=== PATIENT | female | born 1930 | race Caucasian/White ===

== ENCOUNTER 2016-08-27 13:32 | Emergency (ER) ==
[2016-08-27 13:43] VITALS: BP 115/80; TEMP 97.5; BMI 34.4
[2016-08-27] MEDS ORDERED: CLARITIN PO STA (13:54)
--- NOTE | 2016-08-27 14:01 | ED.PDOC ---
General ED Provider: Dr. CARLI HIGGINS JR Chief Complaint: Cough Stated Complaint: "I cough and cough and cough." phlegm white, yellow. Nasal congestion nasal drainage. Thick yellow nasal discharge. MD reports 3 bottles Robitussin DM [ End ]over a week 97.5 93 20 92% 115/80 8/10 Time Seen by Physician: 14:03 Mode of Arrival: Wheelchair Information Source: Patient Exam Limitations: No limitations Primary Care Provider: JASMIN MALLOY Nursing and Triage Documentation Reviewed and Agree: No Review of Systems - Review Of Systems Constitutional: Reports: Malaise, Weakness Eyes: Reports: Vision change Ears, Nose, Mouth, Throat: Reports: No symptoms Respiratory: Reports: Cough Cardiac: Reports: Edema GI: Reports: No symptoms : Reports: No symptoms Musculoskeletal: Reports: Back pain Skin: Reports: No symptoms Neurological: Reports: Weakness Endocrine: Reports: No symptoms Hematologic/Lymphatic: Reports: No symptoms All Other Systems: Other Past Medical History - Past Medical History Endocrine: Reports: DM 2, Hypothyroid, Dyslipidemia Cardiovascular: Reports: Hypertension, CHF, A-Fib Respiratory: Reports: COPD Hematological: Reports: Anemia Gastrointestinal: Reports: Unknown Genitourinary: Reports: UTI (chronic), CKD Neuro/Psych: Reports: Depression Musculoskeletal: Reports: Arthritis, Back Pain Cancer: Reports: Unknown Last Menstrual Period: unknown Other Pertinent Past Medical History: HIATAL HERNIA - Surgical History General Surgical History: Reports: Other (CORNEAL TRANSPLANT(L), RIGHT NEPHRECTOMY) - Family History Family History: Reports: Unknown - Social History Smoking Status: Never smoker Hx Substance Use: No Alcohol Screening: None Physical Exam - Physical Exam Appearance: Ill-appearing Ill-appearing: Mild Pain Distress: Mild Eyes: Left pupil size (cloudy cornea) Respiratory: Airway patent, Crackles (bilateral coarse) Skin: Warm, Dry Neurological: Sensation intact, Alert, Oriented Psychiatric: Affect appropriate Interpretation - Radiology Interpretation Radiology Interpretation By: Radiologist Radiology Results: No acute changes Exam Interpreted: CXR - EKG Interpretation Time of EKG #1: 14:09 Rhythm: Other (? paced at 78) Interpretation: poor capture of baseline afib -per Dr Malloy needs pacemaker clinic Critical Care Note - Critical Care Note Total Time (mins): 0 Course - Course Hematology/Chemistry: 08/27/16 14:10 08/27/16 14:10 Orders, Labs, Meds: Lab Review 08/27/16 08/27/16 13:53 14:10 WBC 7.85 RBC 4.26 Hgb 13.7 Hct 40.3 MCV 94.6 MCH 32.2 H MCHC 34.0 RDW Coeff of Elier 13.1 Plt Count 302 Immature Gran % (Auto) 0.8 Neut % (Auto) 60.9 Lymph % (Auto) 25.2 [place] % (Auto) 7.9 Eos % (Auto) 3.7 Baso % (Auto) 1.5 Immature Gran # (Auto) 0.1 Neut # 4.8 Lymph # 2.0 [place] # 0.6 Eos # 0.3 Baso # 0.1 Puncture Site Lbrach O2 Saturation 94.0 L ABG pH 7.425 ABG pCO2 38.8 ABG pO2 70.0 L ABG HCO3 25.4 ABG Total CO2 27 ABG Base Excess 1 FiO2 % 21.0 Sodium 140 Potassium 4.1 Chloride 104 Carbon Dioxide 25 Anion Gap 15.1 BUN 17 Creatinine 1.02 Estimated GFR (MDRD) 51.00 BUN/Creatinine Ratio 16.66 Glucose 130 H Lactic Acid 20.9 H Calcium 9.6 Total Bilirubin 0.42 AST 16 ALT 13 Alkaline Phosphatase 94 Troponin I < 0.0100 B-Natriuretic Peptide 169 H Total Protein 7.9 Albumin 3.7 Globulin 4.2 Albumin/Globulin Ratio 0.88 Procalcitonin < 0.05 Orders Category Date Time Status ABG DRAW REQUEST Stat CARDIO 08/27/16 13:53 Completed EKG-(ED ONLY) Stat CARDIO 08/27/16 13:53 Completed ED IV/MEDIPORT/POWERPORT .ONCE EMERGENCY 08/27/16 13:53 Active ABG Stat LAB 08/27/16 13:53 Completed B-TYPE NATRIURETIC PEPTIDE Stat LAB 08/27/16 14:10 Completed BLOOD CULTURE Stat LAB 08/27/16 14:10 Received CBC W/ AUTO DIFF Stat LAB 08/27/16 14:10 Completed COMPREHENSIVE METABOLIC PANEL Stat LAB 08/27/16 14:10 Completed LACTIC ACID Stat LAB 08/27/16 14:10 Completed PROCALCITONIN Stat LAB 08/27/16 14:10 Completed TROPONIN I Stat LAB 08/27/16 14:10 Completed 0.9 % Sodium Chloride [Saline Flush] MEDS 08/27/16 13:53 Active 1 syr IVF PRN PRN Hydrocodone/Chlorphen Polis [Tussionex] MEDS 08/27/16 14:34 Discontinued 5 ml PO ONCE STA Loratadine [Claritin] MEDS 08/27/16 13:54 Discontinued 10 mg PO ONCE STA Oxycodone-Acetaminophe 7.5-325 [Percocet 7.5-325] MEDS 08/27/16 16:24 Discontinued 1 tab PO ONCE STA CHEST, 1V AP ONLY Stat RADS 08/27/16 13:53 Completed Medications Generic Name Dose Route Start Last Admin Trade Name Freq PRN Reason Stop Dose Admin Sodium Chloride 1 syr 08/27/16 13:53 Saline Flush IVF PRN PRN To flush IV Discontinued Medications Generic Name Dose Route Start Last Admin Trade Name Freq PRN Reason Stop Dose Admin Chlorphenir/Hydrocodone Polistirex 5 ml 08/27/16 14:34 08/27/16 14:54 Tussionex PO 08/27/16 14:35 5 ml ONCE STA Administration Loratadine 10 mg 08/27/16 13:54 08/27/16 14:31 Claritin PO 08/27/16 13:55 10 mg ONCE STA Administration Oxycodone/Acetaminophen 1 tab 08/27/16 16:24 Percocet 7.5-325 PO 08/27/16 16:25 ONCE STA Vital Signs: Temp Pulse Resp BP Pulse Ox 08/27/16 13:33 97.5 F L 93 H 20 115/80 92 L Departure - Departure Time of Disposition: 16:26 Disposition: HOME SELF-CARE Discharge Problem: Cough Pacemaker malfunction Qualifiers: Encounter type: initial encounter Qualifier Code: (T82.111A) Breakdown ( mechanical) of cardiac pulse generator (battery), initial encounter Edema leg Qualifiers: Laterality: bilateral Qualifier Code: (R60.0) Localized edema Instructions: Heart Block (ED), Edema (ED) Condition: Fair Pt referred to PMD for follow-up: Yes Additional Instructions: will leave cough medication prescription with registration for 'Candy Augstin(daughter)' IN ER ELEVATE LEGS 2 HOURS THREE TIMES A DAY TO REDUCE SWELLING SOLUCORTEF 100MG IM DAILY FOR CONGESTION ROBITUSSIN AC FOR COUGH MAY TAKE COUGH MEDICATION WITH PAIN MEDICATION -HOLD IF DROWSY RECHECK PMD THIS WEEK NEED TO CALL PACEMAKER CLINIC- HAVE TECH COME AND EVALUATE MALFUNCTION (KIM AT [facility]) ([facility] [place]) WILL NEED TO BE SEEN BY DEVICE [facility]INIC [facility] Prescriptions: Guaifenesin/Codeine Phosphate [Robitussin AC Syrup] 10 ml PO Q6H PRN #240 ml PRN Reason: Cough Allergies/Adverse Reactions: Allergies Penicillins Adverse Reaction (Verified 08/27/16 13:43) Home Medications: Ambulatory Orders Carvedilol [Coreg] 6.25 mg PO BID 06/15/13 Digoxin 125 mcg PO DAILY 06/15/13 Docusate Sodium [Colace] 100 mg PO BID 06/15/13 Furosemide [Lasix Tab] 40 mg PO DAILY 06/15/13 Gabapentin [Neurontin] 100 mg PO BID 06/15/13 Nifedipine [Procardia Xl] 60 mg PO DAILY 06/15/13 Aspirin [Aspirin Chewable] 81 mg PO DAILYWM 10/08/14 Potassium Chloride [Klor-Con 10] 10 meq PO DAILY 10/08/14 Acyclovir [Zovirax] 400 mg PO BID 01/28/16 Duloxetine HCl 30 mg PO DAILY 01/28/16 Ferrous Sulfate 325 mg PO BID 01/28/16 Guaifen/Dextromethorphan/PE [Robitussin M-S Cold Cf Max Liq] 10 ml PO Q6HR PRN 01/28/16 Hydrocodone Bit/Acetaminophen [[place] 7.5-325] 1 each PO 0600,1200,1800,1159 Nystatin [Nystop Powder] 1 applic TP Q4HR PRN 01/28/16 Oxycodone-Acetaminophe 7.5-325 [Percocet 7.5-325] 1 tab PO BID PRN 01/28/16 Pantoprazole Sodium [Protonix] 40 mg PO DAILY 01/28/16 Ropinirole HCl [Requip] 0.5 mg PO BID 01/28/16 Sennosides [Senokot] 8.6 mg PO BID PRN 01/28/16 Ipratropium/Albuterol Neb [Duoneb] 1 vial NEB RTQ8H #30 vial.neb 01/31/16 Alprazolam [Xanax] 0.25 mg PO BID 08/27/16 Guaifenesin/Codeine Phosphate [Robitussin AC Syrup] 10 ml PO Q6H PRN #240 ml Lisinopril [Zestril] 5 mg PO DAILY 08/27/16 Magnesium Citrate [Citrate of Magnesia] 10 oz PO DIRECTED PRN 08/27/16
--- NOTE | 2016-08-27 14:12 | DI ---
EXAM: Single frontal view of the chest HISTORY: Chest pain. COMPARISON: Chest x-ray 01/31/2060 FINDINGS: The cardiomediastinal silhouette is mildly enlarged. The left chest wall generator and le ad wires are unchanged. There is a moderate hiatal hernia. There is no pneumothorax or pleural eff usion. There is no consolidation, nodule or mass. The osseous structures are unremarkable. IMPRESSION: No acute cardiopulmonary process with a moderate hiatal hernia.
[2016-08-27 14:22] LABS: ABG BASE EXCESS 1 (-2.0-2.0); ABG HCO3 25.4 (22.0-26.0); ABG PCO2 38.8 mmHg (35-45); ABG PH 7.425 (7.35-7.45); ABG TCO2 27 (22.0-28.0)
[2016-08-27 14:22] LABS: BASOPHILS # (AUTO) 0.1 K/uL (0-0.2); BASOPHILS % (AUTO) 1.5 % (0.0-3.0); EOSINOPHILS # (AUTO) 0.3 K/ul (0.0-0.7); EOSINOPHILS % (AUTO) 3.7 % (0.0-7.0); HEMATOCRIT 40.3 % (37.0-47.0); HEMOGLOBIN 13.7 g/dl (12.0-16.0); IMMATURE GRANULOCYTE % (AUTO) 0.8 % (0.0-5.0); LYMPHOCYTES % (AUTO) 25.2 (10.0-50.0); MEAN CORPUSCULAR HEMOGLOBIN 32.2 pg (27.0-31.0); MEAN CORPUSCULAR VOLUME 94.6 fl (81.0-99.0); MONOCYTES # (AUTO) 0.6 K/uL (0.4-2.0); MONOCYTES % (AUTO) 7.9 (0-10); NEUTROPHILS # (AUTO) 4.8 K/ul (2.0-6.9); NEUTROPHILS % (AUTO) 60.9; PLATELET COUNT 302 10^3/uL (140-440); RED BLOOD COUNT 4.26 10^6/ul (4.20-5.40); WHITE BLOOD COUNT 7.85 K/ul (4.6-10.2)
[2016-08-27] MEDS ORDERED: TUSSIONEX PO STA (14:34)
[2016-08-27 14:46] LABS: ALANINE AMINOTRANSFERASE 13 U/L (12-78); ALBUMIN 3.7 g/dL (3.4-5.0); ALBUMIN/GLOBULIN RATIO 0.88; ALKALINE PHOSPHATASE 94 U/L (53-141); ANION GAP 15.1; ASPARTATE AMINO TRANSFERASE 16 U/L (15-37); BILIRUBIN,TOTAL 0.42 mg/dL (0.00-1.20); BLOOD UREA NITROGEN 17 mg/dL (7-18); BUN/CREATININE RATIO 16.66; CALCIUM 9.6 mg/dL (8.2-10.2); CARBON DIOXIDE 25 mmol/L (23-31); CHLORIDE 104 mmol/L (98-107); CREATININE 1.02 mg/dL (0.60-1.30); GLUCOSE 130 mg/dL (82-115); POTASSIUM 4.1 mmol/L (3.5-5.10); SODIUM 140 mmol/L (136-145); TOTAL PROTEIN 7.9 g/dL (5.8-8.1)
[2016-08-27] MEDS ORDERED: PERCOCET 7.5-325 PO STA (16:24)
[2016-08-27] MEDS ORDERED: SOLU-CORTEF 100 MG IM STA (16:55)
== END 2016-08-27 17:30 | disposition home or self-care (01) ==
LOC: ED 13:32
DX: R05 Cough (principal); R60.0 Localized edema; T82.111A Breakdown (mechanical) of cardiac pulse generator (battery), initial encounter; M54.9 Dorsalgia, unspecified; E11.9 Type 2 diabetes mellitus without complications; E03.9 Hypothyroidism, unspecified; E78.5 Hyperlipidemia, unspecified; I10 Essential (primary) hypertension; I50.9 Heart failure, unspecified; D64.9 Anemia, unspecified; H53.9 Unspecified visual disturbance; I48.91 Unspecified atrial fibrillation; N18.9 Chronic kidney disease, unspecified; J44.9 Chronic obstructive pulmonary disease, unspecified; M19.90 Unspecified osteoarthritis, unspecified site; Z95.0 Presence of cardiac pacemaker; Z79.899 Other long term (current) drug therapy
CPT/HCPCS: 36415; 80053; 82803; 83605; 83880; 84145; 84484; 85025; 87040; 93005; 93010; 96372; 99283

== ENCOUNTER 2016-09-25 10:38 | Outpatient (CLI) ==
--- NOTE | 2016-09-26 10:33 | ECHOCOLOR ---
Date of Exam: 09/25/16 Ordering Physician: [facility] Reason for Echo: 09/25/16 ELMER WEAVER MD M-Mode Normal Adult Results LV Dimensions Normal Adult Results AoV Opening excursions >1.6 >1.6 LVEDD-base- 3.5-5.8 4.3 Ao root dimensions 2.0-3.7 3.3 LVESD-base- 3.1-4.6 L. Atrium dimensions 1.9-3.8 3.8 Post. Wall thickness 0.8-1.1 1.1 IV septum (thickness) 0.7-1.2 1.1 Post. Wall excursion 0.72-1.3 NORMAL Septal motion NORMAL Systolic motion R. Ventricular cavity 1.5-2.0 NORMAL LVEF 60% 68% Paradoxical septal wall motion NORMAL 2-D: 2-D M Mode Echocardiogram was performed using apical four chamber and left parasternal long and short axis views. Mitral, tricuspid and aortic valves appear to be normal. Contractility of the left ventricle seems to be normal, so is the cavity size. Left atrial cavity size and aortic root appear to be normal. There is no pericardial effusion. There is no thrombus noted in the left ventricular or left aortic cavity. No mitral valve prolapse noted. DOPPLER WITH COLOR FLOW: IVC COLLAPSES WELL, VALVULAR FLOW INDICES--NORMAL, MILD TRICUSPID REGURGITATION, MILD MITRAL REGURGITATION, TRIVIAL PULMONARY REGURGITATION M-MODE: MV: NORMAL AV: NORMAL TV: NORMAL PV: CHAMBER SIZE: NORMAL WALL MOTION: NORMAL PERICARDIUM: NORMAL INTERPRETATION: 1. NORMAL 2 "D" "M" MODE ECHO 2. MILD TRICUSPID AND MITRAL REGURGITATION AND TRIVIAL PULMONARY REGURGITATION MTDD
== END 2016-09-25 10:39 | disposition home or self-care (01) ==
LOC: CAR 10:38
PROVIDERS: ATTEND Family Medicine
DX: R01.1 Cardiac murmur, unspecified (principal); I50.20 Unspecified systolic (congestive) heart failure

== ENCOUNTER 2016-12-17 13:27 | Outpatient (CLI) ==
[2016-11-22 14:56] VITALS: BMI 36.6
[2016-12-17 14:12] LABS: BILIRUBIN,URINE 1+ (NEGATIVE); KETONES,URINE Trace (NEGATIVE); LEUKOCYTE ESTERASE ,URINE 3+ (NEGATIVE); NITRITE,URINE Positive (NEGATIVE); PH,URINE 5.5 (5-9); PROTEIN,URINE 2+ (NEGATIVE); URINE, BLOOD 2+ (NEGATIVE)
[2016-12-17 14:14] LABS: ADD URINE MICROSCOPIC YES
== END 2016-12-17 13:28 | disposition home or self-care (01) ==
LOC: NONPT 13:27
PROVIDERS: ATTEND Internal Medicine
DX: R30.0 Dysuria (principal)
CPT/HCPCS: 81001; 87086

== ENCOUNTER 2017-01-16 12:32 | Inpatient (IN) ==
[2017-01-16 12:59] LABS: BASOPHILS # (AUTO) 0.1 K/uL (0-0.2); BASOPHILS % (AUTO) 0.7 % (0.0-3.0); EOSINOPHILS # (AUTO) 0.4 K/ul (0.0-0.7); EOSINOPHILS % (AUTO) 3.3 % (0.0-7.0); HEMATOCRIT 38.9 % (37.0-47.0); IMMATURE GRANULOCYTE % (AUTO) 0.4 % (0.0-5.0); LYMPHOCYTES # (AUTO) 1.6 K/uL (0.60-3.4); LYMPHOCYTES % (AUTO) 14.1 (10.0-50.0); MEAN CORPUSCULAR HEMOGLOBIN 30.8 pg (27.0-31.0); MEAN CORPUSCULAR HGB CONC 33.4 (31.8-35.4); MEAN CORPUSCULAR VOLUME 92.2 fl (81.0-99.0); MONOCYTES % (AUTO) 8.6 (0-10); NEUTROPHILS # (AUTO) 8.1 K/ul (2.0-6.9); NEUTROPHILS % (AUTO) 72.9; PLATELET COUNT 272 10^3/uL (140-440); RED BLOOD COUNT 4.22 10^6/ul (4.20-5.40); WHITE BLOOD COUNT 11.08 K/ul (4.6-10.2)
[2017-01-16 13:28] LABS: ALBUMIN/GLOBULIN RATIO 0.75; ANION GAP 12.1; BILIRUBIN,TOTAL 0.47 mg/dL (0.00-1.20); BUN/CREATININE RATIO 20.98; CALCIUM 8.9 mg/dL (8.2-10.2); CREATININE 0.81 mg/dL (0.60-1.30); POTASSIUM 4.1 mmol/L (3.5-5.10)
--- NOTE | 2017-01-16 13:36 | ED.PDOC ---
General ED Provider: Dr. GUANACO LEVI Chief Complaint: Abdominal Pain Stated Complaint: abdominal pain Time Seen by Physician: 12:33 Mode of Arrival: Walk-In Information Source: Patient, Half-Way, EMT Exam Limitations: No limitations Primary Care Provider: GARETH JOHNSON Nursing and Triage Documentation Reviewed and Agree: Yes GI Complaint Exam - Vomiting/Diarrhea Complaint/Exam Onset/Duration: today has had a few episodes of loose stools Symptoms Are: Resolved Episodes of Vomiting over last 24 Hours: 0 Episodes of Diarrhea Over Last 24 Hours: 4 Initial Severity: Mild Current Severity: Mild Character of Vomiting: Reports: Non-bilious Character of Diarrhea: Reports: Watery Aggravating: Reports: None Alleviating: Reports: None Associated Signs and Symptoms: Denies: Dizziness, Light-headedness, Melena, Hematemesis, Fever, Abdominal pain, Cramping Related History: Reports: Similar episode Non-GI Risk Factors: Reports: None Surgical Obstruction Risk Factors: Reports: None Related Surgical History: Reports: None Abdominal Findings: Present: None Review of Systems - Review Of Systems Constitutional: Reports: No symptoms Eyes: Reports: No symptoms Ears, Nose, Mouth, Throat: Reports: No symptoms Respiratory: Reports: No symptoms Cardiac: Reports: No symptoms GI: Reports: Abdominal pain, Diarrhea : Reports: No symptoms Musculoskeletal: Reports: No symptoms Skin: Reports: No symptoms Neurological: Reports: No symptoms Endocrine: Reports: No symptoms Hematologic/Lymphatic: Reports: No symptoms All Other Systems: Reviewed and Negative Past Medical History - Past Medical History Previously Healthy: Yes Endocrine: Reports: DM 2, Hypothyroid, Dyslipidemia Cardiovascular: Reports: Hypertension, CHF, A-Fib Respiratory: Reports: COPD Hematological: Reports: Anemia Gastrointestinal: Reports: Unknown Genitourinary: Reports: UTI (chronic), CKD Neuro/Psych: Reports: Depression Musculoskeletal: Reports: Arthritis, Back Pain Cancer: Reports: Unknown Last Menstrual Period: N/A Other Pertinent Past Medical History: HIATAL HERNIA - Surgical History General Surgical History: Reports: Other (CORNEAL TRANSPLANT(L), RIGHT NEPHRECTOMY) - Family History Family History: Reports: Unknown - Social History Smoking Status: Never smoker Hx Substance Use: No Alcohol Screening: None - Immunizations Tetanus Shot up to Date: No Physical Exam - Physical Exam Appearance: Well-appearing, No pain distress, Well-nourished Eyes: GAL, EOMI, Conjunctiva clear ENT: Ears normal, Nose normal, Oropharynx normal Respiratory: Airway patent, Breath sounds clear, Breath sounds equal, Respirations nonlabored Cardiovascular: RRR, Pulses normal, No rub, No murmur GI/: Soft, Nontender, No masses, Bowel sounds normal, No Organomegaly Musculoskeletal: Normal strength, ROM intact, No edema, No calf tenderness Skin: Warm, Dry, Normal color Neurological: Sensation intact, Motor intact, Reflexes intact, Cranial nerves intact, Alert, Oriented Psychiatric: Affect appropriate, Mood appropriate Interpretation - Radiology Interpretation Radiology Interpretation By: Radiologist Radiology Results: No acute changes Critical Care Note - Critical Care Note Total Time (mins): 0 Course - Course Hematology/Chemistry: 01/16/17 12:57 01/16/17 12:57 Orders, Labs, Meds: Lab Review 01/16/17 01/16/17 12:57 12:57 WBC 11.08 H RBC 4.22 Hgb 13.0 Hct 38.9 MCV 92.2 MCH 30.8 MCHC 33.4 RDW Coeff of [place] 13.5 Plt Count 272 Immature Gran % (Auto) 0.4 Neut % (Auto) 72.9 Lymph % (Auto) 14.1 [place] % (Auto) 8.6 Eos % (Auto) 3.3 Baso % (Auto) 0.7 Immature Gran # (Auto) 0.0 Neut # 8.1 H Lymph # 1.6 [place] # 1.0 Eos # 0.4 Baso # 0.1 Sodium 139 Potassium 4.1 Chloride 108 H Carbon Dioxide 23 Anion Gap 12.1 BUN 17 Creatinine 0.81 Estimated GFR (MDRD) 67.00 BUN/Creatinine Ratio 20.98 Glucose 124 H Calcium 8.9 Total Bilirubin 0.47 AST 11 L ALT 12 Alkaline Phosphatase 83 Total Protein 7.0 Albumin 3.0 L Globulin 4.0 Albumin/Globulin Ratio 0.75 Orders Category Date Time Status C-DIFF MONITORING (NURSING) BID CARE 01/16/17 12:52 Active CBC W/ AUTO DIFF Stat LAB 01/16/17 12:57 Completed COMPREHENSIVE METABOLIC PANEL Stat LAB 01/16/17 12:57 Completed c-diff [C. DIFFICILE] Routine LAB 01/16/17 12:[address] ABDOMEN/PELVIS WO CONTRAST Stat RADS 01/16/17 12:50 Ordered Vital Signs: Temp Pulse Resp BP Pulse Ox 01/16/17 12:33 100.8 F H 100 H 20 106/78 93 L Departure - Departure Time of Disposition: 13:37 Disposition: HOME SELF-CARE Discharge Problem: Abdominal pain Diarrhea Qualifiers: Diarrhea type: unspecified type Qualified Code(s): R19.7 - Diarrhea, unspecified Instructions: Acute Diarrhea (ED) Condition: Good Pt referred to PMD for follow-up: Yes Additional Instructions: Please call your Family Physician as soon as possible to schedule a follow-up appointment. Allergies/Adverse Reactions: Allergies Penicillins Adverse Reaction (Verified 11/22/16 10:34) Home Medications: Ambulatory Orders Carvedilol [Coreg] 6.25 mg PO BID 06/15/13 Digoxin 125 mcg PO DAILY 06/15/13 Docusate Sodium [Colace] 100 mg PO BID 06/15/13 Furosemide [Lasix Tab] 40 mg PO DAILY 06/15/13 Gabapentin [Neurontin] 100 mg PO BID 06/15/13 Nifedipine [Procardia Xl] 60 mg PO DAILY 06/15/13 Aspirin [Aspirin Chewable] 81 mg PO DAILYWM 10/08/14 Potassium Chloride [Klor-Con 10] 10 meq PO DAILY 10/08/14 Acyclovir [Zovirax] 400 mg PO BID 01/28/16 Duloxetine HCl 30 mg PO DAILY 01/28/16 Ferrous Sulfate 325 mg PO BID 01/28/16 Guaifen/Dextromethorphan/PE [Robitussin M-S Cold Cf Max Liq] 10 ml PO Q4HR PRN 01/28/16 Hydrocodone Bit/Acetaminophen [[place] 7.5-325] 1 each PO Q6H 01/28/16 Nystatin [Nystop Powder] 1 applic TP Q4HR PRN 01/28/16 Pantoprazole Sodium [Protonix] 40 mg PO DAILY 01/28/16 Ropinirole HCl [Requip] 0.5 mg PO BID 01/28/16 Sennosides [Senokot] 8.6 mg PO BID PRN 01/28/16 Alprazolam [Xanax] 0.25 mg PO BID 08/27/16 Magnesium Citrate [Citrate of Magnesia] 10 oz PO PRN PRN 08/27/16 Acetaminophen [Acetaminophen Extra Strength] 500 mg PO Q12H PRN 11/22/16 Ipratropium/Albuterol Neb [Duoneb] 1 vial NEB RTQ8H PRN 11/22/16 Losartan Potassium [Cozaar] 50 mg PO DAILY 11/22/16 Shahriar/Polymyx B Sulf/Dexameth [Maxitrol Opth Oint] 1 applic LEFTEYE BID 11/22/16 Sennosides [Senna] 8.6 mg PO DAILY 11/22/16 Disposition Discussed With: Patient
--- NOTE | 2017-01-16 14:31 | CT ---
EXAM: CT of the abdomen pelvis without contrast History: Abdominal pain. Comparison: CT abdomen pelvis 11/22/2016 Technique: Multiplanar CT images through the abdomen pelvis were obtained without the administration of IV contrast Findings: Right basilar lung consolidation. No acute osseous abnormalities. Degenerative changes of the lumbar spine. Hiatal hernia again identified. Cholecystectomy clips. No focal liver or splenic lesions. Absent r ight kidney. Left kidney is within normal limits. No peripancreatic inflammation. There is some at rophy of the pancreas. Adrenal glands are unremarkable. There are a few borderline dilated loops of small bowel. There is fluid seen throughout the colon. Colonic diverticulosis. No free air. Blad edna is not well distended but there is no focal bladder wall thickening. Uterus is not seen. No per irectal inflammation. Impression: 1. Gastroenteritis. 2. The mildly dilated loops of small bowel are probably related to the enteritis or ileus. Early de veloping partial small bowel obstruction is not excluded but considered less likely. 3. Right lower lobe pneumonia. 4. Hiatal hernia. 5. Diverticulosis.
[2017-01-16] MEDS ORDERED: ROCEPHIN 1 GM in SODIUM CHLORIDE 50 ML IV STA (14:53)
[2017-01-16] MEDS ORDERED: DUONEB NEB PRN (14:54)
[2017-01-16] MEDS: SODIUM CHLORIDE 1,000 ML IV SCH (15:12)
[2017-01-16 15:49] LABS: CREATINE KINASE 26 U/L
[2017-01-16] MEDS: NORCO 7.5-325 PO SCH ×2 (15:50→20:43)
[2017-01-16] MEDS ORDERED: VANCOMYCIN 1 GM in SODIUM CHLORIDE 250 ML IV SCH ×2 (16:00→17:00)
[2017-01-16 16:10] VITALS: BMI 36.8
[2017-01-16] MEDS ORDERED: ROCEPHIN ONE (16:32)
[2017-01-16] MEDS: XANAX PO SCH (20:43)
[2017-01-16] MEDS: COREG PO SCH (20:43)
[2017-01-16] MEDS: NEURONTIN PO SCH (20:43)
[2017-01-16] MEDS: DUONEB NEB SCH (21:19)
[2017-01-17] MEDS: VANCOMYCIN 750 MG in SODIUM CHLORIDE 250 ML IV SCH ×3 (00:30→22:06)
[2017-01-17] MEDS: NORCO 7.5-325 PO SCH ×4 (02:12→22:20)
[2017-01-17] MEDS: DUONEB NEB SCH ×4 (05:16→19:24)
[2017-01-17 05:51] LABS: BASOPHILS # (AUTO) 0.1 K/uL (0-0.2); BASOPHILS % (AUTO) 0.8 % (0.0-3.0); EOSINOPHILS # (AUTO) 0.3 K/ul (0.0-0.7); EOSINOPHILS % (AUTO) 3.4 % (0.0-7.0); HEMATOCRIT 36.9 % (37.0-47.0); HEMOGLOBIN 12.3 g/dl (12.0-16.0); IMMATURE GRANULOCYTE % (AUTO) 0.2 % (0.0-5.0); LYMPHOCYTES % (AUTO) 23.9 (10.0-50.0); MEAN CORPUSCULAR HEMOGLOBIN 30.9 pg (27.0-31.0); MEAN CORPUSCULAR HGB CONC 33.3 (31.8-35.4); MEAN CORPUSCULAR VOLUME 92.7 fl (81.0-99.0); MONOCYTES # (AUTO) 0.7 K/uL (0.4-2.0); MONOCYTES % (AUTO) 7.8 (0-10); NEUTROPHILS # (AUTO) 5.4 K/ul (2.0-6.9); NEUTROPHILS % (AUTO) 63.9; PLATELET COUNT 288 10^3/uL (140-440); RED BLOOD COUNT 3.98 10^6/ul (4.20-5.40)
[2017-01-17] MEDS: PHENERGAN WITH CODEINE 6.25/10 MG/5 ML PO PRN ×2 (06:01→18:20)
[2017-01-17] MEDS: LASIX TAB PO SCH (06:01)
[2017-01-17 06:12] LABS: ALBUMIN 2.9 g/dL (3.4-5.0); ALBUMIN/GLOBULIN RATIO 0.78; ANION GAP 11.6; BILIRUBIN,TOTAL 0.39 mg/dL (0.00-1.20); BUN/CREATININE RATIO 19.17; CALCIUM 8.6 mg/dL (8.2-10.2); CREATININE 0.73 mg/dL (0.60-1.30); POTASSIUM 3.6 mmol/L (3.5-5.10); TOTAL PROTEIN 6.6 g/dL (5.8-8.1)
[2017-01-17 06:32] LABS: TROPONIN I 0.032 ng/ml (0.0000-0.4000)
[2017-01-17] MEDS ORDERED: NON-FORMULARY MEDICATION (Potassium Chloride [Klor-Con 10] 10 MEQ) PO SCH ×22 (09:00)
[2017-01-17] MEDS ORDERED: NON-FORMULARY MEDICATION (Losartan Potassium 50 MG) PO SCH (09:00)
[2017-01-17] MEDS ORDERED: NIFEDIPINE 60 MG PO SCH (09:00)
[2017-01-17] MEDS: ROCEPHIN 1 GM in SODIUM CHLORIDE 50 ML IV SCH (09:39)
[2017-01-17] MEDS: TESSALON PERLES PO SCH ×3 (09:39→22:05)
[2017-01-17] MEDS: XANAX PO SCH ×2 (09:39→22:20)
[2017-01-17] MEDS: LANOXIN PO SCH (09:40)
[2017-01-17] MEDS: ASPIRIN CHEWABLE PO SCH (09:40)
[2017-01-17] MEDS: PROCARDIA XL PO SCH (09:40)
[2017-01-17] MEDS: COZAAR PO SCH (09:40)
[2017-01-17] MEDS: NEURONTIN PO SCH ×2 (09:40→22:05)
[2017-01-17] MEDS: COREG PO SCH ×3 (09:40→16:38)
[2017-01-17] MEDS: MICRO-K CAP PO SCH (09:40)
[2017-01-17] MEDS: SODIUM CHLORIDE 1,000 ML IV SCH ×3 (09:41→18:20)
--- NOTE | 2017-01-17 11:28 | PCM.PROG ---
Attending Provider: ATTENDING PROVIDER: Dr. GARETH [facility]NS[facility] DATE OF SERVICE: 01/17/17 SUBJECTIVE: This 86 year old WHITE/ F was hospitalized 01/16/17. She is admitted with right lower lobe pneumonia, health care facility acquired. She hasn't had any more diarrhea. She is feeling much better, cough medications are helping. No fever, no chills. REVIEW OF SYSTEMS: CONSTITUTIONAL: No fever, no chills. ENDOCRINE: No weight loss or weight gain. HEENT: No sinus drainage, no sore throat. CVS: No angina symptoms. No CHF symptoms. No palpitations. No atypical chest pain for CAD. No shortness of breath. RESPIRATORY: No cough, no hemoptysis. GI: No melena. No abdominal pain. No nausea, no vomiting. : No hematuria. No polyuria. SKIN: No rash. No wounds. MUSCULOSKELETAL: No pain. MEDICAL ASSEMBLY: No blackout, no dizziness. No headache. No double vision. PSYCHIATRIC: Not anxious; no depression. No suicidal thoughts. No homicidal thoughts. PHYSICAL EXAMINATION: GENERAL: Sitting in bed in no distress. VITAL SIGNS: Temperature 98 F, Pulse 89, Respiratory Rate 14, BP 122/82, Pulse Ox 97% HEENT: Normocephalic, atraumatic. Mucosa is dry, pallor positive. NECK: No JVP, no carotid bruit. No lymphadenopathy. CARDIAC: S1, S2, no S3. No murmur, gallop or regurgitation. LUNGS: Decreased entry with basilar crackles right more than left. ABDOMEN: Soft, non-tender. Bowel sounds active. No rigidity, guarding or CVA tenderness. EXTREMITIES: 1+ edema. No clubbing or cyanosis. NEUROLOGIC: Awake, alert and oriented x3. LYMPHATIC: No palpable lymph nodes SKIN: Not dry. Intact. MUSCULOSKELETAL: No joint swelling. LAB REVIEW: 01/17/17 05:30 01/17/17 05:30 01/17/17 05:30: Sodium 141, Potassium 3.6, Chloride 109 H, Carbon Dioxide 24, Anion Gap 11.6, BUN 14, Creatinine 0.73, Estimated GFR (MDRD) 76.00, BUN/ Creatinine Ratio 19.17, Glucose 114, Calcium 8.6, Total Bilirubin 0.39, AST 12 L , ALT 10 L, Alkaline Phosphatase 77, Total Protein 6.6, Albumin 2.9 L, Globulin 3.7, Albumin/Globulin Ratio 0.78 01/17/17 05:30: WBC 8.50, RBC 3.98 L, Hgb 12.3, Hct 36.9 L, MCV 92.7, MCH 30.9, MCHC 33.3, RDW Coeff of [place] 13.4, Plt Count 288, Immature Gran % (Auto) 0.2, Neut % (Auto) 63.9, Lymph % (Auto) 23.9, [place] % (Auto) 7.8, Eos % (Auto) 3.4, Baso % (Auto) 0.8, Immature Gran # (Auto) 0.0, Neut # 5.4, Lymph # 2.0, [place] # 0.7, Eos # 0.3, Baso # 0.1 01/17/17 05:30: Total Creatine Kinase 29, Troponin I 0.0320 01/16/17 15:17: Procalcitonin 0.10 01/16/17 15:17: Lactic Acid 13.0 01/16/17 15:17: Total Creatine Kinase 26, Troponin I < 0.0100 ASSESSMENT: 1. Left eye blindness 2. Health care facility pneumonia [facility] care facility pneumonia right lower lobe 3. C. diff 4. Diabetes mellitus 5. Dyslipidemia 6. Depression 7. DJD spine 8. Chronic pain syndrome PLAN: 1. Continue Vancomycin and Rocephin 2. Duonebs 3. Continue IV fluids, decrease to 40 mL/hr 4. C. diff pending Plan and coordination of the patient's care discussed in the presence of Ornamental Bronze Worker and nurse. CONDITION: SCRIBED BY: LISS ROMO, [employer] Sales Representative scribed while in presence of service performed by Dr. GARETH JOHNSON-[facility] on 01/17/17 ([id number])
[2017-01-18] MEDS: NORCO 7.5-325 PO SCH ×5 (00:50→21:01)
[2017-01-18] MEDS: DUONEB NEB SCH ×4 (05:13→19:55)
[2017-01-18 05:36] LABS: BASOPHILS # (AUTO) 0.1 K/uL (0-0.2); BASOPHILS % (AUTO) 1.1 % (0.0-3.0); EOSINOPHILS # (AUTO) 0.3 K/ul (0.0-0.7); EOSINOPHILS % (AUTO) 4.1 % (0.0-7.0); HEMATOCRIT 39.2 % (37.0-47.0); HEMOGLOBIN 12.8 g/dl (12.0-16.0); LYMPHOCYTES # (AUTO) 2.3 K/uL (0.60-3.4); LYMPHOCYTES % (AUTO) 27.8 (10.0-50.0); MEAN CORPUSCULAR HEMOGLOBIN 30.1 pg (27.0-31.0); MEAN CORPUSCULAR HGB CONC 32.7 (31.8-35.4); MEAN CORPUSCULAR VOLUME 92.2 fl (81.0-99.0); MONOCYTES # (AUTO) 0.6 K/uL (0.4-2.0); MONOCYTES % (AUTO) 7.3 (0-10); NEUTROPHILS # (AUTO) 4.8 K/ul (2.0-6.9); NEUTROPHILS % (AUTO) 58.7; PLATELET COUNT 291 10^3/uL (140-440); RED BLOOD COUNT 4.25 10^6/ul (4.20-5.40); WHITE BLOOD COUNT 8.09 K/ul (4.6-10.2)
[2017-01-18 05:50] LABS: ALBUMIN/GLOBULIN RATIO 0.86; ANION GAP 12.9; BILIRUBIN,TOTAL 0.33 mg/dL (0.00-1.20); BUN/CREATININE RATIO 15.38; CALCIUM 9.2 mg/dL (8.2-10.2); CREATININE 0.78 mg/dL (0.60-1.30); POTASSIUM 3.9 mmol/L (3.5-5.10); TOTAL PROTEIN 6.5 g/dL (5.8-8.1)
[2017-01-18] MEDS: LASIX TAB PO SCH (05:53)
[2017-01-18] MEDS: XANAX PO SCH ×2 (08:46→21:01)
[2017-01-18] MEDS: TESSALON PERLES PO SCH ×3 (08:46→21:01)
[2017-01-18] MEDS: PROCARDIA XL PO SCH (08:46)
[2017-01-18] MEDS: ROCEPHIN 1 GM in SODIUM CHLORIDE 50 ML IV SCH (08:46)
[2017-01-18] MEDS: COREG PO SCH ×2 (08:46→16:34)
[2017-01-18] MEDS: ASPIRIN CHEWABLE PO SCH (08:46)
[2017-01-18] MEDS: NEURONTIN PO SCH ×2 (08:46→21:01)
[2017-01-18] MEDS: COZAAR PO SCH (08:47)
[2017-01-18] MEDS: LANOXIN PO SCH (08:47)
[2017-01-18] MEDS: MICRO-K CAP PO SCH (08:48)
[2017-01-18] MEDS: VANCOMYCIN 750 MG in SODIUM CHLORIDE 250 ML IV SCH (09:58)
[2017-01-18] MEDS: VANCOMYCIN 500 MG in SODIUM CHLORIDE 100 ML IV SCH (21:01)
[2017-01-19] MEDS: NORCO 7.5-325 PO SCH ×4 (02:15→20:03)
[2017-01-19] MEDS: PHENERGAN WITH CODEINE 6.25/10 MG/5 ML PO PRN ×2 (02:15→20:07)
[2017-01-19] MEDS: SODIUM CHLORIDE 1,000 ML IV SCH (02:47)
[2017-01-19] MEDS: DUONEB NEB SCH ×4 (05:12→19:01)
[2017-01-19 05:23] LABS: BASOPHILS # (AUTO) 0.1 K/uL (0-0.2); BASOPHILS % (AUTO) 1.5 % (0.0-3.0); EOSINOPHILS # (AUTO) 0.3 K/ul (0.0-0.7); EOSINOPHILS % (AUTO) 3.6 % (0.0-7.0); HEMATOCRIT 43.1 % (37.0-47.0); HEMOGLOBIN 13.9 g/dl (12.0-16.0); IMMATURE GRANULOCYTE % (AUTO) 1.7 % (0.0-5.0); LYMPHOCYTES # (AUTO) 2.3 K/uL (0.60-3.4); LYMPHOCYTES % (AUTO) 25.7 (10.0-50.0); MEAN CORPUSCULAR HEMOGLOBIN 30.3 pg (27.0-31.0); MEAN CORPUSCULAR HGB CONC 32.3 (31.8-35.4); MEAN CORPUSCULAR VOLUME 94.1 fl (81.0-99.0); MONOCYTES # (AUTO) 0.6 K/uL (0.4-2.0); MONOCYTES % (AUTO) 7.1 (0-10); NEUTROPHILS # (AUTO) 5.4 K/ul (2.0-6.9); NEUTROPHILS % (AUTO) 60.4; PLATELET COUNT 179 10^3/uL (140-440); RED BLOOD COUNT 4.58 10^6/ul (4.20-5.40); WHITE BLOOD COUNT 8.87 K/ul (4.6-10.2)
[2017-01-19 05:36] LABS: ALBUMIN 3.1 g/dL (3.4-5.0); ALBUMIN/GLOBULIN RATIO 0.78; ANION GAP 10.8; BILIRUBIN,TOTAL 0.27 mg/dL (0.00-1.20); BUN/CREATININE RATIO 18.18; CALCIUM 9.9 mg/dL (8.2-10.2); CREATININE 0.77 mg/dL (0.60-1.30); POTASSIUM 3.8 mmol/L (3.5-5.10); TOTAL PROTEIN 7.1 g/dL (5.8-8.1)
[2017-01-19] MEDS: LASIX TAB PO SCH (06:22)
[2017-01-19] MEDS: TESSALON PERLES PO SCH ×3 (08:25→20:03)
[2017-01-19] MEDS: PROCARDIA XL PO SCH (08:25)
[2017-01-19] MEDS: LANOXIN PO SCH (08:25)
[2017-01-19] MEDS: MICRO-K CAP PO SCH (08:25)
[2017-01-19] MEDS: COZAAR PO SCH (08:25)
[2017-01-19] MEDS: NEURONTIN PO SCH ×2 (08:25→20:03)
[2017-01-19] MEDS: COREG PO SCH ×2 (08:25→16:34)
[2017-01-19] MEDS: XANAX PO SCH ×2 (08:26→20:03)
[2017-01-19] MEDS: ASPIRIN CHEWABLE PO SCH (08:26)
[2017-01-19] MEDS: VANCOMYCIN 500 MG in SODIUM CHLORIDE 100 ML IV SCH ×2 (08:43→20:04)
[2017-01-19] MEDS: ROCEPHIN 1 GM in SODIUM CHLORIDE 50 ML IV SCH (09:51)
[2017-01-19] MEDS ORDERED: MORPHINE 2 MG/ML SYRINGE IVP PRN (18:52)
[2017-01-20] MEDS: NORCO 7.5-325 PO SCH ×4 (02:43→22:07)
[2017-01-20 04:40] LABS: BASOPHILS # (AUTO) 0.1 K/uL (0-0.2); BASOPHILS % (AUTO) 1.5 % (0.0-3.0); EOSINOPHILS # (AUTO) 0.3 K/ul (0.0-0.7); EOSINOPHILS % (AUTO) 3.6 % (0.0-7.0); HEMATOCRIT 40.9 % (37.0-47.0); HEMOGLOBIN 13.4 g/dl (12.0-16.0); LYMPHOCYTES # (AUTO) 2.4 K/uL (0.60-3.4); LYMPHOCYTES % (AUTO) 27.1 (10.0-50.0); MEAN CORPUSCULAR HEMOGLOBIN 30.2 pg (27.0-31.0); MEAN CORPUSCULAR HGB CONC 32.8 (31.8-35.4); MEAN CORPUSCULAR VOLUME 92.1 fl (81.0-99.0); MONOCYTES # (AUTO) 0.6 K/uL (0.4-2.0); MONOCYTES % (AUTO) 6.7 (0-10); NEUTROPHILS # (AUTO) 5.2 K/ul (2.0-6.9); NEUTROPHILS % (AUTO) 59.1; PLATELET COUNT 297 10^3/uL (140-440); RED BLOOD COUNT 4.44 10^6/ul (4.20-5.40); WHITE BLOOD COUNT 8.79 K/ul (4.6-10.2)
[2017-01-20 05:02] LABS: ALBUMIN 3.2 g/dL (3.4-5.0); ALBUMIN/GLOBULIN RATIO 0.82; BILIRUBIN,TOTAL 0.24 mg/dL (0.00-1.20); BUN/CREATININE RATIO 19.23; CALCIUM 9.9 mg/dL (8.2-10.2); CREATININE 0.78 mg/dL (0.60-1.30); TOTAL PROTEIN 7.1 g/dL (5.8-8.1)
[2017-01-20] MEDS: DUONEB NEB SCH ×4 (05:23→20:12)
[2017-01-20] MEDS: LASIX TAB PO SCH (06:16)
[2017-01-20] MEDS: SODIUM CHLORIDE 1,000 ML IV SCH (06:18)
[2017-01-20] MEDS: ROCEPHIN 1 GM in SODIUM CHLORIDE 50 ML IV SCH (08:06)
[2017-01-20] MEDS: ASPIRIN CHEWABLE PO SCH (08:06)
[2017-01-20] MEDS: PROCARDIA XL PO SCH (08:06)
[2017-01-20] MEDS: LANOXIN PO SCH (08:07)
[2017-01-20] MEDS: COREG PO SCH ×2 (08:07→17:18)
[2017-01-20] MEDS: MICRO-K CAP PO SCH (08:08)
[2017-01-20] MEDS: COZAAR PO SCH (08:08)
[2017-01-20] MEDS: TESSALON PERLES PO SCH ×3 (08:08→22:07)
[2017-01-20] MEDS: NEURONTIN PO SCH ×2 (08:08→22:07)
[2017-01-20] MEDS: XANAX PO SCH ×2 (08:09→22:07)
[2017-01-20] MEDS ORDERED: LASIX IVP STA (08:15)
[2017-01-20] MEDS: VANCOMYCIN 500 MG in SODIUM CHLORIDE 100 ML IV SCH ×2 (09:44→22:07)
[2017-01-20] MEDS: MUCINEX PO SCH ×2 (09:44→22:08)
--- NOTE | 2017-01-20 11:35 | DI ---
EXAM: Single view of the chest. History: Chest congestion. Comparison: Chest radiograph 11/26/2016 Findings: Heart is mildly enlarged. Pacer device again seen in place. Hiatal hernia again noted. N o definite acute infiltrates. No appreciable pleural fluid and no pneumothorax. No acute osseous ab normalities. Impression: 1. No definite acute infiltrates. 2. Hiatal hernia.
--- NOTE | 2017-01-20 14:29 | HP ---
DATE OF SERVICE: 01/16/17 CHIEF COMPLAINT: Fever, cough and congestion. HISTORY OF PRESENT ILLNESS: This is an 86 year old female who has been treated for the upper respiratory infection for one week. The patient is still not better; coughing and congested getting yellow/green phlegm. The patient lives at the Shelter partially dependant upon the ADL'S. At that time the patient was sent to the hospital for the evaluation. The patient was seen by Dr. Lopez in the Emergency Room. WBC was slightly elevated at 11,000, Digoxin level was negative. CT of abdomen and pelvis showed the right sided pneumonia and the patient also has some diarrhea, water. The CT showed the enteritis. At that time the patient is admitted to the hospital for the IV antibiotics, breathing treatments and IV hydration. REVIEW OF SYSTEMS: CONSTITUTIONAL: Fever, no chills. Weakness and tiredness. HEENT: Normal. ENDOCRINE: No weight gain; no weight loss. CVS: No chest pain. No PND, no orthopnea. Shortness of breath. No PND, no orthopnea. RESPIRATORY: Cough and congestion. No hemoptysis. GI: No nausea, no vomiting. Abdominal pain. No melena. Diarrhea. : No hematuria. No polyuria. MUSCULOSKELETAL: No joint swelling. PSYCHIATRIC: Not anxious. No depression. No suicidal thoughts. No homicidal thoughts. SKIN: Intact, no open lesions. 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 Partially dependant upon the ADL's. Family history is significant for the stomach cancer and heart problems MEDICATIONS: Colace Neurontin Coreg Digoxin Procardia Lasix Potassium Aspirin Norvasc [place] Duloxetine Protonix Senokot Requip Robitussin Nystop Zovirax Xanax Magnesium Citrate Senna DUO NEBS ALLERGIES: Penicillin PHYSICAL EXAMINATION: GENERAL:Sick looking lady lying in the bed. V/S: Temperature 100.8, blood pressure 106/78, respiratory rate 20, heart rate 100 and saturation is 93% on room air. HEENT: Atraumatic, normocephalic. No scleral icterus. Pallor positive. Mucosa dry. NECK: Supple. No JVD, no bruit. No lymphadenopathy. No thyromegaly. HEART: S1, S2 normal. No murmur. No cyanosis or clubbing. No ascites. LUNGS: Decreased and basilar crackles right more than the left. No rales or rhonchi. ABDOMEN: Soft, discomfort all over. Bowel sounds are hyperactive. No CVA tenderness. No rigidity or guarding. EXTREMITIES: No cyanosis, clubbing. 1+ pedal edema. MUSCULOSKELETAL: Normal joints, no swelling. NEUROLOGIC: The patient is awake and alert and oriented times 3. SKIN: Intact; no open lesions. Dry. LYMPHATIC: No lymph nodes palpable. LABS: WBC 11.08, hgb 13.0, hct 38.9, plt count 272, sodium 139, potassium 4.1, chloride 108, bicarb 23, BUN 17, creatinine 0.81 and glucose 124. ASSESSMENT: 1. Healthcare facility acquired pneumonia, right lower lobe 2. Gastroenteritis 3. Diabetes 4. Hypertension 5. Dyslipidemia 6. Coronary artery disease 7. Atrial fibrillation 8. Chronic pain syndrome 9. Depression 10.Anxiety PLAN: 1. Admit patient to the regular floor 2. CBC and CMP today and daily 3. Cardiac enzymes and Troponin 4. Rocephin 1 gram daily 5. Vancomycin 1 gram daily 6. DUO NEBS 7. Daily I&O 8. IV fluids 9. Fall precautions Will follow the patient in daily rounds. TIME SPENT: MORE THAN 65 minutes MTDD
[2017-01-21] MEDS: NORCO 7.5-325 PO SCH ×2 (03:03→10:16)
[2017-01-21 05:02] LABS: BASOPHILS # (AUTO) 0.1 K/uL (0-0.2); BASOPHILS % (AUTO) 1.5 % (0.0-3.0); EOSINOPHILS # (AUTO) 0.3 K/ul (0.0-0.7); HEMATOCRIT 39.6 % (37.0-47.0); LYMPHOCYTES # (AUTO) 2.8 K/uL (0.60-3.4); MEAN CORPUSCULAR HEMOGLOBIN 30.2 pg (27.0-31.0); MEAN CORPUSCULAR HGB CONC 32.8 (31.8-35.4); MEAN CORPUSCULAR VOLUME 91.9 fl (81.0-99.0); MONOCYTES # (AUTO) 0.6 K/uL (0.4-2.0); NEUTROPHILS # (AUTO) 5.6 K/ul (2.0-6.9); NEUTROPHILS % (AUTO) 58.5; PLATELET COUNT 293 10^3/uL (140-440); RED BLOOD COUNT 4.31 10^6/ul (4.20-5.40); WHITE BLOOD COUNT 9.57 K/ul (4.6-10.2)
[2017-01-21] MEDS: DUONEB NEB SCH ×2 (05:04→10:13)
[2017-01-21 05:22] VITALS: BP 118/79; TEMP 97
[2017-01-21 05:31] LABS: ALBUMIN 3.1 g/dL (3.4-5.0); ALBUMIN/GLOBULIN RATIO 0.82; ANION GAP 13.8; BILIRUBIN,TOTAL 0.29 mg/dL (0.00-1.20); BUN/CREATININE RATIO 25.97; CALCIUM 10.3 mg/dL (8.2-10.2); CREATININE 0.77 mg/dL (0.60-1.30); POTASSIUM 3.8 mmol/L (3.5-5.10); TOTAL PROTEIN 6.9 g/dL (5.8-8.1)
[2017-01-21] MEDS: LASIX TAB PO SCH (05:53)
[2017-01-21] MEDS: ASPIRIN CHEWABLE PO SCH (10:12)
[2017-01-21] MEDS: COZAAR PO SCH (10:13)
[2017-01-21] MEDS: LANOXIN PO SCH (10:13)
[2017-01-21] MEDS: COREG PO SCH (10:13)
[2017-01-21] MEDS: MICRO-K CAP PO SCH (10:15)
[2017-01-21] MEDS: MUCINEX PO SCH (10:16)
[2017-01-21] MEDS: NEURONTIN PO SCH (10:16)
[2017-01-21] MEDS: PROCARDIA XL PO SCH (10:17)
[2017-01-21] MEDS: TESSALON PERLES PO SCH (10:18)
[2017-01-21] MEDS: ROCEPHIN 1 GM in SODIUM CHLORIDE 50 ML IV SCH (10:18)
[2017-01-21] MEDS: XANAX PO SCH (10:19)
--- NOTE | 2017-01-24 14:08 | PN ---
DATE OF SERVICE: 01/18/17 SUBJECTIVE: The patient was admitted with Healthcare facility acquired pneumonia. She has been getting antibiotics. She is still coughing with congestion. No fever or chills. She is hurting all over. REVIEW OF SYSTEMS: CONSTITUTIONAL: No fever, no chills. HEENT: Normal. ENDOCRINE: No weight gain, no weight loss. CVS: No angina symptoms. No CHF symptoms. No palpitations. No atypical chest pain for CAD. No shortness of breath. No PND, no orthopnea. RESPIRATORY: Cough and congestion, no hemoptysis. GI: No nausea, no vomiting. No abdominal pain. : No hematuria. No polyuria. MUSCULOSKELETAL:. No joint swelling. PSYCHIATRIC: Not anxious. No depression. No suicidal thoughts. No homicidal thoughts. SKIN: Intact. No rash. PHYSICAL EXAMINATION: V/S: Blood pressure 108/64, respiratory rate 20, heart rate 61, temperature 98.4 , saturation 90 on 2 liters. HEENT: Normocephalic, atraumatic. Mucosa dry. NECK: Supple. No JVD, no carotid bruit. No lymphadenopathy. LUNGS: Decreased and basilar crackles. No rales or rhonchi. HEART: S1, S2 normal. No S3. No murmur, gallop or regurgitation. ABDOMEN: Soft, nontender. Bowel sounds active. No rigidity. No rebound or guarding. No CVA tenderness. EXTREMITIES: No clubbing, cyanosis or pedal edema. MUSCULOSKELETAL: No joint swelling. NEUROLOGIC: Awake, alert, oriented times three. No focal deficit. LYMPHATIC: No lymph nodes palpable. SKIN: Intact. LABS: White count 8.09, hemoglobin 12.8, hematocrit 39.2, platelet count 291, sodium 142, potassium 3.9, chloride 109, bicarb 24, BUN 12, creatinine 0.78. ASSESSMENT: 1. HEALTHCARE FACILITY ACQUIRED PNEUMONIA 2. DIARRHEA, RULE OUT C-DIFF 3. DIABETES MELLITUS 4. DEPRESSION 5. DJD OF THE SPINE 6. CHRONIC PAIN SYNDROME 7. HISTORY OF LEFT EYE BLINDNESS PLAN: 1. Continue Vancomycin, Rocephin and DuoNebs. 2. IV fluids. 3. Test for C-diff. 4. The patient is on contact precaution as C-Diff results are still pending. TIME SPENT: More than 35 minutes today. [facility]
--- NOTE | 2017-01-24 14:17 | PN ---
DATE OF SERVICE: 01/19/17 SUBJECTIVE: The patient was admitted with pneumonia. Coughing was interfering with her sleep. Codeine is helping some. Otherwise, no fever or chills. Complaining of hurting all over the body. REVIEW OF SYSTEMS: CONSTITUTIONAL: No fever, no chills. HEENT: Normal. ENDOCRINE: No weight gain, no weight loss. CVS: No angina symptoms. No CHF symptoms. No palpitations. No atypical chest pain for CAD. No shortness of breath. No PND, no orthopnea. RESPIRATORY: Cough, no hemoptysis. GI: No nausea, no vomiting. No abdominal pain. : No hematuria. No polyuria. MUSCULOSKELETAL:. No joint swelling. PSYCHIATRIC: Not anxious. No depression. No suicidal thoughts. No homicidal thoughts. SKIN: Intact. No rash. PHYSICAL EXAMINATION: V/S: Blood pressure 128/76, respiratory rate 20, heart rate 76, temperature 97.3. HEENT: Normocephalic, atraumatic. Mucosa dry. NECK: Supple. No JVD, no carotid bruit. No lymphadenopathy. LUNGS: Decreased and basilar crackles. No rales or rhonchi. HEART: S1, S2 normal. No S3. No murmur, gallop or regurgitation. ABDOMEN: Soft, nontender. Bowel sounds active. No rigidity. No rebound or guarding. No CVA tenderness. EXTREMITIES: No clubbing, cyanosis or pedal edema. MUSCULOSKELETAL: No joint swelling. NEUROLOGIC: Awake, alert, oriented times three. No focal deficit. LYMPHATIC: No lymph nodes palpable. SKIN: Intact. LABS: Sodium 142, potassium 3.8, chloride 107, bicarb 28, BUN 14, creatinine 0.77. White count is 8.87, hemoglobin 13.9, hematocrit 43.0, platelet count 179. ASSESSMENT: 1. HEALTHCARE FACILITY ACQUIRED PNEUMONIA 2. OSTEOARTHRITIS 3. DJD OF THE SPINE 4. DIABETES MELLITUS 5. DYSLIPIDEMIA 6. CORONARY ARTERY DISEASE 7. HISTORY OF CORNEA TRANSPLANT 8. ATRIAL FIBRILLATION 9. PERMANENT PACEMAKER 10. HYSTERECTOMY PLAN: 1. Morphine 2 mg every 6 hours prn. 2. Continue the Vancomycin and Rocephin and DuoNebs. 3. IV fluids at 40 ml per hour. TIME SPENT: More than 35 minutes today. MTDD
--- NOTE | 2017-01-24 14:30 | PN ---
DATE OF SERVICE: 01/20/17 SUBJECTIVE: The patient was able to rest good, as the patient was getting the Morphine. Coughing is improved. REVIEW OF SYSTEMS: CONSTITUTIONAL: No fever, no chills. HEENT: Normal. ENDOCRINE: No weight gain, no weight loss. CVS: No angina symptoms. No CHF symptoms. No palpitations. No atypical chest pain for CAD. No shortness of breath. No PND, no orthopnea. RESPIRATORY: Cough, no hemoptysis. GI: No nausea, no vomiting. No abdominal pain. : No hematuria. No polyuria. MUSCULOSKELETAL:. No joint swelling. PSYCHIATRIC: Not anxious. No depression. No suicidal thoughts. No homicidal thoughts. SKIN: Intact. No rash. PHYSICAL EXAMINATION: V/S: Blood pressure 130/82, respiratory rate 14, heart rate is 90, temperature 97.0, saturation is 99. HEENT: Normocephalic, atraumatic. Mucosa Dry. NECK: Supple. No JVD, no carotid bruit. No lymphadenopathy. LUNGS: Decreased and basilar crackles. No rales or rhonchi. HEART: S1, S2 normal. No S3. No murmur, gallop or regurgitation. ABDOMEN: Soft, nontender. Bowel sounds active. No rigidity. No rebound or guarding. No CVA tenderness. EXTREMITIES: No clubbing, cyanosis or pedal edema. MUSCULOSKELETAL: No joint swelling. NEUROLOGIC: Awake, alert, oriented times three. No focal deficit. LYMPHATIC: No lymph nodes palpable. SKIN: Intact. LABS: White count 8.79, hemoglobin 13.4, hematocrit 40.9, platelet count 292, sodium 144, potassium 4.0, chloride 107, bicarb 27, BUN 15, creatinine 0.78, glucose 117. ASSESSMENT: 1. BILATERAL HEALTHCARE FACILITY ACQUIRED PNEUMONIA 2. DIABETES MELLITUS 3. HYPERTENSION 4. DYSLIPIDEMIA 5. HISTORY OF CORNEAL TRANSPLANT 6. OSTEOARTHRITIS 7. DJD OF THE SPINE 8. CHRONIC PAIN SYNDROME PLAN: 1. Continue the Vancomycin, Rocephin. 2. We will get a chest x-ray. 3. DuoNebs. 4. Daily I & O's. 5. Will follow up with the patient on daily rounds. TIME SPENT: More than 30 minutes MTDD
--- NOTE | 2017-01-24 15:11 | DS ---
DATE OF SERVICE: 01/21/17 FINAL DIAGNOSIS: 1. THE PATIENT IS A HEALTHCARE FACILITY ACQUIRED PNEUMONIA 2. HYPERTENSION 3. DYSLIPIDEMIA 4. DIABETES MELLITUS 5. OSTEOARTHRITIS 6. DJD OF THE SPINE 7. DEPRESSION 8. ANXIETY 9. CORNEAL TRANSPLANT LEFT EYE BLINDNESS 10. HYSTERECTOMY PLAN: 1. Discharge the patient back to the [facility]. 2. CBC, CMP within one week. 3. Vitals daily. 4. Continue the rest of the medications as per the medication reconciliation. MEDICATIONS AT DISCHARGE: Colace 100 mg twice daily Neurontin 100 mg twice daily Coreg 6.25 mg twice daily Digoxin 125 mcg daily Procardia XL 60 mg daily Lasix 40 mg daily Klor-Con 10 mEq daily Aspirin 81 mg daily [place] 7.5/325 mg every 6 hours Duloxetine 30 mg daily Protonix 40 mg daily Senokot 8.6 mg twice daily prn Requip 0.5 mg twice daily Robitussin 10 ml every 4 hours prn Nystatin powder one application every 4 hours prn Ferrous sulfate 325 mg twice daily Zovirax 400 mg twice daily Xanax 0.25 mg twice daily Citrate of Magnesia 10 oz prn Acetaminophen Extra Strength 500 mg every 12 hours prn Maxitrol Opth ointment one application to left eye twice daily Cozaar 50 mg daily Senna 8.6 mg daily DuoNeb one vial nebulization every 8 hours prn Keflex 500 mg every 12 hours NEW MEDICATIONS: Keflex 500 mg twice a day for seven days. DuoNeb three times daily DIET INSTRUCTIONS: Regular. Supervisor [employer] please consult to provide optimal nutrition. ACTIVITY: PT/OT and speech evaluate and treat inside the senior care. May participate in the senior care activities. HOSPITAL COURSE: Fany Hoang who is an 86 year old female who was sent from the senior care for the cough and congestion. Shortness of breath was being treated with antibiotics with no improvement. The patient was seen and evaluated by the ER physician, Dr. Lopez. CT scan of the abdomen and pelvis showed gastroenteritis, mild dilated loops of the small bowels. Partial bowel obstruction. Right lower lobe pneumonia. At that time, the patient was admitted to the hospital and treated for the healthcare facility acquired pneumonia with Vancomycin and Rocephin. In view of the gastroenteritis and recent antibiotic use, the patient was ruling out for the C-diff infection. The patient's CT did show the hiatal hernia also. Meanwhile, the patient with breating treatment and the cough and congestion was getting worse. The patient was started on the Tessalon Pearls and Phenergan with Codeine which did help her. Meanwhile, the patient was hurting all over, so Morphine IV wa started every 6 hours prn. The patient is completely bed ridden and partially dependent upon the ADL's. Repeat chest x-ray was showing the improvement in the pneumonia. Hospital course was uneventful. As the patient was doing good and did not have any complications, the patient was discharged back to [facility]. TIME SPENT: MORE THAN 55 MINUTES TODAY RITIKA
== END 2017-01-21 12:20 | disposition home or self-care (01) | DRG 195 ==
LOC: ED 12:32 → MEDSURG B 15:04
PROVIDERS: ADMIT Emergency Medicine; ATTEND Emergency Medicine
DX: J18.9 Pneumonia, unspecified organism (principal); K52.9 Noninfective gastroenteritis and colitis, unspecified; G89.4 Chronic pain syndrome; I48.91 Unspecified atrial fibrillation; Y95 Nosocomial condition; I10 Essential (primary) hypertension; E11.9 Type 2 diabetes mellitus without complications; I25.10 Atherosclerotic heart disease of native coronary artery without angina pectoris; E78.5 Hyperlipidemia, unspecified; M19.90 Unspecified osteoarthritis, unspecified site; M47.9 Spondylosis, unspecified; F41.9 Anxiety disorder, unspecified; H54.42 Blindness, left eye, normal vision right eye; K44.9 Diaphragmatic hernia without obstruction or gangrene; R10.9 Unspecified abdominal pain; Z96.1 Presence of intraocular lens; Z79.899 Other long term (current) drug therapy
CPT/HCPCS: 36415; 80053; 80162; 80202; 82550; 83605; 84145; 84484; 85025; 87040; 87081; 93005; 93010; 94640; 96365; 99285

== ENCOUNTER 2017-02-13 12:13 | Inpatient (IN) ==
--- NOTE | 2017-02-13 12:31 | ED.PDOC ---
General ED Provider: Dr. ROBB MARTINEZ Chief Complaint: Altered Mental Status Stated Complaint: Per half-way, ran fever last night, this AM didn't check vitals, sent to ED at family's insistence. Pt responds only to pain, withdrawing. Time Seen by Physician: 12:29 Mode of Arrival: Ambulance Information Source: [facility] Exam Limitations: Altered mental status [facility] and Triage Documentation Reviewed and Agree: Yes Miscellaneous Complaint Exam - Complex/Multi-System Complaint/Exam Onset/Duration: 1 day Symptoms Are: Still present Initial Severity: Moderate Current Severity: Severe Location of Pain: unknown but winces when abdomen palpated Associated Signs and Symptoms: Reports: Decreased responsiveness, Fever Recent Echo/LV Function: No Respiratory Distress: None JVD Present: No Tachypnea Present: No Stridor Present: No Abdominal Findings: Present: Normal findings (twinces when abdomen is palpated) Meningeal Signs Positive: No Focal Weakness: Present: None Gag Reflex Present: Yes Babinski Sign: Negative Right, Negative Left Skin Findings: Present: Normal findings Joint Swelling Present: No In-Dwelling Device Present: No Differential Diagnosis: Aspiration, CVA, Metabolic Abnormality, Sepsis, UTI Quality Indicators For Pneumonia/CAP: SpO2 assessed, Vital signs, Mental status assessed Review of Systems - Review Of Systems Constitutional: Reports: Other (No ROS possible because pt is unresponsive) : Reports: No symptoms (EMS told by NH staff that patient was reported to have bacteria in her urine. Not Rx'd. No other information.) All Other Systems: Other (No ROS possible because pt is unresponsive) Past Medical History - Past Medical History Previously Healthy: Yes Endocrine: Reports: DM 2, Hypothyroid, Dyslipidemia Cardiovascular: Reports: Hypertension, CHF, A-Fib Respiratory: Reports: COPD Hematological: Reports: Anemia Gastrointestinal: Reports: Unknown Genitourinary: Reports: UTI (chronic), CKD Neuro/Psych: Reports: Depression Musculoskeletal: Reports: Arthritis, Back Pain Cancer: Reports: Unknown Other Pertinent Past Medical History: HIATAL HERNIA - Surgical History General Surgical History: Reports: Other (CORNEAL TRANSPLANT(L), RIGHT NEPHRECTOMY) - Family History Family History: Reports: Unknown - Social History Smoking Status: Never smoker Hx Substance Use: No Alcohol Screening: None Lives: In [facility] - Immunizations Tetanus Shot up to Date: No (unknown) Influenza Vaccine within 12 Months: No (unknown) Pneumococcal Vaccine up to Date: No (unknown) Physical Exam - Physical Exam Appearance: No pain distress, Well-nourished, Obese Ill-appearing: Moderate Pain Distress: None Eyes: GAL, Conjunctiva clear ENT: Ears normal, Nose normal, Oropharynx normal Neck: Supple Respiratory: Airway patent, Breath sounds clear, Breath sounds equal, Respirations nonlabored Cardiovascular: RRR, Pulses normal, No rub, No murmur GI/: Soft, No masses, Bowel sounds normal, Tender (genralized, winces more when lower abdomen palpated) Skin: Warm, Dry, Normal color Neurological: Reflexes intact, Unresponsive (responds to pain by withdrawing and /or wincing) Interpretation - Radiology Interpretation Radiology Interpretation By: Radiologist Exam Interpreted: CT Scan Xray Comments: abdomen: suggestive of UTI/pyelonephritis Radiology Results: No acute changes Exam Interpreted: Portable CXR, CT Scan Xray Comments: Brain:nothing acute;CXR: mild pulm congest or mild interstital pneumonitis - EKG Interpretation Time of EKG #1: 12:22 Rate: Normal Rhythm: Other (Atrial pacemaker) Ectopy: None ST Segment: Normal Interpretation: RBBB, T wave abnormality, consider lateral ischemia or dig effect Re-Evaluation - Re-Evaluation Time of Re-Evaluation: 15:24 Status: Worse Vital Signs Stable: No (BP 78/39) Pain Level: obtunded Lungs: Clear Skin: Warm and Dry Neuro: Other (obtunded) CV: RRR Additional Comments: BP remains quite low despite IV fluids Physician Notification - Case Discussed Physician Notified: Dr. Chamberlain Time of Notification: 13:30 (CT abd/pelvis and IV Zosyn (PCN allergy, so I ordered Levaquin)) Physician Notified: Dr. Chamberlain Time of Notification: 15:36 (admit, IV Azactam & vancomycin) Admit/Transition Orders Entered by ED Provider: Yes Critical Care Note - Critical Care Note Total Time (mins): 0 Course - Course Hematology/Chemistry: 02/13/17 12:39 02/13/17 12:39 Orders, Labs, Meds: Lab Review 02/13/17 02/13/17 02/13/17 12:35 12:35 12:38 WBC RBC Hgb Hct MCV MCH MCHC RDW Coeff of [place]lier Plt Count Immature Gran % (Auto) Neut % (Auto) Lymph % (Auto) [place] % (Auto) Eos % (Auto) Baso % (Auto) Immature Gran # (Auto) Neut # Lymph # [place] # Eos # Baso # Puncture Site R brach O2 Saturation 78.0 L ABG pH 7.39 ABG pCO2 42.7 ABG pO2 43.0 L* ABG HCO3 26.1 H ABG Total CO2 27 ABG Base Excess 1 Nimesh Test + FiO2 % 21.0 Sodium Potassium Chloride Carbon Dioxide Anion Gap BUN Creatinine Estimated GFR (MDRD) BUN/Creatinine Ratio Glucose Calcium Total Bilirubin AST ALT Alkaline Phosphatase Total Creatine Kinase CK-MB (CK-2) CK-MB (CK-2) % Troponin I B-Natriuretic Peptide Total Protein Albumin Globulin Albumin/Globulin Ratio Amylase Lipase Urine Color Yellow Urine Clarity Cloudy Urine pH 5.5 Ur Specific [place] 1.015 Urine Protein 1+ Urine Glucose (UA) Negative Urine Ketones Negative Urine Blood 1+ Urine Nitrite Negative Urine Bilirubin Negative Urine Urobilinogen 0.2 Ur Leukocyte Esterase Trace Urine Microscopic WBC 2-5 Ur Squamous Epith Cells Not present Urine Bacteria Trace Urine Opiates Screen Positive Ur Oxycodone Screen Negative Urine Methadone Screen Negative Ur Propoxyphene Screen Negative Ur Barbiturates Screen Negative U Tricyclic Antidepress Negative Ur Phencyclidine Scrn Negative Ur Amphetamine Screen Negative U Methamphetamines Scrn Negative U Benzodiazepines Scrn Positive Urine Cocaine Screen Negative U Cannabinoids Screen Negative 02/13/17 02/13/17 02/13/17 12:39 12:39 12:39 WBC 18.45 H RBC 3.72 L Hgb 11.6 L Hct 34.6 L MCV 93.0 MCH 31.2 H MCHC 33.5 RDW Coeff of [place] 14.6 Plt Count 145 Immature Gran % (Auto) 2.7 Neut % (Auto) 85.9 Lymph % (Auto) 3.8 L [place] % (Auto) 7.4 Eos % (Auto) 0.0 Baso % (Auto) 0.2 Immature Gran # (Auto) 0.5 Neut # 15.9 H Lymph # 0.7 [place] # 1.4 Eos # 0.0 Baso # 0.0 Puncture Site O2 Saturation ABG pH ABG pCO2 ABG pO2 ABG HCO3 ABG Total CO2 ABG Base Excess Nimesh Test FiO2 % Sodium 138 Potassium 3.2 L Chloride 100 Carbon Dioxide 26 Anion Gap 15.2 BUN 41 H Creatinine 1.95 H Estimated GFR (MDRD) 24.00 BUN/Creatinine Ratio 21.02 Glucose 168 H Calcium 8.2 Total Bilirubin 1.18 AST 34 ALT 14 Alkaline Phosphatase 67 Total Creatine Kinase 621 CK-MB (CK-2) 4.7 H CK-MB (CK-2) % 0.42396 Troponin I 0.1080 B-Natriuretic Peptide 569 H Total Protein 6.4 Albumin 2.7 L Globulin 3.7 Albumin/Globulin Ratio 0.73 Amylase 22 L Lipase 11 Urine Color Urine Clarity Urine pH Ur Specific [place] Urine Protein Urine Glucose (UA) Urine Ketones Urine Blood Urine Nitrite Urine Bilirubin Urine Urobilinogen Ur Leukocyte Esterase Urine Microscopic WBC Ur Squamous Epith Cells Urine Bacteria Urine Opiates Screen Ur Oxycodone Screen Urine Methadone Screen Ur Propoxyphene Screen Ur Barbiturates Screen U Tricyclic Antidepress Ur Phencyclidine Scrn Ur Amphetamine Screen U Methamphetamines Scrn U Benzodiazepines Scrn Urine Cocaine Screen U Cannabinoids Screen Orders Category Date Time Status ABG DRAW REQUEST Stat CARDIO 02/13/17 12:38 Completed EKG-(ED ONLY) Stat CARDIO 02/13/17 12:26 Completed ABG Stat LAB 02/13/17 12:38 Completed AMYLASE Stat LAB 02/13/17 12:39 Completed BNP [B-TYPE NATRIURETIC PEPTIDE] Stat LAB 02/13/17 12:39 Completed CBC W/ AUTO DIFF Stat LAB 02/13/17 12:39 Completed CK [CREATINE KINASE] Stat LAB 02/13/17 12:39 Completed COMPREHENSIVE METABOLIC PANEL Stat LAB 02/13/17 12:39 Completed LIPASE Stat LAB 02/13/17 12:39 Completed RAPID DRUG SCREEN-INPATIENT [DRUG SCREEN, URINE, RAPID] LAB 02/13/17 12:35 Completed Stat TROPONIN I Stat LAB 02/13/17 12:39 Completed URINALYSIS C & S IF INDICATED Stat LAB 02/13/17 12:35 Completed URINE CULTURE Stat LAB 02/13/17 13:47 Ordered Levofloxacin/D5w [Levaquin] 100 ml MEDS 02/13/17 13:50 Discontinued IV .STK-MED Levofloxacin/D5w [Levaquin] 500 mg MEDS 02/13/17 13:34 Discontinued Premix 100 ml D5w 1 bag IV ONCE Sodium Chloride 0.9% [Sodium Chloride] 1,000 ml MEDS 02/13/17 12:44 Discontinued IV BOLUS Sodium Chloride 0.9% [Sodium Chloride] 1,000 ml MEDS 02/13/17 13:48 Discontinued IV BOLUS CHEST, 1V AP ONLY Stat RADS 02/13/17 13:[address] ABDOMEN/PELVIS WO CONTRAST Stat RADS 02/13/17 14:[address] HEAD W/O CONTRAST Stat RADS 02/13/17 12:27 Completed Medications Discontinued Medications Generic Name Dose Route Start Last Admin Trade Name Nicko PRN Reason Stop Dose Admin Sodium Chloride 1,000 mls @ 1,000 mls/hr 02/13/17 12:44 02/13/17 12:45 Sodium Chloride IV 02/13/17 13:43 1,000 mls/hr BOLUS STA Administration Levofloxacin/Dextrose 500 mg/ 100 mls @ 100 mls/hr 02/13/17 13:34 02/13/17 13 :56 Dextrose IV 02/13/17 14:33 100 mls/hr ONCE STA Administration Sodium Chloride 1,000 mls @ 1,000 mls/hr 02/13/17 13:48 02/13/17 13:40 Sodium Chloride IV 02/13/17 14:47 1,000 mls/hr BOLUS STA Administration Vital Signs: Temp Pulse Resp BP Pulse Ox 02/13/17 12:14 100.6 F H 98 H 20 77/51 L 82 L Departure - Departure Time of Disposition: 16:00 Disposition: ADMITTED INPATIENT Discharge Problem: Sepsis secondary to UTI, UTI (urinary tract infection), Acute on chronic renal failure Condition: Poor Pt referred to PMD for follow-up: Yes Allergies/Adverse Reactions: Allergies Penicillins Adverse Reaction (Verified 11/22/16 10:34) Home Medications: Ambulatory Orders Carvedilol [Coreg] 6.25 mg PO BID 06/15/13 Digoxin 125 mcg PO DAILY 06/15/13 Docusate Sodium [Colace] 100 mg PO BID 06/15/13 Furosemide [Lasix Tab] 40 mg PO DAILY 06/15/13 Gabapentin [Neurontin] 100 mg PO BID 06/15/13 Nifedipine [Procardia Xl] 60 mg PO DAILY 06/15/13 Aspirin [Aspirin Chewable] 81 mg PO DAILYWM 10/08/14 Potassium Chloride [Klor-Con 10] 10 meq PO DAILY 10/08/14 Duloxetine HCl 30 mg PO DAILY 01/28/16 Ferrous Sulfate 325 mg PO BID 01/28/16 Guaifen/Dextromethorphan/PE [Robitussin M-S Cold Cf Max Liq] 10 ml PO Q4HR PRN 01/28/16 Hydrocodone Bit/Acetaminophen [[place] 7.5-325] 1 each PO Q6H 01/28/16 Nystatin [Nystop Powder] 1 applic TP Q8HR PRN 01/28/16 Pantoprazole Sodium [Protonix] 40 mg PO DAILY 01/28/16 Ropinirole HCl [Requip] 0.5 mg PO BID 01/28/16 Sennosides [Senokot] 8.6 mg PO BID PRN 01/28/16 Alprazolam [Xanax] 0.25 mg PO BID 08/27/16 Magnesium Citrate [Citrate of Magnesia] 10 oz PO PRN PRN 08/27/16 Acetaminophen [Acetaminophen Extra Strength] 500 mg PO Q12H PRN 11/22/16 Losartan Potassium [Cozaar] 50 mg PO DAILY 11/22/16 Shahriar/Polymyx B Sulf/Dexameth [Maxitrol Opth Oint] 1 applic LEFTEYE BID 11/22/16 Sennosides [Senna] 8.6 mg PO DAILY 11/22/16 Cephalexin [Keflex] 500 mg PO Q12HR #14 capsule 01/21/17 Acetaminophen 500 mg PO Q12H PRN 02/13/17 Ipratropium/Albuterol Neb [Duoneb] 1 vial NEB TID 02/13/17 Loperamide HCl [Anti-Diarrheal] 2 mg PO Q6H PRN 02/13/17 Ondansetron [Zofran Odt] 8 mg PO Q6H PRN 02/13/17 Prednisone 10 mg PO BID 02/13/17 Disposition Discussed With: Family
[2017-02-13 12:43] LABS: ABG PCO2 42.7 mmHg (35-45); ABG PH 7.39 (7.35-7.45)
[2017-02-13 12:44] LABS: ABG BASE EXCESS 1 (-2.0-2.0); ABG HCO3 26.1 (22.0-26.0); ABG TCO2 27 (22.0-28.0)
[2017-02-13] MEDS ORDERED: SODIUM CHLORIDE 1,000 ML IV STA ×2 (12:44→13:48)
[2017-02-13 12:55] LABS: BILIRUBIN,URINE Negative (NEGATIVE); KETONES,URINE Negative (NEGATIVE); LEUKOCYTE ESTERASE ,URINE Trace (NEGATIVE); NITRITE,URINE Negative (NEGATIVE); PH,URINE 5.5 (5-9); PROTEIN,URINE 1+ (NEGATIVE); URINE, BLOOD 1+ (NEGATIVE)
[2017-02-13 13:03] LABS: BASOPHILS % (AUTO) 0.2 % (0.0-3.0); HEMATOCRIT 34.6 % (37.0-47.0); HEMOGLOBIN 11.6 g/dl (12.0-16.0); IMMATURE GRANULOCYTE % (AUTO) 2.7 % (0.0-5.0); LYMPHOCYTES # (AUTO) 0.7 K/uL (0.60-3.4); LYMPHOCYTES % (AUTO) 3.8 (10.0-50.0); MEAN CORPUSCULAR HEMOGLOBIN 31.2 pg (27.0-31.0); MEAN CORPUSCULAR HGB CONC 33.5 (31.8-35.4); MONOCYTES # (AUTO) 1.4 K/uL (0.4-2.0); MONOCYTES % (AUTO) 7.4 (0-10); NEUTROPHILS # (AUTO) 15.9 K/ul (2.0-6.9); NEUTROPHILS % (AUTO) 85.9; PLATELET COUNT 145 10^3/uL (140-440); RED BLOOD COUNT 3.72 10^6/ul (4.20-5.40); WHITE BLOOD COUNT 18.45 K/ul (4.6-10.2)
[2017-02-13 13:04] LABS: ADD URINE MICROSCOPIC YES
[2017-02-13 13:05] LABS: BACTERIA,URINE TRACE (NOT PRESENT)
[2017-02-13 13:30] LABS: COCAIN SCREEN,URINE NEGATIVE (NEGATIVE)
[2017-02-13] MEDS ORDERED: LEVAQUIN 500 MG in PREMIX 100 ML D5W 1 BAG IV STA (13:34)
[2017-02-13 13:38] LABS: ALBUMIN 2.7 g/dL (3.4-5.0); ALBUMIN/GLOBULIN RATIO 0.73; ANION GAP 15.2; BILIRUBIN,TOTAL 1.18 mg/dL (0.00-1.20); BUN/CREATININE RATIO 21.02; CALCIUM 8.2 mg/dL (8.2-10.2); CREATININE 1.95 mg/dL (0.60-1.30); POTASSIUM 3.2 mmol/L (3.5-5.10); TOTAL PROTEIN 6.4 g/dL (5.8-8.1); TROPONIN I 0.108 ng/ml (0.0000-0.4000)
[2017-02-13] MEDS ORDERED: LEVAQUIN 100 ML IV ONE (13:50)
--- NOTE | 2017-02-13 14:04 | DI ---
EXAM: Chest, one-view HISTORY: Fever, altered level of consciousness COMPARISON: 01/20/2017 TECHNIQUE: Single view chest was performed FINDINGS: Left-sided cardiac pacer. Heart is enlarged, unchanged. Large hiatal hernia, poorly visua lized. No visible pneumothorax. No definite pleural effusion. Mild prominence of the bronchovascul ar markings. No visible pneumothorax. No definite consolidation. IMPRESSION: 1. Cardiomegaly. Mild prominence of the bronchovascular markings could represent mild pulmonary vas cular congestion or mild interstitial pneumonitis. 3. Large hiatal hernia, poorly visualized.
[2017-02-13 14:17] LABS: CREATINE KINASE MB 4.7 ng/ml (0.0-3.6)
--- NOTE | 2017-02-13 14:51 | CT ---
EXAM: CT BRAIN HISTORY: Altered level of consciousness, hypotension TECHNIQUE: CT brain without intravenous contrast. 5-mm axial sections with Reformations. COMPARISON: 06/21/2015 FINDINGS: There is generalized atrophy. There is moderate periventricular and deep white matter low attenuation which although nonspecific is suggestive of chronic microvascular ischemic change. Brain parenchyma is otherwise unremarkable without distinct evidence of hemorrhage or large vessel distribution recent ischemic infarction. There is no suggestion of acute hydrocephalus or subdural fluid collection. N o mass or mass effect. Cranium is intact. Visualized paranasal sinuses clear. There is a probable small right mastoid proc ess effusion. IMPRESSION: 1. No acute intracranial process identified. 2. Probable small right mastoid process effusion which is unchanged.
--- NOTE | 2017-02-13 14:56 | CT ---
EXAM: CT Abdomen without contrast. CT Pelvis without contrast. HISTORY: Fever. Abdominal tenderness. Altered level of consciousness. COMPARISON: 01/16/2017. TECHNIQUE: Multiple axial images of the abdomen and pelvis were obtained without intravenous contras t. Images were reformatted in the coronal plane. FINDINGS: Please note that evaluation of the abdominal and pelvic structures is limited due to lack of intravenous contrast. There is mild dependent consolidation in both lower lobes. Degenerative changes present in the spine . Old L2 compression fracture noted. Old left 11th rib fracture noted. Gallbladder is absent. The liver, pancreas, spleen, adrenal glands are without acute abnormality. T here is mild left perinephric stranding which is new from prior study. Left renal pelvis is mildly d ilated although no left ureteral dilatation identified. No left ureteral calculi are seen. Quintanilla ca theter collapses urinary bladder, although there is mild perivesical inflammation. Large hiatal hernia. Linear radiopaque object is seen within the herniated stomach on axial images 1 5 and 19 which was not present previously measuring nearly 5 cm in length. There may be additional o bjects more inferiorly positioned. There is no evidence for bowel obstruction. Colonic diverticulos is noted. Atherosclerotic calcifications are present. No free fluid or free air identified. Uterus is absent. IMPRESSION: 1. Mild left perinephric fat stranding and perivesical stranding suggest urinary tract infection/dhara lonephritis. 2. Large hiatal hernia. A nearly 5 cm radiopaque linear foreign object within the herniated stomach may represent ingested material.
[2017-02-13] MEDS ORDERED: VANCOMYCIN 1 GM in SODIUM CHLORIDE 250 ML IV ONE (16:00)
[2017-02-13] MEDS ORDERED: AZACTAM 0.5 GM in SODIUM CHLORIDE 50 ML IV SCH (16:00)
[2017-02-13] MEDS ORDERED: SOLU-MEDROL 125 MG IVP STA (16:39)
[2017-02-13 16:59] VITALS: BMI 34.8
[2017-02-13] MEDS: SODIUM CHLORIDE 1,000 ML IV SCH (17:00)
[2017-02-13] MEDS ORDERED: AZACTAM ONE (20:20)
[2017-02-13] MEDS: AZACTAM 1 GM in SODIUM CHLORIDE 50 ML IV SCH (20:25)
[2017-02-13] MEDS: ZOFRAN 4 MG/2 ML IVP PRN (22:13)
[2017-02-13] MEDS: MORPHINE 2 MG/ML SYRINGE IVP PRN (22:13)
[2017-02-13] MEDS: DUONEB NEB SCH (23:13)
[2017-02-14] MEDS: SODIUM CHLORIDE 1,000 ML IV SCH ×3 (04:03→20:30)
[2017-02-14] MEDS: DUONEB NEB SCH ×3 (04:50→21:09)
[2017-02-14] MEDS: ZOFRAN 4 MG/2 ML IVP PRN (05:08)
[2017-02-14] MEDS: MORPHINE 2 MG/ML SYRINGE IVP PRN ×2 (05:43→09:22)
[2017-02-14] MEDS ORDERED: DULCOLAX RC STA (08:21)
[2017-02-14] MEDS: PROTONIX PO SCH ×2 (10:16→17:12)
[2017-02-14] MEDS: CARAFATE PO SCH ×4 (10:16→20:29)
[2017-02-14] MEDS: AZACTAM 1 GM in SODIUM CHLORIDE 50 ML IV SCH ×2 (10:16→20:29)
[2017-02-14] MEDS: VANCOMYCIN 500 MG in SODIUM CHLORIDE 100 ML IV SCH (10:17)
[2017-02-14] MEDS ORDERED: SENNA PO PRN (11:09)
[2017-02-14] MEDS: LANOXIN PO SCH (11:43)
[2017-02-14] MEDS: ASPIRIN CHEWABLE PO SCH (11:43)
[2017-02-14] MEDS: CYMBALTA PO SCH (11:43)
[2017-02-14] MEDS: NEURONTIN PO SCH ×2 (11:43→20:29)
[2017-02-14] MEDS: NORCO 7.5-325 PO SCH ×2 (11:44→17:12)
--- NOTE | 2017-02-14 13:46 | DI ---
Exam: Two x-rays of the abdomen. Comparison: CT abdomen pelvis performed 02/13/2017. Reason for exam: Foreign object in abdomen. FINDINGS: The bowel gas pattern is nonspecific and nonobstructive. Image interpretation is somewhat limited by body habitus as the patient's soft tissues are incompletely evaluated on the exam. 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 Overlying cardiac leads obscure the left upper jenae drant and mediastinum. Operative changes are seen after implanted intracardiac device placement. Impression: 1. No discrete radiopaque retained foreign body is seen within the abdomen or pelvis. 2. Limited evaluation secondary to patient body habitus and overlying cardiac leads.
[2017-02-14] MEDS: REQUIP PO SCH (20:29)
[2017-02-14] MEDS: COLACE PO SCH (20:29)
[2017-02-14] MEDS: XANAX PO SCH (20:29)
[2017-02-14] MEDS ORDERED: NON-FORMULARY MEDICATION (Ropinirole Hcl [Requip] 0.5 MG) PO SCH (21:00)
[2017-02-15] MEDS: DUONEB NEB SCH ×3 (05:11→21:00)
[2017-02-15] MEDS: CARAFATE PO SCH ×4 (05:36→20:27)
[2017-02-15] MEDS: NORCO 7.5-325 PO SCH ×5 (05:36→23:50)
[2017-02-15] MEDS: PROTONIX PO SCH ×2 (05:36→16:52)
[2017-02-15 06:58] LABS: BASOPHILS % (AUTO) 0.1 % (0.0-3.0); EOSINOPHILS % (AUTO) 0.1 % (0.0-7.0); HEMATOCRIT 35.4 % (37.0-47.0); HEMOGLOBIN 11.5 g/dl (12.0-16.0); IMMATURE GRANULOCYTE % (AUTO) 0.8 % (0.0-5.0); LYMPHOCYTES # (AUTO) 0.7 K/uL (0.60-3.4); MEAN CORPUSCULAR HEMOGLOBIN 30.4 pg (27.0-31.0); MEAN CORPUSCULAR HGB CONC 32.5 (31.8-35.4); MEAN CORPUSCULAR VOLUME 93.7 fl (81.0-99.0); MONOCYTES # (AUTO) 1.1 K/uL (0.4-2.0); MONOCYTES % (AUTO) 8.3 (0-10); NEUTROPHILS # (AUTO) 11.8 K/ul (2.0-6.9); NEUTROPHILS % (AUTO) 85.7; PLATELET COUNT 153 10^3/uL (140-440); RED BLOOD COUNT 3.78 10^6/ul (4.20-5.40); WHITE BLOOD COUNT 13.79 K/ul (4.6-10.2)
[2017-02-15 07:20] LABS: ALBUMIN 2.4 g/dL (3.4-5.0); ALBUMIN/GLOBULIN RATIO 0.67; ANION GAP 10.3; BILIRUBIN,TOTAL 0.35 mg/dL (0.00-1.20); BUN/CREATININE RATIO 25.92; CALCIUM 7.4 mg/dL (8.2-10.2); CREATININE 1.08 mg/dL (0.60-1.30); POTASSIUM 3.3 mmol/L (3.5-5.10)
[2017-02-15] MEDS: COLACE PO SCH ×2 (08:12→20:26)
[2017-02-15] MEDS: ASPIRIN CHEWABLE PO SCH (08:12)
[2017-02-15] MEDS: REQUIP PO SCH ×2 (08:12→20:26)
[2017-02-15] MEDS: MICRO-K CAP PO SCH (08:12)
[2017-02-15] MEDS: VANCOMYCIN 500 MG in SODIUM CHLORIDE 100 ML IV SCH (08:12)
[2017-02-15] MEDS: XANAX PO SCH ×2 (08:13→20:26)
[2017-02-15] MEDS: SENNA PO SCH (08:13)
[2017-02-15] MEDS: CYMBALTA PO SCH (08:13)
[2017-02-15] MEDS: NEURONTIN PO SCH ×2 (08:13→20:27)
[2017-02-15] MEDS: LANOXIN PO SCH (08:14)
[2017-02-15] MEDS ORDERED: CITRATE OF MAGNESIA PO PRN (09:00)
[2017-02-15] MEDS ORDERED: NON-FORMULARY MEDICATION (Potassium Chloride [Klor-Con 10] 10 MEQ) PO SCH ×22 (09:00)
[2017-02-15] MEDS: AZACTAM 1 GM in SODIUM CHLORIDE 50 ML IV SCH ×2 (09:22→20:27)
[2017-02-15] MEDS: SODIUM CHLORIDE 1,000 ML IV SCH (09:22)
[2017-02-15] MEDS: ROBITUSSIN DM SYRUP PO PRN (16:54)
[2017-02-16] MEDS: SODIUM CHLORIDE 1,000 ML IV SCH ×2 (00:03→15:38)
[2017-02-16] MEDS: DUONEB NEB SCH ×3 (05:22→21:00)
[2017-02-16] MEDS: NORCO 7.5-325 PO SCH ×3 (05:41→17:43)
[2017-02-16] MEDS: CARAFATE PO SCH ×4 (05:41→20:26)
[2017-02-16] MEDS: PROTONIX PO SCH ×2 (05:41→17:43)
[2017-02-16] MEDS ORDERED: K-DUR PO STA (07:48)
[2017-02-16] MEDS: AZACTAM 1 GM in SODIUM CHLORIDE 50 ML IV SCH ×2 (08:12→20:26)
[2017-02-16] MEDS: REQUIP PO SCH ×2 (08:13→20:26)
[2017-02-16] MEDS: ASPIRIN CHEWABLE PO SCH (08:13)
[2017-02-16] MEDS: XANAX PO SCH ×2 (08:13→20:26)
[2017-02-16] MEDS: COLACE PO SCH ×2 (08:13→20:26)
[2017-02-16] MEDS: CYMBALTA PO SCH (08:13)
[2017-02-16] MEDS: NEURONTIN PO SCH ×2 (08:13→20:26)
[2017-02-16] MEDS: MICRO-K CAP PO SCH (08:13)
[2017-02-16] MEDS: SENNA PO SCH (08:13)
[2017-02-16] MEDS: LANOXIN PO SCH (08:14)
[2017-02-16] MEDS: VANCOMYCIN 500 MG in SODIUM CHLORIDE 100 ML IV SCH (10:06)
[2017-02-16] MEDS ORDERED: CALMOSEPTINE OINTMENT TP ONE (14:06)
[2017-02-16] MEDS ORDERED: CALMOSEPTINE OINTMENT TP SCH (14:30)
[2017-02-16] MEDS: CALMOSEPTINE OINTMENT TP SCH ×2 (15:38→20:27)
[2017-02-17] MEDS: NORCO 7.5-325 PO SCH ×5 (00:09→23:58)
[2017-02-17] MEDS: SODIUM CHLORIDE 1,000 ML IV SCH ×2 (05:04→20:13)
[2017-02-17] MEDS: DUONEB NEB SCH ×3 (05:21→21:00)
[2017-02-17] MEDS: CARAFATE PO SCH ×4 (05:34→20:13)
[2017-02-17] MEDS: PROTONIX PO SCH ×2 (05:34→18:15)
[2017-02-17] MEDS ORDERED: K-DUR PO STA (08:45)
[2017-02-17] MEDS ORDERED: K-DUR PO SCH (09:00)
[2017-02-17 09:12] LABS: BASOPHILS % (AUTO) 0.4 % (0.0-3.0); EOSINOPHILS # (AUTO) 0.2 K/ul (0.0-0.7); EOSINOPHILS % (AUTO) 1.8 % (0.0-7.0); HEMATOCRIT 35.3 % (37.0-47.0); HEMOGLOBIN 11.6 g/dl (12.0-16.0); LYMPHOCYTES # (AUTO) 1.5 K/uL (0.60-3.4); LYMPHOCYTES % (AUTO) 15.6 (10.0-50.0); MEAN CORPUSCULAR HEMOGLOBIN 30.7 pg (27.0-31.0); MEAN CORPUSCULAR HGB CONC 32.9 (31.8-35.4); MEAN CORPUSCULAR VOLUME 93.4 fl (81.0-99.0); MONOCYTES # (AUTO) 0.9 K/uL (0.4-2.0); MONOCYTES % (AUTO) 9.9 (0-10); NEUTROPHILS # (AUTO) 6.6 K/ul (2.0-6.9); NEUTROPHILS % (AUTO) 70.3; PLATELET COUNT 176 10^3/uL (140-440); RED BLOOD COUNT 3.78 10^6/ul (4.20-5.40); WHITE BLOOD COUNT 9.46 K/ul (4.6-10.2)
[2017-02-17] MEDS: CALMOSEPTINE OINTMENT TP SCH ×2 (09:15→20:15)
[2017-02-17] MEDS: ASPIRIN CHEWABLE PO SCH (09:15)
[2017-02-17] MEDS: COLACE PO SCH ×2 (09:16→20:14)
[2017-02-17] MEDS: CYMBALTA PO SCH (09:16)
[2017-02-17] MEDS: LANOXIN PO SCH (09:17)
[2017-02-17] MEDS: NEURONTIN PO SCH ×2 (09:17→20:14)
[2017-02-17] MEDS: SENNA PO SCH (09:18)
[2017-02-17] MEDS: REQUIP PO SCH ×2 (09:18→20:13)
[2017-02-17] MEDS: XANAX PO SCH ×2 (09:19→20:14)
[2017-02-17] MEDS: AZACTAM 1 GM in SODIUM CHLORIDE 50 ML IV SCH ×2 (09:21→20:13)
[2017-02-17 09:29] LABS: ALBUMIN 2.3 g/dL (3.4-5.0); ALBUMIN/GLOBULIN RATIO 0.66; BILIRUBIN,TOTAL 0.44 mg/dL (0.00-1.20); BUN/CREATININE RATIO 15.85; CALCIUM 8.4 mg/dL (8.2-10.2); CREATININE 0.82 mg/dL (0.60-1.30); TOTAL PROTEIN 5.8 g/dL (5.8-8.1)
[2017-02-17] MEDS: MICRO-K CAP PO SCH (09:37)
[2017-02-17] MEDS: VANCOMYCIN 500 MG in SODIUM CHLORIDE 100 ML IV SCH (10:27)
--- NOTE | 2017-02-17 15:00 | PN ---
DATE OF SERVICE: 02/14/17 SUBJECTIVE: The patient was admitted with septic shock and the pyelonephritis. The patient feeling better. Blood pressure is improved. She is more awake and alert and still having some abdominal pain. She is getting the Morphine every 8 hours and says that it is not helping her. The patient's daughter Ashley is in the room and wants to make sure she isn't hurting. REVIEW OF SYSTEMS: CONSTITUTIONAL: No fever, no chills. HEENT: Normal. ENDOCRINE: No weight gain, no weight loss. CVS: No angina symptoms. No CHF symptoms. No palpitations. No atypical chest pain for CAD. No shortness of breath. No PND, no orthopnea. RESPIRATORY: No cough, no hemoptysis. GI: No nausea, no vomiting. No abdominal pain. : No hematuria. No polyuria. MUSCULOSKELETAL:. No joint swelling. PSYCHIATRIC: Not anxious. No depression. No suicidal thoughts. No homicidal thoughts. SKIN: Intact. No rash. PHYSICAL EXAMINATION: V/S: Blood pressure 109/71, respiratory rate 18, heart rate 89, temperature 97.6 with saturation is 95% on 2 liters. HEENT: Normocephalic, atraumatic. Mucosa dry. Pallor positive. No icterus. NECK: Supple. No JVD, no carotid bruit. No lymphadenopathy. LUNGS: Decreased and basilar crackles. No rales or rhonchi. HEART: S1, S2 normal. No S3. No murmur, gallop or regurgitation. ABDOMEN: Soft, Epigastric tenderness is present. Bowel sounds active. No rigidity. No rebound or guarding. No CVA tenderness. EXTREMITIES: No clubbing, cyanosis. 1+ edema. MUSCULOSKELETAL: No joint swelling. NEUROLOGIC: Awake, alert. No focal deficit. LYMPHATIC: No lymph nodes palpable. SKIN: Intact. LABS: WBC 18.45, hgb 11.6, hct 34.6, plt count 145, sodium 138, potassium 3.2, chloride 100, bicarb 26, BUN 41, creatinine 1.95, glucose 128. ASSESSMENT: 1. Status post septic shock 2. Pyelonephritis per CAT scan 3. Bilateral pneumonia 4. History of diabetes 5. Atrial fibrillation 6. Hypertension 7. Chronic pain 8. Depression 9. Anxiety PLAN: 1. Increase the Morphine 2mg every 4 to 6 hours 2. Breathing treatment 3. Azactam 4. IV fluids 5. I&O's 6. Will follow the patient in daily rounds. TIME SPENT: More than 35 minutes MTDD
--- NOTE | 2017-02-17 15:19 | PN ---
DATE OF SERVICE: SUBJECTIVE: The patient was admitted with the septic shock, blood pressure is a lot improved. The patient more awake and alert but still complains about the epigastric pain. Urine preliminary report shows gram negative rods. REVIEW OF SYSTEMS: CONSTITUTIONAL: No fever, no chills. HEENT: Normal. ENDOCRINE: No weight gain, no weight loss. CVS: No angina symptoms. No CHF symptoms. No palpitations. No atypical chest pain for CAD. No shortness of breath. No PND, no orthopnea. RESPIRATORY: No cough, no hemoptysis. GI: No nausea, no vomiting. No abdominal pain. : No hematuria. No polyuria. MUSCULOSKELETAL:. No joint swelling. PSYCHIATRIC: Not anxious. No depression. No suicidal thoughts. No homicidal thoughts. SKIN: Intact. No rash. PHYSICAL EXAMINATION: V/S: Blood pressure 192/77, respiratory rate 20, heart rate 95, temperature 97.5 with saturation is 95 on 2 liters. HEENT: Normocephalic, atraumatic. Mucosa dry. Pallor positive. No icterus. NECK: Supple. No JVD, no carotid bruit. No lymphadenopathy. LUNGS: Decreased and basilar crackles. No rales or rhonchi. HEART: S1, S2 normal. No S3. No murmur, gallop or regurgitation. ABDOMEN: Soft, Epigastric tenderness is present. Bowel sounds active. No rigidity. No rebound or guarding. No CVA tenderness. EXTREMITIES: No clubbing, cyanosis. 1+ edema. MUSCULOSKELETAL: No joint swelling. NEUROLOGIC: Awake, alert. No focal deficit. LYMPHATIC: No lymph nodes palpable. SKIN: Intact. Dry. LABS: WBC 13.79, hgb 11.5, hct 35.4, plt count 152, sodium 138, potassium 3.2, chloride 100, bicarb 26, BUN 41, creatinine 1.95. ASSESSMENT: 1. Status post septic shock 2. Pyelonephritis 3. Epigastric tenderness, CAT scan showing some foreign body 4. Recently bilaterally pneumonia, got better 5. Atrial fibrillation, permanent pacemaker 6. Osteoarthritis 7. DJD spine 8. Hypothyroidism 9. COPD PLAN: 1. Continue the Azactam 2. Continue Morphine every 4-6 hours 3. DUO NEBS 4. IV fluids 5. Will order the Digoxin level TIME SPENT: More than 35 minutes MTDD
[2017-02-18 05:09] LABS: BASOPHILS # (AUTO) 0.1 K/uL (0-0.2); BASOPHILS % (AUTO) 0.9 % (0.0-3.0); EOSINOPHILS # (AUTO) 0.3 K/ul (0.0-0.7); EOSINOPHILS % (AUTO) 3.1 % (0.0-7.0); HEMATOCRIT 34.5 % (37.0-47.0); HEMOGLOBIN 11.2 g/dl (12.0-16.0); IMMATURE GRANULOCYTE % (AUTO) 3.5 % (0.0-5.0); LYMPHOCYTES # (AUTO) 1.7 K/uL (0.60-3.4); LYMPHOCYTES % (AUTO) 19.2 (10.0-50.0); MEAN CORPUSCULAR HEMOGLOBIN 30.4 pg (27.0-31.0); MEAN CORPUSCULAR HGB CONC 32.5 (31.8-35.4); MEAN CORPUSCULAR VOLUME 93.8 fl (81.0-99.0); MONOCYTES # (AUTO) 0.8 K/uL (0.4-2.0); NEUTROPHILS # (AUTO) 5.7 K/ul (2.0-6.9); NEUTROPHILS % (AUTO) 64.3; PLATELET COUNT 222 10^3/uL (140-440); RED BLOOD COUNT 3.68 10^6/ul (4.20-5.40); WHITE BLOOD COUNT 8.85 K/ul (4.6-10.2)
[2017-02-18] MEDS: DUONEB NEB SCH ×3 (05:14→22:10)
[2017-02-18 05:36] LABS: ALBUMIN 2.2 g/dL (3.4-5.0); ALBUMIN/GLOBULIN RATIO 0.67; BILIRUBIN,TOTAL 0.41 mg/dL (0.00-1.20); BUN/CREATININE RATIO 16.86; CALCIUM 8.6 mg/dL (8.2-10.2); CREATININE 0.83 mg/dL (0.60-1.30); TOTAL PROTEIN 5.5 g/dL (5.8-8.1)
[2017-02-18] MEDS: NORCO 7.5-325 PO SCH ×4 (05:51→23:46)
[2017-02-18] MEDS: CARAFATE PO SCH ×4 (05:51→20:20)
[2017-02-18] MEDS: PROTONIX PO SCH ×2 (05:51→16:49)
[2017-02-18] MEDS ORDERED: LASIX TAB PO STA (08:54)
[2017-02-18] MEDS: AZACTAM 1 GM in SODIUM CHLORIDE 50 ML IV SCH ×2 (09:23→20:19)
[2017-02-18] MEDS: LANOXIN PO SCH (09:25)
[2017-02-18] MEDS: SODIUM CHLORIDE 1,000 ML IV SCH (09:25)
[2017-02-18] MEDS: SENNA PO SCH (09:25)
[2017-02-18] MEDS: CALMOSEPTINE OINTMENT TP SCH ×2 (09:25→20:19)
[2017-02-18] MEDS: ASPIRIN CHEWABLE PO SCH (09:25)
[2017-02-18] MEDS: COLACE PO SCH ×2 (09:26→20:20)
[2017-02-18] MEDS: NEURONTIN PO SCH ×2 (09:26→20:20)
[2017-02-18] MEDS: XANAX PO SCH ×2 (09:26→20:30)
[2017-02-18] MEDS: REQUIP PO SCH ×2 (09:26→20:29)
[2017-02-18] MEDS: CYMBALTA PO SCH (09:29)
--- NOTE | 2017-02-18 10:06 | PN ---
DATE OF SERVICE: 02/16/17 SUBJECTIVE: The patient was admitted with the septic shock. Blood pressure been better. Home medications are resume. No fever. Complains that she did not have bowel movements ever since she was admitted. Did not have any rest at home. REVIEW OF SYSTEMS: CONSTITUTIONAL: No fever, no chills. HEENT: Normal. ENDOCRINE: No weight gain, no weight loss. CVS: No angina symptoms. No CHF symptoms. No palpitations. No atypical chest pain for CAD. No shortness of breath. No PND, no orthopnea. RESPIRATORY: No cough, no hemoptysis. GI: No nausea, no vomiting. No abdominal pain. : No hematuria. No polyuria. MUSCULOSKELETAL:. No joint swelling. PSYCHIATRIC: Not anxious. No depression. No suicidal thoughts. No homicidal thoughts. SKIN: Intact. No rash. PHYSICAL EXAMINATION: V/S: Blood pressure 111/65, respiratory rate 14, heart rate 99, temperature 98.8 with saturation 95 on 2 liters. HEENT: Normocephalic, atraumatic. Mucosa dry. Pallor positive. No icterus. NECK: Supple. No JVD, no carotid bruit. No lymphadenopathy. LUNGS: Decreased and basilar crackles. Clear to auscultation. No rales or rhonchi. HEART: S1, S2 normal. No S3. No murmur, gallop or regurgitation. ABDOMEN: Soft, nontender. Bowel sounds active. No rigidity. No rebound or guarding. No CVA tenderness. EXTREMITIES: No clubbing, cyanosis or pedal edema. MUSCULOSKELETAL: No joint swelling. NEUROLOGIC: Awake, alert. No focal deficit. LYMPHATIC: No lymph nodes palpable. SKIN: Intact. LABS: WBC 13.76, hgb 11.5, hct 35.4, plt count 153, sodium 137, potassium 3.3, chloride 106, bicarb 24, BUN 28, creatinine 1.08 ASSESSMENT: 1. Status post septic shock 2. Pyelonephritis 3. COPD 4. Acute on chronic heart failure 5. Coronary artery disease 6. Congestive heart failure 7. Atrial fibrillation 8. Osteoarthritis 9. DJD spine 10. Constipation PLAN: 1. Continue the Azactam 2. Continue IV fluids 3. Mag Citrate 4. Continue Vancomycin 5. Breathing treatments 6. Daily I&O's TIME SPENT: More than 305minutes MTDD
[2017-02-18] MEDS: VANCOMYCIN 750 MG in SODIUM CHLORIDE 250 ML IV SCH ×2 (10:19→21:49)
--- NOTE | 2017-02-18 12:11 | CT ---
EXAM: CT Abdomen without contrast. CT Pelvis without contrast. HISTORY: Foreign object. Follow-up. COMPARISON: 02/13/2017. TECHNIQUE: Multiple axial images of the abdomen and pelvis were obtained without intravenous contras t. Images were reformatted in the coronal plane. FINDINGS: Please note that evaluation of the abdominal and pelvic structures is limited due to lack of intravenous contrast. Small pleural effusions are present with dependent atelectasis in the lower lobes. Heart is enlarged . Pacemaker leads noted. Degenerative changes present in the spine. Mild L2 compression deformity noted. Gallbladder is absent but the liver, pancreas, spleen, adrenal glands, and left kidney demonstrate no rmal contour. Right kidney is absent. Large hiatal hernia again seen. Previously noted radiopaque foreign object is no longer identified. There is no evidence for bowel obstruction. Mild presacral edema is present. Colonic diverticulosi s noted. Quintanilla catheter present in the urinary bladder. Uterus is absent. No free air identified. Atheroscl erotic calcifications are present. IMPRESSION: 1. Previously noted radiopaque foreign object is no longer identified. 2. Small pleural effusions which are new.
--- NOTE | 2017-02-18 13:19 | PN ---
DATE OF SERVICE: 02/17/17 SUBJECTIVE: The patient was admitted with septic shock. Blood pressure is better now. She has some abdominal discomfort, urinating good. No fever, no chills. REVIEW OF SYSTEMS: CONSTITUTIONAL: No fever, no chills. HEENT: Normal. ENDOCRINE: No weight gain, no weight loss. CVS: No angina symptoms. No CHF symptoms. No palpitations. No atypical chest pain for CAD. No shortness of breath. No PND, no orthopnea. RESPIRATORY: No cough, no hemoptysis. GI: Abdominal discomfort. No nausea, no vomiting. : No hematuria. No polyuria. MUSCULOSKELETAL:. No joint swelling. PSYCHIATRIC: Not anxious. No depression. No suicidal thoughts. No homicidal thoughts. SKIN: Intact. No rash. PHYSICAL EXAMINATION: V/S: BP 128/84, respiratory rate 20, heart rate 84, saturation 97 on 2L, temperature 98.6. HEENT: Normocephalic, atraumatic. Mucosa dry, pallor positive, no icterus. NECK: Supple. No JVD, no carotid bruit. No lymphadenopathy. LUNGS: Decreased and basilar crackles. HEART: S1, S2 normal. No S3. No murmur, gallop or regurgitation. ABDOMEN: Soft. Mild epigastric discomfort. Bowel sounds active. No rigidity. No rebound or guarding. No CVA tenderness. EXTREMITIES: No clubbing, cyanosis or pedal edema. MUSCULOSKELETAL: No joint swelling. NEUROLOGIC: Awake, alert, oriented times three. No focal deficit. LYMPHATIC: No lymph nodes palpable. SKIN: Intact. LABS: White count 9.46, hemoglobin 11.6, hematocrit 35.3, platelet count 176. Sodium 142, potassium 4.0, chloride 106, bicarb 26, BUN 13, creatinine 0.82. ASSESSMENT: 1. STATUS POST SEPTIC SHOCK 2. LEFT-SIDED PYELONEPHRITIS PER CT SCAN 3. URINE ORGANISM DID NOT GROW ANY CULTURE, DID NOT GROW ANY ORGANISM 4. HYPOKALEMIA 5. FOREIGN BODY IN THE STOMACH PER CT SCAN 6. HISTORY OF ATRIAL FIBRILLATION 7. HYPERTENSION 8. CAD 9. CHF 10. CHRONIC PAIN SYNDROME PLAN: 1. Continue antibiotic Azactam 2. Breathing treatment 3. IV fluid at 75 mL/hr 4. Continue to hold the blood pressure medication 5. Vancomycin 6. Daily I & O's TIME SPENT: More than 35 minutes today MTDD
--- NOTE | 2017-02-18 13:35 | PN ---
DATE OF SERVICE: 02/18/17 SUBJECTIVE: Admitted with septic shock. Blood pressure has been better. We will resume all her oral blood pressure medications today. Still has some discomfort in the epigastric area. Urine output was 6,000 mL yesterday. No fever, no chills. No PND, no orthopnea. REVIEW OF SYSTEMS: CONSTITUTIONAL: No fever, no chills. HEENT: Normal. ENDOCRINE: No weight gain, no weight loss. CVS: No angina symptoms. No CHF symptoms. No palpitations. No atypical chest pain for CAD. No shortness of breath. No PND, no orthopnea. RESPIRATORY: No cough, no hemoptysis. No PND. GI: No nausea, no vomiting. No abdominal pain. : No hematuria. No polyuria. MUSCULOSKELETAL:. No joint swelling. PSYCHIATRIC: Not anxious. No depression. No suicidal thoughts. No homicidal thoughts. SKIN: Intact. No rash. PHYSICAL EXAMINATION: V/S: BP 158/81, respiratory rate 20, heart rate 88, temperature 98.3, saturation 98 on 2L. HEENT: Normocephalic, atraumatic. Mucosa dry. Pallor positive. No icterus. NECK: Supple. No JVD, no carotid bruit. No lymphadenopathy. LUNGS: Decreased basilar crackles. No rales or rhonchi. HEART: Irregular rate. S1, S2 normal. No S3. No murmur, gallop or regurgitation. ABDOMEN: Soft, nontender. Bowel sounds active. No rigidity. No rebound or guarding. No CVA tenderness. EXTREMITIES: No clubbing, cyanosis or pedal edema. MUSCULOSKELETAL: No joint swelling. NEUROLOGIC: Awake, alert, oriented times three. No focal deficit. LYMPHATIC: No lymph nodes palpable. SKIN: Intact. LABS: Sodium 139, potassium 4.0, chloride 104, bicarb 29, BUN 14, creatinine 0.83. White count 8.85, hemoglobin 11.2, hematocrit 34.5, platelet count 222. ASSESSMENT: 1. STATUS POST SEPTIC SHOCK 2. HYPOKALEMIA 3. CT SCAN SHOWING HIATAL HERNIA WITH FOREIGN BODY THERE, WILL REEVALUATE WITH CT SCAN TODAY. 4. HISTORY OF HYPERTENSION 5. CAD 6. CHF 7. ATRIAL FIBRILLATION 8. DEPRESSION 9. CHRONIC PAIN SYNDROME 10. DJD SPINE PLAN: 1. Resume oral antihypertensive medication. 2. CT scan of abdomen and pelvis. 3. Out of bed to chair with help. 4. Possible discharge plan. TIME SPENT: More than 35 minutes MTDD
[2017-02-18] MEDS ORDERED: REQUIP ONE (20:11)
[2017-02-18] MEDS: VANCOMYCIN 500 MG in SODIUM CHLORIDE 100 ML IV SCH (22:28)
[2017-02-19] MEDS: MORPHINE 2 MG/ML SYRINGE IVP PRN ×2 (01:06→06:41)
[2017-02-19] MEDS: ZOFRAN 4 MG/2 ML IVP PRN (01:07)
[2017-02-19 05:08] LABS: HEMATOCRIT 32.2 % (37.0-47.0); HEMOGLOBIN 10.4 g/dl (12.0-16.0); MEAN CORPUSCULAR HEMOGLOBIN 30.2 pg (27.0-31.0); MEAN CORPUSCULAR HGB CONC 32.3 (31.8-35.4); MEAN CORPUSCULAR VOLUME 93.6 fl (81.0-99.0); PLATELET COUNT 271 10^3/uL (140-440); RED BLOOD COUNT 3.44 10^6/ul (4.20-5.40); WHITE BLOOD COUNT 8.04 K/ul (4.6-10.2)
[2017-02-19] MEDS: DUONEB NEB SCH (05:09)
[2017-02-19 05:16] LABS: ANISOCYTOSIS NOT PRESENT (NOT PRESENT)
[2017-02-19 05:28] LABS: ALBUMIN 2.3 g/dL (3.4-5.0); ALBUMIN/GLOBULIN RATIO 0.62; ANION GAP 10.9; BILIRUBIN,TOTAL 0.27 mg/dL (0.00-1.20); BUN/CREATININE RATIO 18.51; CALCIUM 8.7 mg/dL (8.2-10.2); CREATININE 0.81 mg/dL (0.60-1.30); POTASSIUM 3.9 mmol/L (3.5-5.10)
[2017-02-19] MEDS: CARAFATE PO SCH (05:38)
[2017-02-19] MEDS: NORCO 7.5-325 PO SCH (05:39)
[2017-02-19] MEDS: PROTONIX PO SCH (05:40)
[2017-02-19 06:21] VITALS: BP 148/86; TEMP 98.4
[2017-02-19] MEDS: VANCOMYCIN 750 MG in SODIUM CHLORIDE 250 ML IV SCH (09:00)
[2017-02-19] MEDS: REQUIP PO SCH (09:12)
[2017-02-19] MEDS: LANOXIN PO SCH (09:13)
[2017-02-19] MEDS: CYMBALTA PO SCH (09:13)
[2017-02-19] MEDS: AZACTAM 1 GM in SODIUM CHLORIDE 50 ML IV SCH (09:13)
[2017-02-19] MEDS: ASPIRIN CHEWABLE PO SCH (09:13)
[2017-02-19] MEDS: COLACE PO SCH (09:13)
[2017-02-19] MEDS: SENNA PO SCH (09:13)
[2017-02-19] MEDS: NEURONTIN PO SCH (09:14)
[2017-02-19] MEDS: CALMOSEPTINE OINTMENT TP SCH (09:15)
[2017-02-19] MEDS: XANAX PO SCH (09:21)
[2017-02-19] MEDS: ROBITUSSIN DM SYRUP PO PRN (09:21)
--- NOTE | 2017-02-19 10:24 | CM.DICTOOL ---
ADMISSION: 02/13/17 15:40 DISCHARGE: 02/19/17 DATE OF SERVICE: 02/19/17 FINAL DIAGNOSIS SEPSIS -SEPTIC SHOCK PYELONEPHRITIS ACUTE ON CHRONIC RENAL FAILURE CAD DM, TYPE 2 HYPOTHYROIDISM DYSLIPIDEMIA HYPERTENSION CHF A-FIB COPD ANEMIA CHRONIC KIDNEY DISEASE DEPRESSION/ANXIETY OSTEOARTHRITIS DJD SPINE CHRONIC PAIN SYNDROME RESTLESS LEG SYNDROME LARGE HIATAL HERNIA LEFT CORNEAL TRANSPLANT BLINDNESS, LEFT EYE RIGHT NEPHRECTOMY PACEMAKER HYSTERECTOMY NEVER SMOKER LAST VITALS Temp Pulse Resp BP Pulse Ox 98.4 F 88 18 148/86 H 98 02/19/17 06:00 02/19/17 09:13 02/19/17 06:00 02/19/17 06:00 02/19/17 06:00 ACTIVE MEDICATIONS Acetaminophen/Hydrocodone Bitart (Alleghany 7.5-325) 1 tab PO Q6HR [facility] Last Admin: 02/19/17 05:39 Dose: 1 tab Albuterol/Ipratropium (Duoneb) 1 vial NEB RTQ8H [facility] Last Admin: 02/19/17 05:09 Dose: 1 vial Alprazolam (Xanax) 0.25 mg PO BID [facility] Last Admin: 02/19/17 09:21 Dose: 0.25 mg Aspirin (Aspirin Chewable) 81 mg PO DAILYWM [facility] Last Admin: 02/19/17 09:13 Dose: 81 mg Carvedilol (Coreg) 6.25 mg PO BID Digoxin (Lanoxin) 125 mcg PO DAILY [facility] Last Admin: 02/19/17 09:13 Dose: 125 mcg Docusate Sodium (Colace) 100 mg PO BID [facility] Last Admin: 02/19/17 09:13 Dose: 100 mg Duloxetine HCl (Cymbalta) 30 mg PO DAILY [facility] Last Admin: 02/19/17 09:13 Dose: 30 mg Furosemide (Lasix) 40 mg PO DAILY Gabapentin (Neurontin) 100 mg PO BID [facility] Last Admin: 02/19/17 09:14 Dose: 100 mg Losartan Potassium (Cozaar) 50 mg PO DAILY Magnesium Citrate (Citrate Of Magnesia) 10 oz PO Q72H PRN PRN Reason: Constipation Last Admin: 02/16/17 09:16 Dose: 10 oz Shahriar/Polymyx B Sulf/Dexameth (Maxitrol Opth Oint) 1 radha LEFT EYE BID Nystatin (Nystop Powder) 1 radha TP Q8HR PRN Ondansetron HCl (Zofran 4 Mg/2 Ml) 4 mg IVP Q6H PRN PRN Reason: Nausea / Vomiting Last Admin: 02/19/17 01:07 Dose: 4 mg Pantoprazole Sodium (Protonix) 40 mg PO DAILYAC [facility] Last Admin: 02/19/17 05:40 Dose: 40 mg Potassium Chloride (Klor-Con 10) 10 meq PO DAILY Ropinirole HCl (Requip) 0.5 mg PO BID [facility] Last Admin: 02/19/17 09:12 Dose: 0.5 mg Sennosides (Senna) 8.6 mg PO DAILY [facility] Last Admin: 02/19/17 09:13 Dose: 8.6 mg Sennosides (Senna) 8.6 mg PO BID PRN PRN Reason: Constipation ALLERGIES Penicillins Adverse Reaction (Verified 11/22/16 10:34) NEW PRESCRIPTIONS: RESUME YOUR [facility] MEDICATIONS PER LIST PROVIDED BY THE NURSING STAFF REDUCE THE ONDANSETRON (ZOFRAN) TO 4 MG PO Q6 HOURS PRN NAUSEA DISCONTINUE THE PREDNISONE DISCONTINUE THE FERROUS SULFATE DISCONTINUE THE PROCARDIA DISCONTINUE THE LOPERAMIDE DISCONTINUE THE ROBITUSSIN NOTE NEW KEFLEX ORDER BELOW NEW MEDICATIONS: KEFLEX 500 MG PO Q12 HOURS X 5 DAYS THEN STOP SMOKING: NONSMOKER LAB REVIEW: 02/19/17 05:04 02/19/17 05:04 02/19/17 05:04: Sodium 141, Potassium 3.9, Chloride 105, Carbon Dioxide 29, Anion Gap 10.9, BUN 15, Creatinine 0.81, Estimated GFR (MDRD) 67.00, BUN/ Creatinine Ratio 18.51, Glucose 108, Calcium 8.7, Total Bilirubin 0.27, AST 11 L , ALT 8 L, Alkaline Phosphatase 91, Total Protein 6.0, Albumin 2.3 L, Globulin 3.7, Albumin/Globulin Ratio 0.62 02/19/17 05:04: WBC 8.04, RBC 3.44 L, Hgb 10.4 L, Hct 32.2 L, MCV 93.6, MCH 30.2 , MCHC 32.3, RDW Coeff of Elier 13.9, Plt Count 271, Neutrophils % (Manual) 70.0, Lymphocytes % (Manual) 14.0, Monocytes % (Manual) 3.0, Eosinophils % (Manual) 3.0, Metamyelocytes % 7.0 H, Myelocytes % 2.0 H, Reactive Lymphocytes 1.0, Anisocytosis Not present 02/18/17 08:30: Vancomycin Trough 3.95 L PLAN: DISCHARGE BACK TO [facility] TODAY RESUME YOUR [facility] MEDICATIONS PER LIST PROVIDED BY THE NURSING STAFF REDUCE THE ONDANSETRON (ZOFRAN) TO 4 MG PO Q6 HOURS PRN NAUSEA DISCONTINUE THE PREDNISONE DISCONTINUE THE FERROUS SULFATE DISCONTINUE THE PROCARDIA DISCONTINUE THE LOPERAMIDE DISCONTINUE THE ROBITUSSIN NOTE NEW KEFLEX ORDER BELOW NEW MEDICATIONS: KEFLEX 500 MG PO Q12 HOURS X 5 DAYS THEN STOP LABS: CBC WITH DIFF AND CMP IN ONE WEEK CBC WITH DIFF, CMP AND DIGOXIN LEVEL Q 3 MONTHS DIET: CONSISTENT CARBS/OLAF, REGULAR TEXTURE AND REGULAR CONSISTENCY STOCKROOM CLERK PLEASE CONSULT TO PROVIDE OPTIMAL NUTRITION FOR THIS PATIENT ACTIVITY: MAY PARTICIPATE IN [facility] ACTIVITY PROGRAM TOLERATED UP TO THE DINING ROOM FOR MEALS PT/OT PLEASE EVALUATE AND TREAT INDICATED OTHER: ELEVATE LEGS FREQUENTLY POSSIBLE V/S DAILY (MEDICATION CHANGES) SUMMARY: THE PATIENT IS ALERT AND ORIENTED X3. SHE CURRENTLY IS A RESIDENT AT [facility]. SHE DESIRES TO RETURN THERE AT DISCHARGE. SHE IS DEPENDENT ON OTHERS FOR ADL'S. SHE IS ABLE TO FEED HERSELF AND CAN PROVIDE ASSISTANCE WITH TURNING AND REPOSITIONING HERSELF IN BED. SHE HAS SHEARING ABRAISED AREAS TO HER COCCYX, LEFT AND RIGHT BUTTOCKS THAT WERE PRESENT ON ADMISSION. THERE IS NO DRAINAGE TO THE AREAS. SHE ALSO HAS MULTIPLE AREAS OF BRUISING IN VARIOUS STAGES OF HEALING. MS. NIXON IS AWARE AND AGREEABLE FOR DISCHARGE BACK TO [facility] TODAY. I WILL FOLLOW HER DURING USUAL [facility] ROUNDS IN APPROXIMATELY ONE WEEK. CURRENT CODE STATUS: DNR GARETH JOHNSON M.D.
--- NOTE | 2017-03-18 14:53 | HP ---
DATE OF SERVICE: 02/13/17 CHIEF COMPLAINT: Change in mental status HISTORY OF PRESENT ILLNESS: This is an 86 year old female with multiple medical problems who is a intermediate resident was sent from the intermediate for the change in mental status, decreased disorientation and been having the increase frequency of urination and some abdominal discomfort with nausea. The patient been having some coughing , congestion, feeling weak and tired and having fever for which the patient was started on the Keflex and breathing treatment but when the family visited today the patient was not responding properly and the blood pressure was hypotensive. At that time the patient was transferred to the [place] ER and evaluated by Dr. Abdi. Saturation was 82 in the emergency room, blood pressure was 77/51. He gave 2 Bolus of IV fluids which brought the blood pressure to the 80 systolic. ABG showed the pH 7.39, pCO2 42.7, pO2 43, potassium 3.2, BUN 41, creatinine 1.95.. At that time the patient been admitted to the hospital. CT of abdomen and pelvic showed mild left perinephric fat with left pyelonephritis, large hiatal hernia and there is a foreign body in the CAT scan. The patient was admitted to [facility] at this time for IV dehydration, antibiotics and breathing treatments with Sepsis from the UTI and septic shock with UTI. REVIEW OF SYSTEMS: CONSTITUTIONAL: No fever, no chills. Weakness and tiredness. HEENT: Normal. ENDOCRINE: No weight gain; no weight loss. CVS: No chest pain. No PND, no orthopnea. Shortness of breath. No PND, no orthopnea. RESPIRATORY: Cough and congestion. No hemoptysis. GI: No nausea, no vomiting. No abdominal pain. No melena. : No hematuria. No polyuria. Burning and frequency of urination. MUSCULOSKELETAL: No joint swelling. PSYCHIATRIC: Not anxious. No depression. No suicidal thoughts. No homicidal thoughts. Change in mental status. SKIN: Intact, no open lesions. PAST MEDICAL HISTORY: CAD Hypertension Atrial fibrillation COPD Hiatal hernia GERD Osteoarthritis DJD spine Depression Anxiety Hypothyroidism Diabetes Mellitus Chronic pain syndrome PAST SURGICAL HISTORY: Thyroidectomy Hysterectomy Appendectomy Gallbladder surgery Lower back surgery Cataract surgery. PERSONAL HISTORY: Partially dependant upon the ADL's in the intermediate. No alcohol and no drugs. Family history is significant for the COPD and CAD. MEDICATIONS: Colace Neurontin Coreg Digoxin Procardia Lasix Potassium Aspirin Aldrich Duloxetine Protonix Senokot Requip Robitussin Nystatin Ferrous Sulfate Xanax Magnesium Losartan Senna Loperamide Duo NEBS ALLERGIES: Penicillin PHYSICAL EXAMINATION: V/S: Blood pressure 77/51, respiratory rate 20, heart rate 98, temperature 100.6 and saturation is 82 on the room air. GENERAL: Sick looking lady laying in the bed responses to the verbal and painful stimuli and goes back to sleep. HEENT: Atraumatic, normocephalic. No scleral icterus. Mucosa dry. NECK: Supple. No JVD, no bruit. No lymphadenopathy. No thyromegaly. HEART: S1, S2 normal. No murmur. No cyanosis or clubbing. No ascites. LUNGS: Decreased and clear to auscultation. No rales or rhonchi. ABDOMEN: Soft, discomfort present in the epigastric area. Bowel sounds are sluggish. No CVA tenderness. No rigidity or guarding. EXTREMITIES: No cyanosis, clubbing. 1+ edema. MUSCULOSKELETAL: Normal joints, no swelling. NEUROLOGIC: The patient is awake and alert and responses to the verbal stimuli. SKIN: Intact; no open lesions. LYMPHATIC: No lymph nodes palpable. LABS: WBC 18.45, hgb 11.6, hct 34.6, plt count 145, sodium 138, potassium 3.2, chloride 100, bicarb 26, BUN 41, creatinine 1.95 and glucose 168 and BNP 569. ASSESSMENT: 1. Acute septic shock from urinary tract infection and urosepsis 2. CT showing pyelonephritis on the left side, foreign body in the epigastric area. 2. Hypoxic respiratory failure 3. Acute on chronic heart failure 4. Acute renal failure 5. Dehydration 6. Diabetes 7. Atrial fibrillation 8. Osteoarthritis 9. DJD spine 10.Depression PLAN: 1. Admit patient to the floor 2. Zosyn 3. Vancomycin 1 gram daily 4. Breathing treatments 5. Solu-Medrol 6. IV fluids 7. Morphine 2mg every Q 6 hours PRN 8. The patient's family wants mostly the comfort measures at given time. 9. CBC and CMP today and daily 10.Cardiac enzymes and Troponin 11.NPO 12.Rocephin 1 gram daily 13.Daily I&O's TIME SPENT: MORE THAN 75 minutes MTDD
--- NOTE | 2017-04-04 14:36 | DS ---
DATE OF SERVICE: 02/19/17 FINAL DIAGNOSIS: 1. SEPSIS-SEPTIC SHOCK 2. PYELONEPHRITIS 3. ACUTE ON CHRONIC RENAL FAILURE 4. CORONARY ARTERY DISEASE 5. DIABETES MELLITUS, TYPE 2 6. HYPERTENSION 7. CONGESTIVE HEART FAILURE 8. ATRIAL FIBRILLATION 9. 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 DISCHARGE INSTRUCTIONS: Discharge back to [facility]. CBC with differential and CMP in one week. CBC with differential, CMP and Digoxin level Q 3 months. Elevate legs as frequently as possible. Vital signs daily. MEDICATIONS AT DISCHARGE: [place] 7.5-325mg PO Q 6 hours DUO NEBS 1 vial RT Q 8 hours Xanax 0.25mg PO twice a day Aspirin 81mg PO daily Coreg 6.25mg PO twice a day Lanoxin 125mcg PO daily Colace 100mg PO twice a day Cymbalta 30mg PO daily Lasix 40mg PO daily Neurontin 100mg PO twice a day Cozaar 50mg PO daily Citrate of [place]esia 10oz PO Q 72 hours PRN Maxitrol Opth Oint one radha left eye twice a day Nystop one application TP Q 8 hour PRN Zofran 4mg /2ml 4mg IVP Q 6 hours PRN Protonix 40mg PO daily Klor-con 10 10meq Po daily Requip 0.5mg PO twice a day Senna 8.6mg PO daily Senna 8.6mg PO twice a day PRN ALLERGIES: Penicillins NEW PRESCRIPTIONS: Resume [facility] medications as per list provided by the nursing staff Reduce the Ondansetron to 4mg PO Q 6 hours PRN nausea Discontinue Prednisone Discontinue Ferrous sulfate Discontinue Procardia Discontinue Loperamide Discontinue Robitussin Keflex 500mg PO Q 12 hours x5 days then stop. DIET INSTRUCTIONS: Consistent Carbohydrates/OLAF, regular texture and regular consistency. Rate Clerk Passenger please consult to provide optimal nutrition for this patient. ACTIVITY: May participate in group home activity program as tolerated UP to the dining room for meals PT/OT please evaluate and treat as indicated. SMOKING: Nonsmoker DISEASE SPECIFIC EDUCATION: New Medications Medication change HOSPITAL COURSE: The patient was admitted with acute septic shock, pyelonephritis and acute renal failure. BUN 41, creatinine 1.495, potassium 3.2. The patient was lethargic, not talking. CAT scan of abdomen did show a questionable foreign body in the stomach. The patient's CT scan did not show any stroke. At that time she was admitted to the hospital and started on the IV Azactam and IV fluids 250ml per fluids. With the given fluids the patient's blood pressure was gradually started getting better. Breathing treatments were given to evaluate the abdominal foreign body. KUB was done which did not show any metal object. Gradually the patient's blood pressure was getting better. After the fluid challenges. The patient's family wanted to the comfort measures only so Morphine was increased which did help from the pain and she was more calm and quite. At time the patient CT scan of abdomen again repeated which did not show any foreign body at that time. Meanwhile the patient is more awake and alert, acting fine and did not have any complications. Urine culture did not grow anything, blood culture did not grow organism. At that time she is sent back to group home one antibiotics and steroids. TIME SPENT: MORE THAN 55 MINUTES RITIKA
== END 2017-02-19 10:51 | DRG 871 ==
LOC: ED 12:13 → MEDSURG B 15:40
PROVIDERS: ADMIT Emergency Medicine; ATTEND Emergency Medicine
DX: A41.9 Sepsis, unspecified organism (principal); R65.21 Severe sepsis with septic shock; N39.0 Urinary tract infection, site not specified; N17.9 Acute kidney failure, unspecified; N10 Acute pyelonephritis; I48.91 Unspecified atrial fibrillation; N18.9 Chronic kidney disease, unspecified; R41.82 Altered mental status, unspecified; I50.9 Heart failure, unspecified; I25.10 Atherosclerotic heart disease of native coronary artery without angina pectoris; E11.9 Type 2 diabetes mellitus without complications; J44.9 Chronic obstructive pulmonary disease, unspecified; R93.5 Abnormal findings on diagnostic imaging of other abdominal regions, including retroperitoneum; R10.816 Epigastric abdominal tenderness; D64.9 Anemia, unspecified; K44.9 Diaphragmatic hernia without obstruction or gangrene; K59.00 Constipation, unspecified; E87.6 Hypokalemia; M19.90 Unspecified osteoarthritis, unspecified site; M47.9 Spondylosis, unspecified; G89.4 Chronic pain syndrome; G25.81 Restless legs syndrome; F41.8 Other specified anxiety disorders; H54.62 Unqualified visual loss, left eye, normal vision right eye; Z90.5 Acquired absence of kidney; Z95.0 Presence of cardiac pacemaker; Z79.899 Other long term (current) drug therapy
CPT/HCPCS: 36415; 80053; 80162; 80202; 80306; 81001; 82150; 82550; 82553; 82803; 83690; 83880; 84484; 85007; 85025; 87081; 87086; 93005; 93010; 94640; 96361; 96365; 99223; 99233; 99239; 99284

== ENCOUNTER 2017-05-20 12:22 | Outpatient (CLI) | END 2017-05-20 12:23 | disposition home or self-care (01) | LOC: NONPT 12:22 | PROVIDERS: ATTEND Emergency Medicine | DX: R30.0 Dysuria (principal) | CPT/HCPCS: 81001; 87086 ==

== ENCOUNTER 2017-08-05 14:02 | Inpatient (IN) | payer OTHER ==
[2017-08-05] MEDS ORDERED: ROCEPHIN 1 GM in SODIUM CHLORIDE 50 ML IV STA (14:33)
[2017-08-05] MEDS ORDERED: SOLU-MEDROL 125 MG IVP STA (14:33)
[2017-08-05] MEDS ORDERED: DUONEB NEB STA (14:34)
[2017-08-05] MEDS ORDERED: ROCEPHIN ONE (14:53)
--- NOTE | 2017-08-05 16:07 | ED.PDOC ---
General ED Provider: Dr. GUANACO LEVI Chief Complaint: Palpitations Stated Complaint: FEVER , PALPITATION Time Seen by Physician: 14:15 (ARRIVED IN NO ACUTE DISTRESS ) Mode of Arrival: Stretcher Information Source: Group Home, EMT, Nurse Exam Limitations: Dementia Primary Care Provider: [facility] Nursing and Triage Documentation Reviewed and Agree: Yes Reviewed sepsis parameters & appropriate labs ordered?: Yes System Inflammatory Response Syndrome: Not Applicable Sepsis Protocol: For patient's 13 years and over: Temp is 96.8 and below OR 101 and greater Pulse >90 BPM Resp >20/minute Acutely Altered Mental Status Are patient's symptoms suggestive of a new infection, such as: -Pneumonia -Skin, Soft Tissue -Endocarditis -UTI -Bone, Joint Infection -Implantable Device -Acute Abdominal Infection -Wound Infection -Meningitis -Blood Stream Catheter Infection -Unknown System Inflammatory Response Syndrome: Not Applicable Respiratory Complaint Exam - Respiratory Complaint/Exam Onset/Duration: TODAY Symptoms Are: Resolved Timing: Intermittent Initial Severity: Mild Current Severity: None Location: Chest Character: Reports: Non-productive cough Aggravating: Reports: URI, Recumbent position Alleviating: Reports: Spontaneous resolution Associated Signs and Symptoms: Reports: Chills, Wheezing, URI, Nasal congestion , Decreased oral intake. Denies: Hemoptysis, Dizziness, Calf swelling, Edema, Hoarseness, Sinus discomfort, Vomiting, Sore throat, Weight loss, Increased thirst History of Healthcare-Acquired Pneumonia: Lives at [facility] Related Surgical History: Reports: None Pulmonary Embolism Risk Factors: None Cardiac Risk Factors: Reports: Elevated lipids, Diabetes, Hypertension Pseudomonas Risk Factors: Reports: None Tuberculosis Risk Factors: Reports: None Status Asthmaticus Risk Factors: Reports: None Home Oxygen Use: No Recent Stress Test: No Recent Echo/LV Function: No Current Antibiotic Use: No Current Asthma Medication Use: No Respiratory Distress: None Inadequate Respiratory Effort: No Dysphagia Present: No Stridor Present: No JVD Present: No Retractions: Not Present Diminished Breath Sounds: Yes Sinus Tenderness: None Grunting Respirations: No Kussmaul Respirations: No Differential Diagnoses: CHF, Pulmonary Edema, COPD Exacerbation, AZ, Unstable Angina, Pneumonia, Bronchitis, Lower Resp. Infection Quality Indicators For Pneumonia: Antibiotics in 6hr-admit, SpO2 assessed, Empiric Antibiotic Rx, Vital signs, Mental status assessed Non-Traumatic Chest Pain Syncope: EKG Performed Review of Systems - Review Of Systems Constitutional: Reports: Chills, Malaise, Weakness, Loss of appetite Eyes: Reports: No symptoms Ears, Nose, Mouth, Throat: Reports: No symptoms Respiratory: Reports: Cough, Wheezing Cardiac: Reports: No symptoms GI: Reports: No symptoms : Reports: No symptoms Musculoskeletal: Reports: No symptoms Skin: Reports: No symptoms Neurological: Reports: No symptoms Endocrine: Reports: No symptoms Hematologic/Lymphatic: Reports: No symptoms All Other Systems: Reviewed and Negative Past Medical History - Past Medical History Previously Healthy: Yes Endocrine: Reports: DM 2, Hypothyroid, Dyslipidemia Cardiovascular: Reports: Hypertension, CHF, A-Fib Respiratory: Reports: COPD Hematological: Reports: Anemia Gastrointestinal: Reports: Unknown Genitourinary: Reports: UTI (chronic), CKD Neuro/Psych: Reports: Depression Musculoskeletal: Reports: Arthritis, Back Pain Cancer: Reports: Unknown Last Menstrual Period: hysterectomy Other Pertinent Past Medical History: HIATAL HERNIA - Surgical History General Surgical History: Reports: Other (CORNEAL TRANSPLANT(L), RIGHT NEPHRECTOMY) - Family History Family History: Reports: Unknown - Social History Smoking Status: Never smoker Hx Substance Use: No Alcohol Screening: None - Immunizations Influenza Vaccine within 12 Months: No (unknown) Pneumococcal Vaccine up to Date: No (unknown) Physical Exam - Physical Exam Appearance: Ill-appearing Ill-appearing: Mild Pain Distress: Mild Eyes: GAL, EOMI, Conjunctiva clear ENT: Ears normal, Nose normal, Oropharynx normal Respiratory: Rhonchi Cardiovascular: RRR, Pulses normal, No rub, No murmur GI/: Soft, Nontender, No masses, Bowel sounds normal, No Organomegaly Musculoskeletal: Normal strength, ROM intact, No edema, No calf tenderness Skin: Warm, Dry, Normal color Neurological: Sensation intact, Motor intact, Reflexes intact, Cranial nerves intact, Alert, Oriented Psychiatric: Affect appropriate, Mood appropriate Physician Notification - Case Discussed Physician Notified: PMD Time of Notification: 16:08 Admit To: Inpatient Critical Care Note - Critical Care Note Total Time (mins): 0 Course - Course Hematology/Chemistry: 08/05/17 14:42 08/05/17 14:42 Orders, Labs, Meds: Lab Review 08/05/17 08/05/17 08/05/17 14:33 14:42 14:42 WBC 9.72 RBC 4.07 L Hgb 11.9 L Hct 37.9 MCV 93.1 MCH 29.2 MCHC 31.4 L RDW Coeff of [place] 13.4 Plt Count 242 Immature Gran % (Auto) 0.6 Neut % (Auto) 67.5 Lymph % (Auto) 18.0 [place] % (Auto) 10.1 H Eos % (Auto) 2.8 Baso % (Auto) 1.0 Immature Gran # (Auto) 0.1 Neut # (Auto) 6.6 Lymph # (Auto) 1.8 [place] # (Auto) 1.0 Eos # (Auto) 0.3 Baso # (Auto) 0.1 PT INR APTT Puncture Site R brach O2 Saturation 89.0 L ABG pH 7.35 ABG pCO2 48.9 H ABG pO2 60.0 L ABG HCO3 27 H ABG Total CO2 29 H ABG Base Excess 2 Nimesh Test + O2 Delivery Device Ra FiO2 % 21.0 Sodium 139 Potassium 4.5 Chloride 103 Carbon Dioxide 26 Anion Gap 14.5 BUN 33 H Creatinine 1.33 H Estimated GFR (MDRD) 38.00 BUN/Creatinine Ratio 24.81 Glucose 113 Calcium 9.7 Total Bilirubin 0.5 AST 19 ALT 12 Alkaline Phosphatase 89 Total Creatine Kinase 119 CK-MB (CK-2) 2.5 CK-MB (CK-2) % 2.27401 Troponin I 0.0210 Total Protein 7.6 Albumin 3.0 L Globulin 4.6 Albumin/Globulin Ratio 0.65 Procalcitonin Digoxin 0.94 L 08/05/17 08/05/17 14:42 14:42 WBC RBC Hgb Hct MCV MCH MCHC RDW Coeff of [place] Plt Count Immature Gran % (Auto) Neut % (Auto) Lymph % (Auto) [place] % (Auto) Eos % (Auto) Baso % (Auto) Immature Gran # (Auto) Neut # (Auto) Lymph # (Auto) [place] # (Auto) Eos # (Auto) Baso # (Auto) PT 9.7 INR 0.97 APTT 27.2 Puncture Site O2 Saturation ABG pH ABG pCO2 ABG pO2 ABG HCO3 ABG Total CO2 ABG Base Excess Nimesh Test O2 Delivery Device FiO2 % Sodium Potassium Chloride Carbon Dioxide Anion Gap BUN Creatinine Estimated GFR (MDRD) BUN/Creatinine Ratio Glucose Calcium Total Bilirubin AST ALT Alkaline Phosphatase Total Creatine Kinase CK-MB (CK-2) CK-MB (CK-2) % Troponin I Total Protein Albumin Globulin Albumin/Globulin Ratio Procalcitonin < 0.05 Digoxin Orders Category Date Time Status ABG DRAW REQUEST Stat CARDIO 08/05/17 14:33 Completed EKG-(ED ONLY) Stat CARDIO 08/05/17 14:24 Completed EKG-(ED ONLY) Stat CARDIO 08/05/17 14:38 Completed NEBULIZER TREATMENT Stat CARDIO 08/05/17 14:34 Completed ED IV/MEDIPORT/POWERPORT .ONCE EMERGENCY 08/05/17 14:24 Active ABG Stat LAB 08/05/17 14:33 Completed BLOOD CULTURE (ED ONLY) Stat LAB 08/05/17 14:42 Received CBC W/ AUTO DIFF Stat LAB 08/05/17 14:42 Completed COMPREHENSIVE METABOLIC PANEL Stat LAB 08/05/17 14:42 Completed CREATINE KINASE Stat LAB 08/05/17 14:42 Completed DIGOXIN Stat LAB 08/05/17 14:42 Completed PARTIAL THROMBOPLASTIN TIME Stat LAB 08/05/17 14:42 Completed PROCALCITONIN Stat LAB 08/05/17 14:42 Completed PT WITH INR Stat LAB 08/05/17 14:42 Completed TROPONIN I Stat LAB 08/05/17 14:42 Completed 0.9 % Sodium Chloride [Saline Flush] MEDS 08/05/17 14:23 Active 1 syr IVF PRN PRN Ceftriaxone Sodium [Rocephin] MEDS 08/05/17 14:53 Discontinued 1 gm .ROUTE .STK-MED ONE Ceftriaxone Sodium [Rocephin] 1 gm MEDS 08/05/17 14:33 Discontinued 0.9 % Sodium Chloride [Sodium Chloride] 50 ml IV ONCE Ipratropium/Albuterol Neb [Duoneb] MEDS 08/05/17 14:34 Discontinued 1 vial NEB ONCE STA Methylprednisolone Sod Succ/Pf [Solu-Medrol 125 mg] MEDS 08/05/17 14:33 Discontinued 125 [address] IVP ONCE STA CT CHEST W/O CONTRAST Stat RADS 08/05/17 15:36 Completed Medications Generic Name Dose Route Start Last Admin Trade Name Freq PRN Reason Stop Dose Admin Sodium Chloride 1 syr 08/05/17 14:23 08/05/17 14:59 Saline Flush IVF 1 syr PRN PRN Administration To flush IV Discontinued Medications Generic Name Dose Route Start Last Admin Trade Name Freq PRN Reason Stop Dose Admin Albuterol/Ipratropium 1 vial 08/05/17 14:34 08/05/17 14:56 Duoneb NEB 08/05/17 14:35 1 vial ONCE STA Administration Ceftriaxone Sodium 1 gm/ 50 mls @ 75 mls/hr 08/05/17 14:33 08/05/17 15:04 Sodium Chloride IV 08/05/17 15:12 75 mls/hr ONCE STA Administration Methylprednisolone Sodium Succinate 125 mg 08/05/17 14:33 08/05/17 15:01 Solu-Medrol 125 Mg IVP 08/05/17 14:34 125 mg ONCE STA Administration Vital Signs: Temp Pulse Resp BP Pulse Ox 08/05/17 14:10 98.6 F 66 18 122/58 L 92 L Departure - Departure Time of Disposition: 16:08 Disposition: ADMITTED INPATIENT Discharge Problem: Palpitations, Acute AZ, inferior wall Instructions: Heart Attack (DC) Condition: Good Pt referred to PMD for follow-up: Yes IPMP verified?: No Additional Instructions: Please call your Family Physician as soon as possible to schedule a follow-up appointment. Allergies/Adverse Reactions: Allergies Penicillins Adverse Reaction (Verified 08/05/17 14:18) Home Medications: Ambulatory Orders Carvedilol [Coreg] 6.25 mg PO BID 06/15/13 Digoxin 125 mcg PO DAILY 06/15/13 Docusate Sodium [Colace] 100 mg PO BID 06/15/13 Furosemide [Lasix Tab] 40 mg PO DAILY 06/15/13 Gabapentin [Neurontin] 100 mg PO BID 06/15/13 Aspirin [Aspirin Chewable] 81 mg PO DAILYWM 10/08/14 Potassium Chloride [Klor-Con 10] 10 meq PO DAILY 10/08/14 Duloxetine HCl 30 mg PO DAILY 01/28/16 Hydrocodone Bit/Acetaminophen [[place] 7.5-325] 1 each PO Q6H 01/28/16 Nystatin [Nystop Powder] 1 applic TP Q8HR PRN 01/28/16 Pantoprazole Sodium [Protonix] 40 mg PO DAILY 01/28/16 Ropinirole HCl [Requip] 0.5 mg PO BID 01/28/16 Sennosides [Senokot] 8.6 mg PO BID PRN 01/28/16 Alprazolam [Xanax] 0.25 mg PO BID 08/27/16 Magnesium Citrate [Citrate of Magnesia] 10 oz PO Q72H PRN 08/27/16 Losartan Potassium [Cozaar] 50 mg PO DAILY 11/22/16 Sennosides [Senna] 8.6 mg PO DAILY 11/22/16 Acetaminophen 500 mg PO Q12H PRN 02/13/17 Ipratropium/Albuterol Neb [Duoneb] 1 vial NEB TID 02/13/17 Ondansetron HCl [Zofran Tab] 4 mg PO Q6H PRN #30 tablet 02/19/17 Dicyclomine HCl [Bentyl] 20 mg PO TID 08/05/17 Guaifenesin/Dextromethorphan [Robitussin Dm Syrup] 10 ml PO Q4HR PRN 08/05/17 Levothyroxine Sodium [Synthroid] 75 mcg PO QDAC 08/05/17 Polyvinyl Alcohol [Artificial Tears] 1 drop OP BID 08/05/17
--- NOTE | 2017-08-05 16:21 | CT ---
EXAM: CT chest without contrast HISTORY: Cough COMPARISON: 01/28/2016 TECHNIQUE: CT chest performed without intravenous contrast. Coronal and sagittal reformatted images obtained. FINDINGS: Thoracic inlet unremarkable. Left-sided cardiac pacer. Heart mildly enlarged. Coronary calcifications. No pericardial effusion. Aorta normal in caliber. Mild atherosclerosis. Moderate to large hiatal hernia with debris seen throughout the more proximal esophagus. Evaluation for lymph adenopathy limited without contrast. No lymphadenopathy identified. Visualized portion upper abdome n demonstrates no acute abnormality. Patient status post cholecystectomy No acute abnormalities of th e bones. Degenerate change in the spine. Old left rib fracture with nonunion posteriorly. Central airway patent. Bibasilar consolidation. No pleural effusion or pneumothorax. IMPRESSION: 1. Bibasilar consolidation, consistent with pneumonia. Aspiration is a consideration. 2. Moderate to large hiatal hernia. Debris is seen throughout the more proximal esophagus. 3. Cardiomegaly. Cardiac pacer.
[2017-08-05] MEDS ORDERED: DEXTROMETHORPHAN PO PRN (16:29)
[2017-08-05] MEDS ORDERED: GUAIFENESIN PO PRN (16:29)
[2017-08-05] MEDS ORDERED: TYLENOL PO PRN (16:29)
[2017-08-05] MEDS ORDERED: SODIUM CHLORIDE 1,000 ML IV SCH (16:30)
[2017-08-05 17:50] VITALS: BMI 35.7
[2017-08-05] MEDS: DUONEB NEB SCH ×2 (18:19→22:26)
[2017-08-05] MEDS: SODIUM CHLORIDE 1,000 ML IV SCH (18:19)
[2017-08-05] MEDS: NORCO 7.5-325 PO SCH (18:52)
[2017-08-05] MEDS: COREG PO SCH (18:52)
[2017-08-05] MEDS: ARTIFICIAL TEARS OPTH SOL OP SCH (20:57)
[2017-08-05] MEDS: BENTYL PO SCH (20:57)
[2017-08-05] MEDS: NEURONTIN PO SCH (20:57)
[2017-08-05] MEDS: COLACE PO SCH (20:57)
[2017-08-05] MEDS: SOLU-MEDROL 40 MG IVP SCH (21:58)
[2017-08-06] MEDS: NORCO 7.5-325 PO SCH ×4 (00:17→20:25)
[2017-08-06] MEDS: ROBITUSSIN DM SYRUP PO PRN ×2 (04:52→23:00)
[2017-08-06] MEDS: DUONEB NEB SCH ×4 (04:52→23:30)
[2017-08-06] MEDS: LASIX TAB PO SCH (05:35)
[2017-08-06] MEDS: SYNTHROID PO SCH (05:35)
[2017-08-06] MEDS ORDERED: NON-FORMULARY MEDICATION (Potassium Chloride [Klor-Con 10] 10 MEQ) PO SCH (09:00)
[2017-08-06] MEDS ORDERED: NON-FORMULARY MEDICATION (Losartan Potassium 50 MG) PO SCH (09:00)
[2017-08-06] MEDS: SOLU-MEDROL 40 MG IVP SCH ×2 (09:07→20:25)
[2017-08-06] MEDS: ROCEPHIN 1 GM in SODIUM CHLORIDE 50 ML IV SCH (09:22)
[2017-08-06] MEDS: COLACE PO SCH ×2 (09:23→20:25)
[2017-08-06] MEDS: COZAAR PO SCH (09:23)
[2017-08-06] MEDS: BENTYL PO SCH ×3 (09:23→20:24)
[2017-08-06] MEDS: ARTIFICIAL TEARS OPTH SOL OP SCH ×2 (09:23→20:25)
[2017-08-06] MEDS: COREG PO SCH ×2 (09:23→17:53)
[2017-08-06] MEDS: SENNA PO SCH (09:25)
[2017-08-06] MEDS: ASPIRIN CHEWABLE PO SCH (09:25)
[2017-08-06] MEDS: MICRO-K CAP PO SCH (09:25)
[2017-08-06] MEDS: NEURONTIN PO SCH ×2 (09:25→20:25)
[2017-08-06] MEDS: LANOXIN PO SCH (09:25)
[2017-08-06] MEDS: VANCOMYCIN 1.5 GM in SODIUM CHLORIDE 500 ML IV SCH (10:17)
--- NOTE | 2017-08-06 14:03 | HP ---
DATE OF SERVICE: 08/05/17 CHIEF COMPLAINT: Palpitation,Shortness of breath and not by herself HISTORY OF PRESENT ILLNESS: This is an 87 year old female [facility] for irregular heart rate and confusion with low oxygen saturation, coughing and congestion. The patient is confused, looks pale and persistent lose cough. No fever or chills. The patient was seen by Dr. Lopez in the emergency room. WBC normal, hgb normal , ABG showed the pH 7.35, pCo2 48.9 and pO2 60, Chemistry: BUN 33, creatinine 1.33 and glucose 113. Dig level was within normal limit. CT chest done showing bibasilar consolidation consistent with pneumonia, aspiration is a consideration. Moderate to large hiatal hernia, cardiac pacer. EKG was showing inferior lead ID with St elevation. The patient was not complaining chest pain and no cardiac enzymes and troponin. The power of securities attorney, Candy Agustin, Daughter requested the patient to be admitted at [facility]. Don't want any heart cath at this time. The patient is being admitted to the [facility] for the IV antibiotics and breathing treatments. REVIEW OF SYSTEMS: CONSTITUTIONAL: No fever, no chills. Weakness and tiredness. HEENT: Normal. ENDOCRINE: No weight gain; no weight loss. CVS: No chest pain. No PND, no orthopnea. Shortness of breath. No PND, no orthopnea. RESPIRATORY: Cough, Congestion getting yellow/green phlegm. No hemoptysis. GI: No nausea, no vomiting. No abdominal pain. No melena. : No hematuria. No polyuria. MUSCULOSKELETAL: No joint swelling. Not been active. PSYCHIATRIC: Not anxious. No depression. No suicidal thoughts. No homicidal thoughts. SKIN: Intact, no open lesions. PAST MEDICAL HISTORY: Coronary artery disease Hypertension Atrial fibrillation COPD Hiatal hernia Osteoarthritis DJD spine Diabetes Mellitus Hypothyroidism Depression Anxiety PAST SURGICAL HISTORY: Hysterectomy Appendectomy Gallbladder removal Lower back surgery Thyroidectomy PERSONAL HISTORY: [facility] the [facility] and partially dependant upon the ADL's uses the wheel chair. The family history is significant for the stomach cancer. MEDICATIONS: Colace Neurontin Coreg Digoxin Lasix Potassium Aspirin Hydrocodone Duloxetine Protonix Senokot Requip Xanax Citrate Cozaar Senna Tylenol Duo NEBS Zofran Robitussin Synthroid Artificial tears Bentyl ALLERGIES: Penicillin PHYSICAL EXAMINATION: V/S: Blood pressure 120/58, respiratory rate 18, heart rate 66, temperature 98.6 with saturation 92 on 2 liters. General: Sick looking lady laying in a bed and not in any distress. Response to the verbal stimuli and goes back to sleep. HEENT: Atraumatic, normocephalic. No scleral icterus. Mucosa dry. NECK: Supple. No JVD, no bruit. No lymphadenopathy. No thyromegaly. HEART: S1, S2 normal. Irregular rate. No murmur. No cyanosis or clubbing. No ascites. LUNGS: Decreased and basilar crackles. Expiratory wheezing. Clear to auscultation. No rales or rhonchi. ABDOMEN: Soft, nontender. Bowel sounds are active. No CVA tenderness. No rigidity or guarding. EXTREMITIES: 1+ edema. No cyanosis or clubbing MUSCULOSKELETAL: Normal joints, no swelling. NEUROLOGIC: The patient is awake and alert. SKIN: Intact; no open lesions. LYMPHATIC: No lymph nodes palpable. LABS: Sodium 139, potassium 4.5, chloride 103, bicarb 26, BUN 33, creatinine 1.33, glucose 113, WBC 9.72, hgb 11.9, hct 37.9, plt count 242. ASSESSMENT: 1. Inferior wall ID, family refused to have any heart cath 2. Bibasilar pneumonia 3. Hypoxemic respiratory failure 4. Diabetes 5. Hypertension 6. Coronary artery disease 7. Congestive heart failure 8. Atrial fibrillation 9. Osteoarthritis 10.DJD spine PLAN: 1. Admit the patient to regular floor 2. CBC and CMP today and daily 3. Cardiac enzymes and troponin 4. IV fluids 5. Rocephin 1 gram daily 6. DUO NEBS 7. Digoxin 8. Lasix 9. DUO NEBS 10.IV fluids 11.Solu-Medrol 40 Q 12 hours 12.IV fluids at 40ml per hour TIME SPENT: MORE THAN 70 minutes MTDD
[2017-08-06] MEDS: SODIUM CHLORIDE 1,000 ML IV SCH (23:00)
[2017-08-07] MEDS: ROBITUSSIN DM SYRUP PO PRN ×3 (03:04→20:41)
[2017-08-07] MEDS: DUONEB NEB SCH ×4 (05:18→22:16)
[2017-08-07] MEDS: SYNTHROID PO SCH (05:39)
[2017-08-07] MEDS: LASIX TAB PO SCH (05:40)
[2017-08-07] MEDS: NORCO 7.5-325 PO SCH ×3 (05:40→20:40)
--- NOTE | 2017-08-07 08:17 | PN ---
DATE OF SERVICE: 08/06/17 SUBJECTIVE: The patient is still coughing and congested. Lethargic, response to the verbal stimuli and goes back to sleep. No fever or chills since admission. REVIEW OF SYSTEMS: CONSTITUTIONAL: No fever, no chills. HEENT: Normal. ENDOCRINE: No weight gain, no weight loss. CVS: No angina symptoms. No CHF symptoms. No palpitations. No atypical chest pain for CAD. No shortness of breath. No PND, no orthopnea. RESPIRATORY: No cough, no hemoptysis. GI: No nausea, no vomiting. No abdominal pain. : No hematuria. No polyuria. MUSCULOSKELETAL: No joint swelling. PSYCHIATRIC: Not anxious. No depression. No suicidal thoughts. No homicidal thoughts. SKIN: Intact. No rash. PHYSICAL EXAMINATION: V/S: Blood pressure 140/80, respiratory rate 20, heart rate 65, temperature 97.6 with saturation 95 on 2 liters. HEENT: Normocephalic, atraumatic. Mucosa dry. The patient is blind in left eye. NECK: Supple. No JVD, no carotid bruit. No lymphadenopathy. LUNGS: Decreased and basilar crackles. Clear to auscultation. No rales or rhonchi. HEART: S1, S2 normal. No S3. No murmur, gallop or regurgitation. ABDOMEN: Soft, nontender. Bowel sounds active. No rigidity. No rebound or guarding. No CVA tenderness. EXTREMITIES: 1+ edema. No clubbing or cyanosis MUSCULOSKELETAL: No joint swelling. NEUROLOGIC: Awake, alert, oriented times three. No focal deficit. LYMPHATIC: No lymph nodes palpable. SKIN: Intact. LABS: Sodium 138, potassium 5.3, chloride 104, bicarb 24, BUN 29, creatinine 1.06, glucose 208. WBC 8.40, hgb 11.8, hct 37.0, plt count 230 ASSESSMENT: 1. Status post change in mental status 2. Bibasilar pneumonia 3. ST-T wave change in the inferior leads, troponin are not elevated 4. Diabetes 5. Hypertension 6. Dyslipidemia 7. Coronary artery disease 8. Congestive heart failure 9. Atrial fibrillation 10.Permanent pacemaker 11.Chronic pain syndrome PLAN: 1. Breathing treatments 2. Rocephin and Vancomycin 3. Digoxin 4. DUO NEBS 5. Daily I&O's 6. IV fluids at 40ml per hour TIME SPENT: More than 35 minutes MTDD
[2017-08-07] MEDS: ROCEPHIN 1 GM in SODIUM CHLORIDE 50 ML IV SCH (08:41)
[2017-08-07] MEDS: BENTYL PO SCH ×3 (08:41→20:40)
[2017-08-07] MEDS: MICRO-K CAP PO SCH (08:42)
[2017-08-07] MEDS: COZAAR PO SCH (08:42)
[2017-08-07] MEDS: ASPIRIN CHEWABLE PO SCH (08:42)
[2017-08-07] MEDS: SENNA PO SCH (08:42)
[2017-08-07] MEDS: COLACE PO SCH ×2 (08:42→20:39)
[2017-08-07] MEDS: COREG PO SCH ×2 (08:42→17:13)
[2017-08-07] MEDS: LANOXIN PO SCH (08:42)
[2017-08-07] MEDS: NEURONTIN PO SCH ×2 (08:42→20:40)
[2017-08-07] MEDS: ARTIFICIAL TEARS OPTH SOL OP SCH ×2 (08:42→20:40)
[2017-08-07] MEDS: SOLU-MEDROL 40 MG IVP SCH ×2 (08:43→20:40)
[2017-08-07] MEDS: VANCOMYCIN 1.5 GM in SODIUM CHLORIDE 500 ML IV SCH (09:58)
--- NOTE | 2017-08-07 11:41 | US ---
EXAM: Left lower extremity venous doppler. HISTORY: Left leg pain and swelling. COMPARISON: None available. TECHNIQUE: Multiple grayscale and color doppler images were obtained. FINDINGS: There is normal flow, compressibility and augmentation of flow within the left common femo ral, greater saphenous, profunda, femoral, popliteal, posterior tibial, anterior tibial and peroneal veins. Note that the distal left superficial femoral vein is not detected due to technical factors. IMPRESSION: No evidence for left lower extremity deep vein thrombosis at the levels examined.
[2017-08-08] MEDS: SODIUM CHLORIDE 1,000 ML IV SCH (04:20)
[2017-08-08] MEDS: DUONEB NEB SCH ×4 (04:54→22:23)
[2017-08-08] MEDS: NORCO 7.5-325 PO SCH ×3 (05:24→21:23)
[2017-08-08] MEDS: ROBITUSSIN DM SYRUP PO PRN ×2 (05:24→21:22)
[2017-08-08] MEDS: LASIX TAB PO SCH (05:32)
[2017-08-08] MEDS: SYNTHROID PO SCH (05:32)
[2017-08-08] MEDS ORDERED: DULCOLAX RC PRN (08:27)
[2017-08-08] MEDS: BENTYL PO SCH ×3 (08:40→21:23)
[2017-08-08] MEDS: COZAAR PO SCH (08:40)
[2017-08-08] MEDS: COREG PO SCH ×2 (08:40→18:14)
[2017-08-08] MEDS: MICRO-K CAP PO SCH (08:40)
[2017-08-08] MEDS: SENNA PO SCH (08:40)
[2017-08-08] MEDS: COLACE PO SCH ×2 (08:40→21:22)
[2017-08-08] MEDS: ASPIRIN CHEWABLE PO SCH (08:40)
[2017-08-08] MEDS: NEURONTIN PO SCH ×2 (08:40→21:22)
[2017-08-08] MEDS: LANOXIN PO SCH (08:40)
[2017-08-08] MEDS: ROCEPHIN 1 GM in SODIUM CHLORIDE 50 ML IV SCH (08:40)
[2017-08-08] MEDS: SOLU-MEDROL 40 MG IVP SCH ×2 (08:41→23:35)
[2017-08-08] MEDS: ARTIFICIAL TEARS OPTH SOL OP SCH ×2 (08:45→21:22)
[2017-08-08] MEDS: TESSALON PERLES PO SCH ×3 (10:18→21:22)
[2017-08-08] MEDS: VANCOMYCIN 1.5 GM in SODIUM CHLORIDE 500 ML IV SCH (10:18)
[2017-08-09] MEDS: ROBITUSSIN DM SYRUP PO PRN (02:36)
[2017-08-09] MEDS: DUONEB NEB SCH ×4 (04:50→21:55)
[2017-08-09] MEDS: NORCO 7.5-325 PO SCH ×3 (05:38→21:08)
[2017-08-09] MEDS: SYNTHROID PO SCH (05:38)
[2017-08-09] MEDS: LASIX TAB PO SCH (05:38)
[2017-08-09] MEDS ORDERED: PHENERGAN WITH CODEINE 6.25/10 MG/5 ML PO STA (09:07)
[2017-08-09] MEDS: ROCEPHIN 1 GM in SODIUM CHLORIDE 50 ML IV SCH (09:09)
[2017-08-09] MEDS: SODIUM CHLORIDE 1,000 ML IV SCH (09:11)
[2017-08-09] MEDS: SOLU-MEDROL 40 MG IVP SCH ×2 (09:12→21:14)
[2017-08-09] MEDS: ASPIRIN CHEWABLE PO SCH (09:20)
[2017-08-09] MEDS: BENTYL PO SCH ×3 (09:20→21:08)
[2017-08-09] MEDS: TESSALON PERLES PO SCH ×3 (09:20→21:08)
[2017-08-09] MEDS: COREG PO SCH ×2 (09:21→17:26)
[2017-08-09] MEDS: NEURONTIN PO SCH ×2 (09:21→21:08)
[2017-08-09] MEDS: COLACE PO SCH ×2 (09:21→21:08)
[2017-08-09] MEDS: MICRO-K CAP PO SCH (09:21)
[2017-08-09] MEDS: LANOXIN PO SCH (09:22)
[2017-08-09] MEDS: COZAAR PO SCH (09:22)
[2017-08-09] MEDS: SENNA PO SCH (09:22)
[2017-08-09] MEDS: ARTIFICIAL TEARS OPTH SOL OP SCH ×2 (09:24→21:08)
[2017-08-09] MEDS: VANCOMYCIN 1.5 GM in SODIUM CHLORIDE 500 ML IV SCH (10:19)
[2017-08-10] MEDS: ROBITUSSIN DM SYRUP PO PRN ×2 (03:18→08:58)
[2017-08-10] MEDS: DUONEB NEB SCH ×4 (04:54→21:34)
[2017-08-10] MEDS: LASIX TAB PO SCH (05:29)
[2017-08-10] MEDS: SYNTHROID PO SCH (05:29)
[2017-08-10] MEDS: NORCO 7.5-325 PO SCH ×3 (05:29→20:59)
[2017-08-10] MEDS: SOLU-MEDROL 40 MG IVP SCH ×2 (08:59→20:37)
[2017-08-10] MEDS: ROCEPHIN 1 GM in SODIUM CHLORIDE 50 ML IV SCH (08:59)
[2017-08-10] MEDS: ARTIFICIAL TEARS OPTH SOL OP SCH ×2 (09:03→20:59)
[2017-08-10] MEDS: BENTYL PO SCH ×3 (09:04→20:58)
[2017-08-10] MEDS: ASPIRIN CHEWABLE PO SCH (09:04)
[2017-08-10] MEDS: COLACE PO SCH ×2 (09:05→20:58)
[2017-08-10] MEDS: MICRO-K CAP PO SCH (09:05)
[2017-08-10] MEDS: LANOXIN PO SCH (09:09)
[2017-08-10] MEDS: COREG PO SCH ×2 (09:11→16:41)
[2017-08-10] MEDS: COZAAR PO SCH (09:11)
[2017-08-10] MEDS: SENNA PO SCH (09:12)
[2017-08-10] MEDS: TESSALON PERLES PO SCH ×3 (09:12→20:58)
[2017-08-10] MEDS: NEURONTIN PO SCH ×2 (09:12→20:58)
[2017-08-10] MEDS: VANCOMYCIN 1.5 GM in SODIUM CHLORIDE 500 ML IV SCH (11:45)
[2017-08-10] MEDS: SODIUM CHLORIDE 1,000 ML IV SCH (18:11)
[2017-08-11] MEDS: DUONEB NEB SCH ×2 (04:54→11:15)
[2017-08-11] MEDS: SYNTHROID PO SCH (05:48)
[2017-08-11] MEDS: LASIX TAB PO SCH (05:48)
[2017-08-11] MEDS: NORCO 7.5-325 PO SCH ×2 (05:49→13:57)
[2017-08-11] MEDS: MICRO-K CAP PO SCH (08:33)
[2017-08-11] MEDS: ASPIRIN CHEWABLE PO SCH (08:33)
[2017-08-11] MEDS: COLACE PO SCH (08:33)
[2017-08-11] MEDS: ARTIFICIAL TEARS OPTH SOL OP SCH (08:33)
[2017-08-11] MEDS: BENTYL PO SCH (08:33)
[2017-08-11] MEDS: LANOXIN PO SCH (08:33)
[2017-08-11] MEDS: NEURONTIN PO SCH (08:34)
[2017-08-11] MEDS: SOLU-MEDROL 40 MG IVP SCH (08:34)
[2017-08-11] MEDS: ROCEPHIN 1 GM in SODIUM CHLORIDE 50 ML IV SCH (08:34)
[2017-08-11] MEDS: SENNA PO SCH (08:34)
[2017-08-11] MEDS: COZAAR PO SCH (08:34)
[2017-08-11] MEDS: TESSALON PERLES PO SCH (08:34)
[2017-08-11] MEDS: COREG PO SCH (08:34)
[2017-08-11 09:45] VITALS: BP 133/75; TEMP 99.4
[2017-08-11] MEDS: SODIUM CHLORIDE 1,000 ML IV SCH (11:06)
[2017-08-11] MEDS: VANCOMYCIN 1.5 GM in SODIUM CHLORIDE 500 ML IV SCH (11:13)
--- NOTE | 2017-08-11 11:37 | PN ---
DATE OF SERVICE: 08/07/17 SUBJECTIVE: Coughing and congestion is still present, weakness and tiredness. Complains about the weakness and tiredness. REVIEW OF SYSTEMS: CONSTITUTIONAL: No fever, no chills. HEENT: Normal. ENDOCRINE: No weight gain, no weight loss. CVS: No angina symptoms. No CHF symptoms. No palpitations. No atypical chest pain for CAD. No shortness of breath. No PND, no orthopnea. RESPIRATORY: Cough and congestion , no hemoptysis. GI: No nausea, no vomiting. No abdominal pain. : No hematuria. No polyuria. MUSCULOSKELETAL: No joint swelling. PSYCHIATRIC: Not anxious. No depression. No suicidal thoughts. No homicidal thoughts. SKIN: Intact. No rash. PHYSICAL EXAMINATION: V/S: blood pressure 147/76, respiratory rate 24, heart rate 72 and temperature 97.7 with saturation 95% HEENT: Normocephalic, atraumatic. Mucosa dry. Pallor positive. No icterus. NECK: Supple. No JVD, no carotid bruit. No lymphadenopathy. LUNGS: Decreased with basilar crackles, bibasilar. No rales or rhonchi. HEART: S1, S2 normal. No S3. No murmur, gallop or regurgitation. ABDOMEN: Soft, nontender. Bowel sounds active. No rigidity. No rebound or guarding. No CVA tenderness. EXTREMITIES: No pedal edema. No clubbing or cyanosis MUSCULOSKELETAL: No joint swelling. NEUROLOGIC: Awake, alert, oriented times three. No focal deficit. LYMPHATIC: No lymph nodes palpable. SKIN: Intact. LABS: WBC 9.43, hgb 12.2, hct 38.4, plt count 266, sodium 141, potassium 4.4, chloride 106, bicarb 24, BUN 35, creatinine 1.04 and glucose 211. ASSESSMENT: 1. Bibasilar pneumonia 2. Status post change in mental status 3. Hypertension 4. Coronary artery disease 5. Congestive heart failure 6. Atrial fibrillation 7. DJD spine 8. Chronic pain syndrome PLAN: 1. Continue the Rocephin and Vancomycin, DUO NEBS and steroids 2. Continue monitoring the Vancomycin levels TIME SPENT: More than 35 minutes MTDD
--- NOTE | 2017-08-11 11:42 | PN ---
DATE OF SERVICE: 08/08/17 SUBJECTIVE: The patient was admitted with bibasilar pneumonia and change in mental status. The patient is up and about, still coughing and congestion. REVIEW OF SYSTEMS: CONSTITUTIONAL: No fever, no chills. HEENT: Normal. ENDOCRINE: No weight gain, no weight loss. CVS: No angina symptoms. No CHF symptoms. No palpitations. No atypical chest pain for CAD. No shortness of breath. No PND, no orthopnea. RESPIRATORY: Cough and congestion, no hemoptysis. GI: No nausea, no vomiting. No abdominal pain. : No hematuria. No polyuria. MUSCULOSKELETAL: No joint swelling. PSYCHIATRIC: Not anxious. No depression. No suicidal thoughts. No homicidal thoughts. SKIN: Intact. No rash. PHYSICAL EXAMINATION: V/S: Blood pressure 153/89, respiratory rate 20, heart rate 65, temperature 98.4 with saturation 94. HEENT: Normocephalic, atraumatic. Mucosa dry. Pallor positive. No icterus. Left eye is blind. NECK: Supple. No JVD, no carotid bruit. No lymphadenopathy. LUNGS: Decreased and basilar crackles. Clear to auscultation. No rales or rhonchi. HEART: S1, S2 normal. No S3. No murmur, gallop or regurgitation. ABDOMEN: Soft, nontender. Bowel sounds active. No rigidity. No rebound or guarding. No CVA tenderness. EXTREMITIES: 1+ edema. No clubbing or cyanosis MUSCULOSKELETAL: No joint swelling. NEUROLOGIC: Awake, alert, oriented times three. No focal deficit. LYMPHATIC: No lymph nodes palpable. SKIN: Intact. ASSESSMENT: 1. Bibasilar pneumonia 2. Pacemaker malfunction 3. Atrial fibrillation 4. CHF 5. Cardiomegaly 6. Dyslipidemia 7. Hypertension 8. Diabetes type 2 9. 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 Continue IV fluids at 40ml per hour 2. Solu-Medrol 3. Rocephin 4. Vancomycin 5. DUO NEBS 6. Daily I&O's TIME SPENT: More than 35 minutes MTDD
--- NOTE | 2017-08-11 11:52 | PN ---
DATE OF SERVICE: 08/09/17 SUBJECTIVE: She just woke up and says that she is not feeling good. Still coughing and cough medication is not helping. Shortness of breath is still present. REVIEW OF SYSTEMS: CONSTITUTIONAL: No fever, no chills. HEENT: Normal. ENDOCRINE: No weight gain, no weight loss. CVS: No angina symptoms. No CHF symptoms. No palpitations. No atypical chest pain for CAD. No shortness of breath. No PND, no orthopnea. RESPIRATORY: Cough, no hemoptysis. GI: No nausea, no vomiting. No abdominal pain. : No hematuria. No polyuria. MUSCULOSKELETAL: No joint swelling. PSYCHIATRIC: Not anxious. No depression. No suicidal thoughts. No homicidal thoughts. SKIN: Intact. No rash. PHYSICAL EXAMINATION: V/S: Blood pressure 154/95, respiratory rate 16, heart rate 65, temperature is 98.0 with saturation 99%. HEENT: Normocephalic, atraumatic. Mucosa dry. NECK: Supple. No JVD, no carotid bruit. No lymphadenopathy. LUNGS: Decreased and basilar crackles present. Clear to auscultation. No rales or rhonchi. HEART: S1, S2 normal. No S3. No murmur, gallop or regurgitation. ABDOMEN: Soft, nontender. Bowel sounds active. No rigidity. No rebound or guarding. No CVA tenderness. EXTREMITIES: No pedal edema. No clubbing or cyanosis MUSCULOSKELETAL: No joint swelling. NEUROLOGIC: Awake, alert, oriented times three. No focal deficit. LYMPHATIC: No lymph nodes palpable. SKIN: Intact. LABS: WBC 11.29, hgb 13.0, hct 40.2, plt count 318, sodium 141,potassium 4.5, chloride 104, bicarb 26, BUN 28, creatinine 0.94 and glucose 189. ASSESSMENT: 1. Shortness of breath secondary to bibasilar pneumonia 2. Status post change in mental status from pneumonia 3. Atrial fibrillation 4. Malfunctioning of the pacemaker 5. Coronary artery disease 6. Congestive heart failure 7. Diabetes 8. Hypertension 9. Chronic pain syndrome 10.Osteoarthritis 11.DJD spin PLAN: 1. Will given dose of Phenergan with codeine 2. Continue the Rocephin and Vancomycin 3. DUO NEBS 4. Solu-Medrol 5. Accu-checks with coverage 6. IV fluids at 40ml per hour TIME SPENT: More than 35 minutes MTDD
--- NOTE | 2017-08-11 12:57 | PN ---
DATE OF SERVICE: 08/10/17 SUBJECTIVE: The patient complains about the cough and congestion. Little bit sleepy today. The patient was not able to sleep at night. REVIEW OF SYSTEMS: CONSTITUTIONAL: No fever, no chills. HEENT: Normal. ENDOCRINE: No weight gain, no weight loss. CVS: No angina symptoms. No CHF symptoms. No palpitations. No atypical chest pain for CAD. No shortness of breath. No PND, no orthopnea. RESPIRATORY: No cough, no hemoptysis. GI: No nausea, no vomiting. No abdominal pain. : No hematuria. No polyuria. MUSCULOSKELETAL: No joint swelling. PSYCHIATRIC: Not anxious. No depression. No suicidal thoughts. No homicidal thoughts. SKIN: Intact. No rash. PHYSICAL EXAMINATION: V/S: Blood pressure 131/81, respiratory rate 18, heart rate 65, temperature 98.5 with saturation 98 with 2 liters. HEENT: Normocephalic, atraumatic. Mucosa dry. NECK: Supple. No JVD, no carotid bruit. No lymphadenopathy. LUNGS: Basilar crackles. No rales or rhonchi. HEART: S1, S2 normal. No S3. No murmur, gallop or regurgitation. ABDOMEN: Soft, nontender. Bowel sounds active. No rigidity. No rebound or guarding. No CVA tenderness. EXTREMITIES: 1+ edema. No clubbing or cyanosis MUSCULOSKELETAL: No joint swelling. NEUROLOGIC: Awake, alert, oriented times three. No focal deficit. LYMPHATIC: No lymph nodes palpable. SKIN: Intact. LABS: WBC 11.29, hgb 13.5, hct 40.2, plt count 318, sodium 141, potassium 4.5, chloride 104, bicarb 26, BUN 28 and creatinine 0.94 and glucose 189. ASSESSMENT: 1. Status post change in mental status secondary to the basilar pneumonia 2. Hyperkalemia which is better 3. Dehydration which is improved 4. Diabetes 5. Hypertension 6. Coronary artery disease 7. Congestive heart failure 8. Atrial fibrillation 9. Pacemaker malfunction PLAN: 1. Continue the Rocephin, Vancomycin, DUO NEBS, Solu-Medrol 2. Daily I&O's TIME SPENT: More than 35 minutes MTDD
--- NOTE | 2017-08-11 16:46 | RS.OTINEVL ---
Subjective - Patient information Date of Evaluation: 08/11/17 Date of Arrival on Unit: 08/08/17 Admitted From:: [facility] Usual Living Arrangement: [facility] Living Arrangement Comments: Pt lives at [facility]. Medical History: Hypertension, COPD, Diabetes Medical History Comments:: respiratory disorder, irreg. HB, Surgical History Comments:: Left eye blindness Subjective Information/ Patient Comments:: I don't know. - Level of function Current Equipment Used at Home: wheel chair Pain Assessment - Pain Pain Score: 3 Pain Location Body Site: Knee Pain Aggravating Factors: Walking Pain Alleviating Factors: Medication Interventions - Objective Patient Orientation: Person Current Interventions: IV's, Oxygen, Telemetry Observation: Pt is moderate x 2 to transfer from EOB to Chair with RW. Pt is weak. Interventions - ROM Right Upper Extremity AROM: WFL's Left Upper Extremity AROM: WFL's - Strength Right Upper Extremity Strength: Mild Weakness Left Upper Extremity Strength: Mild Weakness - Sensation Right Upper Extremity Sensation: Intact/Normal Left Upper Extremity Sensation: Intact/Normal Balance - Sitting Balance Static Sitting Balance: Fair Dynamic Sitting Balance: Fair - Standing Balance Static Standing Balance: Poor Dynamic Standing Balance: Poor ADL Skills - Self Feeding Self Feeding: Independent - Grooming Grooming: Min Assist - Bathing Bathing UE: Mod Assist Bathing LE: Mod Assist - Dressing Dressing UE: Min Assist Dressing LE: Max Assist - Toilet Management Toileting Management: Max Assist Functional Mobility - Bed Mobility Rolling R/L: Independent Scooting: Independent Supine to Sit: CGA Sit to Supine: CGA - Transfers Sit to Stand: Mod Assist Stand to Sit: Mod Assist Stand Pivot Transfers: Mod Assist - Ambulation Weight Bearing Status: FWB Assistive Device Used: Rolling Walker Assistance needed with Ambulation: Mod Assist, 2 person assist - Safety Awareness Safety Awareness: Good CARYN INDEX SCORE: . Additional Treatment Performed - Time with patient Total treatment time: 18 Activities Patient Interests:: Watching Television Patient Education Patient Education: Education of diagnosis, Education of Plan of Care Teaching Recipient: Patient Teaching Methods: Discussion Assessment Problem List:: Decreased level of function, Requires training/education, Decreased safety/Risk of falls, Weakness Rehab Potential: Good Further Therapy Indicated?: Yes Evaluation Complexity: HISTORY: High, EXAM OF BODY SYSTEMS: High, CLINICAL DECISION MAKING: High Short Term Goals - Goals GOAL 1: Pt to increase safety of functional transfers to Minimal assist with RW Goal to be met by: 08/14/17 GOAL 2: Pt to increase independence of self care management to Minimal assist Goal to be met by: 08/14/17 GOAL 3: Pt to increase BUe strength to 4/5. Goal to be met by: 08/14/17 [facility] Goals GOAL 1: Pt to increase safety of functional transfers to CGA assist with RW Goal to be met by: 08/18/17 GOAL 2: Pt to increase independence of self care management to CGA assist Goal to be met by: 08/18/17 GOAL 3: Pt to increase BUe strength to 4+/5. Goal to be met by: 08/18/17 Plan Plan of Care: Therapeutic EX, Neuromuscular Re-Educ, Therapeutic Activity, Self- Care/Home Management Frequency of Treatment: 1-2 X day, as tolerated Duration of Treatment: 1 Week Anticipated Discharge Destination: [facility] Has the Physician been added for Co-signature?: Yes
--- NOTE | 2017-10-10 15:28 | DS ---
DATE OF SERVICE: 08/11/17 FINAL DIAGNOSIS: 1. FACILITY ACQUIRED PNEUMONIA 2. PACEMAKER MALFUNCTION 3. ATRIAL FIBRILLATION 4. ACUTE ON CHRONIC HEART FAILURE 5. CARDIOMEGALY 6. DYSLIPIDEMIA 7. HYPERTENSION 8. DIABETES MELLITUS TYPE 2 9. HYPOTHYROIDISM 10. COPD 11. ANEMIA 12. CHRONIC KIDNEY DISEASE 13. ARTHRITIS 14. CHRONIC BACK PAIN 15. MODERATE TO LARGE HIATAL HERNIA 16. HYSTERECTOMY 17. CORNEAL TRANSPLANT 18. RIGHT NEPHRECTOMY 19. PERMANENT PACEMAKER DISCHARGE INSTRUCTIONS: 1. Discharge the patient back to [facility]. 2. Followup appointment on long-term rounds with Dr. Chamberlain. 3. PT/OT evaluate and treat. 4. CBC, CMP in one week then after that every few months. MEDICATIONS AT DISCHARGE: Robitussin Tylenol Xanax Aspirin Coreg Bentyl Digoxin Docusate Duloxetine Lasix Neurontin Hydrocodone Albuterol Duonebs Synthroid Cozaar Magnesium Citrate Protonix Artificial Tears Potassium Requip Senna Zofran NEW PRESCRIPTIONS: Keflex 500 mg p.o. b.i.d. for 5 days Prednisone 10 mg p.o. b.i.d. for 5 days DIET INSTRUCTIONS: As tolerated. ACTIVITY: As tolerated. May participate in the long-term activity. SMOKING: N/A DISEASE SPECIFIC EDUCATION: Malfunction of the pacemaker, pneumonia, pneumonia vaccination, CHF and fluid overload has been discussed with the patient in detail, verbalized understanding. HOSPITAL COURSE: This is an 87-year-old female with multiple medical problems who stays at the long-term was having some shortness of breath, cough and congestion came to the emergency room, seen by Dr. Lopez in the emergency room. There was new ST- T wave changes in the EKG. White count was normal. PT/INR normal. ABG showed pH 7.35, pc02 48.9, p02 60, BUN 33, creatinine 1.33, urine negative toxicology trough level was 0.94. CT chest showed pneumonia. At that time, the patient was admitted to the hospital, started on IV antibiotics, breathing treatments, Solu- Medrol. The patient was given Hydrocodone, Solu-Medrol 40, Digoxin continued, Duonebs. Rapid atrial fibrillation was watched. A dose of Digoxin was given. Ceftriaxone and Vancomycin was given. Vancomycin trough levels have been calculated. Hemoglobin and hematocrit were stable. BUN and creatinine were stable. Gradually the patient's cough, congestion and shortness of breath were getting better. Venous Doppler negative for DVT. Uneventful hospital course. Discussed about the patient's possible pacemaker malfunction with Candy Agustin who is the daughter and power of banking attorney, don't want any transfer and at that time did not want her to be treated aggressively so the patient was put in [facility] to continue with antibiotics covering for facility acquired pneumonia. With the given treatment, the patient was up and about and was able to sit in the chair, less coughing, less short of breath, no fever or chills. At that time, the patient was discharged back to [facility]. TIME SPENT: MORE THAN 65 MINUTES MTDD
== END 2017-08-11 13:30 | disposition home or self-care (01) | DRG 193 ==
LOC: ED 14:02 → MEDSURG B 16:36
PROVIDERS: ADMIT Emergency Medicine; ATTEND Emergency Medicine
DX: J18.9 Pneumonia, unspecified organism (principal); I21.19 ST elevation (STEMI) myocardial infarction involving other coronary artery of inferior wall; T82.119A Breakdown (mechanical) of unspecified cardiac electronic device, initial encounter; R94.31 Abnormal electrocardiogram [ECG] [EKG]; R00.2 Palpitations; R50.9 Fever, unspecified; R41.82 Altered mental status, unspecified; Y95 Nosocomial condition; I48.91 Unspecified atrial fibrillation; I50.9 Heart failure, unspecified; I51.7 Cardiomegaly; I12.9 Hypertensive chronic kidney disease with stage 1 through stage 4 chronic kidney disease, or unspecified chronic kidney disease; E11.22 Type 2 diabetes mellitus with diabetic chronic kidney disease; N18.9 Chronic kidney disease, unspecified; I10 Essential (primary) hypertension; J44.9 Chronic obstructive pulmonary disease, unspecified; I25.10 Atherosclerotic heart disease of native coronary artery without angina pectoris; D64.9 Anemia, unspecified; E78.5 Hyperlipidemia, unspecified; E03.9 Hypothyroidism, unspecified; K44.9 Diaphragmatic hernia without obstruction or gangrene; M19.90 Unspecified osteoarthritis, unspecified site; G89.4 Chronic pain syndrome; R53.83 Other fatigue; Z95.0 Presence of cardiac pacemaker; Z90.5 Acquired absence of kidney; Z79.899 Other long term (current) drug therapy
CPT/HCPCS: 36415; 80053; 80162; 80202; 81001; 82550; 82553; 82803; 82962; 84145; 84484; 85025; 85610; 85730; 87040; 87081; 93005; 93010; 94640; 96365; 96375; 99223; 99233; 99239; 99284

== ENCOUNTER 2017-08-21 12:20 | Emergency (ER) | payer OTHER ==
[2017-08-21 12:25] VITALS: BP 110/71; TEMP 97.5; BMI 36.5
[2017-08-21] MEDS ORDERED: LIDOCAINE HCL 1% SDV SUBCUT STA (12:59)
--- NOTE | 2017-08-21 13:06 | ED.PDOC ---
General ED Provider: Dr. MAK DE JESUS Chief Complaint: Fall Stated Complaint: Fell forward and struck floor as she was attempting to transfer herself from chair.Was found on the floor, sustained laceration to nasal region-Bridge of nose . Unknown if had LOC. Patient resides [place] [facility] and her PCP was notified and advised to bring to the ER. Also complains of pain to rt knee but has history of chronic pain to that knee--no deformity/bruising/ abrasion noted. Exam of Lt knee noted to have small abrasion to left knee. Patient is alert and able to respond verbally--swelling to both legs noted--Is on chronic oxygent therapy and here is noted to have chronic cough. Time Seen by Physician: 12:45 Mode of Arrival: Ambulance Information Source: Assisted, EMT Exam Limitations: No limitations Primary Care Provider: [facility] Nursing and Triage Documentation Reviewed and Agree: Yes Reviewed sepsis parameters & appropriate labs ordered?: Yes System Inflammatory Response Syndrome: Not Applicable Sepsis Protocol: For patient's 13 years and over: Temp is 96.8 and below OR 101 and greater Pulse >90 BPM Resp >20/minute Acutely Altered Mental Status Are patient's symptoms suggestive of a new infection, such as: -Pneumonia -Skin, Soft Tissue -Endocarditis -UTI -Bone, Joint Infection -Implantable Device -Acute Abdominal Infection -Wound Infection -Meningitis -Blood Stream Catheter Infection -Unknown System Inflammatory Response Syndrome: Not Applicable Trauma/Injury Complaint Exam - Facial Injury Complaint/Exam Location of Pain: Reports: Nose Mechanism of Injury: Reports: Trauma Onset/Duration: 1 hr Symptoms Are: Still present Onset of Pain: Reports: Immediate Initial Severity: Moderate Current Severity: Mild Location: Reports: Discrete Character: Reports: Sharp, Aching, Throbbing Alleviating: Reports: None Aggravating: Reports: None Associated Signs and Symptoms: Reports: Swelling Related History: Denies: Similar episode Related Surgical History: Reports: None Facial Findings: Present: Swelling, Laceration (nasal bridge) Differential Diagnoses: Contusion, Laceration Review of Systems - Review Of Systems Constitutional: Reports: No symptoms Eyes: Reports: No symptoms Ears, Nose, Mouth, Throat: Reports: Nose pain (laceration to mid bridge of nasal struction ) Respiratory: Reports: No symptoms Cardiac: Reports: No symptoms GI: Reports: No symptoms : Reports: No symptoms Musculoskeletal: Reports: No symptoms Skin: Reports: No symptoms Neurological: Reports: No symptoms Endocrine: Reports: No symptoms Hematologic/Lymphatic: Reports: No symptoms All Other Systems: Reviewed and Negative Past Medical History - Past Medical History Previously Healthy: Yes Endocrine: Reports: DM 2, Hypothyroid, Dyslipidemia Cardiovascular: Reports: Hypertension, CHF, A-Fib Respiratory: Reports: COPD Hematological: Reports: Anemia Gastrointestinal: Reports: Unknown Genitourinary: Reports: UTI (chronic), CKD Neuro/Psych: Reports: Depression Musculoskeletal: Reports: Arthritis, Back Pain Cancer: Reports: Unknown Last Menstrual Period: menopause Other Pertinent Past Medical History: HIATAL HERNIA - Surgical History General Surgical History: Reports: Other (CORNEAL TRANSPLANT(L), RIGHT NEPHRECTOMY) - Family History Family History: Reports: Unknown - Social History Smoking Status: Never smoker Hx Substance Use: No Alcohol Screening: None - Immunizations Tetanus Shot up to Date: (unknown) Influenza Vaccine within 12 Months: No (unknown) Pneumococcal Vaccine up to Date: No (unknown) Physical Exam - Physical Exam Appearance: Well-appearing, No pain distress, Well-nourished, Obese Ill-appearing: Mild Pain Distress: Moderate Eyes: GAL, EOMI, Conjunctiva clear ENT: Ears normal, Nose normal (1.5 cm laceration bridge of nose), Oropharynx normal Respiratory: Airway patent, Breath sounds clear, Breath sounds equal (cough- congested no sputum production ), Respirations nonlabored Cardiovascular: RRR, Pulses normal, No rub, No murmur GI/: Soft, Nontender, No masses, Bowel sounds normal, No Organomegaly Musculoskeletal: Normal strength, ROM intact, No edema, No calf tenderness Skin: Warm, Dry, Normal color Neurological: Sensation intact, Motor intact, Reflexes intact, Cranial nerves intact, Alert, Oriented Psychiatric: Affect appropriate, Mood appropriate Interpretation - Radiology Interpretation Radiology Interpretation By: Radiologist Radiology Results: No acute changes Exam Interpreted: CT Scan Radiology Interpretation By: Radiologist Exam Interpreted: CXR (ground glass appearance- possible chronic congestion vs inflamation ) Procedures - Laceration/Wound Repair nasal Wound Description: Other (horizonal) Wound Length (cm): 2 cm Wound Width: 2mm Wound Depth: 1.5mm Wound Explored: Clean Wound Irrigated: Yes Wound Prep: Saline, Hibiclens, Betadine Anesthesia: Lidocaine (2cc) Wound Margins: Other (aligned) Wound Repaired With: Sutures Suture Size and Type: 4-0 nylon Number of Sutures: 3 Layer Closure?: No Sterile Dressing Applied?: Yes Critical Care Note - Critical Care Note Total Time (mins): 30 Course - Course Hematology/Chemistry: 08/21/17 13:08 08/21/17 13:08 Orders, Labs, Meds: Lab Review 08/21/17 08/21/17 13:08 13:08 WBC 7.23 RBC 4.13 L Hgb 12.1 Hct 37.7 MCV 91.3 MCH 29.3 MCHC 32.1 RDW Coeff of Elier 13.6 Plt Count 153 Immature Gran % (Auto) 0.3 Neut % (Auto) 58.0 Lymph % (Auto) 22.5 [place] % (Auto) 14.9 H Eos % (Auto) 3.3 Baso % (Auto) 1.0 Immature Gran # (Auto) 0.0 Neut # (Auto) 4.2 Lymph # (Auto) 1.6 [place] # (Auto) 1.1 Eos # (Auto) 0.2 Baso # (Auto) 0.1 Sodium 142 Potassium 3.9 Chloride 105 Carbon Dioxide 26 Anion Gap 14.9 BUN 22 H Creatinine 0.98 Estimated GFR (MDRD) 54.00 BUN/Creatinine Ratio 22.44 Glucose 116 H Calcium 9.6 Total Bilirubin 0.4 AST 15 ALT 11 L Alkaline Phosphatase 79 Total Protein 6.3 Albumin 3.0 L Globulin 3.3 Albumin/Globulin Ratio 0.91 Orders Category Date Time Status CBC W/ AUTO DIFF Stat LAB 08/21/17 13:08 Completed CMP [COMPREHENSIVE METABOLIC PANEL] Stat LAB 08/21/17 13:08 Completed Diphth,Pertuss(Acell),Tet Vac [Boostrix] MEDS 08/21/17 13:28 Discontinued 0.5 ml IM .ONCE ONE Lidocaine HCl/Pf [Lidocaine HCl 1% Sdv] MEDS 08/21/17 12:59 Discontinued 5 ml SUBCUT ONCE STA CHEST, 2 VIEWS PA & LAT Stat RADS 08/21/17 13:[address] HEAD W/O CONTRAST Stat RADS 08/21/17 13:[address] MAXILLOFACIAL W/O CONTRAST Stat RADS 08/21/17 13:00 Completed Medications Discontinued Medications Generic Name Dose Route Start Last Admin Trade Name Freq PRN Reason Stop Dose Admin Diphtheria/Pertussis/Tetanus Vacc 0.5 ml 08/21/17 13:28 04/19/18 14:07 Boostrix IM 08/21/17 13:29 0.5 ml .ONCE ONE Administration Lidocaine HCl 5 ml 08/21/17 12:59 08/21/17 13:19 Lidocaine Hcl 1% Sdv SUBCUT 08/21/17 13:00 5 ml ONCE STA Administration Vital Signs: Temp Pulse Resp BP Pulse Ox 08/21/17 12:20 97.5 F L 66 20 110/71 96 Departure - Departure Time of Disposition: 15:00 Disposition: DISCH/TSF TO REHAB Discharge Problem: Nasal laceration, Blunt trauma of face, Upper respiratory infection, Fall Instructions: Care For Your Stitches (ED), Upper Respiratory Infection (ED), Fall Prevention for Older Adults (ED), Facial Contusion (ED) Condition: Fair Pt referred to PMD for follow-up: Yes (1 week for suture removal) IPMP verified?: No Additional Instructions: Follow wound care instructions and head facial injury instruction. Neuro checks every 1 hour for 3 hours then every 3 hrs X 2 then q shift X2 FOr any change contact PCP Have sutures removed in 7 days Allergies/Adverse Reactions: Allergies Penicillins Adverse Reaction (Verified 08/21/17 12:29) Home Medications: Ambulatory Orders Carvedilol [Coreg] 6.25 mg PO BID 06/15/13 Digoxin 125 mcg PO DAILY 06/15/13 Docusate Sodium [Colace] 100 mg PO BID 06/15/13 Furosemide [Lasix Tab] 40 mg PO DAILY 06/15/13 Gabapentin [Neurontin] 100 mg PO BID 06/15/13 Aspirin [Aspirin Chewable] 81 mg PO DAILYWM 10/08/14 Potassium Chloride [Klor-Con 10] 10 meq PO DAILY 10/08/14 Duloxetine HCl 30 mg PO DAILY 01/28/16 Hydrocodone Bit/Acetaminophen [Godfrey 7.5-325] 1 each PO Q6H 01/28/16 Nystatin [Nystop Powder] 1 applic TP Q8HR PRN 01/28/16 Pantoprazole Sodium [Protonix] 40 mg PO DAILY 01/28/16 Ropinirole HCl [Requip] 0.5 mg PO BID 01/28/16 Sennosides [Senokot] 8.6 mg PO BID PRN 01/28/16 Alprazolam [Xanax] 0.25 mg PO BID 08/27/16 Magnesium Citrate [Citrate of Magnesia] 10 oz PO Q72H PRN 08/27/16 Losartan Potassium [Cozaar] 50 mg PO DAILY 11/22/16 Sennosides [Senna] 8.6 mg PO DAILY 11/22/16 Acetaminophen 500 mg PO Q12H PRN 02/13/17 Ipratropium/Albuterol Neb [Duoneb] 1 vial NEB TID 02/13/17 Ondansetron HCl [Zofran Tab] 4 mg PO Q6H PRN #30 tablet 02/19/17 Dicyclomine HCl [Bentyl] 20 mg PO TID 08/05/17 Guaifenesin/Dextromethorphan [Robitussin Dm Syrup] 10 ml PO Q4HR PRN 08/05/17 Levothyroxine Sodium [Synthroid] 75 mcg PO QDAC 08/05/17 Polyvinyl Alcohol [Artificial Tears] 1 drop OP BID 08/05/17 Cephalexin [Keflex] 500 mg PO Q12HR #10 capsule 08/11/17 Prednisone 10 mg PO BIDWM #10 tablet 08/11/17 Azithromycin [Zithromax] 250 mg PO DAILY #6 tablet 08/21/17 Disposition Discussed With: Patient, Family Additional Information: Patient examined after all imaging completed. Cough improved and resting comfortably.
[2017-08-21] MEDS ORDERED: BOOSTRIX IM ONE (13:28)
--- NOTE | 2017-08-21 13:56 | DI ---
EXAM: PA and lateral views of the chest HISTORY: Cough COMPARISON: Chest x-ray 02/13/[address] chest 08/05/2017 FINDINGS: The cardiomediastinal silhouette is unchanged with stable lead wires. There is a moderate -to-large hiatal hernia.. There is no pneumothorax or pleural effusion. There is no consolidation, nodule or mass. There is minimal bilateral lower lobe airway thickening and ground-glass consistent with recent CT. The osseous structures are stable. IMPRESSION: 1. Bilateral lower lobe airway thickening, ground-glass suggestive of small airways inflammation/inf ection. 2. Unchanged hiatal hernia and cardiomediastinal silhouette.
--- NOTE | 2017-08-21 14:10 | CT ---
EXAM: CT head without contrast HISTORY: Trauma COMPARISON: CT head 02/13/2017 TECHNIQUE: Serial axial images of the brain were obtained from the skull base to the vertex without IV contrast. FINDINGS: The ventricles, cisterns and sulci demonstrate mild to moderate generalized volume loss. T he fregoso-white matter junction is maintained. There is scattered low attenuation in the periventricul ar white matter.No midline shift or mass is identified. There is no abnormal intra or extra-axial fl uid collection. The paranasal sinuses and mastoid air cells are clear. The osseous calvarium is int act. There is a small subcutaneous hematoma in the right frontal forehead. IMPRESSION: 1. No acute intracranial abnormality or hemorrhage. 2. Unchanged moderate generalized volume loss and microangiopathy.
--- NOTE | 2017-08-21 14:22 | CT ---
EXAM: CT sinuses/facial bones without contrast HISTORY: Blunt trauma COMPARISON: CT head same day TECHNIQUE: Serial axial images of the facial bones/sinuses were obtained without IV contrast. These were viewed in coronal, sagittal and axial planes. FINDINGS: The mandible is normal and intact. The bilateral zygomatic processes are normal. The jessica al bone is intact. The sinuses are normal without visualized fracture and minimal mucosal thickening . There is no fracture through the maxillary sinuses. The orbital borders are intact. There is deg enerative disease of the temporal mandibular joint. There is 0.2 - 0.3 cm of anterolisthesis of C2 o n C3 with degenerative disease noted in the cervical spine. There is no visualized fracture. Soft t issues demonstrate a the orbital borders and retrobulbar structures are normal. There is minimal fro ntal hematoma. The soft tissues are normal. IMPRESSION: 1. No facial bone fracture is identified. 2. Minimal frontal hematoma. 3. Degenerative disease of the cervical spine with 0.2 - 0.3 cm of anterolisthesis of C2 on C3.
== END 2017-08-21 15:45 ==
LOC: ED 12:20
DX: S01.21XA Laceration without foreign body of nose, initial encounter (principal); S80.212A Abrasion, left knee, initial encounter; J06.9 Acute upper respiratory infection, unspecified; W07.XXXA Fall from chair, initial encounter; M25.561 Pain in right knee; G89.29 Other chronic pain; J44.9 Chronic obstructive pulmonary disease, unspecified; E11.9 Type 2 diabetes mellitus without complications; E78.5 Hyperlipidemia, unspecified; E03.9 Hypothyroidism, unspecified; I10 Essential (primary) hypertension; D64.9 Anemia, unspecified; N18.9 Chronic kidney disease, unspecified; I50.9 Heart failure, unspecified; Z79.899 Other long term (current) drug therapy; Z99.81 Dependence on supplemental oxygen
CPT/HCPCS: 36415; 80053; 85025; 90471; 90715; 96372; 99284

== ENCOUNTER 2017-08-22 09:53 | Outpatient (CLI) ==
[2017-08-21 12:25] VITALS: BMI 36.5
== END 2017-08-22 09:54 | disposition short-term general hospital (02) ==
LOC: AMBL 09:53
PROVIDERS: ATTEND Internal Medicine
DX: S09.90XA Unspecified injury of head, initial encounter (principal); M54.2 Cervicalgia; M54.5 Low back pain; R53.1 Weakness; R29.6 Repeated falls; K62.5 Hemorrhage of anus and rectum; W18.11XA Fall from or off toilet without subsequent striking against object, initial encounter; S01.21XD Laceration without foreign body of nose, subsequent encounter; Z79.01 Long term (current) use of anticoagulants; Z95.0 Presence of cardiac pacemaker

== ENCOUNTER 2017-12-06 10:01 | Outpatient (CLI) | END 2017-12-06 10:02 | disposition home or self-care (01) | LOC: NONPT 10:01 | PROVIDERS: ATTEND Emergency Medicine | DX: R35.0 Frequency of micturition (principal); R30.0 Dysuria | CPT/HCPCS: 81001; 87086 ==

== ENCOUNTER 2017-12-10 08:54 | Outpatient (CLI) | END 2017-12-10 08:55 | disposition home or self-care (01) | LOC: NONPT 08:54 | PROVIDERS: ATTEND Emergency Medicine | DX: A03.9 Shigellosis, unspecified (principal) | CPT/HCPCS: 87015; 87045; 87899 ==

== ENCOUNTER 2017-12-16 08:47 | Inpatient (IN) | payer OTHER ==
--- NOTE | 2017-12-16 09:01 | ED.PDOC ---
General ED Provider: Dr. MAK DE JESUS Chief Complaint: Fever Stated Complaint: Hx of Shigella UTI. This morning patient seemed less responsive and had elevated temp to 104.5 Deg this AM. Sent to ER for Evaluation. Discussed with Dr Chamberlain. Patient having mild abdominal discomfort to palpation in lt abdomen(LUQ/Lt CVA) Time Seen by Physician: 09:05 Mode of Arrival: Ambulance Information Source: Senior Living, EMT Exam Limitations: Clinical condition Primary Care Provider: [facility] Nursing and Triage Documentation Reviewed and Agree: Yes Does patient meet sepsis criteria?: Yes If yes, has appropriate treatment been initiated?: Yes System Inflammatory Response Syndrome: Not Applicable Sepsis Protocol: For patient's 13 years and over: Temp is 96.8 and below OR 101 and greater Pulse >90 BPM Resp >20/minute Acutely Altered Mental Status Are patient's symptoms suggestive of a new infection, such as: -Pneumonia -Skin, Soft Tissue -Endocarditis -UTI -Bone, Joint Infection -Implantable Device -Acute Abdominal Infection -Wound Infection -Meningitis -Blood Stream Catheter Infection -Unknown Complaint Exam - UTI Female Complaint/Exam Patient Complains of: Reports: Painful urination (Hx of Shigella UTI and now some Lt CVA tenderness) Symptoms Are: Still present Timing: Constant Initial Severity: Mild Current Severity: Moderate Location of Pain: Reports: Left Associated Signs and Symptoms: Reports: Fever, Chills, Flank pain Related History: Denies: Similar episode Related Surgical History: Denies: None CVA Tenderness: Yes (Lt) Suprapubic Tenderness: No Differential Diagnoses: Pyelonephritis, Ureteral Calculus Review of Systems - Review Of Systems Constitutional: Reports: No symptoms, Fever, Weakness, Loss of appetite Eyes: Reports: No symptoms Ears, Nose, Mouth, Throat: Reports: No symptoms Respiratory: Reports: No symptoms Cardiac: Reports: No symptoms GI: Reports: No symptoms : Reports: No symptoms Musculoskeletal: Reports: No symptoms Skin: Reports: No symptoms Neurological: Reports: No symptoms Endocrine: Reports: No symptoms Hematologic/Lymphatic: Reports: No symptoms All Other Systems: Reviewed and Negative Past Medical History - Past Medical History Previously Healthy: Yes Endocrine: Reports: DM 2, Hypothyroid, Dyslipidemia Cardiovascular: Reports: Hypertension, CHF, A-Fib Respiratory: Reports: COPD Hematological: Reports: Anemia Gastrointestinal: Reports: Unknown Genitourinary: Reports: UTI (chronic), CKD Neuro/Psych: Reports: Depression Musculoskeletal: Reports: Arthritis, Back Pain Cancer: Reports: Unknown Last Menstrual Period: NONE Other Pertinent Past Medical History: HIATAL HERNIA - Surgical History General Surgical History: Reports: Other (CORNEAL TRANSPLANT(L), RIGHT NEPHRECTOMY) - Family History Family History: Reports: Unknown - Social History Smoking Status: Never smoker Hx Substance Use: No Alcohol Screening: None - Immunizations Influenza Vaccine within 12 Months: No (unknown) Pneumococcal Vaccine up to Date: No (unknown) Physical Exam - Physical Exam Appearance: Ill-appearing, Obese Ill-appearing: Moderate Pain Distress: None Eyes: EOMI, Conjunctiva clear, Left pupil size (Blind appearance) ENT: Ears normal, Nose normal, Oropharynx normal Neck: Supple Respiratory: Airway patent, Breath sounds clear, Breath sounds equal, Respirations nonlabored Cardiovascular: RRR, Pulses normal, No rub, No murmur GI/: Soft, Tender (LUQ/LCVA/Flank), Bowel sounds hypoactive Musculoskeletal: Normal strength, ROM intact, No edema Skin: Warm, Pale Neurological: Sensation intact, Motor intact, Cranial nerves intact, Alert, Oriented Psychiatric: Affect appropriate, Mood appropriate Interpretation - Radiology Interpretation Radiology Interpretation By: Radiologist Exam Interpreted: CT Scan (Stranding Lt Perinephric region ) Critical Care Note - Critical Care Note Total Time (mins): 0 Course - Course Hematology/Chemistry: 12/16/17 09:15 12/16/17 09:15 Orders, Labs, Meds: Lab Review 12/16/17 12/16/17 12/16/17 09:00 09:15 09:15 WBC 16.86 H RBC 3.90 L Hgb 11.0 L Hct 33.8 L MCV 86.7 MCH 28.2 MCHC 32.5 RDW Coeff of Elier 14.1 Plt Count 166 Immature Gran % (Auto) 1.4 Neut % (Auto) 85.1 Lymph % (Auto) 5.5 L Lamar % (Auto) 7.7 Eos % (Auto) 0.1 Baso % (Auto) 0.2 Immature Gran # (Auto) 0.2 Neut # (Auto) 14.4 H Lymph # (Auto) 0.9 Lamar # (Auto) 1.3 Eos # (Auto) 0.0 Baso # (Auto) 0.0 Puncture Site R brach O2 Saturation 93.0 L ABG pH 7.437 ABG pCO2 31.7 L ABG pO2 63.0 L ABG HCO3 21.4 L ABG Total CO2 22 ABG Base Excess -3 L Nimesh Test + FiO2 % 21.0 Sodium 137 Potassium 4.1 Chloride 104 Carbon Dioxide 23 Anion Gap 14.1 BUN 45 H Creatinine 1.94 H Estimated GFR (MDRD) 24.00 BUN/Creatinine Ratio 23.19 Glucose 174 H Lactic Acid Calcium 9.1 Total Bilirubin 1.2 AST 20 ALT 13 Alkaline Phosphatase 78 Troponin I 0.0900 Total Protein 6.8 Albumin 2.8 L Globulin 4.0 Albumin/Globulin Ratio 0.70 Procalcitonin 12/16/17 12/16/17 09:15 09:15 WBC RBC Hgb Hct MCV MCH MCHC RDW Coeff of Elier Plt Count Immature Gran % (Auto) Neut % (Auto) Lymph % (Auto) Lamar % (Auto) Eos % (Auto) Baso % (Auto) Immature Gran # (Auto) Neut # (Auto) Lymph # (Auto) Lamar # (Auto) Eos # (Auto) Baso # (Auto) Puncture Site O2 Saturation ABG pH ABG pCO2 ABG pO2 ABG HCO3 ABG Total CO2 ABG Base Excess Nimesh Test FiO2 % Sodium Potassium Chloride Carbon Dioxide Anion Gap BUN Creatinine Estimated GFR (MDRD) BUN/Creatinine Ratio Glucose Lactic Acid 11.2 Calcium Total Bilirubin AST ALT Alkaline Phosphatase Troponin I Total Protein Albumin Globulin Albumin/Globulin Ratio Procalcitonin 6.41 Orders Category Date Time Status ADMIT PATIENT INPATIENT .TO [facility] (MONITORED BED) ADMISSION 12/16/17 10: 02 Active ABG DRAW REQUEST Stat CARDIO 12/16/17 09:00 Completed EKG-(ED ONLY) Stat CARDIO 12/16/17 08:58 Completed TELEMETRY MONITORING TELE CARE 12/16/17 10:03 Active ABG Stat LAB 12/16/17 09:00 Completed BLOOD CULTURE (ED ONLY) Stat LAB 12/16/17 09:15 Received CBC W/ AUTO DIFF Stat LAB 12/16/17 09:15 Completed CMP [COMPREHENSIVE METABOLIC PANEL] Stat LAB 12/16/17 09:15 Completed LACTIC ACID Stat LAB 12/16/17 09:15 Completed PROCALCITONIN Stat LAB 12/16/17 09:15 Completed TROPONIN I Stat LAB 12/16/17 09:15 Completed Levofloxacin/D5w [Levaquin] 100 ml MEDS 12/16/17 10:05 Discontinued IV .STK-MED Levofloxacin/D5w [Levaquin] 500 mg MEDS 12/16/17 10:00 Active Premix 100 ml D5w [address] ABDOMEN/PELVIS WO CONTRAST Stat RADS 12/16/17 08:[address] CHEST W/O CONTRAST Stat RADS 12/16/17 09:15 Completed Medications Generic Name Dose Route Start Last Admin Trade Name Nicko PRN Reason Stop Dose Admin Levofloxacin/Dextrose 500 mg/ 100 mls @ 100 mls/hr 12/16/17 10:00 12/16/17 10 :09 Dextrose IV 100 mls/hr DAILY ABRAHAM Administration Vital Signs: Temp Pulse Resp BP Pulse Ox 12/16/17 09:11 95 12/16/17 08:47 101.6 F H 74 20 106/44 L 88 L Departure - Departure Time of Disposition: 09:55 Disposition: ADMITTED INPATIENT Discharge Problem: Pyelonephritis, acute Condition: Fair Pt referred to PMD for follow-up: Yes (Bulmaro) MAKAYLAMP verified?: No Allergies/Adverse Reactions: Allergies Penicillins Adverse Reaction (Verified 12/16/17 09:07) Home Medications: Ambulatory Orders Carvedilol [Coreg] 12.5 mg PO BID 06/15/13 Digoxin 125 mcg PO DAILY 06/15/13 Docusate Sodium [Colace] 100 mg PO BID 06/15/13 Furosemide [Lasix Tab] 40 mg PO DAILY 06/15/13 Gabapentin [Neurontin] 100 mg PO BID 06/15/13 Aspirin [Aspirin Chewable] 81 mg PO DAILYWM 10/08/14 Potassium Chloride [Klor-Con 10] 10 meq PO DAILY 10/08/14 Duloxetine HCl 30 mg PO DAILY 01/28/16 Hydrocodone Bit/Acetaminophen [[place] 7.5-325] 1 each PO TID 01/28/16 Nystatin [Nystop Powder] 1 applic TP Q8HR PRN 01/28/16 Pantoprazole Sodium [Protonix] 40 mg PO DAILY 01/28/16 Ropinirole HCl [Requip] 0.5 mg PO BID 01/28/16 Magnesium Citrate [Citrate of Magnesia] 30 ml PO Q24H PRN 08/27/16 Losartan Potassium [Cozaar] 50 mg PO DAILY 11/22/16 Sennosides [Senna] 8.6 mg PO DAILY 11/22/16 Acetaminophen 500 mg PO Q12H PRN 02/13/17 Ondansetron HCl [Zofran Tab] 4 mg PO Q6H PRN #30 tablet 02/19/17 Dicyclomine HCl [Bentyl] 20 mg PO TID 08/05/17 Guaifenesin/Dextromethorphan [Robitussin Dm Syrup] 10 ml PO Q4HR PRN 08/05/17 Levothyroxine Sodium [Synthroid] 75 mcg PO QDAC 08/05/17 Polyvinyl Alcohol [Artificial Tears] 1 drop OP BID 08/05/17 Hydrocortisone Acetate [Anusol-Hc] 25 mg RC Q6H PRN 12/16/17 Disposition Discussed With: Patient
--- NOTE | 2017-12-16 09:47 | CT ---
EXAM: CT of the abdomen pelvis without contrast History: Fever. Comparison: Chest CT 12/16/2017, CT abdomen pelvis 02/18/2017 Technique: Multiplanar CT images through the abdomen pelvis were obtained without the administration of IV contrast Findings: Heart is mildly enlarged. Coronary calcifications. Bibasilar subsegmental atelectasis. Severe degenerative changes of the lumbar spine. Status post cholecystectomy. Moderate hiatal hernia. Stable small benign low-density lesion within the spleen. No focal liver lesions are identified. There is some atrophy of the pancreas. No brayden peripancreatic inflammation. Adrenal glands are unremarkable. Absent right kidney. There is left perinephric stranding. Mild left renal pelvicaliectasis. No left ureteral calculi. No bladder wall thickening. Uterus is not seen. No perirectal inflammation. No perirectal inflammation. Colonic d iverticulosis. No free air and no ascites. Impression: 1. Left pyelonephritis. 2. Mild left renal pelvicaliectasis. No obstructing ureteral stones. 3. Colonic diverticulosis. 4. Absent right kidney. 5. Coronary artery disease. 6. Moderate hiatal hernia
--- NOTE | 2017-12-16 09:50 | CT ---
EXAM: CT chest without contrast. HISTORY: Fever, shortness of breath. Abnormal urinalysis. COMPARISON: 08/05/2017. TECHNIQUE: Multiple axial images of the chest were obtained without intravenous contrast. Images we re reformatted in the sagittal and coronal planes. FINDINGS: Evaluation for lymphadenopathy is limited by lack of intravenous contrast. A left-sided p acemaker is present. Evaluation for lymphadenopathy is limited by lack of intravenous contrast. Hea rt size is normal. No pericardial effusion identified. Atherosclerotic calcifications are present. Calcified granulomatous changes noted. The lungs are clear save for dependent subsegmental atelectas is in both lower lobes. No pleural effusion or pneumothorax identified. Moderate to large hiatal hernia is present. Refer to abdominal CT report from the same day for detai ls on upper abdominal finding. Degenerative changes seen throughout the spine. Old left rib fractur es are present. IMPRESSION: No acute cardiopulmonary process.
[2017-12-16] MEDS ORDERED: LEVAQUIN 500 MG in PREMIX 100 ML D5W 1 BAG IV SCH (10:00)
[2017-12-16] MEDS ORDERED: LEVAQUIN 100 ML IV ONE (10:05)
[2017-12-16 12:21] VITALS: BMI 34.5
[2017-12-16] MEDS: SODIUM CHLORIDE 1,000 ML IV SCH (13:25)
[2017-12-16] MEDS: NORCO 7.5-325 PO SCH ×2 (14:05→21:00)
[2017-12-16] MEDS: BENTYL PO SCH ×2 (14:05→20:58)
[2017-12-16] MEDS: COREG PO SCH (16:53)
[2017-12-16] MEDS ORDERED: DEMEROL 25 MG/ML VIAL IVP STA (18:41)
[2017-12-16] MEDS ORDERED: DEMEROL 25 MG/ML VIAL IM STA (18:41)
[2017-12-16] MEDS: ARTIFICIAL TEARS OPTH SOL OP SCH (20:57)
[2017-12-16] MEDS: NEURONTIN PO SCH (20:59)
[2017-12-16] MEDS: COLACE PO SCH (20:59)
[2017-12-16] MEDS: REQUIP PO SCH (21:00)
[2017-12-16] MEDS: LOVENOX SUBCUT SCH (21:00)
[2017-12-16] MEDS ORDERED: NON-FORMULARY MEDICATION (Ropinirole Hcl [Requip] 0.5 MG) PO SCH (21:00)
[2017-12-16] MEDS ORDERED: DEMEROL 25 MG/ML VIAL IVP SCH (21:00)
[2017-12-16] MEDS ORDERED: COREG PO SCH (21:00)
[2017-12-16] MEDS: DUONEB NEB SCH (22:19)
[2017-12-17] MEDS: SODIUM CHLORIDE 1,000 ML IV SCH ×3 (00:32→17:25)
[2017-12-17] MEDS ORDERED: DEMEROL 25 MG/ML VIAL IVP SCH ×2 (05:00→13:00)
[2017-12-17] MEDS: DUONEB NEB SCH ×3 (05:09→22:26)
[2017-12-17] MEDS: PROTONIX PO SCH (05:40)
[2017-12-17] MEDS: SYNTHROID PO SCH (05:41)
[2017-12-17] MEDS: TYLENOL PO PRN (06:08)
[2017-12-17] MEDS ORDERED: LEVAQUIN 250 MG in PREMIX 50 ML D5W 1 BAG IV SCH (09:00)
[2017-12-17] MEDS ORDERED: NON-FORMULARY MEDICATION (Potassium Chloride [Klor-Con 10] 10 MEQ) PO SCH (09:00)
[2017-12-17] MEDS ORDERED: COZAAR PO SCH (09:00)
[2017-12-17] MEDS ORDERED: NON-FORMULARY MEDICATION (Losartan Potassium 50 MG) PO SCH (09:00)
[2017-12-17] MEDS: LANOXIN PO SCH (09:12)
[2017-12-17] MEDS: CYMBALTA PO SCH (09:13)
[2017-12-17] MEDS: ASPIRIN CHEWABLE PO SCH (09:13)
[2017-12-17] MEDS: SENNA PO SCH (09:14)
[2017-12-17] MEDS: MICRO-K CAP PO SCH (09:14)
[2017-12-17] MEDS: NEURONTIN PO SCH ×2 (09:15→20:46)
[2017-12-17] MEDS: COREG PO SCH ×2 (09:15→17:02)
[2017-12-17] MEDS: BENTYL PO SCH ×3 (09:16→20:44)
[2017-12-17] MEDS: COLACE PO SCH ×2 (09:16→20:44)
[2017-12-17] MEDS: NORCO 7.5-325 PO SCH ×3 (09:16→20:44)
[2017-12-17] MEDS: REQUIP PO SCH ×2 (09:17→20:46)
[2017-12-17] MEDS: ARTIFICIAL TEARS OPTH SOL OP SCH ×2 (16:31→20:43)
[2017-12-17] MEDS: PRIMAXIN 250 MG in SODIUM CHLORIDE 100 ML IV SCH (18:57)
[2017-12-17] MEDS: TORADOL IVP SCH ×2 (19:13→20:57)
[2017-12-17] MEDS: LOVENOX SUBCUT SCH (20:46)
[2017-12-18] MEDS: PRIMAXIN 250 MG in SODIUM CHLORIDE 100 ML IV SCH ×2 (00:16→06:55)
[2017-12-18] MEDS: TYLENOL PO PRN (01:52)
[2017-12-18] MEDS: TORADOL IVP SCH ×3 (04:30→21:49)
[2017-12-18] MEDS: DUONEB NEB SCH ×3 (05:08→22:52)
[2017-12-18] MEDS: SYNTHROID PO SCH (06:07)
[2017-12-18] MEDS: PROTONIX PO SCH (06:08)
[2017-12-18] MEDS: SODIUM CHLORIDE 1,000 ML IV SCH ×2 (06:44→13:41)
[2017-12-18] MEDS: ASPIRIN CHEWABLE PO SCH (10:07)
[2017-12-18] MEDS: SENNA PO SCH (10:07)
[2017-12-18] MEDS: ARTIFICIAL TEARS OPTH SOL OP SCH ×2 (10:07→22:05)
[2017-12-18] MEDS: CYMBALTA PO SCH (10:08)
[2017-12-18] MEDS: MICRO-K CAP PO SCH (10:08)
[2017-12-18] MEDS: REQUIP PO SCH ×2 (10:08→21:48)
[2017-12-18] MEDS: NEURONTIN PO SCH ×2 (10:17→21:44)
[2017-12-18] MEDS: COLACE PO SCH ×2 (10:18→21:47)
[2017-12-18] MEDS: BENTYL PO SCH ×3 (10:18→21:46)
[2017-12-18] MEDS: LANOXIN PO SCH (10:20)
[2017-12-18] MEDS: NORCO 7.5-325 PO SCH ×3 (10:22→21:35)
[2017-12-18] MEDS: COREG PO SCH ×2 (10:22→18:56)
--- NOTE | 2017-12-18 10:34 | HP ---
DATE OF SERVICE: 12/16/17 CHIEF COMPLAINT: Fever and abdominal pain. HISTORY OF PRESENT ILLNESS: This is a 67 year old female who has been having fever and has some abdominal pain left sided. The patient was recently diagnosed with sugar in the urine. Been having some diarrhea and not been tested, cramping. The patient came to the emergency room physician. WBC was 16,000 with left shift. The patient was not awake and alert and some change in mental status was there. BUN 45, creatinine 1.94. ABG done which showed the pH 7.437, pCo2 31.7, pO2 63. Urine was positive for the nitrate and leukocyte esterase. CT of the abdomen and pelvis showed the left sided pyelonephritis. At that time the patient was admitted to the hospital with acute renal failure, left sided acute pyelonephritis and change in the mental status from the urosepsis. REVIEW OF SYSTEMS: CONSTITUTIONAL: Fever, Chills. Weakness and tiredness. HEENT: Normal. ENDOCRINE: No weight gain; no weight loss. CVS: No chest pain. No PND, no orthopnea. No shortness of breath. No PND, no orthopnea. RESPIRATORY: No cough, no congestion. No hemoptysis. GI: No nausea, no vomiting. Left sided abdominal pain. No melena. : No hematuria. No polyuria. MUSCULOSKELETAL: No joint swelling. Back pain. PSYCHIATRIC: Anxious. Depression. No suicidal thoughts. No homicidal thoughts. Change in mental status. SKIN: Intact, no open lesions. PAST MEDICAL HISTORY: CAD CHF Permanent pacemaker Atrial fibrillation COPD Hiatal hernia Diarrhea Osteoarthritis DJD spine Chronic pain syndrome Depression Anxiety PAST SURGICAL HISTORY: Cataract surgery Thyroidectomy Appendectomy Lower back surgery PERSONAL HISTORY: The patient is , resident of [place]. No alcohol, tobacco or substance use. FAMILY HISTORY: Stomach cancer Heart problem MEDICATIONS: Colace Neurontin Coreg Lasix Potassium Aspirin [place] Dulcolax Protonix Requip Nystatin Magnesium Citrate Cozaar Senna Tylenol Zofran Robitussin Synthroid Artificial tears Bentyl Anusol ALLERGIES: Penicillin PHYSICAL EXAMINATION: V/S: Temperature 101.6, heart rate 74, blood pressure 106/44, saturation 88 on 2 liters and respiratory rate 20. GENERAL: Sick looking lady lying in the bed. HEENT: Atraumatic, normocephalic. No scleral icterus. Pallor positive. Mucosa dry NECK: Supple. No JVD, no bruit. No lymphadenopathy. No thyromegaly. HEART: S1, S2 normal. No murmur. No cyanosis or clubbing. No ascites. LUNGS: Decreased and basilar crackles. Clear to auscultation. No rales or rhonchi. ABDOMEN: Soft, tender. Bowel sounds are active. Left sided CVA tenderness. No rigidity or guarding. EXTREMITIES: 1+ edema. No cyanosis or clubbing MUSCULOSKELETAL: Normal joints, no swelling. NEUROLOGIC: The patient is awake and alert. SKIN: Intact; no open lesions. LYMPHATIC: No lymph nodes palpable. LABS: Sodium 137, potassium 4.1, chloride 104, bicarb 23, BUN 45, creatinine 1.94, glucose 174, WBC 16.86, hgb 11.0, hct 33.8, plt count 166. ASSESSMENT: 1. Acute left sided pyelonephritis 2. Change in mental status from urosepsis 3. Urinary tract infection 4. Acute on chronic renal failure 5. Diabetes 6. Hypertension 7. Atrial fibrillation, not on any anticoagulation per family request in review of the patient's recurrent and frequent falls. 8. CAD 9. CHF 10.Back pain PLAN: 1. Admit patient to the regular floor 2. CBC and CMP today and daily 3. Cardiac enzymes and Troponin 4. IV fluids at 75ml per hour 5. Tylenol for fever 6. Levaquin 1 gram daily 7. IV fluids 8. Daily I&O's TIME SPENT: MORE THAN 75 minutes MTDD
--- NOTE | 2017-12-18 10:45 | PN ---
DATE OF SERVICE: 12/17/17 SUBJECTIVE: The patient did have a fever of almost 101.6 early in the morning. Still feeling left sided abdominal pain. REVIEW OF SYSTEMS: CONSTITUTIONAL: No fever, no chills. HEENT: Normal. ENDOCRINE: No weight gain, no weight loss. CVS: No angina symptoms. No CHF symptoms. No palpitations. No atypical chest pain for CAD. No shortness of breath. No PND, no orthopnea. RESPIRATORY: No cough, no hemoptysis. GI: No nausea, no vomiting. Abdominal pain. : No hematuria. No polyuria. MUSCULOSKELETAL: No joint swelling. PSYCHIATRIC: Not anxious. No depression. No suicidal thoughts. No homicidal thoughts. SKIN: Intact. No rash. PHYSICAL EXAMINATION: V/S: Blood pressure 126/81, respiratory rate 14, heart rate 56, temperature 98.2 with saturation 96%. HEENT: Normocephalic, atraumatic. Mucosa dry. Pallor positive. No icterus. NECK: Supple. No JVD, no carotid bruit. No lymphadenopathy. LUNGS: Decreased and crackles. Clear to auscultation. No rales or rhonchi. HEART: S1, S2 normal. No S3. No murmur, gallop or regurgitation. ABDOMEN: Soft, tender. Bowel sounds active. No rigidity. No rebound or guarding. Left sided CVA tenderness. EXTREMITIES: No cyanosis, clubbing or pedal edema. MUSCULOSKELETAL: No joint swelling. NEUROLOGIC: Awake, alert. No focal deficit. LYMPHATIC: No lymph nodes palpable. SKIN: Intact. LABS: Sodium 133, potassium 4.3, chloride 103, bicarb 21, BUN 47, creatinine 1.83, glucose 169, WBC 13.75, hgb 10.0, hct 30.7, plt count 140 ASSESSMENT: 1. Acute left sided pyelonephritis 2. Bacteremia gram negative rods 3. Pyelonephritis 4. Acute renal failure 5. Diabetes 6. Hypertension 7. CAD 8. CHF PLAN: 1. Change antibiotic from Levaquin to Primaxin 2. IV fluids 3. Demerol 4. Daily I&O's TIME SPENT: More than 35 minutes MTDD
[2017-12-18] MEDS: PRIMAXIN 300 MG in SODIUM CHLORIDE 100 ML IV SCH ×3 (13:27→18:56)
[2017-12-18] MEDS: LOVENOX SUBCUT SCH (21:49)
[2017-12-18] MEDS: HUMULIN R SUBCUT PRN (22:06)
[2017-12-19] MEDS: PRIMAXIN 300 MG in SODIUM CHLORIDE 100 ML IV SCH ×3 (00:02→13:10)
[2017-12-19] MEDS: DUONEB NEB SCH ×2 (04:43→14:09)
[2017-12-19] MEDS: SYNTHROID PO SCH (05:43)
[2017-12-19] MEDS: PROTONIX PO SCH (05:43)
[2017-12-19] MEDS: TORADOL IVP SCH ×2 (06:07→13:10)
[2017-12-19] MEDS: BENTYL PO SCH (10:39)
[2017-12-19] MEDS: SENNA PO SCH (10:39)
[2017-12-19] MEDS: COREG PO SCH (10:39)
[2017-12-19] MEDS: ASPIRIN CHEWABLE PO SCH (10:39)
[2017-12-19] MEDS: LANOXIN PO SCH (10:39)
[2017-12-19] MEDS: CYMBALTA PO SCH (10:40)
[2017-12-19] MEDS: NEURONTIN PO SCH (10:40)
[2017-12-19] MEDS: COLACE PO SCH (10:40)
[2017-12-19] MEDS: MICRO-K CAP PO SCH (10:40)
[2017-12-19] MEDS: NORCO 7.5-325 PO SCH (10:41)
[2017-12-19] MEDS: ARTIFICIAL TEARS OPTH SOL OP SCH (10:41)
[2017-12-19] MEDS: REQUIP PO SCH (10:41)
--- NOTE | 2017-12-19 11:43 | PN ---
DATE OF SERVICE: 12/18/17 SUBJECTIVE: The patient was admitted with the left sided acute pyelonephritis. Blood pressure been low. The patient is still having the pain, she is moaning and groaning. Urine output is scanty. The patient's family wants comfort measure, no aggressive management at this time. REVIEW OF SYSTEMS: CONSTITUTIONAL: No fever, no chills. HEENT: Normal. ENDOCRINE: No weight gain, no weight loss. CVS: No angina symptoms. No CHF symptoms. No palpitations. No atypical chest pain for CAD. No shortness of breath. No PND, no orthopnea. RESPIRATORY: No cough, no hemoptysis. GI: No nausea, no vomiting. No abdominal pain. : No hematuria. No polyuria. MUSCULOSKELETAL: No joint swelling. PSYCHIATRIC: Not anxious. No depression. No suicidal thoughts. No homicidal thoughts. SKIN: Intact. No rash. PHYSICAL EXAMINATION: V/S: Blood pressure 92/58, respiratory rate 20, heart rate 67, temperature 97.6 with saturation 98% on 2 liters. HEENT: Normocephalic, atraumatic. Mucosa dry. Pallor positive. No icterus. NECK: Supple. No JVD, no carotid bruit. No lymphadenopathy. LUNGS: Decreased and basilar crackles. Clear to auscultation. No rales or rhonchi. HEART: S1, S2 normal. No S3. No murmur, gallop or regurgitation. ABDOMEN: Soft, nontender. Bowel sounds active. No rigidity. No rebound or guarding. Left sided CVA tenderness. EXTREMITIES: No cyanosis, clubbing or pedal edema. MUSCULOSKELETAL: No joint swelling. NEUROLOGIC: Awake, alert. No focal deficit. LYMPHATIC: No lymph nodes palpable. SKIN: Intact. LABS: WBC 9.91, hgb 10.3, hct 31.8, plt count 151, sodium 134, potassium 4.2, chloride 106, bicarb 21, BUN 43, creatinine 1.24 and glucose 119. ASSESSMENT: 1. Bacteremia with the gram negative rods 2. Urinary tract infection 3. Pyelonephritis 4. Septic shock 5. Acute renal failure 6. CAD 7. CHF 8. Atrial fibrillation 9. 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 Continue the Primaxin 2. Continue [place] 3. IV fluids 4. Stop the Losartan Poor Prognosis been discussed. TIME SPENT: More than 35 minutes MTDD
[2017-12-19] MEDS: HUMULIN R SUBCUT PRN (13:10)
[2017-12-19] MEDS ORDERED: HUMULIN R SUBCUT PRN (13:36)
[2017-12-19 14:26] VITALS: BP 112/71; TEMP 98.1
[2017-12-19] MEDS ORDERED: ROCEPHIN 2 GM in SODIUM CHLORIDE 50 ML IV SCH (21:00)
--- NOTE | 2017-12-22 09:37 | PN ---
DATE OF SERVICE: 12/19/17 SUBJECTIVE: The patient is more awake and alert. Still complained of left lower back pain. No fever, no chills. REVIEW OF SYSTEMS: CONSTITUTIONAL: No fever, no chills. HEENT: Normal. ENDOCRINE: No weight gain, no weight loss. CVS: No angina symptoms. No CHF symptoms. No palpitations. No atypical chest pain for CAD. No shortness of breath. No PND, no orthopnea. RESPIRATORY: No cough, no hemoptysis. GI: No nausea, no vomiting. No abdominal pain. : No hematuria. No polyuria. MUSCULOSKELETAL: Left lower back pain. PSYCHIATRIC: Not anxious. No depression. No suicidal thoughts. No homicidal thoughts. SKIN: Intact. No rash. PHYSICAL EXAMINATION: V/S: BP 140/74, RESPIRATORY RATE 18, HEART RATE 67, TEMPERATURE 99.7, SATURATION 98 ON 2l. HEENT: Normocephalic, atraumatic. Mucosa dry. Pallor positive. No icterus. Sick looking lady lying in bed not in any distress. NECK: Supple. No JVD, no carotid bruit. No lymphadenopathy. LUNGS: Clear to auscultation. No rales or rhonchi. HEART: S1, S2 normal. No S3. No murmur, gallop or regurgitation. ABDOMEN: Soft, nontender. Bowel sounds active. No rigidity. No rebound or guarding. Left-sided CVA tenderness present. EXTREMITIES: No cyanosis, clubbing or pedal edema. MUSCULOSKELETAL: No joint swelling. NEUROLOGIC: Awake, alert. No focal deficit. LYMPHATIC: No lymph nodes palpable. SKIN: Intact. LABS: White count 9.37, hemoglobin 10.1, hematocrit 31.4, platelet count 184. Sodium 137, potassium 4.6, chloride 110, bicarb 20, BUN 34, creatinine 1.08. ASSESSMENT: 1. BACTEREMIA 2. SEPSIS FROM GRAM NEGATIVE RODS 3. STATUS POST HYPOTENSION 4. UTI 5. LEFT-SIDED PYELONEPHRITIS 6. CAD 7. CHF 8. ATRIAL FIBRILLATION 9. DJD SPINE 10. OSTEOARTHRITIS PLAN: 1. Continue Primaxin 2. IV fluids 3. [employer] for pain 4. Daily I & O's TIME SPENT: More than 35 minutes MTDD
--- NOTE | 2017-12-30 12:43 | DS ---
DATE OF SERVICE: 12/19/17 FINAL DIAGNOSIS: 1. SEPSIS WITH PYELONEPHRITIS, LEFT-SIDED 2. BACTEREMIA 3. E.COLI ORGANISM/ESBL POSITIVE 4. STATUS POST HYPOTENSION 5. DIABETES MELLITUS 6. CHF 7. ATRIAL FIBRILLATION 8. HYPERTENSION 9. DYSLIPIDEMIA 10. 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 COPD 13. STATUS POST PERMANENT PACEMAKER 14. HIATAL HERNIA 15. RIGHT-SIDED KIDNEY REMOVED 16. HYSTERECTOMY 17. DEPRESSION/ANXIETY 18. APPENDECTOMY 19. CHOLECYSTECTOMY 20. LOWER BACK PAIN DISCHARGE INSTRUCTIONS: Admit to the Transitional Care Unit MEDICATIONS AT DISCHARGE: Rocephin 1 gm daily IV fluids Demerol Continue the rest of the medications DIET INSTRUCTIONS: Diabetic diet ACTIVITY: Bed rest DISEASE SPECIFIC EDUCATION: Dehydration Urinary tract infection UTI Sepsis and bacteremia The above discussed with the patient and verbalized understanding HOSPITAL COURSE: 87-year-old female came from the intermediate for change in mental status, hypotension. While in the emergency room blood pressure was 95/64. CT abdomen and pelvis showed left-sided pyelonephritis with white count 16,000. ABG done showed pH 7.437, pc02 31.7, p02 63. BUN 45, creatinine 1.94. At that time the patient was admitted to the hospital, started on IV antibiotics. Initially Levaquin was given, day one but the patient had persistent fever and by next day we changed antibiotics to Imipenem/Primaxin. Meanwhile, the urine grew gram negative rods and the blood cultures were also positive. Initially it showed ESBL positive and resistant to Primaxin so we changed the antibiotic to Invanz. Meanwhile the patient was feeling better, BUN and creatinine improving, blood pressure better. Meanwhile blood culture report was updated and said ESBL negative and sensitive to Rocephin so antibiotic was changed again to the Rocephin. The patient had blood cultures positive for Bacteremia from sepsis. At that time, the patient was thought to be a good candidate for transitional care unit and residential IV antibiotic given her multiple medical problems. The patient was admitted to transitional care unit. TIME SPENT: MORE THAN 65 MINUTES MTDD
== END 2017-12-19 14:54 | disposition swing bed (61) | DRG 391 ==
LOC: ED 08:47 → MEDSURG A 10:14
PROVIDERS: ADMIT Emergency Medicine; ATTEND Emergency Medicine
DX: R10.12 Left upper quadrant pain (principal); A41.9 Sepsis, unspecified organism; N10 Acute pyelonephritis; N12 Tubulo-interstitial nephritis, not specified as acute or chronic; R78.81 Bacteremia; N39.0 Urinary tract infection, site not specified; R30.9 Painful micturition, unspecified; R53.1 Weakness; R63.0 Anorexia; R41.82 Altered mental status, unspecified; E78.5 Hyperlipidemia, unspecified; E11.9 Type 2 diabetes mellitus without complications; M19.90 Unspecified osteoarthritis, unspecified site; M47.9 Spondylosis, unspecified; M54.5 Low back pain; J44.9 Chronic obstructive pulmonary disease, unspecified; K44.9 Diaphragmatic hernia without obstruction or gangrene; I95.9 Hypotension, unspecified; I25.10 Atherosclerotic heart disease of native coronary artery without angina pectoris; I50.9 Heart failure, unspecified; I48.91 Unspecified atrial fibrillation
CPT/HCPCS: 36415; 80053; 80162; 81001; 82550; 82553; 82803; 82962; 83605; 84145; 84484; 85025; 87015; 87040; 87045; 87070; 87186; 87899; 93005; 93010; 94640; 96365; 99284

== ENCOUNTER 2017-12-19 14:54 | Inpatient (IN) ==
[2017-12-19] MEDS ORDERED: TYLENOL PO PRN ×2 (16:02→16:41)
[2017-12-19] MEDS: SODIUM CHLORIDE 1,000 ML IV SCH (17:24)
[2017-12-19] MEDS: COREG PO SCH (17:25)
[2017-12-19] MEDS ORDERED: PRIMAXIN 300 MG in SODIUM CHLORIDE 100 ML IV SCH (18:00)
[2017-12-19] MEDS ORDERED: NON-FORMULARY MEDICATION (Ropinirole Hcl [Requip] 0.5 MG) PO SCH (21:00)
[2017-12-19] MEDS ORDERED: COREG PO SCH (21:00)
[2017-12-19] MEDS: BENTYL PO SCH (21:36)
[2017-12-19] MEDS: ROCEPHIN 2 GM in SODIUM CHLORIDE 50 ML IV SCH (21:36)
[2017-12-19] MEDS: REQUIP PO SCH (21:36)
[2017-12-19] MEDS: COLACE PO SCH (21:37)
[2017-12-19] MEDS: NORCO 7.5-325 PO SCH (21:38)
[2017-12-19] MEDS: NEURONTIN PO SCH (21:38)
[2017-12-19] MEDS: LOVENOX SUBCUT SCH (21:39)
[2017-12-19] MEDS: DUONEB NEB SCH (22:55)
[2017-12-20] MEDS: ARTIFICIAL TEARS OPTH SOL OP SCH ×3 (03:03→21:36)
[2017-12-20] MEDS: DUONEB NEB SCH ×3 (05:18→22:15)
[2017-12-20] MEDS: SYNTHROID PO SCH (05:46)
[2017-12-20] MEDS: PROTONIX PO SCH (05:46)
[2017-12-20] MEDS: ASPIRIN CHEWABLE PO SCH (08:36)
[2017-12-20] MEDS: COLACE PO SCH ×2 (08:37→21:38)
[2017-12-20] MEDS: BENTYL PO SCH ×3 (08:37→21:38)
[2017-12-20] MEDS: SENNA PO SCH (08:37)
[2017-12-20] MEDS: COZAAR PO SCH (08:37)
[2017-12-20] MEDS: REQUIP PO SCH ×2 (08:37→21:38)
[2017-12-20] MEDS: COREG PO SCH ×2 (08:37→16:39)
[2017-12-20] MEDS: CYMBALTA PO SCH (08:37)
[2017-12-20] MEDS: MICRO-K CAP PO SCH (08:38)
[2017-12-20] MEDS: LANOXIN PO SCH (08:38)
[2017-12-20] MEDS: NORCO 7.5-325 PO SCH ×3 (08:38→21:49)
[2017-12-20] MEDS: NEURONTIN PO SCH ×2 (08:38→21:38)
[2017-12-20] MEDS: HUMULIN R SUBCUT PRN ×2 (08:45→16:39)
[2017-12-20] MEDS ORDERED: NON-FORMULARY MEDICATION (Potassium Chloride [Klor-Con 10] 10 MEQ) PO SCH (09:00)
[2017-12-20] MEDS ORDERED: NON-FORMULARY MEDICATION (Losartan Potassium 50 MG) PO SCH (09:00)
[2017-12-20] MEDS: ROCEPHIN 2 GM in SODIUM CHLORIDE 50 ML IV SCH (21:38)
[2017-12-20] MEDS: LOVENOX SUBCUT SCH (21:51)
[2017-12-21] MEDS: SODIUM CHLORIDE 1,000 ML IV SCH ×2 (01:28→16:00)
[2017-12-21] MEDS: DUONEB NEB SCH ×3 (05:17→21:55)
[2017-12-21] MEDS: PROTONIX PO SCH (06:03)
[2017-12-21] MEDS: TORADOL IVP PRN (06:03)
[2017-12-21] MEDS: SYNTHROID PO SCH (06:03)
[2017-12-21] MEDS: COZAAR PO SCH (08:29)
[2017-12-21] MEDS: ASPIRIN CHEWABLE PO SCH (08:29)
[2017-12-21] MEDS: REQUIP PO SCH ×2 (08:29→22:08)
[2017-12-21] MEDS: BENTYL PO SCH ×3 (08:29→22:09)
[2017-12-21] MEDS: COREG PO SCH ×2 (08:29→16:30)
[2017-12-21] MEDS: LANOXIN PO SCH (08:29)
[2017-12-21] MEDS: SENNA PO SCH (08:29)
[2017-12-21] MEDS: CYMBALTA PO SCH (08:30)
[2017-12-21] MEDS: MICRO-K CAP PO SCH (08:30)
[2017-12-21] MEDS: COLACE PO SCH ×2 (08:30→22:08)
[2017-12-21] MEDS: NEURONTIN PO SCH ×2 (08:30→22:09)
[2017-12-21] MEDS: NORCO 7.5-325 PO SCH ×3 (08:32→22:08)
[2017-12-21] MEDS: ARTIFICIAL TEARS OPTH SOL OP SCH ×2 (08:32→22:09)
[2017-12-21] MEDS: HUMULIN R SUBCUT PRN (11:02)
[2017-12-21] MEDS ORDERED: LASIX IVP STA (15:50)
[2017-12-21] MEDS: LOVENOX SUBCUT SCH (22:07)
[2017-12-21] MEDS: ROCEPHIN 2 GM in SODIUM CHLORIDE 50 ML IV SCH (22:07)
[2017-12-22] MEDS: TORADOL IVP PRN ×2 (00:03→10:34)
[2017-12-22] MEDS: SODIUM CHLORIDE 1,000 ML IV SCH (02:11)
[2017-12-22] MEDS: DUONEB NEB SCH ×3 (05:21→21:50)
[2017-12-22] MEDS: PROTONIX PO SCH (06:11)
[2017-12-22] MEDS: SYNTHROID PO SCH (10:34)
[2017-12-22] MEDS: SENNA PO SCH (10:34)
[2017-12-22] MEDS: NORCO 7.5-325 PO SCH ×3 (10:34→21:05)
[2017-12-22] MEDS: MICRO-K CAP PO SCH (10:34)
[2017-12-22] MEDS: COLACE PO SCH ×2 (10:34→21:06)
[2017-12-22] MEDS: CYMBALTA PO SCH (10:35)
[2017-12-22] MEDS: COREG PO SCH ×2 (10:35→16:38)
[2017-12-22] MEDS: BENTYL PO SCH ×3 (10:35→21:05)
[2017-12-22] MEDS: NEURONTIN PO SCH ×2 (10:35→21:05)
[2017-12-22] MEDS: COZAAR PO SCH (10:35)
[2017-12-22] MEDS: REQUIP PO SCH ×2 (10:35→21:05)
[2017-12-22] MEDS: ASPIRIN CHEWABLE PO SCH (10:35)
[2017-12-22] MEDS: LANOXIN PO SCH (10:35)
[2017-12-22] MEDS: ARTIFICIAL TEARS OPTH SOL OP SCH ×2 (10:36→21:12)
--- NOTE | 2017-12-22 16:07 | RS.OTINEVL ---
Subjective - Patient information Date of Evaluation: 12/22/17 Date of Arrival on Unit: 12/19/17 Admitted From:: [facility] Usual Living Arrangement: Personal Care Facility Living Arrangement Comments: Pt lives at [facility]. Medical History: COPD Medical History Comments:: Left eye blindness, pacemaker, afib, COPD, Hiatal hernia, Right kidney removed, OA, MSD, DMII, depression, Hypothyroidectomy, Surgical History Comments:: Right Kidney removed, Left eye corneal transplant, Pacemaker, gallbladder removed, appendectomy, low back surgery, hysterectomy, Subjective Information/ Patient Comments:: "I really don't want to." "I have already been up in the chair." - Level of function Prior to this admission, the patient could do the following:: Partially Dependent Ambulation Abilities prior to this admission: Pt was able to transfer Maximum assistance x 2, Pt independent with self feeding. Current Level of Function: Partially Dependent Current Equipment Used at Home: WC, Pain Assessment - Pain Side: bilateral Pain Location Body Site: Generalized Pain Aggravating Factors: ADL's, Changing Position Pain Alleviating Factors: Medication Interventions - Objective Patient Orientation: Person, Situation Current Interventions: IV's, Oxygen Observation: Pt is tired, in pain, and not motivated to do much. Pt did participate by sitting EOB, combing her hair with cues, and attempted scooting. Interventions - ROM Right Upper Extremity AROM: Slight limitation Left Upper Extremity AROM: Slight limitation - Strength Right Upper Extremity Strength: Mild Weakness Left Upper Extremity Strength: Mild Weakness - Sensation Right Upper Extremity Sensation: Intact/Normal Left Upper Extremity Sensation: Intact/Normal Balance - Sitting Balance Static Sitting Balance: Poor Dynamic Sitting Balance: Poor ADL Skills - Self Feeding Self Feeding: Independent - Grooming Grooming: Min Assist - Dressing Dressing UE: Min Assist Dressing LE: Max Assist - Toilet Management Toileting Management: Max Assist, 2 person assist Functional Mobility - Bed Mobility Scooting: Min Assist Supine to Sit: Independent Sit to Supine: CGA - Ambulation Assistance needed with Ambulation: Max Assist, 2 person assist - Safety Awareness Safety Awareness: Fair CARYN INDEX SCORE: 29 Additional Treatment Performed - Time with patient Length of Evaluation: 25 Total treatment time: 25 Activities Do you enjoy playing games?: No Would you be interested in leaving your room for activities?: No Would you enjoy group activities?: No Do you have difficulty with your vision?: Yes Patient Interests:: Watching Television Patient Education Patient Education: Education of diagnosis, Home Exercise Program, Education of Plan of Care Teaching Recipient: Patient Teaching Methods: Discussion Assessment Problem List:: Decreased level of function, Requires training/education, Decreased safety/Risk of falls, Weakness, Pain limits previous level of function Rehab Potential: Good Further Therapy Indicated?: Yes Evaluation Complexity: HISTORY: Medium, EXAM OF BODY SYSTEMS: Medium, CLINICAL DECISION MAKING: Medium Short Term Goals - Goals GOAL 1: Pt to increase safety of functional transfers to Minimal assist with RW Goal to be met by: 12/26/17 GOAL 2: Pt to increase independence of self care management to Minimal assist Goal to be met by: 12/26/17 GOAL 3: Pt to increase BUe strength to 4/5. Goal to be met by: 12/26/17 Intermediate Goals GOAL 1: Pt to increase safety of functional transfers to CGA assist with RW Goal to be met by: 01/02/18 GOAL 2: Pt to increase independence of self care management to CGA assist Goal to be met by: 01/02/18 GOAL 3: Pt to increase BUe strength to 4+/5. Goal to be met by: 01/02/18 Plan Plan of Care: Therapeutic EX, Neuromuscular Re-Educ, Therapeutic Activity, Self- Care/Home Management Frequency of Treatment: 1-2 X day, as tolerated Duration of Treatment: 2 Weeks Anticipated Discharge Destination: [facility]mediate [facility] Facility Treatment Diagnosis (ICD 10 Codes): M62.81 Muscle weakness, Z74.01 Need for assistance with personal care. Has the Physician been added for Co-signature?: Yes
--- NOTE | 2017-12-22 16:28 | RS.PTINEVL ---
Subjective - Patient information Date of Evaluation: 12/22/17 Date of Arrival on Unit: 12/19/17 Admitted From:: Custodial Diagnosis: pyelonephritis, bacteremia, UTI, septic shock Usual Living Arrangement: Custodial Living Arrangement Comments: Pt lives at [facility]. Home Environment: Level/No stairs Medical History: COPD, Diabetes, CHF, Arthritis Medical History Comments:: Left eye blindness, pacemaker, Hypothyroidectomy, DJD , CAD LATEX ALLERGY?: No Surgical History: Lumbar Spine, Cholecystectomy, Hysterectomy Surgical History Comments:: Right Kidney removed, Left eye corneal transplant, Pacemaker, appey Medications: see chart Subjective Information/ Patient Comments:: pt states that she sat up in chair earlier today. States she does not want to try to stand this visit due to fatigue. - Level of function Prior to this admission, the patient could do the following:: Partially Dependent Ambulation Current Level of Function: Partially Dependent Current Equipment Used at Home: WC, Pain Assessement - Location all over Description: Aching Effects of Pain: pt did not rate pain, however states she hurts all over Interventions - Objective Patient Orientation: Person, Place Current Interventions: IV's, Oxygen Range of Motion - ROM Right Upper Extremity AROM: WFL's Left Upper Extremity AROM: WFL's Right Lower Extremity AROM: WFL's Left Lower Extremity AROM: WFL's Muscle Strength - Muscle Strength Right Upper Extremity Strength: Mild Weakness Left Upper Extremity Strength: Mild Weakness Right Lower Extremity Strength: Mild Weakness (hip flex 3+/5, knee flex/ext 4-/5 , ankle DF/PF 4-/5) Left Lower Extremity Strength: Mild Weakness (hip flex 3+/5, knee flex/ext 4-/5 , ankle DF/PF 4-/5) Sensation - Sensation Right Upper Extremity Sensation: Intact/Normal Left Upper Extremity Sensation: Intact/Normal Right Lower Extremity Sensation: Impaired Left Lower Extremity Sensation: Impaired Comments: reports long standing issue with n/t B feet Palpation Palpation Findings: None/Normal Balance - Sitting Balance and Reactions Static Sitting Balance: Fair Dynamic Sitting Balance: Poor Sitting Equilibrium Reactions: Delayed Left, Delayed Right Sitting Protective Reactions: Delayed Left, Delayed Right - Comments Balance Assessment Comments: pt refused to attempt standing. pt able to maintain sitting balance unsupported with no challenge, when reaching across midline pt lost balance to L. Functional Mobility - Bed Mobility Rolling R/L: Min Assist Scooting: Mod Assist, 2 person assist Supine to Sit: CGA, 1 person assist Sit to Supine: Min Assist, 1 person assist - Safety Awareness Safety Awareness: Fair CARYN INDEX SCORE: 29 Treatment time - Time with patient Length of Evaluation: 18 Total treatment time: 27 Patient Education - Education Patient Education: Activity Modification, Education of Plan of Care Teaching Recipient: Patient Teaching Methods: Discussion Comments: discussion with patient regarding importance of increased activity and strengthening to improve functional mobility. Assessment - Assessment Problem List:: Decreased level of function, Requires training/education, Decreased safety/Risk of falls, Weakness, Pain limits previous level of function Rehab Potential: Fair Further Therapy Indicated?: Yes Candidate for Swing Bed for Therapy Services?: pt is currently swing bed Evaluation Complexity: HISTORY: Medium (CHF, COPD, DM, OA), EXAM OF BODY SYSTEMS : Medium (strength, transfers, balance,pain), CLINICAL PRESENTATION: Medium ( evolving), CLINICAL DECISION MAKING: Medium Short Term Goals GOAL #1: pt rolling with CGA, bridging with verbal cues Goal to be met by: 12/26/17 GOAL #2: pt transfer sup to sit SBA, sit to sup CGA sit to/from stand min x 1 Goal to be met by: 12/26/17 GOAL #3: pt transfer stand pivot bed to/from bedside chair with min x 2 Goal to be met by: 12/26/17 GOAL #4: pt able to sit at side of bed and reach across/away from midline w no LOB Goal to be met by: 12/26/17 Longterm Goals GOAL #1: pt trasnfer sit to sup CGA, sit to/from stand CGA Goal to be met by: 12/31/17 GOAL #2: pt transfer bed to/from chair min x 1 Goal to be met by: 12/31/17 GOAL #3: pt amb 25ft with rwx with min x 1-2 Goal to be met by: 12/31/17 Plan Plan of Care: Therapeutic EX, Therapeutic Activity Other:: progress to gait training Frequency of Treatment: 1-2 X day, as tolerated Duration of Treatment: 8-9 days Anticipated Discharge Destination: [facility] Treatment Diagnosis (ICD 10 Codes): M62.81 general weakness. R26.81 balance impaired Has the Physician been added for Co-signature?: Yes
[2017-12-22] MEDS: ROCEPHIN 2 GM in SODIUM CHLORIDE 50 ML IV SCH (21:05)
[2017-12-22] MEDS: LOVENOX SUBCUT SCH (21:06)
[2017-12-22] MEDS: HUMULIN R SUBCUT PRN (21:10)
[2017-12-23] MEDS: DUONEB NEB SCH ×3 (04:25→21:02)
[2017-12-23] MEDS: PROTONIX PO SCH (06:06)
[2017-12-23] MEDS: SYNTHROID PO SCH (06:06)
[2017-12-23] MEDS: LANOXIN PO SCH (08:14)
[2017-12-23] MEDS: COZAAR PO SCH (08:14)
[2017-12-23] MEDS: ASPIRIN CHEWABLE PO SCH (08:14)
[2017-12-23] MEDS: REQUIP PO SCH ×2 (08:14→20:52)
[2017-12-23] MEDS: COLACE PO SCH ×2 (08:15→20:51)
[2017-12-23] MEDS: NEURONTIN PO SCH ×2 (08:15→20:51)
[2017-12-23] MEDS: NORCO 7.5-325 PO SCH ×3 (08:15→20:52)
[2017-12-23] MEDS: CYMBALTA PO SCH (08:15)
[2017-12-23] MEDS: SENNA PO SCH (08:15)
[2017-12-23] MEDS: COREG PO SCH ×2 (08:15→16:34)
[2017-12-23] MEDS: BENTYL PO SCH ×3 (08:15→20:51)
[2017-12-23] MEDS: ARTIFICIAL TEARS OPTH SOL OP SCH ×2 (08:16→20:50)
[2017-12-23] MEDS: MICRO-K CAP PO SCH (08:16)
[2017-12-23] MEDS: TESSALON PERLES PO SCH ×3 (08:41→20:51)
[2017-12-23] MEDS: HUMULIN R SUBCUT PRN ×2 (11:07→20:53)
[2017-12-23] MEDS: SODIUM CHLORIDE 1,000 ML IV SCH (11:18)
--- NOTE | 2017-12-23 13:17 | PN ---
DATE OF SERVICE: 12/20/17 SUBJECTIVE: The patient is admitted with septic shock and urosepsis, ESBL positive. Initially it was resistant to Cefepime but we ran cultures and showed organism is sensitive to bacteria. As of now, the patient's blood pressure has been improved. The patient was more awake and alert, still having left-sided lower back pain otherwise no fever or chills. No PND, no orthopnea. REVIEW OF SYSTEMS: CONSTITUTIONAL: No fever, no chills. HEENT: Normal. ENDOCRINE: No weight gain, no weight loss. CVS: No angina symptoms. No CHF symptoms. No palpitations. No atypical chest pain for CAD. No shortness of breath. No PND, no orthopnea. RESPIRATORY: No cough, no hemoptysis. GI: No nausea, no vomiting. No abdominal pain. : No hematuria. No polyuria. MUSCULOSKELETAL: Left-sided lower back pain. PSYCHIATRIC: Not anxious. No depression. No suicidal thoughts. No homicidal thoughts. SKIN: Intact. No rash. PHYSICAL EXAMINATION: V/S: BP 147/95, respiratory rate 16, heart rate 67, temperature 98.4, saturation 98 on 2L. HEENT: Normocephalic, atraumatic. Mucosa dry. Pallor positive. No icterus. NECK: Supple. No JVD, no carotid bruit. No lymphadenopathy. LUNGS: Clear to auscultation. No rales or rhonchi. HEART: S1, S2 normal. No S3. No murmur, gallop or regurgitation. ABDOMEN: Soft, nontender. Bowel sounds active. No rigidity. No rebound or guarding. Left-sided CVA tenderness present. EXTREMITIES: No cyanosis, clubbing or pedal edema. MUSCULOSKELETAL: No joint swelling. NEUROLOGIC: Awake, alert. No focal deficit. LYMPHATIC: No lymph nodes palpable. SKIN: Intact. LABS: White count 10.09, hemoglobin 10.1, hematocrit 32.2, platelet count 217. Sodium 139, potassium 4.6, chloride 110, bicarb 23, BUN 32, creatinine 1.19, glucose 141. ASSESSMENT: 1. ACUTE PYELONEPHRITIS 2. BACTEREMIA 3. SEPTIC SHOCK 4. LEFT-SIDED PYELONEPHRITIS 5. ATRIAL FIBRILLATION 6. CHF 7. CORONARY ARTERY DISEASE 8. CHRONIC PAIN SYNDROME PLAN: 1. Continue Rocephin 2. IV fluids 3. Demerol 4. Out of bed to chair 5. Activity as tolerated TIME SPENT: More than 35 minutes MTDD
--- NOTE | 2017-12-23 13:25 | PN ---
DATE OF SERVICE: 12/21/17 SUBJECTIVE: Admitted with left-sided pyelonephritis and septic shock. The patient has gained almost 9 lbs since admission. The pain is still present 6 out of 10. No constipation or diarrhea. No chest pain, PND or orthopnea. No fever, no chills. REVIEW OF SYSTEMS: CONSTITUTIONAL: No fever, no chills. HEENT: Normal. ENDOCRINE: No weight gain, no weight loss. CVS: No angina symptoms. No CHF symptoms. No palpitations. No atypical chest pain for CAD. No shortness of breath. No PND, no orthopnea. RESPIRATORY: No cough, no hemoptysis. GI: No nausea, no vomiting. No abdominal pain. : No hematuria. No polyuria. MUSCULOSKELETAL: Left-sided lower back pain. PSYCHIATRIC: Not anxious. No depression. No suicidal thoughts. No homicidal thoughts. SKIN: Intact. No rash. PHYSICAL EXAMINATION: V/S: BP 154/85, respiratory rate 18, heart rate 62, temperature 98.6, saturation 98 on 2L. HEENT: Normocephalic, atraumatic. Mucosa dry. Pallor positive. No icterus. NECK: Supple. No JVD, no carotid bruit. No lymphadenopathy. LUNGS: Decreased breath sounds with basilar crackles. HEART: S1, S2 normal. No S3. No murmur, gallop or regurgitation. ABDOMEN: Soft, nontender. Bowel sounds active. No rigidity. No rebound or guarding. Left-sided CVA tenderness is present. EXTREMITIES: No cyanosis or clubbing. 1+ edema. MUSCULOSKELETAL: No joint swelling. NEUROLOGIC: Awake, alert. No focal deficit. LYMPHATIC: No lymph nodes palpable. SKIN: Intact. LABS: White count 10.09, hemoglobin 10.1, hematocrit 32.1, platelet count 217. Sodium 139, potassium 4.6, chloride 110, bicarb 23, BUN 32, creatinine 1.19, glucose 141. ASSESSMENT: 1. LEFT-SIDED PYELONEPHRITIS 2. SEPTIC SHOCK, ORGANISM E. COLI 3. CAD 4. CHF 5. ATRIAL FIBRILLATION 6. HYPERTENSION 7. DYSLIPIDEMIA PLAN: 1. Continue Rocephin 2. IV fluids 3. Tylenol for pain control TIME SPENT: More than 35 minutes MTDD
--- NOTE | 2017-12-23 13:31 | PN ---
DATE OF SERVICE: 12/22/17 SUBJECTIVE: The patient was admitted for urinary tract infection and pyelonephritis. The patient is feeling better, more awake and alert. Less pain in the abdomen. REVIEW OF SYSTEMS: CONSTITUTIONAL: No fever, no chills. HEENT: Normal. ENDOCRINE: No weight gain, no weight loss. CVS: No angina symptoms. No CHF symptoms. No palpitations. No atypical chest pain for CAD. No shortness of breath. No PND, no orthopnea. RESPIRATORY: No cough, no hemoptysis. GI: No nausea, no vomiting. Less abdominal pain. : No hematuria. No polyuria. MUSCULOSKELETAL: No joint swelling. PSYCHIATRIC: Not anxious. No depression. No suicidal thoughts. No homicidal thoughts. SKIN: Intact. No rash. PHYSICAL EXAMINATION: V/S: BP 116/68, respiratory rate 16, heart rate 55, temperature 98.0. Saturation 98. HEENT: Normocephalic, atraumatic. Mucosa dry. Pallor positive. No icterus. NECK: Supple. No JVD, no carotid bruit. No lymphadenopathy. LUNGS: Decreased breath sounds with basilar crackles. No rales or rhonchi. HEART: S1, S2 normal. No S3. No murmur, gallop or regurgitation. ABDOMEN: Soft, nontender. Bowel sounds active. No rigidity. No rebound or guarding. No CVA tenderness. EXTREMITIES: No cyanosis, clubbing or pedal edema. MUSCULOSKELETAL: No joint swelling. NEUROLOGIC: Awake, alert. No focal deficit. LYMPHATIC: No lymph nodes palpable. SKIN: Intact. LABS: White count 10.09, hemoglobin 10.1, hematocrit 32.4, platelet count 217. Sodium 139, potassium 4.6, chloride 110, bicarb 23, BUN 32, creatinine 1.19, glucose 141. ASSESSMENT: 1. ACUTE PYELONEPHRITIS 2. BACTEREMIA 3. SEPTICEMIA 4. E. COLI ORGANISM POSITIVE, NON ESBL 5. CHF 6. ATRIAL FIBRILLATION 7. CORONARY ARTERY DISEASE 8. DIABETES 9. HYPERTENSION 9. DYSLIPIDEMIA PLAN: 1. Continue Rocephin 2. Accu-checks with the coverage 3. IV fluids 4. Demerol for pain 5. Daily I & O's TIME SPENT: More than 35 minutes MTDD
[2017-12-23] MEDS: ROCEPHIN 2 GM in SODIUM CHLORIDE 50 ML IV SCH (20:50)
[2017-12-23] MEDS: LOVENOX SUBCUT SCH (20:59)
[2017-12-23] MEDS: TORADOL IVP PRN (22:09)
[2017-12-24] MEDS: DUONEB NEB SCH ×3 (04:55→22:00)
[2017-12-24] MEDS: SYNTHROID PO SCH (05:52)
[2017-12-24] MEDS: PROTONIX PO SCH (05:53)
[2017-12-24] MEDS: BENTYL PO SCH ×2 (09:17→15:46)
[2017-12-24] MEDS: CYMBALTA PO SCH (09:17)
[2017-12-24] MEDS: SENNA PO SCH (09:17)
[2017-12-24] MEDS: NEURONTIN PO SCH (09:18)
[2017-12-24] MEDS: LANOXIN PO SCH (09:18)
[2017-12-24] MEDS: ASPIRIN CHEWABLE PO SCH (09:18)
[2017-12-24] MEDS: COREG PO SCH ×2 (09:18→16:44)
[2017-12-24] MEDS: COLACE PO SCH (09:19)
[2017-12-24] MEDS: COZAAR PO SCH (09:19)
[2017-12-24] MEDS: REQUIP PO SCH (09:19)
[2017-12-24] MEDS: NORCO 7.5-325 PO SCH ×2 (09:19→15:47)
[2017-12-24] MEDS: TESSALON PERLES PO SCH ×2 (09:21→15:46)
[2017-12-24] MEDS: ARTIFICIAL TEARS OPTH SOL OP SCH (09:27)
--- NOTE | 2017-12-24 09:32 | PN ---
DATE OF SERVICE: 12/23/17 SUBJECTIVE: The patient was admitted with the left sided pyelonephritis and bacteria. The patient is more awake and alert. Status post change in mental status. Still complaining about the left sided abdominal pain. The patient has gained 9 pounds and was given a dose of Lasix yesterday and she did have a good amount of bloody urine output, 2750. REVIEW OF SYSTEMS: CONSTITUTIONAL: No fever, no chills. HEENT: Normal. ENDOCRINE: No weight gain, no weight loss. CVS: No angina symptoms. No CHF symptoms. No palpitations. No atypical chest pain for CAD. No shortness of breath. No PND, no orthopnea. RESPIRATORY: No cough, no hemoptysis. GI: No nausea, no vomiting. No abdominal pain. : No hematuria. No polyuria. MUSCULOSKELETAL: No joint swelling. PSYCHIATRIC: Not anxious. No depression. No suicidal thoughts. No homicidal thoughts. SKIN: Intact. No rash. PHYSICAL EXAMINATION: V/S: Blood pressure 126/70, respiratory rate 20, heart rate 69, temperature 98.4 with saturation 97 on 2 liters. HEENT: Normocephalic, atraumatic. Mucosa dry. Pallor positive. No icterus. NECK: Supple. No JVD, no carotid bruit. No lymphadenopathy. LUNGS: Clear and basilar crackles. No rales or rhonchi. HEART: S1, S2 normal. No S3. No murmur, gallop or regurgitation. ABDOMEN: Soft, nontender. Bowel sounds active. No rigidity. No rebound or guarding. Left sided CVA tenderness. EXTREMITIES: No cyanosis, clubbing or pedal edema. MUSCULOSKELETAL: No joint swelling. NEUROLOGIC: Awake, alert. No focal deficit. LYMPHATIC: No lymph nodes palpable. SKIN: Intact. LABS: WBC 8.82, hgb 10.8, hct 35.2, plt count 325, sodium 139, potassium 5.1, chloride 105, bicarb 27, BUN 25, creatinine 1.05, glucose 109. ASSESSMENT: 1. Acute left sided pyelonephritis 2. Status post change in mental status 3. Bacteremia 4. Sepsis, e-coli organism 5. CAD 6. CHF 7. Atrial fibrillation 8. Diabetes 9. Chronic pain syndrome PLAN: 1. Continue the Rocephin 2. IV fluids 3. Demerol 4. Daily I&O's TIME SPENT: More than 35 minutes MTDD
[2017-12-24] MEDS: TORADOL IVP PRN (18:46)
[2017-12-25] MEDS: BENTYL PO SCH ×4 (00:21→20:35)
[2017-12-25] MEDS: ARTIFICIAL TEARS OPTH SOL OP SCH ×3 (00:21→22:40)
[2017-12-25] MEDS: COLACE PO SCH ×3 (00:21→20:35)
[2017-12-25] MEDS: LOVENOX SUBCUT SCH ×2 (00:21→20:36)
[2017-12-25] MEDS: NORCO 7.5-325 PO SCH ×4 (00:22→20:34)
[2017-12-25] MEDS: REQUIP PO SCH ×3 (00:22→20:35)
[2017-12-25] MEDS: ROCEPHIN 2 GM in SODIUM CHLORIDE 50 ML IV SCH ×2 (00:22→20:32)
[2017-12-25] MEDS: NEURONTIN PO SCH ×3 (00:22→20:35)
[2017-12-25] MEDS: TESSALON PERLES PO SCH ×4 (01:13→20:35)
[2017-12-25] MEDS: TORADOL IVP PRN (03:07)
[2017-12-25] MEDS: DUONEB NEB SCH ×2 (04:50→16:43)
[2017-12-25] MEDS: PROTONIX PO SCH (05:37)
[2017-12-25] MEDS: SYNTHROID PO SCH (05:37)
[2017-12-25] MEDS ORDERED: MILK OF MAGNESIA PO STA (08:33)
[2017-12-25] MEDS: LANOXIN PO SCH (09:09)
[2017-12-25] MEDS: CYMBALTA PO SCH (09:11)
[2017-12-25] MEDS: SENNA PO SCH (09:12)
[2017-12-25] MEDS: COZAAR PO SCH (09:12)
[2017-12-25] MEDS: ASPIRIN CHEWABLE PO SCH (09:12)
[2017-12-25] MEDS: COREG PO SCH ×2 (09:12→17:06)
--- NOTE | 2017-12-25 10:34 | PN ---
DATE OF SERVICE: 12/24/17 SUBJECTIVE: The patient was admitted with pyelonephritis and septic shock. The patient is still complaining about the weakness and tiredness, no fever or chills. REVIEW OF SYSTEMS: CONSTITUTIONAL: No fever, no chills. Weakness. HEENT: Normal. ENDOCRINE: No weight gain, no weight loss. CVS: No angina symptoms. No CHF symptoms. No palpitations. No atypical chest pain for CAD. No shortness of breath. No PND, no orthopnea. RESPIRATORY: No cough, no hemoptysis. GI: No nausea, no vomiting. No abdominal pain. : No hematuria. No polyuria. MUSCULOSKELETAL: No joint swelling. PSYCHIATRIC: Not anxious. No depression. No suicidal thoughts. No homicidal thoughts. SKIN: Intact. No rash. PHYSICAL EXAMINATION: V/S: Blood pressure 140/64, respiratory rate 20, heart rate 67, temperature 97.7 with saturation 94 on the room air. HEENT: Normocephalic, atraumatic. Mucosa dry. Pallor positive. No icterus. NECK: Supple. No JVD, no carotid bruit. No lymphadenopathy. LUNGS: Decreased and basilar crackles. Clear to auscultation. No rales or rhonchi. HEART: S1, S2 normal. No S3. No murmur, gallop or regurgitation. ABDOMEN: Soft, nontender. Bowel sounds active. No rigidity. No rebound or guarding. No CVA tenderness. EXTREMITIES: No cyanosis, clubbing or pedal edema. MUSCULOSKELETAL: No joint swelling. NEUROLOGIC: Awake, alert. No focal deficit. LYMPHATIC: No lymph nodes palpable. SKIN: Intact. LABS: WBC 8.82, hgb 10.8, hct 35.3, plt count 325, sodium 139, potassium 5.1, chloride 105, bicarb 27, BUN 25, creatinine 1.05, glucose 109. ASSESSMENT: 1. Status post hypertension 2. Pyelonephritis 3. Bacteremia 4. E-coli 5. Atrial fibrillation 6. CHF 7. Chronic pain syndrome 8. Diabetes 9. Osteoarthritis 10.DJD spine PLAN: 1. Continue the Rocephin 2. IV fluids 3. Demerol PRN 4. Daily I&O's TIME SPENT: More than 35 minutes MTDD
[2017-12-25] MEDS: HUMULIN R SUBCUT PRN ×2 (11:28→20:40)
[2017-12-26] MEDS: DUONEB NEB SCH ×2 (04:40→17:00)
[2017-12-26] MEDS: PROTONIX PO SCH (05:43)
[2017-12-26] MEDS: SYNTHROID PO SCH (05:43)
[2017-12-26] MEDS: ASPIRIN CHEWABLE PO SCH (08:36)
[2017-12-26] MEDS: CYMBALTA PO SCH (08:36)
[2017-12-26] MEDS: LANOXIN PO SCH (08:36)
[2017-12-26] MEDS: SENNA PO SCH (08:36)
[2017-12-26] MEDS: NORCO 7.5-325 PO SCH ×3 (08:36→21:01)
[2017-12-26] MEDS: REQUIP PO SCH ×2 (08:36→21:01)
[2017-12-26] MEDS: COREG PO SCH ×2 (08:37→17:18)
[2017-12-26] MEDS: TESSALON PERLES PO SCH ×3 (08:37→21:00)
[2017-12-26] MEDS: NEURONTIN PO SCH ×2 (08:37→21:00)
[2017-12-26] MEDS: BENTYL PO SCH ×3 (08:37→21:01)
[2017-12-26] MEDS: COZAAR PO SCH (08:37)
[2017-12-26] MEDS: COLACE PO SCH ×2 (08:37→21:01)
[2017-12-26] MEDS: ARTIFICIAL TEARS OPTH SOL OP SCH ×2 (09:00→21:02)
--- NOTE | 2017-12-26 10:37 | PN ---
DATE OF SERVICE: 12/25/17 SUBJECTIVE: The patient is an 87-year-old female admitted with pyelonephritis and septic shock. The patient is more awake and alert, complains of constipation, abdominal pain. No nausea, no vomiting. No fever, no chills. REVIEW OF SYSTEMS: CONSTITUTIONAL: No fever, no chills. HEENT: Normal. ENDOCRINE: No weight gain, no weight loss. CVS: No angina symptoms. No CHF symptoms. No palpitations. No atypical chest pain for CAD. No shortness of breath. No PND, no orthopnea. RESPIRATORY: No cough, no hemoptysis. GI: Constipation, abdominal pain. No nausea, no vomiting. : No hematuria. No polyuria. MUSCULOSKELETAL: No joint swelling. PSYCHIATRIC: Not anxious. No depression. No suicidal thoughts. No homicidal thoughts. SKIN: Intact. No rash. PHYSICAL EXAMINATION: V/S: BP 149/79, respiratory rate 18, heart rate 60, temperature 98.1, saturation 93 on room air. HEENT: Normocephalic, atraumatic. Mucosa dry. Pallor positive. No icterus. NECK: Supple. No JVD, no carotid bruit. No lymphadenopathy. LUNGS: Clear to auscultation. No rales or rhonchi. HEART: S1, S2 normal. No S3. No murmur, gallop or regurgitation. ABDOMEN: Soft, nontender. Bowel sounds active. No rigidity. No rebound or guarding. Left-sided CVA tenderness present. EXTREMITIES: No cyanosis, clubbing or pedal edema. MUSCULOSKELETAL: No joint swelling. NEUROLOGIC: Awake, alert. No focal deficit. LYMPHATIC: No lymph nodes palpable. SKIN: Intact. LABS: White count 8.82, hemoglobin 10.8, hematocrit 35.3, platelet count 325. Sodium 139, potassium 5.1, chloride 105, bicarb 27, BUN 25, creatinine 1.05, glucose 109. ASSESSMENT: 1. PYELONEPHRITIS 2. STATUS POST SEPTIC SHOCK 3. BACTEREMIA 4. E.COLI/NON ESBL 5. DIABETES MELLITUS 6. HYPERTENSION 7. CAD 8. CHF 9. ATRIAL FIBRILLATION 10. CONSTIPATION PLAN: 1. Miralax 2. Continue Rocephin 3. IV fluids 4. Daily I & O's TIME SPENT: More than 35 minutes MTDD
[2017-12-26] MEDS: HUMULIN R SUBCUT PRN ×2 (11:28→22:05)
[2017-12-26] MEDS: TORADOL IVP PRN (11:29)
[2017-12-26] MEDS: LOVENOX SUBCUT SCH (20:59)
[2017-12-26] MEDS: ROCEPHIN 2 GM in SODIUM CHLORIDE 50 ML IV SCH (21:00)
[2017-12-27] MEDS: TORADOL IVP PRN (03:23)
[2017-12-27] MEDS: DUONEB NEB SCH ×2 (04:56→17:02)
[2017-12-27] MEDS: PROTONIX PO SCH (05:45)
[2017-12-27] MEDS: SYNTHROID PO SCH (05:45)
[2017-12-27] MEDS: ASPIRIN CHEWABLE PO SCH (10:24)
[2017-12-27] MEDS: ARTIFICIAL TEARS OPTH SOL OP SCH ×2 (10:24→20:43)
[2017-12-27] MEDS: COREG PO SCH ×2 (10:25→18:03)
[2017-12-27] MEDS: COLACE PO SCH ×2 (10:25→20:42)
[2017-12-27] MEDS: BENTYL PO SCH ×3 (10:25→20:43)
[2017-12-27] MEDS: CYMBALTA PO SCH (10:26)
[2017-12-27] MEDS: NEURONTIN PO SCH ×2 (10:26→20:42)
[2017-12-27] MEDS: COZAAR PO SCH (10:26)
[2017-12-27] MEDS: SENNA PO SCH (10:27)
[2017-12-27] MEDS: REQUIP PO SCH ×2 (10:27→20:42)
[2017-12-27] MEDS: LANOXIN PO SCH (10:28)
[2017-12-27] MEDS: TESSALON PERLES PO SCH ×3 (10:28→20:43)
[2017-12-27] MEDS: NORCO 7.5-325 PO SCH ×3 (10:32→20:43)
[2017-12-27] MEDS: ROCEPHIN 2 GM in SODIUM CHLORIDE 50 ML IV SCH (20:41)
[2017-12-27] MEDS: LOVENOX SUBCUT SCH (20:42)
[2017-12-28] MEDS: DUONEB NEB SCH ×2 (04:50→18:07)
[2017-12-28] MEDS: SYNTHROID PO SCH (06:02)
[2017-12-28] MEDS: PROTONIX PO SCH (06:02)
[2017-12-28] MEDS: BENTYL PO SCH ×3 (09:07→20:48)
[2017-12-28] MEDS: ASPIRIN CHEWABLE PO SCH (09:07)
[2017-12-28] MEDS: SENNA PO SCH (09:07)
[2017-12-28] MEDS: ARTIFICIAL TEARS OPTH SOL OP SCH (09:07)
[2017-12-28] MEDS: TESSALON PERLES PO SCH ×3 (09:08→20:49)
[2017-12-28] MEDS: COREG PO SCH ×2 (09:08→18:24)
[2017-12-28] MEDS: NEURONTIN PO SCH ×2 (09:08→20:48)
[2017-12-28] MEDS: CYMBALTA PO SCH (09:08)
[2017-12-28] MEDS: COLACE PO SCH ×2 (09:09→20:48)
[2017-12-28] MEDS: COZAAR PO SCH (09:09)
[2017-12-28] MEDS: REQUIP PO SCH ×2 (09:09→20:49)
[2017-12-28] MEDS: NORCO 7.5-325 PO SCH ×3 (09:09→20:48)
[2017-12-28] MEDS: LANOXIN PO SCH (09:14)
[2017-12-28] MEDS: LOVENOX SUBCUT SCH (20:49)
[2017-12-28] MEDS: ROCEPHIN 2 GM in SODIUM CHLORIDE 50 ML IV SCH (20:54)
[2017-12-28] MEDS: HUMULIN R SUBCUT PRN (20:54)
[2017-12-29] MEDS: ARTIFICIAL TEARS OPTH SOL OP SCH ×2 (01:42→09:05)
[2017-12-29] MEDS: DUONEB NEB SCH (04:55)
[2017-12-29 05:16] VITALS: BP 150/60; TEMP 97.8
[2017-12-29] MEDS: SYNTHROID PO SCH (06:07)
[2017-12-29] MEDS: PROTONIX PO SCH (06:07)
[2017-12-29] MEDS: COZAAR PO SCH (09:02)
[2017-12-29] MEDS: SENNA PO SCH (09:02)
[2017-12-29] MEDS: REQUIP PO SCH (09:02)
[2017-12-29] MEDS: LANOXIN PO SCH (09:03)
[2017-12-29] MEDS: COREG PO SCH ×2 (09:03→17:28)
[2017-12-29] MEDS: ASPIRIN CHEWABLE PO SCH (09:03)
[2017-12-29] MEDS: CYMBALTA PO SCH (09:03)
[2017-12-29] MEDS: BENTYL PO SCH ×2 (09:03→15:33)
[2017-12-29] MEDS: NORCO 7.5-325 PO SCH ×2 (09:04→15:33)
[2017-12-29] MEDS: COLACE PO SCH (09:04)
[2017-12-29] MEDS: TESSALON PERLES PO SCH ×2 (09:04→15:33)
[2017-12-29] MEDS: NEURONTIN PO SCH (09:04)
[2017-12-29] MEDS: HUMULIN R SUBCUT PRN (11:37)
--- NOTE | 2017-12-29 22:03 | PCM.HOSP ---
- Initial TCU Admit [id number] 45 Minutes High Severity (65860): 12/20 - Subsequent TCU Care [id number] 25 Minutes per Day (19326): 12/25. 8/24. 8/. / [id number] 35 Minutes per Day (10032): 12/21. 8/. 8/. / - TCU Discharge [id number] More Than 30 Minutes (54580): 12/29
--- NOTE | 2017-12-30 06:42 | PN ---
DATE OF SERVICE: 12/26/17 SUBJECTIVE: The patient was admitted with IV antibiotic to the Transitional Care Unit. The patient was admitted with septic shock. She is more awake and alert. She is still having some pain in the belly otherwise no fever, chills, PND or orthopnea. Repeat urine is negative for infection. REVIEW OF SYSTEMS: CONSTITUTIONAL: No fever, no chills. HEENT: Normal. ENDOCRINE: No weight gain, no weight loss. CVS: No angina symptoms. No CHF symptoms. No palpitations. No atypical chest pain for CAD. No shortness of breath. No PND, no orthopnea. RESPIRATORY: No cough, no hemoptysis. GI: No nausea, no vomiting. Positive for some abdominal pain. : No hematuria. No polyuria. MUSCULOSKELETAL: No joint swelling. PSYCHIATRIC: Not anxious. No depression. No suicidal thoughts. No homicidal thoughts. SKIN: Intact. No rash. PHYSICAL EXAMINATION: V/S: BP 158/82, respiratory rate 16, heart rate 76, temperature 98.3. HEENT: Normocephalic, atraumatic. Mucosa dry. Pallor positive. No icterus. NECK: Supple. No JVD, no carotid bruit. No lymphadenopathy. LUNGS: Decreased breath sounds with basilar crackles. HEART: S1, S2 normal. No S3. Systolic murmur. ABDOMEN: Soft, nontender. Bowel sounds active. No rigidity. No rebound or guarding. No CVA tenderness. EXTREMITIES: No cyanosis, clubbing or pedal edema. MUSCULOSKELETAL: No joint swelling. NEUROLOGIC: More awake, alert. No focal deficit. LYMPHATIC: No lymph nodes palpable. SKIN: Intact. LABS: White count 8.82, hemoglobin 10.8, hematocrit 35.3, platelet count 325. Sodium 140, potassium 4.0, chloride 102, bicarb 30, BUN 25, creatinine 1.14, glucose 107. ASSESSMENT: 1. STATUS POST SEPTIC SHOCK 2. URINARY TRACT INFECTION 3. BACTEREMIA 4. ORGANISM E. COLI; NON ESBL 5. ATRIAL FIBRILLATION 6. CHF 7. CORONARY ARTERY DISEASE 8. CHRONIC PAIN SYNDROME 9. DIABETES PLAN: 1. Continue Rocephin 2. Demerol 3. IV fluids 4. Daily I & O's TIME SPENT: More than 35 minutes MTDD
--- NOTE | 2017-12-30 11:19 | HP ---
DATE OF SERVICE: 12/19/17 - TRANSITIONAL CARE UNIT CHIEF COMPLAINT: IV antibiotic use and continuation of antibiotics. HISTORY OF PRESENT ILLNESS: 87-year-old female came from the long term for change in mental status, hypotension. While in the emergency room blood pressure was 95/64. CT abdomen and pelvis showed left-sided pyelonephritis with white count 16,000. ABG done showed pH 7.437, pc02 31.7, p02 63. BUN 45, creatinine 1.94. At that time the patient was admitted to the hospital, started on IV antibiotics. Initially Levaquin was given, day one but the patient had persistent fever and by next day we changed antibiotics to Imipenem/Primaxin. Meanwhile, the urine grew gram negative rods and the blood cultures were also positive. Initially it showed ESBL positive and resistant to Primaxin so we changed the antibiotic to Invanz. Meanwhile the patient was feeling better, BUN and creatinine improving, blood pressure better. Meanwhile blood culture report was updated and said ESBL negative and sensitive to Rocephin so antibiotic was changed again to the Rocephin. The patient had blood cultures positive for Bacteremia from sepsis. At that time, the patient was thought to be a good candidate for transitional care unit and chcf IV antibiotic given her multiple medical problems. The patient is admitted to transitional care unit. REVIEW OF SYSTEMS: CONSTITUTIONAL: Weakness, tiredness. No fever, no chills. HEENT: Normal. ENDOCRINE: No weight gain; no weight loss. CVS: No chest pain. No PND, no orthopnea. No shortness of breath. No PND, no orthopnea. RESPIRATORY: No cough, no congestion. No hemoptysis. GI: Nausea. No vomiting. Constipation. Left-sided abdominal pain. No melena. : No hematuria. No polyuria. MUSCULOSKELETAL: Back pain. PSYCHIATRIC: Not anxious. No depression. No suicidal thoughts. No homicidal thoughts. SKIN: Intact, no open lesions. PAST MEDICAL HISTORY: CAD CHF Permanent pacemaker Atrial fibrillation COPD Hiatal hernia Diarrhea Osteoarthritis DJD spine Chronic pain syndrome Depression Anxiety PAST SURGICAL HISTORY: Cataract surgery Thyroidectomy Appendectomy Lower back surgery PERSONAL HISTORY: The patient is , resident of [place]. No alcohol, tobacco or substance use. FAMILY HISTORY: Stomach cancer Heart problem MEDICATIONS: Rocephin 1 gm daily IV fluids Demerol Continue rest of medications ALLERGIES: PENICILLINS PHYSICAL EXAMINATION: V/S: BP 112/71, respiratory rate 20, heart rate 82, temperature 98.1, saturation 98 on 2L. HEENT: Atraumatic, normocephalic. No scleral icterus. Pallor positive. Mucosa dry. NECK: Supple. No JVD, no bruit. No lymphadenopathy. No thyromegaly. HEART: S1, S2 normal. No murmur. No cyanosis or clubbing. No ascites. LUNGS: Decreased entry with basilar crackles. ABDOMEN: Soft, nontender. Bowel sounds are active. Left-sided CVA tenderness is present. No rigidity or guarding. EXTREMITIES: 1+ pedal edema. No cyanosis or clubbing MUSCULOSKELETAL: Normal joints, no swelling. NEUROLOGIC: The patient is awake and alert. SKIN: Intact; no open lesions. LYMPHATIC: No lymph nodes palpable. LABS: White count 10.09, hemoglobin 10.1, hematocrit 32.1, platelet 217. Sodium 139, potassium 4.6, chloride 110, bicarb 23, BUN 32, creatinine 1.19, glucose 141. ASSESSMENT: 1. STATUS POST SEPTIC SHOCK 2. LEFT-SIDED PYELONEPHRITIS 3. SEPTICEMIA 4. BACTEREMIA 5. E.COLI/NON ESBL 6. ATRIAL FIBRILLATION 7. CHF 8. PERMANENT PACEMAKER 9. DIABETES MELLITUS 10. 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 Admit the patient to Transitional Care Unit 2. Continue Rocephin 1 gm daily 3. IV fluids 4. Demerol 5. Daily I & O's 6. Accu-checks with coverage 7. Continue the rest of the medications TIME SPENT: MORE THAN 65 minutes MTDD
--- NOTE | 2017-12-30 11:35 | PN ---
DATE OF SERVICE: 12/27/17 SUBJECTIVE: The patient says she is feeling fine, has more energy, is able to get out of bed to chair. She is not able to have a bowel movement. No abdominal pain. No nausea or vomiting. REVIEW OF SYSTEMS: CONSTITUTIONAL: No fever, no chills. HEENT: Normal. ENDOCRINE: No weight gain, no weight loss. CVS: No angina symptoms. No CHF symptoms. No palpitations. No atypical chest pain for CAD. No shortness of breath. No PND, no orthopnea. RESPIRATORY: No cough, no hemoptysis. GI: Constipation. No nausea, no vomiting. No abdominal pain. : No hematuria. No polyuria. MUSCULOSKELETAL: Paraspinal tenderness lower back. PSYCHIATRIC: Not anxious. No depression. No suicidal thoughts. No homicidal thoughts. SKIN: Intact. No rash. PHYSICAL EXAMINATION: V/S: BP 143/81, respiratory rate 12, heart rate 65, temperature 97.4, saturation 100%. HEENT: Normocephalic, atraumatic. Mucosa dry. Pallor positive. No icterus. NECK: Supple. No JVD, no carotid bruit. No lymphadenopathy. LUNGS: Clear to auscultation. No rales or rhonchi. HEART: S1, S2 normal. No S3. No murmur, gallop or regurgitation. ABDOMEN: Soft, nontender. Bowel sounds active. No rigidity. No rebound or guarding. Paraspinal tenderness in the lower back is present. EXTREMITIES: No cyanosis, clubbing or pedal edema. MUSCULOSKELETAL: No joint swelling. NEUROLOGIC: Awake, alert. No focal deficit. LYMPHATIC: No lymph nodes palpable. SKIN: Intact and dry. LABS: White count 8.82, hemoglobin 10.8, hematocrit 35.3, platelet count 325. Sodium 140, potassium 4.0, chloride 102, bicarb 30, BUN 25, creatinine 1.14, glucose 107. ASSESSMENT: 1. PYELONEPHRITIS, LEFT-SIDED. THE PATIENT HAS ONLY ONE KIDNEY. 2. E.COLI/NON ESBL, SENSITIVE TO ROCEPHIN 3. ATRIAL FIBRILLATION 4. CHF 5. OSTEOARTHRITIS 6. DJD SPINE PLAN: 1. Continue Rocephin 2. Demerol 3. IV fluids 4. Follow with the patient in daily rounds 5. CBC, CMP in the morning TIME SPENT: More than 35 minutes MTDD
--- NOTE | 2017-12-30 12:54 | DS ---
DATE OF SERVICE: 12/29/17 FINAL DIAGNOSIS: 1. SEPSIS, E. COLI ORGANISM, CONTINUATION OF IV ANTIBIOTICS 2. HISTORY OF UTI 3. CAD 4. ATRIAL FIBRILLATION, NO BLOOD THINNER 5. HYPOTHYROIDISM 6. COPD 7. HIATAL HERNIA 8. CHRONIC PAIN SYNDROME 9. ANXIETY/DEPRESSION 10. DIABETES MELLITUS 11. HYPERTENSION 12. CAD 13. CHF 14. ATRIAL FIBRILLATION 15. PERMANENT PACEMAKER DISCHARGE INSTRUCTIONS: 1. Discharge the patient back to the senior care. 2. Vital Signs daily for one week then weekly 3. CBC and CMP within on week 4. UA 5. Will follow on senior care rounds by Dr. Chamberlain MEDICATIONS AT DISCHARGE: Continue the rest of the home medications: Tylenol Aspirin Coreg Bentyl Digoxin Colace Duloxetine Lasix Neurontin Hydrocodone Hydrocortisone Levothyroxine Losartan Magnesium Citrate Pantoprazole Potassium Requip Senna NEW PRESCRIPTIONS: None DIET INSTRUCTIONS: Consistent carbohydrates, no added salt ACTIVITY: Up to chair at least two times a day, dining room for meals. May participate in senior care activities. DISEASE SPECIFIC EDUCATION: Dehydration, urinary tract infection have been discussed, verbalized understanding. HOSPITAL COURSE: The patient is an 87-year-old female who was initially admitted to the regular floor for septic shock and sepsis, urinary tract infection. She was started initially on Primaxin and changed to Cefepime. E. coli was initially shown resistant to Rocephin but eventually was found to be not ESBL but E. coli. The patient was put on Rocephin and needing prison antibiotics because of bacteremia and septic shock, which he tolerated well and the patient was placed in transitional care unit for that. Hemoglobin/hematocrit have been stable. The patient has some nausea and vomiting which was taken care with IV Zofran. She was constipated so Miralax was given. Meanwhile the patient was up and about with help, bed to chair and to the wheelchair. As the patient has been doing good, repeat urine culture and blood cultures negative after four days, the patient is being discharged back to the senior care today. TIME SPENT: MORE THAN 65 MINUTES RITIKA
== END 2017-12-29 20:44 | DRG 871 ==
LOC: MEDSURG A 14:54
PROVIDERS: ADMIT Emergency Medicine; ATTEND Emergency Medicine
DX: A41.9 Sepsis, unspecified organism (principal); R65.21 Severe sepsis with septic shock; R78.81 Bacteremia; N39.0 Urinary tract infection, site not specified; R41.82 Altered mental status, unspecified; E11.9 Type 2 diabetes mellitus without complications; E03.9 Hypothyroidism, unspecified; E78.5 Hyperlipidemia, unspecified; I48.91 Unspecified atrial fibrillation; I50.9 Heart failure, unspecified; I10 Essential (primary) hypertension; M19.90 Unspecified osteoarthritis, unspecified site; M47.9 Spondylosis, unspecified; K59.00 Constipation, unspecified; K44.9 Diaphragmatic hernia without obstruction or gangrene; G89.4 Chronic pain syndrome; J44.9 Chronic obstructive pulmonary disease, unspecified; F41.8 Other specified anxiety disorders; Z79.01 Long term (current) use of anticoagulants
CPT/HCPCS: 36415; 80053; 81001; 82962; 85007; 85025; 87040; 94640; 97802

== ENCOUNTER 2018-07-24 10:17 | Outpatient (CLI) | payer OTHER ==
[2018-07-24 16:16] VITALS: BMI 32.4
== END 2018-07-24 10:23 | disposition short-term general hospital (02) ==
LOC: AMBL 10:17
PROVIDERS: ATTEND Emergency Medicine
DX: R06.02 Shortness of breath (principal); R41.82 Altered mental status, unspecified; R05 Cough; M54.9 Dorsalgia, unspecified; R10.9 Unspecified abdominal pain; I48.91 Unspecified atrial fibrillation

== ENCOUNTER 2018-07-24 10:33 | Inpatient (IN) ==
--- NOTE | 2018-07-24 11:00 | ED.PDOC ---
General ED Provider: Dr. FERNANDO LOPEZ Chief Complaint: Shortness of Air Stated Complaint: sob and recuring UTI,one kidney,tays at the [place] with king here,apparently a dgree of dementia, Time Seen by Physician: 11:00 Mode of Arrival: Ambulance Information Source: Patient Exam Limitations: No limitations Nursing and Triage Documentation Reviewed and Agree: Yes Does patient meet sepsis criteria?: Yes If yes, has appropriate treatment been initiated?: Yes (starting rocephin 600 mg IV now) System Inflammatory Response Syndrome: Temp 101F or Greater, Resp >20/Minute, Acutely Altered Mental Status Sepsis Protocol: For patient's 13 years and over: Temp is 96.8 and below OR 101 and greater Pulse >90 BPM Resp >20/minute Acutely Altered Mental Status Are patient's symptoms suggestive of a new infection, such as: -Pneumonia -Skin, Soft Tissue -Endocarditis -UTI -Bone, Joint Infection -Implantable Device -Acute Abdominal Infection -Wound Infection -Meningitis -Blood Stream Catheter Infection -Unknown Complaint Exam - UTI Female Complaint/Exam Patient Complains of: Reports: Painful urination Onset/Duration: few days Symptoms Are: Still present Timing: Intermittent Initial Severity: Moderate Current Severity: Mild Location of Pain: Reports: Flank Associated Signs and Symptoms: Reports: Fever Related History: Reports: Similar episode Suprapubic Tenderness: No Differential Diagnoses: Metabolic Disorder, Pyelonephritis, Other Review of Systems - Review Of Systems Constitutional: Reports: Chills, Fever Eyes: Reports: No symptoms Ears, Nose, Mouth, Throat: Reports: No symptoms Respiratory: Reports: Cough Cardiac: Reports: Other GI: Reports: No symptoms : Reports: Burning, Dysuria, Frequency, Urgency Musculoskeletal: Reports: No symptoms Skin: Reports: No symptoms Neurological: Reports: No symptoms Endocrine: Reports: No symptoms Hematologic/Lymphatic: Reports: No symptoms All Other Systems: Reviewed and Negative Past Medical History - Past Medical History Previously Healthy: Yes Endocrine: Reports: DM 2, Hypothyroid, Dyslipidemia Cardiovascular: Reports: Hypertension, CHF, A-Fib Respiratory: Reports: COPD Hematological: Reports: Anemia Gastrointestinal: Reports: Unknown Genitourinary: Reports: UTI (chronic), CKD Neuro/Psych: Reports: Depression Musculoskeletal: Reports: Arthritis, Back Pain Cancer: Reports: Unknown Last Menstrual Period: n/a Other Pertinent Past Medical History: HIATAL HERNIA - Surgical History General Surgical History: Reports: Other (CORNEAL TRANSPLANT(L), RIGHT NEPHRECTOMY) - Family History Family History: Reports: Unknown - Social History Smoking Status: Never smoker Hx Substance Use: No Alcohol Screening: None - Immunizations Influenza Vaccine within 12 Months: No (unknown) Pneumococcal Vaccine up to Date: No (unknown) Physical Exam - Physical Exam Appearance: Ill-appearing Ill-appearing: Moderate Pain Distress: Mild Eyes: GAL ENT: Rhinorrhea Neck: Supple Respiratory: Breath sounds diminished GI/: Soft Musculoskeletal: Normal strength Skin: Warm Neurological: Sensation intact Critical Care Note - Critical Care Note Total Time (mins): 0 Course - Course Hematology/Chemistry: 07/29/18 05:00 07/29/18 05:00 Orders, Labs, Meds: Lab Review 07/24/18 07/24/18 07/24/18 10:46 11:41 11:41 WBC 9.07 RBC 4.70 Hgb 13.5 Hct 41.8 MCV 88.9 MCH 28.7 MCHC 32.3 RDW Coeff of [place] 14.1 Plt Count 186 Immature Gran % (Auto) 0.3 Neut % (Auto) 72.3 Lymph % (Auto) 14.4 [place] % (Auto) 12.3 H Eos % (Auto) 0.1 Baso % (Auto) 0.6 Immature Gran # (Auto) 0.0 Neut # (Auto) 6.6 Lymph # (Auto) 1.3 [place] # (Auto) 1.1 Eos # (Auto) 0.0 Baso # (Auto) 0.1 Puncture Site Rrad O2 Saturation 88.0 L ABG pH 7.406 ABG pCO2 39.5 ABG pO2 54.0 L* ABG HCO3 24.8 ABG Total CO2 26 ABG Base Excess 0 Nimesh Test + FiO2 % 21.0 Sodium 134.5 Potassium 4.20 Chloride 95.1 L Carbon Dioxide 27.4 Anion Gap 16.20 BUN 43.2 H Creatinine 1.77 H Estimated GFR (MDRD) 27.00 BUN/Creatinine Ratio 24.40 Glucose 142.2 H Lactic Acid Calcium 9.38 Total Bilirubin 0.80 AST 30.3 ALT 15.1 Alkaline Phosphatase 79.3 Total Protein 8.24 H Albumin 4.52 Globulin 3.72 Albumin/Globulin Ratio 1.21 Urine Color Urine Clarity Urine pH Ur Specific [place] Urine Protein Urine Glucose (UA) Urine Ketones Urine Blood Urine Nitrite Urine Bilirubin Urine Urobilinogen Ur Leukocyte Esterase Ur Squamous Epith Cells Urine Bacteria 07/24/18 07/24/18 11:41 11:50 WBC RBC Hgb Hct MCV MCH MCHC RDW Coeff of [place] Plt Count Immature Gran % (Auto) Neut % (Auto) Lymph % (Auto) [place] % (Auto) Eos % (Auto) Baso % (Auto) Immature Gran # (Auto) Neut # (Auto) Lymph # (Auto) [place] # (Auto) Eos # (Auto) Baso # (Auto) Puncture Site O2 Saturation ABG pH ABG pCO2 ABG pO2 ABG HCO3 ABG Total CO2 ABG Base Excess Nimesh Test FiO2 % Sodium Potassium Chloride Carbon Dioxide Anion Gap BUN Creatinine Estimated GFR (MDRD) BUN/Creatinine Ratio Glucose Lactic Acid 1.29 Calcium Total Bilirubin AST ALT Alkaline Phosphatase Total Protein Albumin Globulin Albumin/Globulin Ratio Urine Color Yellow Urine Clarity Clear Urine pH 5.5 Ur Specific [place] 1.010 Urine Protein Negative Urine Glucose (UA) Negative Urine Ketones Negative Urine Blood Trace-intact Urine Nitrite Negative Urine Bilirubin Negative Urine Urobilinogen 0.2 Ur Leukocyte Esterase Negative Ur Squamous Epith Cells 5-10 Urine Bacteria 2+ Orders Category Date Time Status ADMIT PATIENT INPATIENT .TO [facility] (MONITORED BED) ADMISSION 07/24/18 14: 48 Active ABG DRAW REQUEST Stat CARDIO 07/24/18 10:46 Completed EKG-(ED ONLY) Stat CARDIO 07/24/18 10:46 Completed TELEMETRY MONITORING TELE CARE 07/24/18 14:49 Active IV [ED IV/MEDIPORT/POWERPORT] .ONCE EMERGENCY 07/24/18 11:04 Active OXYGEN [ED APPLY O2] .ONCE EMERGENCY 07/24/18 10:45 Active ABG Stat LAB 07/24/18 10:46 Completed BLOOD CULTURE (ED ONLY) Stat LAB 07/24/18 11:41 Completed CBC W/ AUTO DIFF Stat LAB 07/24/18 11:41 Completed COMPREHENSIVE METABOLIC PANEL Stat LAB 07/24/18 11:41 Completed LACTIC ACID Stat LAB 07/24/18 11:41 Completed URINALYSIS C & S IF INDICATED Stat LAB 07/24/18 11:50 Completed URINE CULTURE Stat LAB 07/24/18 11:50 Completed 0.9 % Sodium Chloride [Saline Flush] MEDS 07/24/18 11:04 Discontinued 1 syr IVF PRN PRN Ceftriaxone Sodium [Rocephin] MEDS 07/24/18 11:17 Discontinued 1,000 mg .ROUTE .STK-MED ONE Ceftriaxone Sodium [Rocephin] 600 mg MEDS 07/24/18 11:02 Discontinued 0.9 % Sodium Chloride [Sodium Chloride] 50 ml IV ONCE Hydromorphone HCl [Dilaudid 0.5 mg/0.5 ml Syringe] MEDS 07/24/18 12:57 Discontinued 0.5 mg IVP ONCE STA Sodium Chloride 0.9% [Sodium Chloride] 500 ml MEDS 07/24/18 11:04 Discontinued IV 125 mls/hr CHEST, 1V AP ONLY Stat RADS 07/24/18 11:11 Completed Medications Discontinued Medications Generic Name Dose Route Start Last Admin Trade Name Freq PRN Reason Stop Dose Admin Acetaminophen 650 mg 07/24/18 16:34 Tylenol PO Q4H PRN Fever >101 Acetaminophen 650 mg 07/25/18 07:30 Tylenol PO Q4H PRN Fever >101/PAIN Acetaminophen 650 mg 07/25/18 07:30 Tylenol PO Q4H PRN Fever >101 OR PAIN Hydrocodone Bitart/Acetaminophen 1 tab 07/24/18 17:00 07/29/18 09:34 [place] 7.5-325 PO 1 tab TID ABRAHAM Administration Hydrocodone Bitart/Acetaminophen 1 tab 07/24/18 17:55 07/24/18 18:02 [place] 7.5-325 PO 07/24/18 17:56 1 tab ONCE STA Administration Aspirin 81 mg 07/25/18 08:00 07/29/18 09:33 Aspirin Chewable PO 81 mg DAILYWM ABRAHAM Administration Budesonide 1 vial 07/27/18 18:00 07/29/18 04:35 Pulmicort 0.5 Mg/2 Ml NEB 1 vial RTBID ABRAHAM Administration Carvedilol 12.5 mg 07/24/18 21:00 07/24/18 21:05 Coreg PO 12.5 mg BID ABRAHAM Administration Carvedilol 12.5 mg 07/25/18 08:00 07/29/18 09:33 Coreg PO 12.5 mg BIDWM ABRAHAM Administration Dicyclomine HCl 20 mg 07/24/18 21:00 07/29/18 09:34 Bentyl PO 20 mg TID ABRAHAM Administration Digoxin 125 mcg 07/25/18 09:00 07/29/18 09:33 Lanoxin PO 125 mcg DAILY ABRAHAM Administration Docusate Sodium 100 mg 07/24/18 21:00 07/29/18 09:34 Colace PO 100 mg BID ABRAHAM Administration Duloxetine HCl 30 mg 07/25/18 09:00 07/29/18 09:34 Cymbalta PO 30 mg DAILY ABRAHAM Administration Enoxaparin Sodium 30 mg 07/25/18 09:00 07/29/18 09:35 Lovenox SUBCUT 30 mg DAILY ABRAHAM Administration Furosemide 40 mg 07/25/18 09:00 07/29/18 05:45 Lasix Tab PO 40 mg QDAC ABRAHAM Administration Furosemide 20 mg 07/27/18 14:29 07/27/18 14:55 Lasix IVP 07/27/18 14:30 20 mg ONCE STA Administration Furosemide 20 mg 07/28/18 08:14 07/28/18 08:39 Lasix IVP 07/28/18 08:15 20 mg ONCE STA Administration Gabapentin 100 mg 07/24/18 21:00 07/29/18 09:33 Neurontin PO 100 mg BID ABRAHAM Administration Hydrocortisone Sodium Succinate 125 mg 07/24/18 17:00 07/28/18 05:34 Solu-Cortef 250 Mg IVP 125 mg Q8HR ABRAHAM Administration Hydromorphone HCl 0.5 mg 07/24/18 12:57 07/24/18 13:07 Dilaudid 0.5 Mg/0.5 Ml Syringe IVP 07/24/18 12:58 0.5 mg ONCE STA Administration Ceftriaxone Sodium 600 mg/ 50 mls @ 75 mls/hr 07/24/18 11:02 07/24/18 11:39 Sodium Chloride IV 07/24/18 11:41 75 mls/hr ONCE STA Administration Sodium Chloride 500 mls @ 125 mls/hr 07/24/18 11:04 07/24/18 11:39 Sodium Chloride IV 07/24/18 15:03 125 mls/hr .Q4H STA Administration Potassium Chloride/Sodium Chloride 1,000 mls @ 75 mls/hr 07/24/18 15:00 07/24 18:02 Sodium Chloride 0.9%-Kcl 20 Meq IV 75 mls/hr .[id number] ABRAHAM Administration Ceftriaxone Sodium 1 gm/ 50 mls @ 75 mls/hr 07/25/18 09:00 07/29/18 09:32 Sodium Chloride IV 07/31/18 08:59 75 mls/hr DAILY ABRAHAM Administration Levofloxacin/Dextrose 500 mg/ 100 mls @ 100 mls/hr 07/24/18 16:28 07/24/18 18 :03 Dextrose IV 07/24/18 17:27 100 mls/hr ONCE STA Administration Levofloxacin/Dextrose 250 mg/ 50 mls @ 75 mls/hr 07/25/18 09:00 07/25/18 10: 50 Dextrose IV 07/28/18 08:59 75 mls/hr DAILY ABRAHAM Administration Sodium Chloride 1,000 mls @ 75 mls/hr 07/24/18 23:00 07/27/18 08:41 Sodium Chloride IV Not Given .[id number] ABRAHAM Aztreonam 1 gm/ Sodium 50 mls @ 75 mls/hr 07/25/18 21:00 07/27/18 22:00 Chloride IV 07/28/18 20:59 75 mls/hr Q12HR ABRAHAM Administration Sodium Chloride 1,000 mls @ 50 mls/hr 07/27/18 08:33 07/28/18 05:38 Sodium Chloride IV 50 mls/hr .Q20H ABRAHAM Administration Insulin Human Regular 0 unit 07/24/18 16:32 07/28/18 21:37 Humulin R SUBCUT 3 unit PRN PRN Administration Hyperglycemica Protocol Ketorolac Tromethamine 30 mg 07/24/18 16:35 07/28/18 00:29 Toradol IVP 30 mg Q8H PRN Administration Pain Levalbuterol HCl 1 vial 07/24/18 20:00 07/27/18 04:39 Xopenex 1.25 Mg NEB 1 vial RTTID ABRAHAM Administration Levalbuterol HCl 1 vial 07/27/18 12:00 07/29/18 11:14 Xopenex 1.25 Mg NEB 1 vial RTQ6H ABRAHAM Administration Levothyroxine Sodium 125 mcg 07/25/18 06:30 07/25/18 05:49 Synthroid PO Not Given QDAC ABRAHAM Levothyroxine Sodium 25 mcg 07/26/18 06:30 07/29/18 05:45 Synthroid PO 25 mcg QDAC ABRAHAM Administration Levothyroxine Sodium 100 mcg 07/26/18 06:30 07/29/18 05:46 Synthroid PO 100 mcg QDAC ABRAHAM Administration Lorazepam 0.5 mg 07/28/18 21:00 07/28/18 21:37 Ativan PO 0.5 mg BEDTIME ABRAHAM Administration Losartan Potassium 50 mg 07/25/18 09:00 07/29/18 09:33 Cozaar PO 50 mg DAILY ABRAHAM Administration Magnesium Citrate 10 oz 07/25/18 08:06 07/28/18 08:37 Citrate Of Magnesia PO 10 oz Q72H PRN Administration Constipation Metformin HCl 500 mg 07/28/18 17:30 07/29/18 09:33 Glucophage PO 500 mg BIDWM ABRAHAM Administration Non-Formulary Medication 0.5 mg 07/24/18 21:00 07/24/18 21:06 Ropinirole Hcl [Requip] PO 0.5 mg BID ABRAHAM Administration Nystatin 1 applic 07/24/18 17:03 Nystop Powder TP Q8H PRN rash Nystatin 5 ml 07/26/18 11:00 07/29/18 10:44 Nystatin Oral Susp PO 5 ml ACHS ABRAHAM Administration Ondansetron HCl 4 mg 07/24/18 17:03 07/24/18 20:51 Zofran Tab PO 4 mg Q8H PRN Administration Nausea / Vomiting Oseltamivir Phosphate 30 mg 07/24/18 23:30 07/29/18 09:33 Tamiflu PO 30 mg BID ABRAHAM Administration Pantoprazole Sodium 40 mg 07/25/18 07:30 07/29/18 05:45 Protonix PO 40 mg QDAC ABRAHAM Administration Potassium Chloride 10 meq 07/25/18 08:00 07/29/18 09:33 Micro-K Cap PO 10 meq DAILYWM ABRAHAM Administration Prednisone 10 mg 07/28/18 17:30 07/29/18 09:34 Prednisone PO 10 mg BIDWM ABRAHAM Administration Ropinirole HCl 0.5 mg 07/25/18 09:00 07/29/18 09:34 Requip PO 0.5 mg BID ABRAHAM Administration Sennosides 8.6 mg 07/25/18 09:00 07/29/18 09:34 Senna PO 8.6 mg DAILY ABRAHAM Administration Sodium Chloride 1 syr 07/24/18 11:04 07/27/18 22:00 Saline Flush IVF 1 syr PRN PRN Administration To flush IV Sodium Chloride 1 syr 07/28/18 13:00 07/29/18 05:45 Saline Flush IVF 1 syr Q8HR ABRAHAM Administration Spironolactone 25 mg 07/25/18 09:00 07/29/18 09:34 Aldactone PO 25 mg DAILY ABRAHAM Administration Vital Signs: Temp Pulse Resp BP Pulse Ox 07/24/18 10:34 101 F H 65 24 184/83 H 92 L Departure - Departure Time of Disposition: 22:50 Disposition: ADMITTED INPATIENT Discharge Problem: SOB (shortness of breath) Condition: Fair Pt referred to PMD for follow-up: No IPMP verified?: No Allergies/Adverse Reactions: Allergies Penicillins Adverse Reaction (Verified 12/16/17 09:07) Home Medications: Ambulatory Orders Carvedilol [Coreg] 12.5 mg PO BID 06/15/13 Digoxin 125 mcg PO DAILY 06/15/13 Docusate Sodium [Colace] 100 mg PO BID 06/15/13 Furosemide [Lasix Tab] 40 mg PO DAILY 06/15/13 Gabapentin [Neurontin] 100 mg PO BID 06/15/13 Aspirin [Aspirin Chewable] 81 mg PO DAILYWM 10/08/14 Potassium Chloride [Klor-Con 10] 10 meq PO DAILY 10/08/14 Duloxetine HCl 30 mg PO DAILY 01/28/16 Hydrocodone Bit/Acetaminophen [[place] 7.5-325] 1 each PO TID 01/28/16 Pantoprazole Sodium [Protonix] 40 mg PO DAILY 01/28/16 Ropinirole HCl [Requip] 0.5 mg PO BID 01/28/16 Magnesium Citrate [Citrate of Magnesia] 30 ml PO Q24H PRN 08/27/16 Losartan Potassium [Cozaar] 50 mg PO DAILY 11/22/16 Sennosides [Senna] 8.6 mg PO DAILY 11/22/16 Acetaminophen 500 mg PO Q12H PRN 02/13/17 Dicyclomine HCl [Bentyl] 20 mg PO TID 08/05/17 Levothyroxine Sodium [Synthroid] 125 mcg PO QDAC 08/05/17 Polyvinyl Alcohol [Artificial Tears] 1 drop OP BID 08/05/17 Metformin HCl 500 mg PO BID 07/24/18 Nystatin [Nystop Powder] 1 applic TP Q8H PRN 07/24/18 Ondansetron HCl [Zofran Tab] 4 mg PO Q8H PRN 07/24/18 Spironolactone 25 mg PO DAILY 07/24/18 Cefdinir [Omnicef] 300 mg PO Q12HR 5 Days #10 capsule 07/29/18 Ipratropium/Albuterol Neb [Duoneb] 1 vial NEB RTQ8H 7 Days #21 vial.neb Nystatin [Nystatin Oral Susp] 5 ml PO ACHS 7 Days cup 07/29/18 Prednisone 10 mg PO DAILYWM 5 Days #10 tablet 07/29/18 Disposition Discussed With: Patient
[2018-07-24] MEDS ORDERED: ROCEPHIN IV STA (11:02)
[2018-07-24] MEDS ORDERED: SODIUM CHLORIDE IV STA (11:02)
[2018-07-24] MEDS ORDERED: SODIUM CHLORIDE 500 ML IV STA (11:04)
[2018-07-24] MEDS ORDERED: ROCEPHIN ONE (11:17)
--- NOTE | 2018-07-24 11:57 | DI ---
EXAM: Single view of the chest. History: Fever and cough. Comparison: Chest radiograph 08/21/2017, chest CT 12/16/2017 Findings: Heart is mildly enlarged. Large hiatal hernia. Pacer device. No focal consolidation. N o appreciable pleural fluid and no pneumothorax. No acute osseous abnormalities. Impression: 1. Mild cardiomegaly without evidence for pulmonary edema. 2. Large hiatal hernia. 3. No focal pneumonia
[2018-07-24] MEDS ORDERED: DILAUDID 0.5 MG/0.5 ML SYRINGE IVP STA (12:57)
[2018-07-24] MEDS ORDERED: DUONEB NEB STA (13:10)
[2018-07-24] MEDS ORDERED: SODIUM CHLORIDE 0.9%-KCL 20 MEQ 1,000 ML IV SCH (15:00)
[2018-07-24 16:16] VITALS: BMI 32.4
[2018-07-24] MEDS ORDERED: LEVAQUIN 500 MG in PREMIX 100 ML D5W 1 BAG IV STA (16:28)
[2018-07-24] MEDS ORDERED: TYLENOL PO PRN ×2 (16:34→16:57)
[2018-07-24] MEDS ORDERED: CITRATE OF MAGNESIA PO PRN (16:57)
[2018-07-24] MEDS ORDERED: ZOFRAN TAB PO PRN (17:03)
[2018-07-24] MEDS ORDERED: NYSTOP POWDER TP PRN (17:03)
[2018-07-24] MEDS ORDERED: NORCO 7.5-325 PO STA (17:55)
[2018-07-24] MEDS: SOLU-CORTEF 250 MG IVP SCH ×2 (18:02→20:34)
[2018-07-24] MEDS: XOPENEX 1.25 MG NEB SCH (20:19)
[2018-07-24] MEDS ORDERED: COREG ONE (20:27)
[2018-07-24] MEDS ORDERED: REQUIP ONE (20:28)
[2018-07-24] MEDS: BENTYL PO SCH (20:51)
[2018-07-24] MEDS: NEURONTIN PO SCH (20:52)
[2018-07-24] MEDS: COLACE PO SCH (20:52)
[2018-07-24] MEDS: HUMULIN R SUBCUT PRN (20:53)
[2018-07-24] MEDS ORDERED: COREG PO SCH (21:00)
[2018-07-24] MEDS ORDERED: NON-FORMULARY MEDICATION (Ropinirole Hcl [Requip] 0.5 MG) PO SCH (21:00)
[2018-07-24] MEDS ORDERED: TAMIFLU PO SCH (23:00)
[2018-07-24] MEDS ORDERED: SODIUM CHLORIDE 1,000 ML IV SCH (23:00)
[2018-07-24] MEDS ORDERED: TAMIFLU ONE (23:02)
[2018-07-24] MEDS: TORADOL IVP PRN (23:14)
[2018-07-24] MEDS: TAMIFLU PO SCH (23:15)
[2018-07-24] MEDS: SODIUM CHLORIDE 1,000 ML IV SCH (23:19)
[2018-07-25] MEDS: XOPENEX 1.25 MG NEB SCH ×3 (04:48→19:07)
[2018-07-25] MEDS: SOLU-CORTEF 250 MG IVP SCH ×3 (05:15→20:47)
[2018-07-25] MEDS ORDERED: SYNTHROID ONE ×2 (05:36)
[2018-07-25] MEDS ORDERED: SYNTHROID PO SCH (06:30)
[2018-07-25] MEDS ORDERED: TYLENOL PO PRN ×2 (07:30)
[2018-07-25] MEDS ORDERED: CITRATE OF MAGNESIA PO PRN (08:06)
[2018-07-25] MEDS ORDERED: NON-FORMULARY MEDICATION (Potassium Chloride [Klor-Con 10] 10 MEQ) PO SCH (09:00)
[2018-07-25] MEDS ORDERED: ROCEPHIN 500 MG in SODIUM CHLORIDE 50 ML IV SCH (09:00)
[2018-07-25] MEDS ORDERED: LEVAQUIN 250 MG in PREMIX 50 ML D5W 1 BAG IV SCH (09:00)
[2018-07-25] MEDS ORDERED: NON-FORMULARY MEDICATION (Losartan Potassium 50 MG) PO SCH (09:00)
[2018-07-25] MEDS: ASPIRIN CHEWABLE PO SCH (09:24)
[2018-07-25] MEDS: MICRO-K CAP PO SCH (09:25)
[2018-07-25] MEDS: PROTONIX PO SCH (09:25)
[2018-07-25] MEDS: SENNA PO SCH (09:25)
[2018-07-25] MEDS: ALDACTONE PO SCH (09:26)
[2018-07-25] MEDS: NEURONTIN PO SCH ×2 (09:26→20:22)
[2018-07-25] MEDS: REQUIP PO SCH ×2 (09:26→20:23)
[2018-07-25] MEDS: LASIX TAB PO SCH (09:27)
[2018-07-25] MEDS: COLACE PO SCH ×2 (09:27→20:23)
[2018-07-25] MEDS: COREG PO SCH ×2 (09:27→16:32)
[2018-07-25] MEDS: COZAAR PO SCH (09:28)
[2018-07-25] MEDS: TAMIFLU PO SCH ×2 (09:28→20:23)
[2018-07-25] MEDS: CYMBALTA PO SCH (09:28)
[2018-07-25] MEDS: BENTYL PO SCH ×3 (09:29→20:22)
[2018-07-25] MEDS: NORCO 7.5-325 PO SCH ×3 (09:33→20:25)
[2018-07-25] MEDS: ROCEPHIN 1 GM in SODIUM CHLORIDE 50 ML IV SCH (09:34)
[2018-07-25] MEDS: LANOXIN PO SCH (09:34)
[2018-07-25] MEDS: LOVENOX SUBCUT SCH (09:37)
--- NOTE | 2018-07-25 09:48 | CT ---
EXAM: CT of the chest without contrast. HISTORY: Cough. Shortness of breath. COMPARISON: 12/16/2017 TECHNIQUE: Contiguous axial images were obtained from the lung apices to the upper abdomen at 3 mm i ntervals. 1 mm images were reviewed with a lung algorithm. The study was performed without contrast IV contrast. Sagittal and coronal reformats were reviewed. CONTRAST: None FINDINGS: Thoracic inlet: No masses or adenopathy.There is a left-sided cardiac pacer. Lungs/Airways: Bibasilar consolidation is seen, right greater than left. There is no definite effusion. There are no suspicious pulmonary nodules. The pulmonary interstitium is normal. The airways are widely patent. There is no pleural thickening. Heart: The heart size is within normal limits. Coronary arteries are unremarkable. Mediastinum/doron: There is no significant mediastinal adenopathy or hilar adenopathy. Osseus structures: Normal for age. Upper abdomen: Limited views of the upper abdomen are available. The visualized portion of the live r, spleen, pancreas, adrenal glands and kidneys are normal. Additional findings: There is a large hiatal hernia. IMPRESSION: 1. Bibasilar air space disease which has appearance of atelectasis. Pneumonia cannot be excluded. 2. Large hiatal hernia
[2018-07-25] MEDS: HUMULIN R SUBCUT PRN ×3 (10:43→20:49)
[2018-07-25] MEDS: SODIUM CHLORIDE 1,000 ML IV SCH (13:33)
[2018-07-25] MEDS: AZACTAM 1 GM in SODIUM CHLORIDE 50 ML IV SCH (20:22)
[2018-07-26] MEDS: TORADOL IVP PRN ×2 (00:45→19:43)
[2018-07-26] MEDS: XOPENEX 1.25 MG NEB SCH ×3 (04:45→19:55)
[2018-07-26] MEDS: SODIUM CHLORIDE 1,000 ML IV SCH ×2 (04:55→20:23)
[2018-07-26] MEDS: SOLU-CORTEF 250 MG IVP SCH ×3 (05:30→20:24)
[2018-07-26] MEDS: SYNTHROID PO SCH ×2 (06:01)
[2018-07-26] MEDS: PROTONIX PO SCH (06:01)
[2018-07-26] MEDS: LASIX TAB PO SCH (06:01)
[2018-07-26] MEDS: HUMULIN R SUBCUT PRN ×3 (06:25→16:30)
[2018-07-26] MEDS: NORCO 7.5-325 PO SCH ×4 (07:56→20:16)
[2018-07-26] MEDS: SENNA PO SCH (08:57)
[2018-07-26] MEDS: ROCEPHIN 1 GM in SODIUM CHLORIDE 50 ML IV SCH (08:57)
[2018-07-26] MEDS: COZAAR PO SCH (08:58)
[2018-07-26] MEDS: COLACE PO SCH ×2 (08:58→20:16)
[2018-07-26] MEDS: CYMBALTA PO SCH (08:58)
[2018-07-26] MEDS: ASPIRIN CHEWABLE PO SCH (08:59)
[2018-07-26] MEDS: MICRO-K CAP PO SCH (08:59)
[2018-07-26] MEDS: NEURONTIN PO SCH ×2 (08:59→20:16)
[2018-07-26] MEDS: TAMIFLU PO SCH ×2 (09:00→20:16)
[2018-07-26] MEDS: BENTYL PO SCH ×3 (09:00→20:15)
[2018-07-26] MEDS: ALDACTONE PO SCH (09:00)
[2018-07-26] MEDS: REQUIP PO SCH ×2 (09:00→20:15)
[2018-07-26] MEDS: COREG PO SCH ×2 (09:01→16:29)
[2018-07-26] MEDS: LOVENOX SUBCUT SCH (09:09)
[2018-07-26] MEDS: AZACTAM 1 GM in SODIUM CHLORIDE 50 ML IV SCH ×2 (11:13→20:13)
[2018-07-26] MEDS: NYSTATIN ORAL SUSP PO SCH ×3 (11:13→20:15)
[2018-07-26] MEDS: LANOXIN PO SCH (12:53)
[2018-07-27] MEDS: XOPENEX 1.25 MG NEB SCH ×4 (04:39→23:12)
[2018-07-27] MEDS: SOLU-CORTEF 250 MG IVP SCH ×3 (05:01→21:58)
[2018-07-27] MEDS: TORADOL IVP PRN (05:03)
[2018-07-27] MEDS: PROTONIX PO SCH (05:44)
[2018-07-27] MEDS: SYNTHROID PO SCH ×2 (05:44)
[2018-07-27] MEDS: LASIX TAB PO SCH (05:44)
[2018-07-27] MEDS: NYSTATIN ORAL SUSP PO SCH ×4 (05:45→21:59)
[2018-07-27] MEDS: ROCEPHIN 1 GM in SODIUM CHLORIDE 50 ML IV SCH (08:25)
[2018-07-27] MEDS: COLACE PO SCH ×2 (08:31→22:00)
[2018-07-27] MEDS: MICRO-K CAP PO SCH (08:31)
[2018-07-27] MEDS: SENNA PO SCH (08:31)
[2018-07-27] MEDS: NORCO 7.5-325 PO SCH ×3 (08:31→22:00)
[2018-07-27] MEDS: ASPIRIN CHEWABLE PO SCH (08:31)
[2018-07-27] MEDS: REQUIP PO SCH ×2 (08:31→21:59)
[2018-07-27] MEDS: NEURONTIN PO SCH ×2 (08:32→22:00)
[2018-07-27] MEDS: CYMBALTA PO SCH (08:32)
[2018-07-27] MEDS: COZAAR PO SCH (08:32)
[2018-07-27] MEDS: TAMIFLU PO SCH ×2 (08:32→22:00)
[2018-07-27] MEDS: BENTYL PO SCH ×3 (08:32→21:59)
[2018-07-27] MEDS: ALDACTONE PO SCH (08:33)
[2018-07-27] MEDS: COREG PO SCH ×2 (08:33→17:11)
[2018-07-27] MEDS: LOVENOX SUBCUT SCH (08:37)
[2018-07-27] MEDS: LANOXIN PO SCH (08:40)
--- NOTE | 2018-07-27 08:40 | HP ---
DATE OF SERVICE: 07/24/18 HISTORY OF PRESENT ILLNESS: 88-year-old white female who is a resident of [facility]. I was notified by the group home today that she had increased confusion, low grade temp of 99 and oxygen saturation of 88%. I instructed them to send her to the emergency room. PAST MEDICAL HISTORY: Recurrent UTIs Coronary artery disease Atrial fibrillation Hypothyroidism COPD Hiatal hernia Chronic pain syndrome Anxiety Depression Diabetes mellitus Type 2 Hypertension Coronary artery disease CHF Permanent pacemaker Hypothyroidism Chronic back pain Dyslipidemia PAST SURGICAL HISTORY: Corneal transplant Right nephrectomy REVIEW OF SYSTEMS: CONSTITUTIONAL: Positive for fever, chills. Positive for weakness. No night sweats. No fatigue, malaise, lethargy. HEENT: Eyes: No visual changes. No eye pain. No eye discharge. ENT: No runny nose. No epistaxis. No sinus pain. No sore throat. No odynophagia. No ear pain. No congestion. RESPIRATORY: Positive for cough. No hemoptysis. No shortness of breath. CARDIOVASCULAR: No angina symptoms. No CHF symptoms. No atypical chest pain for CAD. No palpitations. No PND. No orthopnea. GASTROINTESTINAL: No abdominal pain. No nausea or vomiting. No diarrhea or constipation. No hematemesis. No hematochezia. GENITOURINARY: No urgency. No frequency. No dysuria. No hematuria. No obstructive symptoms. No discharge. No pain. No significant abnormal bleeding. MUSCULOSKELETAL: No musculoskeletal pain. No joint swelling. No arthritis. NEUROLOGICAL: Positive for confusion. No headache. No neck pain. No syncope. No seizures. No dizziness. PSYCHIATRIC: Not anxious. No depression. No suicidal thoughts. No homicidal thoughts. SKIN: No rash. No lesions. No wounds. ENDOCRINE: No unexplained weight loss. No weight gain. HEMATOLOGIC/LYMPHATIC: No anemia. No purpura. No petechiae. No prolonged or excessive bleeding. No palpable lymph nodes. PERSONAL/FAMILY/SOCIAL HISTORY: Nonsmoker. No alcohol or ilicit drug use. She is . She lives at the group home. MEDICATIONS: (HOME) Docusate Sodium (Colace)p.o. b.i.d. Neurontin 100 mg p.o. b.i.d. Coreg 12.5 mg p.o. b.i.d. Digoxin 125 mcg p.o. daily Lasix 40 mg p.o. daily Klor-Con 10 mEq p.o. daily Aspirin 81 mg p.o. daily with meal Hydrocodone one each p.o. t.i.d. Duloxetine 30 mg p.o. daily Protonix 40 mg p.o. daily Requip 0.5 mg p.o. b.i.d. Citrate of Magnesia 30 mL p.o. q.24h p.r.n. Cozaar 50 mg p.o. daily Senna 8.6 mg p.o. daily Acetaminophen 500 mg p.o. q.12hr p.r.n. Synthroid 125 mcg p.o. q.d a.c. Artificial Tears one drop OP b.i.d. Bentyl 20 mg p.o. t.i.d. Zofran 4 mg p.o. q.8h p.r.n. Nystatin one application TP q.8h p.r.n. Metformin 500 mg p.o. b.i.d. Spironolactone 25 mg p.o. daily ALLERGIES: PENICILLINS PHYSICAL EXAMINATION: VITAL SIGNS: Temperature 101, heart rate 65, respirations 24, BP 184/83, pulse ox 92%. No acute distress. HEENT: Head normocephalic, atraumatic. Eyes: Extraocular muscles are intact. Pupils are equal, round and reactive to light and accommodation. Ears: No lesions. Nose appeared normal. Throat: No exudate or erythema. NECK: Supple. No JVD, no carotid bruit. No lymphadenopathy or thyromegaly. LUNGS: Bilateral rhonchi, expiratory wheezing. Diminished breath sounds bilaterally. Clear to auscultation. Percussion note normal. Chest symmetrical. HEART: S1, S2, no S3. No murmurs. No cyanosis or clubbing. No ascites. Pulses: Dorsalis pedis and posterior tibial pulses +1 to +2 bilaterally. ABDOMEN: Soft. Nontender. Bowel sounds active. No CVA tenderness. No mass felt. EXTREMITIES: Trace leg edema. Full range of motion of all extremities, equal. NEUROLOGIC: Alert, not oriented to person, place or time. No focal deficit. Cranial nerves II through XII are grossly intact. No headache, no double vision or headache. SKIN: Not dry. Intact. Turgor - normal. LYMPHATIC: No palpable lymph nodes/no lymphedema. MUSCULOSKELETAL: Normal joints with no swelling. Muscle tone is normal. LABS: White count 9.07, hemoglobin 13.5, hematocrit 41.8, platelets 186. Sodium 134, potassium 4.2, BUN 43, creatinine 1.77, glucose 142. ABGs on room air 02 sat 88 , pH 7.406, pc02 39, p02 54, bicarb 24.8, total c02 226. AST 30, ALT 15, lactic acid - I do not see. Urine shows trace blood, 2+ bacteria. Lactic acid 1.29. Chest x-ray showed no acute changes, cardiomegaly. ASSESSMENT: 1. ACUTE RESPIRATORY DISTRESS 2. ACUTE PNEUMONITIS 3. POSSIBLE UTI 4. URINE CULTURE PENDING 5. ACUTE RENAL FAILURE SECONDARY TO DEHYDRATION 6. CHRONIC KIDNEY DISEASE 7. ATRIAL FIBRILLATION NO LONGER ON BLOOD THINNERS DUE TO HISTORY OF FALLS AND HISTORY OF GI BLEED 8. HISTORY OF CORONARY ARTERY DISEASE 9. RECURRENT UTI'S 10. HYPERTENSION PLAN: 1. We will admit. 2. Routine telemetry orders. 3. CBC, CMP daily. 4. Start Rocephin 1 gm IV daily. 5. Oxygen at 1 to 2L. 6. Keep sats greater than 90%. 7. Repeat ABGs in 2 hours while on oxygen. 8. Tylenol 500 mg q.4hr p.r.n. for fever greater than 100. 9. Urine for culture and sensitivity. 10. Sputum culture. 11. CT of chest. 12. Rapid strep. 13. Rapid Flu A and B. 14. Low sodium diet. 15. NS at 75 cc/hr. 16. Follow closely. TIME SPENT: More than 70 minutes. [facility]
[2018-07-27] MEDS: SODIUM CHLORIDE 1,000 ML IV SCH ×2 (08:41→11:43)
--- NOTE | 2018-07-27 09:31 | PN ---
DATE OF SERVICE: 07/25/18 SUBJECTIVE: The patient's condition has improved. She is sleepy but on verbal command she woke up and recognized me. She said that she has not seen me after a long time. REVIEW OF SYSTEMS: CONSTITUTIONAL: No distress. No night sweats. No fatigue, malaise, lethargy. No fever or chills. HEENT: Eyes: No visual changes. No eye pain. No eye discharge. ENT: No runny nose. No epistaxis. No sinus pain. No sore throat. No odynophagia. No congestion. RESPIRATORY: No cough, no congestion. No hemoptysis. No shortness of breath. CARDIOVASCULAR: No angina symptoms. No CHF symptoms. No atypical chest pain for CAD. No palpitations. No PND. No orthopnea. GASTROINTESTINAL: No abdominal pain. No nausea or vomiting. No diarrhea or constipation. No hematemesis. No hematochezia. GENITOURINARY: No urgency. No frequency. No dysuria. No hematuria. No obstructive symptoms. No discharge. No pain. No significant abnormal bleeding. MUSCULOSKELETAL: No musculoskeletal pain; no joint swelling. NEUROLOGICAL: No headache. No neck pain. No syncope. No seizures. No dizziness. PSYCHIATRIC: Not anxious. No depression. No suicidal thoughts. No homicidal thoughts. SKIN: No rash. No lesions. No wounds. ENDOCRINE: No unexplained weight loss. No weight gain. HEMATOLOGIC/LYMPHATIC: No anemia. No purpura. No petechiae. No prolonged or excessive bleeding. No palpable lymph nodes. PHYSICAL EXAMINATION: GENERAL: The patient seems to be oriented to person and place. VITAL SIGNS: Temperature 98.4, pulse 80, respiratory rate 15, BP 130/80. HEENT: Head normocephalic, atraumatic. Eyes: Extraocular muscles are intact. Pupils are equal, round and reactive to light and accommodation. Ears: No lesions. Nose appeared normal. Throat: No exudate or erythema. NECK: Supple. No JVD, no carotid bruit. No lymphadenopathy or thyromegaly. LUNGS: Decreased breath sounds with mild wheeze expiratory. Good air entry. Percussion note normal. Chest symmetrical. HEART: S1, S2, no S3. No murmurs. No cyanosis or clubbing. No ascites. Pulses: Dorsalis pedis and posterior tibial pulses +1 to +2 bilaterally. ABDOMEN: Soft. Nontender. Bowel sounds active. No CVA tenderness. No mass felt. EXTREMITIES: No edema. Full range of motion of all extremities, equal. NEUROLOGIC: No focal deficit. Cranial nerves II through XII are grossly intact. No headache, no double vision or headache. SKIN: Not dry. Intact. Turgor - normal. LYMPHATIC: No palpable lymph nodes/no lymphedema. MUSCULOSKELETAL: Normal joints with no swelling. Muscle tone is normal. ASSESSMENT: 1. BILATERAL PNEUMONIA 2. ACUTE RESPIRATORY FAILURE PLAN: 1. Continue antibiotics, steroids, nebs. CONDITION: Stable. TIME SPENT: More than 30 minutes. Plan and coordination of the patient's care discussed in the presence of nurse. RITIKA
[2018-07-27] MEDS: AZACTAM 1 GM in SODIUM CHLORIDE 50 ML IV SCH ×2 (09:43→22:00)
--- NOTE | 2018-07-27 10:35 | PCM.PROG ---
Attending Provider: ATTENDING PROVIDER: Dr. JASMIN ONEAL This patient is seen with Ester Mendieta, Nurse Practitioner. DATE OF SERVICE: 07/27/18 SUBJECTIVE: This 88 year old WHITE/ F was hospitalized 07/24/18. The patient is resting comfortably. She still has some shortness of breath. The patient is still complaining achyness. No fever in past 24 hours. REVIEW OF SYSTEMS: CONSTITUTIONAL: No night sweats. No fatigue, malaise, lethargy. No fever or chills. HEENT: Eyes: No visual changes. No eye pain. No eye discharge. ENT: No runny nose. No epistaxis. No sinus pain. No odynophagia. No congestion. RESPIRATORY: Cough, no congestion. No hemoptysis. No shortness of breath. CARDIOVASCULAR: No angina symptoms. No CHF symptoms. No atypical chest pain for CAD. No palpitations. No orthopnea.. GASTROINTESTINAL: No abdominal pain. No nausea or vomiting. No diarrhea or constipation. No hematemesis. No hematochezia. GENITOURINARY: No urgency. No frequency. No dysuria. No hematuria. No obstructive symptoms. No discharge. No pain. No significant abnormal bleeding. MUSCULOSKELETAL: No musculoskeletal pain; no joint swelling. Weakness. NEUROLOGICAL: Awake, alert, oriented to time, place and person. No headache. No neck pain. No syncope. No seizures. No dizziness. PSYCHIATRIC: Not anxious. No depression. No suicidal thoughts. No homicidal thoughts. SKIN: No rash. No lesions. No wounds. ENDOCRINE: No unexplained weight loss. No weight gain. HEMATOLOGIC/LYMPHATIC: No anemia. No purpura. No petechiae. No prolonged or excessive bleeding. No palpable lymph nodes. PHYSICAL EXAMINATION: GENERAL: The patient is awake, alert and oriented, lying in bed in no distress. VITAL SIGNS: Temperature 97.3 F, Pulse 83, Respiratory Rate 20, BP 131/81, Pulse Ox 99% HEENT: Head normocephalic, atraumatic. Eyes: Extraocular muscles are intact. Pupils are equal, round and reactive to light and accommodation. Ears: No lesions. Nose appeared normal. Throat: No exudate or erythema. NECK: Supple. No JVD, no carotid bruit. No lymphadenopathy or thyromegaly. LUNGS: Diminished breath sounds. Bilateral rhonchi. Clear to auscultation. Percussion note normal. Chest symmetrical. HEART: S1, S2, no S3. No murmurs. No cyanosis or clubbing. No ascites. Pulses: Dorsalis pedis and posterior tibial pulses +1 to +2 both sides. ABDOMEN: Soft. Non-tender. Bowel sounds active. No CVA tenderness. No mass felt. EXTREMITIES: Trace edema. Full range of motion of all extremities, equal. NEUROLOGIC: No focal deficit. Cranial nerves II through XII are grossly intact. No headache, no double vision or headache. SKIN: Not dry. Intact. Turgor-normal. LYMPHATIC: No palpable lymph nodes/no lymphedema. MUSCULOSKELETAL: Normal joints with no swelling. Muscle tone is normal. LAB REVIEW: 07/27/18 05:25 07/27/18 05:25 07/27/18 05:25: Sodium 139.4, Potassium 3.96, Chloride 105.0, Carbon Dioxide 25.3, Anion Gap 13.06, BUN 32.8 H, Creatinine 1.01, Estimated GFR (MDRD) 52.00, BUN/Creatinine Ratio 32.47, Glucose 142.0 H, Calcium 7.96 L, Total Bilirubin 0.28, AST 23.2, ALT 14.3, Alkaline Phosphatase 62.3, Total Protein 6.47, Albumin 3.26 L, Globulin 3.21, Albumin/Globulin Ratio 1.01 07/27/18 05:25: WBC 8.86, RBC 4.19 L, Hgb 12.0, Hct 37.2, MCV 88.8, MCH 28.6, MCHC 32.3, RDW Coeff of Elier 13.8, Plt Count 191, Immature Gran % (Auto) 0.5, Neut % (Auto) 80.8, Lymph % (Auto) 14.4, [place] % (Auto) 4.2, Eos % (Auto) 0.0, Baso % (Auto) 0.1, Immature Gran # (Auto) 0.0, Neut # (Auto) 7.2 H, Lymph # ( Auto) 1.3, [place] # (Auto) 0.4, Eos # (Auto) 0.0, Baso # (Auto) 0.0 07/27/18 04:18: Puncture Site Lb, O2 Saturation 96.0, ABG pH 7.300 L, ABG pCO2 44.9, ABG pO2 91.0, ABG HCO3 22.1, ABG Total CO2 23, ABG Base Excess -4 L, Nimesh Test +, O2 Delivery Device Bnc, Oxygen Liter Flow 2.00, FiO2 % 28.0 ASSESSMENT: Please see below. 1. Influenza A 2. Acute bronchitis 3. COPD 4. UTI, E-Coli 5. Atrial fibrillation, no longer on blood thinners due to falls. PLAN: 1. Increase Xopenex Q 6 hours 2. Start Pulmicort 0.5mg twice a day 3. Chest x-ray 4. Decreased fluids to 50cc Plan and coordination of the patient's care discussed in the presence of Mass Spectrometry Manager and nurse. SCRIBED BY: Marie CHINist scribed while in presence of service performed by Dr. Oneal/Ester Mendieta APRN on 07/27/18 ([id number])
--- NOTE | 2018-07-27 11:08 | DI ---
EXAM: Chest one view HISTORY: Shortness of air COMPARISON: 07/24/2018 TECHNIQUE: Single view of the chest was performed FINDINGS: Left-sided cardiac pacer. Pulmonary vascular congestion. Bibasilar atelectasis and/or co nsolidation. There is no pleural effusion or pneumothorax. The heart is enlarged, unchanged in size . The mediastinal contour is normal. There are no acute abnormalities of the bones. Large hiatal he rnia. IMPRESSION: 1. Cardiomegaly with pulmonary vascular congestion. 2. Bibasilar atelectasis and/or pneumonia. 3. Large hiatal hernia.
[2018-07-27] MEDS: HUMULIN R SUBCUT PRN ×2 (12:12→22:00)
--- NOTE | 2018-07-27 13:05 | PN ---
DATE OF SERVICE: 07/26/18 SUBJECTIVE: 88-year-old white female hospitalized with acute respiratory failure, respiratory insufficiency. The patient's condition is improved. She is being treated for pneumonia. Overall status seems to be improved. She seems to be oriented to person and place. REVIEW OF SYSTEMS: CONSTITUTIONAL: No night sweats. No fatigue, malaise, lethargy. No fever or chills. HEENT: Eyes: No visual changes. No eye pain. No eye discharge. ENT: No runny nose. No epistaxis. No sinus pain. No sore throat. No odynophagia. No congestion. RESPIRATORY: No cough, no congestion. No hemoptysis. No shortness of breath. CARDIOVASCULAR: No angina symptoms. No CHF symptoms. No atypical chest pain for CAD. No palpitations. No PND. No orthopnea. GASTROINTESTINAL: Appetite is somewhat better. No abdominal pain. No nausea or vomiting. No diarrhea or constipation. No hematemesis. No hematochezia. GENITOURINARY: No urgency. No frequency. No dysuria. No hematuria. No obstructive symptoms. No discharge. No pain. No significant abnormal bleeding. MUSCULOSKELETAL: No musculoskeletal pain; no joint swelling. NEUROLOGICAL: No headache. No neck pain. No syncope. No seizures. No dizziness. PSYCHIATRIC: Not anxious. No depression. No suicidal thoughts. No homicidal thoughts. SKIN: No rash. No lesions. No wounds. ENDOCRINE: No unexplained weight loss. No weight gain. HEMATOLOGIC/LYMPHATIC: No anemia. No purpura. No petechiae. No prolonged or excessive bleeding. No palpable lymph nodes. PHYSICAL EXAMINATION: VITAL SIGNS: Temperature 96, pulse 60, respirations 20, BP 130/84, pulse ox 99% . HEENT: Head normocephalic, atraumatic. Eyes: Extraocular muscles are intact. Pupils are equal, round and reactive to light and accommodation. Ears: No lesions. Nose appeared normal. Throat: No exudate or erythema. NECK: Supple. No JVD, no carotid bruit. No lymphadenopathy or thyromegaly. LUNGS: Decreased breath sounds. Clear to auscultation. Percussion note normal. Chest symmetrical. HEART: S1, S2, no S3. No murmurs. No cyanosis or clubbing. No ascites. Pulses: Dorsalis pedis and posterior tibial pulses +1 to +2 bilaterally. ABDOMEN: Soft. Nontender. Bowel sounds active. No CVA tenderness. No mass felt. EXTREMITIES: No edema. Full range of motion of all extremities, equal. NEUROLOGIC: No focal deficit. Cranial nerves II through XII are grossly intact. No headache, no double vision or headache. SKIN: Not dry. Intact. Turgor - normal. LYMPHATIC: No palpable lymph nodes/no lymphedema. MUSCULOSKELETAL: Normal joints with no swelling. Muscle tone is normal. LABS: Hemoglobin 12.4, hematocrit 38, WBC 7,000, normal differential. Creatinine 1.1, BUN 40, WBC 7,000, potassium 4.1. ASSESSMENT: 1. RESPIRATORY INSUFFICIENCY UNDER CONTROL WITH PNEUMONIA RESOLVING CLINICALLY. 2. CARDIOVASCULAR STATUS IS STABLE WITH NO EVIDENCE OF CHF AT THE PRESENT TIME. PLAN: 1. Continue all the medicines with steroids, antibiotics. The patient also seemed to have urinary tract infection. The patient is already on Rocephin that is covering the patient. CONDITION: Stable TIME SPENT: More than 30 minutes. Plan and coordination of the patient's care discussed in the presence of nurse. RITIKA
[2018-07-27] MEDS ORDERED: LASIX IVP STA (14:29)
[2018-07-27] MEDS: PULMICORT 0.5 MG/2 ML NEB SCH (16:52)
[2018-07-28] MEDS: TORADOL IVP PRN (00:29)
[2018-07-28] MEDS: XOPENEX 1.25 MG NEB SCH ×4 (05:00→23:25)
[2018-07-28] MEDS: PULMICORT 0.5 MG/2 ML NEB SCH ×2 (05:00→18:16)
[2018-07-28] MEDS: LASIX TAB PO SCH (05:34)
[2018-07-28] MEDS: NYSTATIN ORAL SUSP PO SCH ×4 (05:34→21:37)
[2018-07-28] MEDS: SOLU-CORTEF 250 MG IVP SCH (05:34)
[2018-07-28] MEDS: PROTONIX PO SCH (05:34)
[2018-07-28] MEDS: SYNTHROID PO SCH ×2 (05:34)
[2018-07-28] MEDS: SODIUM CHLORIDE 1,000 ML IV SCH (05:38)
[2018-07-28] MEDS: HUMULIN R SUBCUT PRN ×4 (06:26→21:37)
[2018-07-28] MEDS ORDERED: LASIX IVP STA (08:14)
--- NOTE | 2018-07-28 08:16 | PCM.PROG ---
Attending Provider: ATTENDING PROVIDER: Dr. JASMIN ONEAL This patient is seen with Ester Mendieta, Nurse Practitioner. DATE OF SERVICE: 07/28/18 SUBJECTIVE: This 88 year old WHITE/ F was hospitalized 07/24/18. The patient is resting comfortably. She is feeling better today, no fever. The patient has been eating well. Cough has improved. Repeat chest x-ray yesterday showed mild vascular congestion, she is asymptomatic. REVIEW OF SYSTEMS: CONSTITUTIONAL: No night sweats. No fatigue, malaise, lethargy. No fever or chills. HEENT: Eyes: No visual changes. No eye pain. No eye discharge. ENT: No runny nose. No epistaxis. No sinus pain. No odynophagia. No congestion. RESPIRATORY: Cough, no congestion. No hemoptysis. Shortness of breath. CARDIOVASCULAR: No angina symptoms. No CHF symptoms. No atypical chest pain for CAD. No palpitations. No orthopnea.. GASTROINTESTINAL: No abdominal pain. No nausea or vomiting. No diarrhea or constipation. No hematemesis. No hematochezia. GENITOURINARY: No urgency. No frequency. No dysuria. No hematuria. No obstructive symptoms. No discharge. No pain. No significant abnormal bleeding. MUSCULOSKELETAL: No musculoskeletal pain; no joint swelling. Weakness. NEUROLOGICAL: Awake, alert, oriented to time, place and person. No headache. No neck pain. No syncope. No seizures. No dizziness. PSYCHIATRIC: Not anxious. No depression. No suicidal thoughts. No homicidal thoughts. SKIN: No rash. No lesions. No wounds. ENDOCRINE: No unexplained weight loss. No weight gain. HEMATOLOGIC/LYMPHATIC: No anemia. No purpura. No petechiae. No prolonged or excessive bleeding. No palpable lymph nodes. PHYSICAL EXAMINATION: GENERAL: The patient is awake, alert and oriented, lying in bed in no distress. VITAL SIGNS: Temperature 97.6 F, Pulse 64, Respiratory Rate 18, BP 155/85, Pulse Ox 99% HEENT: Head normocephalic, atraumatic. Eyes: Extraocular muscles are intact. Pupils are equal, round and reactive to light and accommodation. Ears: No lesions. Nose appeared normal. Throat: No exudate or erythema. NECK: Supple. No JVD, no carotid bruit. No lymphadenopathy or thyromegaly. LUNGS: Diminished breath sounds. Clear to auscultation. Percussion note normal. Chest symmetrical. HEART: S1, S2, no S3. No murmurs. No cyanosis or clubbing. No ascites. Pulses: Dorsalis pedis and posterior tibial pulses +1 to +2 both sides. ABDOMEN: Soft. Non-tender. Bowel sounds active. No CVA tenderness. No mass felt. EXTREMITIES: No leg edema. Full range of motion of all extremities, equal. NEUROLOGIC: No focal deficit. Cranial nerves II through XII are grossly intact. No headache, no double vision or headache. SKIN: Not dry. Intact. Turgor-normal. LYMPHATIC: No palpable lymph nodes/no lymphedema. MUSCULOSKELETAL: Normal joints with no swelling. Muscle tone is normal. LAB REVIEW: 07/28/18 05:00 07/28/18 05:00 07/28/18 05:00: Sodium 138.3, Potassium 3.76, Chloride 103.6, Carbon Dioxide 27.3, Anion Gap 11.16, BUN 28.6 H, Creatinine 1.00, Estimated GFR (MDRD) 52.00, BUN/Creatinine Ratio 28.60, Glucose 159.2 H, Calcium 7.58 L, Total Bilirubin 0.27, AST 18.5, ALT 14.6, Alkaline Phosphatase 63.0, Total Protein 6.44, Albumin 3.41 L, Globulin 3.03, Albumin/Globulin Ratio 1.12 07/28/18 05:00: WBC 7.16, RBC 4.13 L, Hgb 11.8 L, Hct 36.3 L, MCV 87.9, MCH 28.6 , MCHC 32.5, RDW Coeff of Elier 13.7, Plt Count 193, Immature Gran % (Auto) 2.1, Neut % (Auto) 78.0, Lymph % (Auto) 14.8, [place] % (Auto) 5.0, Eos % (Auto) 0.0, Baso % (Auto) 0.1, Immature Gran # (Auto) 0.2, Neut # (Auto) 5.6, Lymph # (Auto ) 1.1, [place] # (Auto) 0.4, Eos # (Auto) 0.0, Baso # (Auto) 0.0 07/27/18 05:25: TSH 3.350 07/27/18 05:25: Free T4 0.97 ASSESSMENT: Please see below. 1. Influenza A 2. Acute bronchitis 3. COPD 4. UTI, E-Coli 5. Atrial fibrillation, no longer on blood thinners due to falls. PLAN: 1. Discontinue Azactam 2. Discontinue IV fluids 3. Lasix 20mg IV today 4. Last dose of Tamiflu tonight. Plan and coordination of the patient's care discussed in the presence of Closet Builder and nurse. SCRIBED BY: Simran CHIN scribed while in presence of service performed by Dr. Oneal/Ester Mendieta APRN on 07/28/18 ([id number])
[2018-07-28] MEDS: ROCEPHIN 1 GM in SODIUM CHLORIDE 50 ML IV SCH (08:39)
[2018-07-28] MEDS: SENNA PO SCH (08:43)
[2018-07-28] MEDS: BENTYL PO SCH ×3 (08:43→21:36)
[2018-07-28] MEDS: COREG PO SCH ×2 (08:43→16:49)
[2018-07-28] MEDS: CYMBALTA PO SCH (08:43)
[2018-07-28] MEDS: TAMIFLU PO SCH ×2 (08:43→21:37)
[2018-07-28] MEDS: LANOXIN PO SCH (08:43)
[2018-07-28] MEDS: ASPIRIN CHEWABLE PO SCH (08:43)
[2018-07-28] MEDS: COLACE PO SCH ×2 (08:43→21:35)
[2018-07-28] MEDS: NORCO 7.5-325 PO SCH ×3 (08:44→21:35)
[2018-07-28] MEDS: REQUIP PO SCH ×2 (08:44→21:35)
[2018-07-28] MEDS: ALDACTONE PO SCH (08:44)
[2018-07-28] MEDS: COZAAR PO SCH (08:44)
[2018-07-28] MEDS: NEURONTIN PO SCH ×2 (08:44→21:36)
[2018-07-28] MEDS: MICRO-K CAP PO SCH (08:44)
[2018-07-28] MEDS: LOVENOX SUBCUT SCH (08:47)
[2018-07-28] MEDS: PREDNISONE PO SCH (16:50)
[2018-07-28] MEDS: GLUCOPHAGE PO SCH (16:50)
[2018-07-28] MEDS ORDERED: ATIVAN PO SCH (21:00)
[2018-07-29] MEDS: XOPENEX 1.25 MG NEB SCH ×2 (04:35→11:14)
[2018-07-29] MEDS: PULMICORT 0.5 MG/2 ML NEB SCH (04:35)
[2018-07-29] MEDS: LASIX TAB PO SCH (05:45)
[2018-07-29] MEDS: PROTONIX PO SCH (05:45)
[2018-07-29] MEDS: SYNTHROID PO SCH ×2 (05:45→05:46)
[2018-07-29] MEDS: NYSTATIN ORAL SUSP PO SCH ×2 (05:45→10:44)
[2018-07-29 05:57] VITALS: BP 118/69; TEMP 97.5
--- NOTE | 2018-07-29 08:50 | PCM.PROG ---
Attending Provider: ATTENDING PROVIDER: Dr. JASMIN ONEAL This patient is seen with Ester Mendieta, Nurse Practitioner. DATE OF SERVICE: 07/29/18 SUBJECTIVE: This 88 year old WHITE/ F was hospitalized 07/24/18. The patient is resting comfortably. Oxygen saturation is good on room air. She has been eating well. Cough has improved. Anticipate discharge back to [place] today. REVIEW OF SYSTEMS: CONSTITUTIONAL: No night sweats. No fatigue, malaise, lethargy. No fever or chills. HEENT: Eyes: No visual changes. No eye pain. No eye discharge. ENT: No runny nose. No epistaxis. No sinus pain. No odynophagia. No congestion. RESPIRATORY: Cough, no congestion. No hemoptysis. No shortness of breath. CARDIOVASCULAR: No angina symptoms. No CHF symptoms. No atypical chest pain for CAD. No palpitations. No orthopnea.. GASTROINTESTINAL: No abdominal pain. No nausea or vomiting. No diarrhea or constipation. No hematemesis. No hematochezia. GENITOURINARY: No urgency. No frequency. No dysuria. No hematuria. No obstructive symptoms. No discharge. No pain. No significant abnormal bleeding. MUSCULOSKELETAL: No musculoskeletal pain; no joint swelling. NEUROLOGICAL: Awake, alert, oriented to time, place and person. No headache. No neck pain. No syncope. No seizures. No dizziness. PSYCHIATRIC: Not anxious. No depression. No suicidal thoughts. No homicidal thoughts. SKIN: No rash. No lesions. No wounds. ENDOCRINE: No unexplained weight loss. No weight gain. HEMATOLOGIC/LYMPHATIC: No anemia. No purpura. No petechiae. No prolonged or excessive bleeding. No palpable lymph nodes. PHYSICAL EXAMINATION: GENERAL: The patient is awake, alert and oriented to person, lying in bed in no distress. VITAL SIGNS: Temperature 97.5 F, Pulse 62, Respiratory Rate 14, BP 118/69, Pulse Ox 96% HEENT: Head normocephalic, atraumatic. Eyes: Extraocular muscles are intact. Pupils are equal, round and reactive to light and accommodation. Ears: No lesions. Nose appeared normal. Throat: No exudate or erythema. NECK: Supple. No JVD, no carotid bruit. No lymphadenopathy or thyromegaly. LUNGS: Diminished breath sounds. Clear to auscultation. Percussion note normal. Chest symmetrical. HEART: S1, S2, no S3. No murmurs. No cyanosis or clubbing. No ascites. Pulses: Dorsalis pedis and posterior tibial pulses +1 to +2 both sides. ABDOMEN: Soft. Non-tender. Bowel sounds active. No CVA tenderness. No mass felt. EXTREMITIES: No edema. Full range of motion of all extremities, equal. NEUROLOGIC: No focal deficit. Cranial nerves II through XII are grossly intact. No headache, no double vision or headache. SKIN: Not dry. Intact. Turgor-normal. LYMPHATIC: No palpable lymph nodes/no lymphedema. MUSCULOSKELETAL: Normal joints with no swelling. Muscle tone is normal. LAB REVIEW: 07/29/18 05:00 07/29/18 05:00 07/29/18 05:00: Sodium 138.1, Potassium 3.97, Chloride 100.5, Carbon Dioxide 30.4 H, Anion Gap 11.17, BUN 26.8 H, Creatinine 0.86, Estimated GFR (MDRD) 62.00 , BUN/Creatinine Ratio 31.16, Glucose 119.6 H, Calcium 7.59 L, Total Bilirubin 0.38, AST 22.6, ALT 16.2, Alkaline Phosphatase 59.8, Total Protein 6.28 L, Albumin 3.64, Globulin 2.64, Albumin/Globulin Ratio 1.37 07/29/18 05:00: WBC 7.33, RBC 4.09 L, Hgb 11.7 L, Hct 35.9 L, MCV 87.8, MCH 28.6 , MCHC 32.6, RDW Coeff of Elier 13.8, Plt Count 205, Immature Gran % (Auto) 4.2, Neut % (Auto) 63.4, Lymph % (Auto) 23.7, [place] % (Auto) 8.2, Eos % (Auto) 0.1, Baso % (Auto) 0.4, Immature Gran # (Auto) 0.3, Neut # (Auto) 4.6, Lymph # (Auto ) 1.7, [place] # (Auto) 0.6, Eos # (Auto) 0.0, Baso # (Auto) 0.0 ASSESSMENT: Please see below. 1. Influenza A, resolved 2. Acute bronchitis, improving 3. Shortness of breath, resolved 4. UTI e-coli, resolving 5. Atrial fibrillation, patient not on any blood thinners due to history of falls and age. PLAN: 1. Discharge to [place] 2. Omnicef 300mg daily for 5 days 3. Prednisone 10mg for 5 days 4. NEBS treatment three times a day for two weeks 5. CBC and CMP in one week. Plan and coordination of the patient's care discussed in the presence of Hydraulic Plumber and nurse. SCRIBED BY: Simran CHIN scribed while in presence of service performed by Dr. Oneal/Ester Mendieta APRN on 07/29/18 ([id number])
[2018-07-29] MEDS: ROCEPHIN 1 GM in SODIUM CHLORIDE 50 ML IV SCH (09:32)
[2018-07-29] MEDS: COREG PO SCH (09:33)
[2018-07-29] MEDS: ASPIRIN CHEWABLE PO SCH (09:33)
[2018-07-29] MEDS: COZAAR PO SCH (09:33)
[2018-07-29] MEDS: NEURONTIN PO SCH (09:33)
[2018-07-29] MEDS: LANOXIN PO SCH (09:33)
[2018-07-29] MEDS: GLUCOPHAGE PO SCH (09:33)
[2018-07-29] MEDS: TAMIFLU PO SCH (09:33)
[2018-07-29] MEDS: MICRO-K CAP PO SCH (09:33)
[2018-07-29] MEDS: SENNA PO SCH (09:34)
[2018-07-29] MEDS: CYMBALTA PO SCH (09:34)
[2018-07-29] MEDS: BENTYL PO SCH (09:34)
[2018-07-29] MEDS: PREDNISONE PO SCH (09:34)
[2018-07-29] MEDS: COLACE PO SCH (09:34)
[2018-07-29] MEDS: ALDACTONE PO SCH (09:34)
[2018-07-29] MEDS: REQUIP PO SCH (09:34)
[2018-07-29] MEDS: NORCO 7.5-325 PO SCH (09:34)
[2018-07-29] MEDS: LOVENOX SUBCUT SCH (09:35)
--- NOTE | 2018-07-30 14:47 | DS ---
DATE OF SERVICE: 07/29/18 FINAL DIAGNOSIS: 1. INFLUENZA A 2. ACUTE BRONCHITIS 3. UTI E-COLI 4. CONGESTIVE HEART FAILURE 5. ORAL CANDIDIASIS 6. RESPIRATORY INSUFFICIENCY 7. CAD 8. ATRIAL FIBRILLATION (NO BLOOD THINNER DUE TO HIGH RISK FOR FALL AND PATIENT AGE) 9. 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 DISCHARGE INSTRUCTIONS: DISCHARGE BACK TO [facility] TODAY, 07/29/18. DR. ONEAL/CYNDEE ESQUIVEL APRN, WILL FOLLOW THIS PATIENT DURING USUAL ASSISTED ROUNDS IN APPROXIMATELY ONE WEEK. RESUME ASSISTED MEDICATIONS PER LIST PROVIDED BY THE NURSING STAFF. CBC WITH DIFFERENTIAL AND CMP IN ONE WEEK. VITAL SIGNS DAILY , PULSE OXIMETRY PRN AND OXYGEN AT 2 LITERS NASAL CANULA FOR SATS BELOW 90%. MEDICATIONS AT DISCHARGE: TYLENOL 650MG PO Q 4 HOURS PRN ASPIRIN 81MG PO DAILY COREG 12.5MG PO TWICE A DAY OMNICEF 300MG PO TWICE A DAY FOR 5 DAYS ONLY BENTYL 20MG PO THREE TIMES A DAY LANOXIN 125MCG PO DAILY COLACE 100MG PO TWICE A DAY CYMBALTA 30MG PO DAILY LASIX 40MG PO QDAC NEURONTIN 100MG OP TWICE A DAY NORCO 7.5-325 ONE TABLET PO THREE TIMES A DAY DUO NEBS ONE NEB THREE TIMES A DAY FOR ONE WEEK SYNTHROID 125MCG PO QDAC COZAAR 50MG PO DAILY CITRATE 10OX PO Q 72 HOURS PRN GLUCOPHAGE 500MG PO TWICE A DAY NYSTOP POWDER 1 APPLICATION TP 2Q 8 HOUR PRN NYSTATIN 5ML PO ACHS TIMES ONE WEEK ZOFRAN 4MG PO Q 8 HOURS PRN PROTONIX 40MG PO QDAC ARTIFICIAL TEARS ONE DROP OP TWICE A DAY MICRO-K CAP 10MEQ PO DAILY PREDNISONE 10MG PO DAILY TIMES 5 DAYS ONLY REQUIP 0.5MG PO TWICE A DAY SENNA 8.6MG PO DAILY ALDACTONE 25MG PO DAILY ALLERGIES: PENICILLIN NEW PRESCRIPTIONS: OMNICEF 300MG PO Q 12 HOURS DUO NEBS ONE VIAL Q 8 HOURS 7 DAYS NYSTATIN 5ML PO ACHS PREDNISONE 10MG PO DAILY DIET INSTRUCTIONS: CONSISTENT CARBS ESTABLISHMENT GUIDE, PLEASE CONSULT TO PROVIDE FOR OPTIMAL NUTRITIONAL NEEDS ACTIVITY: PT/OT PLEASE EVALUATE AND TREAT INDICATED. MAY PARTICIPATE IN ASSISTED ACTIVITY PROGRAM TOLERATED. UP FOR MEALS SMOKING: NONSMOKER DISEASE SPECIFIC EDUCATION: MEDICATION APPOINTMENTS PT/OT HOSPITAL COURSE: 88 year old white female who presented to the emergency room in mild respiratory distress from [facility]. Chest x-ray was normal. U /A showed 4+ bacteria and culture grew e-coli. She was initially placed on Rocephin and Azactam. Urine culture was sensitive to Rocephin. She also tested positive for Influenza A. She was placed on Tamiflu twice a day. Kidney function was initially elevated with BUN of 46 and creatinine 1.79. She started on IV fluids of normal saline initially requiring oxygen for the first several days at 2 liters. She has been off oxygen now for past 24 hours and sats are 95% . Repeat chest x-ray showed some pleural effusions. She was given IV Lasix two days in a row and this has resolved. Again today she has been eating well for the past two days. She is up and alert this morning. She was not experiencing any shortness of breath. She has no leg edema. She has not had a fever for the past three days. Initially she was on IV steroids for the first 3 days however then I placed her on PO steroids 10mg twice a day which she has been on times two days. We will send her back to the alf with NEB treatments three times a day for two weeks. Prednisone 10mg daily times 5 days and then Omnicef 300mg daily for the next 5 days for the UTI. She will go back to [place]. She is discharged in stable condition otherwise medications have stayed the same. TIME SPENT: More than 60 minutes. RITIKA
== END 2018-07-29 11:40 | DRG 152 ==
LOC: ED 10:33 → MEDSURG B 14:51
PROVIDERS: ADMIT Internal Medicine; ATTEND Internal Medicine
DX: J11.1 Influenza due to unidentified influenza virus with other respiratory manifestations (principal); J96.00 Acute respiratory failure, unspecified whether with hypoxia or hypercapnia; N39.0 Urinary tract infection, site not specified; B37.0 Candidal stomatitis; J34.89 Other specified disorders of nose and nasal sinuses; J20.9 Acute bronchitis, unspecified; J44.9 Chronic obstructive pulmonary disease, unspecified; I50.9 Heart failure, unspecified; I25.10 Atherosclerotic heart disease of native coronary artery without angina pectoris; I48.91 Unspecified atrial fibrillation; I10 Essential (primary) hypertension; G89.4 Chronic pain syndrome; F41.8 Other specified anxiety disorders; E11.9 Type 2 diabetes mellitus without complications; E03.9 Hypothyroidism, unspecified; H54.62 Unqualified visual loss, left eye, normal vision right eye; R06.89 Other abnormalities of breathing; R50.9 Fever, unspecified; R05 Cough; R30.0 Dysuria; R35.0 Frequency of micturition; R39.15 Urgency of urination; R41.82 Altered mental status, unspecified; N18.9 Chronic kidney disease, unspecified
CPT/HCPCS: 36415; 80053; 80162; 81001; 82803; 82962; 83605; 84439; 84443; 85025; 87040; 87081; 87086; 87186; 87502; 93005; 93010; 94640; 96361; 96366; 96374; 96375; 99285

== ENCOUNTER 2019-07-01 09:50 | Inpatient (IN) ==
[2019-07-01] MEDS ORDERED: SODIUM CHLORIDE 1,000 ML IV STA (10:08)
--- NOTE | 2019-07-01 10:14 | ED.PDOC ---
General ED Provider: Dr. GUS ADEN MD Chief Complaint: Urinary Problem Stated Complaint: NH pt with mild to mod lower abdominal ache pain and urine frequency, poor historian, POA asked that there only be comfort care measures, as she is dnr, no blood transfusion, hx chronic pain Time Seen by Physician: 10:11 Mode of Arrival: Ambulance Information Source: Patient and EMT Primary Care Provider: JASMIN ONEAL Nursing and Triage Documentation Reviewed and Agree: Yes Does patient meet sepsis criteria?: No System Inflammatory Response Syndrome: Not Applicable Sepsis Protocol: For patient's 13 years and over: Temp is 96.8 and below OR 101 and greater Pulse >90 BPM Resp >20/minute Acutely Altered Mental Status Are patient's symptoms suggestive of a new infection, such as: -Pneumonia -Skin, Soft Tissue -Endocarditis -UTI -Bone, Joint Infection -Implantable Device -Acute Abdominal Infection -Wound Infection -Meningitis -Blood Stream Catheter Infection -Unknown Complaint Exam UTI Female Complaint/Exam Patient Complains of: Reports Painful urination Onset/Duration: today Symptoms Are: Still present Timing: Constant Initial Severity: Moderate Current Severity: Mild Review of Systems Review Of Systems Constitutional: Reports Malaise and Weakness; Denies Fever Eyes: Denies Drainage Ears, Nose, Mouth, Throat: Denies Throat pain (dry buccal) Respiratory: Reports No symptoms Cardiac: Reports No symptoms GI: Reports Abdominal pain; Denies Vomiting : Reports Frequency Musculoskeletal: Denies Neck pain Skin: Denies Rash All Other Systems: Other [facility] Social History Smoking and tobacco status: Unknown if ever smoked History of recent travel: No Female Reproductive History Menstrual Hx Hysterectomy: Yes (complete) Hx Tubal Ligation: No Physical Exam Physical Exam Appearance: Reports No pain distress Ill-appearing: None Pain Distress: None 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) ENT: Reports Dry mucosa Neck: Supple Respiratory: Reports Airway patent Cardiovascular: Reports RRR GI/: Reports Soft and Tender (no rebound, +melenotic stool, no red blood) Skin: Reports Warm and Dry Psychiatric: Reports Depressed Interpretation Radiology Interpretation Radiology Interpretation By: Radiologist Radiology Results: No acute changes Exam Interpreted: CXR Radiology Interpretation By: Radiologist Exam Interpreted: CT Scan Xray Comments: no obstruction, +paraesophageal hernia Re-Evaluation Re-Evaluation Time of Re-Evaluation: 12:54 Status: Unchanged Additional Comments: Dr Oneal at bedside to admit pt for comfort care and pain control with anemia, upper gi bleed Critical Care Note Critical Care Note Total Time (mins): 0 Course Course Hematology/Chemistry: 07/01/19 10:25 07/01/19 10:25 Orders, Labs, Meds: Lab Review 07/01/19 07/01/19 07/01/19 10:25 10:25 10:25 WBC 11.07 H RBC 2.28 L Hgb 6.7 L Hct 20.9 L MCV 91.7 MCH 29.4 MCHC 32.1 RDW Coeff of Elier 13.9 Plt Count 204 Immature Gran % (Auto) 0.8 Neut % (Auto) 74.5 Lymph % (Auto) 17.4 [place] % (Auto) 5.7 Eos % (Auto) 0.5 Baso % (Auto) 1.1 Immature Gran # (Auto) 0.1 Neut # (Auto) 8.2 H Lymph # (Auto) 1.9 [place] # (Auto) 0.6 Eos # (Auto) 0.1 Baso # (Auto) 0.1 Sodium 138.8 Potassium 4.90 Chloride 106.6 Carbon Dioxide 20.8 L Anion Gap 16.30 BUN 112.4 H* Creatinine 1.59 H Estimated GFR (MDRD) 31.00 BUN/Creatinine Ratio 70.69 Glucose 144.1 H Lactic Acid 2.90 H Calcium 8.95 Total Bilirubin 0.17 L AST 19.9 ALT 13.2 Alkaline Phosphatase 52.4 L Total Protein 6.20 L Albumin 3.56 Globulin 2.64 Albumin/Globulin Ratio 1.34 Lipase 58.6 Urine Color Urine Clarity Urine pH Ur Specific [place] Urine Protein Urine Glucose (UA) Urine Ketones Urine Blood Urine Nitrite Urine Bilirubin Urine Urobilinogen Ur Leukocyte Esterase Urine Microscopic WBC Ur Squamous Epith Cells Urine Bacteria Stl Occult Blood (IFOB) Stool Occult Blood #2 Stool Occult Blood #3 Digoxin Blood Type Antibody Screen Crossmatch (AHG) 07/01/19 07/01/19 07/01/19 10:25 10:25 11:20 WBC RBC Hgb Hct MCV MCH MCHC RDW Coeff of Elier Plt Count Immature Gran % (Auto) Neut % (Auto) Lymph % (Auto) [place] % (Auto) Eos % (Auto) Baso % (Auto) Immature Gran # (Auto) Neut # (Auto) Lymph # (Auto) [place] # (Auto) Eos # (Auto) Baso # (Auto) Sodium Potassium Chloride Carbon Dioxide Anion Gap BUN Creatinine Estimated GFR (MDRD) BUN/Creatinine Ratio Glucose Lactic Acid Calcium Total Bilirubin AST ALT Alkaline Phosphatase Total Protein Albumin Globulin Albumin/Globulin Ratio Lipase Urine Color Urine Clarity Urine pH Ur Specific [place] Urine Protein Urine Glucose (UA) Urine Ketones Urine Blood Urine Nitrite Urine Bilirubin Urine Urobilinogen Ur Leukocyte Esterase Urine Microscopic WBC Ur Squamous Epith Cells Urine Bacteria Stl Occult Blood (IFOB) Stool Occult Blood #2 Stool Occult Blood #3 Digoxin 1.29 Blood Type O NEGATIVE O NEGATIVE Antibody Screen Negative Crossmatch (AHG) See Detail 07/01/19 07/01/19 11:20 12:30 WBC RBC Hgb Hct MCV MCH MCHC RDW Coeff of Elier Plt Count Immature Gran % (Auto) Neut % (Auto) Lymph % (Auto) [place] % (Auto) Eos % (Auto) Baso % (Auto) Immature Gran # (Auto) Neut # (Auto) Lymph # (Auto) [place] # (Auto) Eos # (Auto) Baso # (Auto) Sodium Potassium Chloride Carbon Dioxide Anion Gap BUN Creatinine Estimated GFR (MDRD) BUN/Creatinine Ratio Glucose Lactic Acid Calcium Total Bilirubin AST ALT Alkaline Phosphatase Total Protein Albumin Globulin Albumin/Globulin Ratio Lipase Urine Color Yellow Urine Clarity Clear Urine pH 5.5 Ur Specific [place] 1.010 Urine Protein Negative Urine Glucose (UA) Negative Urine Ketones Negative Urine Blood Negative Urine Nitrite Negative Urine Bilirubin Negative Urine Urobilinogen 0.2 Ur Leukocyte Esterase Trace H Urine Microscopic WBC 2-5 Ur Squamous Epith Cells Not present Urine Bacteria 1+ Stl Occult Blood (IFOB) Positive Stool Occult Blood #2 No specimen received Stool Occult Blood #3 No specimen received Digoxin Blood Type Antibody Screen Crossmatch (AHG) Orders Category Date Time Status ADMIT PATIENT INPATIENT .TO [facility] (MONITORED BED) ADMISSION 07/01/19 13:12 Active ACTIVITY .Complete BR CARE 07/01/19 13:12 Active INTAKE & OUTPUT Q8HR CARE 07/01/19 13:12 Active ORDER H&H 1HR POST TRANSFUSION ONCE CARE 07/01/19 10:49 Active PRBC LEUKOREDUCED ONCE CARE 07/01/19 10:49 Active TELEMETRY MONITORING TELE CARE 07/01/19 13:13 Active VITAL SIGNS Q8HR CARE 07/01/19 13:12 Active NOTHING BY MOUTH DIETARY 07/01/19 Lunch Ordered BLOOD CULTURE Stat LAB 07/01/19 10:25 Received CBC W/ AUTO DIFF Stat LAB 07/01/19 10:25 Completed COMPREHENSIVE METABOLIC PANEL Stat LAB 07/01/19 10:25 Completed LACTIC ACID Stat LAB 07/01/19 10:25 Completed LIPASE Stat LAB 07/01/19 10:25 Completed OCCULT BLOOD, STOOL Stat LAB 07/01/19 12:30 Completed TYPE AND SCREEN Stat LAB 07/01/19 11:20 Completed URINALYSIS C & S IF INDICATED Stat LAB 07/01/19 11:20 Completed URINE CULTURE Stat LAB 07/01/19 11:20 Results Esomeprazole Sodium [Nexium IV] MEDS 07/01/19 11:49 Discontinued 40 mg .ROUTE .STK-MED ONE Esomeprazole Sodium [Nexium IV] MEDS 07/01/19 12:02 Discontinued 40 mg IVP ONCE STA Esomeprazole Sodium [Nexium IV] MEDS 07/01/19 13:18 Discontinued 40 mg IVP ONCE STA Pantoprazole Sodium [Protonix] MEDS 07/01/19 11:02 Discontinued 40 mg PO ONCE STA Ringers Lactated Solution [Lactated Ringers] 1,000 ml MEDS 07/01/19 12:13 Discontinued IV BOLUS Sodium Chloride 0.9% [Sodium Chloride] 1,000 ml MEDS 07/01/19 13:30 Active IV 75 mls/hr Sodium Chloride 0.9% [Sodium Chloride] 1,000 ml MEDS 07/01/19 10:08 Discontinued IV BOLUS RESUSCITATION STATUS Routine OTHERS 07/01/19 13:12 Ordered CHEST, 1V AP ONLY Stat RADS 07/01/19 10:[address] ABDOMEN/PELVIS WO CONTRAST Stat RADS 07/01/19 10:08 Completed Medications Generic Name Dose Route Start Last Admin Trade Name Freq PRN Reason Stop Dose Admin Acetaminophen 650 mg 07/01/19 15:48 Tylenol PO Q4H PRN Pain Carvedilol 12.5 mg 07/02/19 08:00 Coreg PO DAILYWM ABRAHAM Esomeprazole Magnesium 40 mg 07/01/19 21:00 07/01/19 20:22 Nexium Iv IVP 40 mg BID ABRAHAM Administration Sodium Chloride 1,000 mls @ 75 mls/hr 07/01/19 13:30 07/02/19 05:05 Sodium Chloride IV 75 mls/hr .[id number] ABRAHAM Administration Levothyroxine Sodium 150 mcg 07/02/19 06:30 07/02/19 05:44 Synthroid PO 150 mcg QDAC ABRAHAM Administration Losartan Potassium 50 mg 07/01/19 15:48 Cozaar PO DAILY PRN FOR SYSTOLIC GREATER THAN 160 Morphine Sulfate 2 mg 07/01/19 15:48 07/02/19 05:04 Morphine 2 Mg/Ml Syringe IVP 2 mg Q2H PRN Administration Pain Ondansetron HCl 4 mg 07/01/19 15:48 Zofran Tab PO Q8H PRN Nausea / Vomiting Potassium Chloride 10 meq 07/02/19 08:00 Micro-K Cap PO DAILYWM ABRAHAM Discontinued Medications Generic Name Dose Route Start Last Admin Trade Name Freq PRN Reason Stop Dose Admin Esomeprazole Magnesium 40 mg 07/01/19 12:02 07/01/19 12:06 Nexium Iv IVP 07/01/19 12:03 40 mg ONCE STA Administration Esomeprazole Magnesium 40 mg 07/01/19 13:18 07/01/19 15:12 Nexium Iv IVP 07/01/19 13:19 Not Given ONCE STA Sodium Chloride 1,000 mls @ 1,000 mls/hr 07/01/19 10:08 07/01/19 10:10 Sodium Chloride IV 07/01/19 11:07 1,000 mls/hr BOLUS STA Administration Lactated Ringer's 1,000 mls @ 1,000 mls/hr 07/01/19 12:13 07/01/19 12:33 Lactated Ringers IV 07/01/19 13:12 1,000 mls/hr BOLUS STA Administration Pantoprazole Sodium 40 mg 07/01/19 11:02 07/01/19 12:07 Protonix PO 07/01/19 11:03 Not Given ONCE STA Vital Signs: Temp Pulse Resp BP Pulse Ox 07/01/19 12:50 75 20 78/50 L 97 07/01/19 12:40 72 18 89/44 L 22 L 07/01/19 09:58 97.6 F 71 22 96/66 98 07/01/19 09:52 98.7 F 86 20 83/54 L 96 Discharge Plan Discharge Patient Disposition: ADMITTED INPATIENT Discharge Problem: At risk for inadequate pain control ED Provider: GUS ADEN Condition: Poor Discharge Date/Time: 07/01/19 14:03
[2019-07-01 10:41] LABS: HEMATOCRIT 20.9 % (37.0-47.0)
[2019-07-01] MEDS ORDERED: PROTONIX PO STA (11:02)
--- NOTE | 2019-07-01 11:24 | DI ---
EXAM: Frontal chest HISTORY: Weakness FINDINGS: Compared to 07/27/2018. Cardiomegaly, atherosclerosis and left-sided pacemaker unit again noted and appear stable. There is a [id number] hiatal hernia again noted. No acute infiltra luis are seen. No vascular congestion. There is no consolidation, visible pleural fluid or pneumotho rax. Bones reveal no acute fracture. IMPRESSION: Cardiomegaly, atherosclerosis and hiatal hernia. No acute cardiopulmonary process.
--- NOTE | 2019-07-01 11:35 | CT ---
EXAM: CT ABDOMEN AND PELVIS HISTORY: Abdominal pain TECHNIQUE: CT abdomen and pelvis without intravenous contrast. Images were reconstructed using 5 mm section thickness. Reformations were prepared. COMPARISON: 12/16/2017 FINDINGS: Diagnostic limitations exist without including intravenous contrast enhanced images. No focal hepati c or splenic lesions. Gallbladder is absent. Pancreas and adrenal glands are within normal limits. No right kidney is identified. The left kidney appears normal as does the left ureter. There is mi ld atherosclerotic disease. There is a moderate paraesophageal hernia which is slightly larger than previously seen. No appendix is identified. The bowel gas pattern is nonobstructive. There is mild to moderate distal colon div erticulosis. Urinary bladder appears normal. The uterus is either small or absent. There is no asc ites. No abdominal wall hernia. The bones are demineralized. There is mild scoliosis and moderately sever e degenerative changes of the lumbar spine. Transitional vertebral body anatomy at the lumbosacral j unction is present. Lung bases reveal chronic interstitial changes and prominent heart size. There is no pneumoperitoneum. IMPRESSION: 1. No acute intra-abdominal or pelvic abnormality identified. Bowel gas pattern is within normal li mits. There is diverticulosis of the colon without diverticulitis. No appendix was identified. No inflammatory process, ascites or free air. 2. No right kidney identified. The left kidney and ureter appear normal. 3. Moderate paraesophageal hernia, slightly enlarged since prior study.
[2019-07-01] MEDS ORDERED: NEXIUM IV ONE (11:49)
[2019-07-01] MEDS ORDERED: NEXIUM IV IVP STA ×2 (12:02→13:18)
[2019-07-01] MEDS ORDERED: LACTATED RINGERS 1,000 ML IV STA (12:13)
[2019-07-01 14:24] VITALS: BMI 32.6
[2019-07-01] MEDS: SODIUM CHLORIDE 1,000 ML IV SCH (15:22)
[2019-07-01] MEDS ORDERED: COZAAR PO PRN (15:48)
[2019-07-01] MEDS ORDERED: ZOFRAN TAB PO PRN (15:48)
[2019-07-01] MEDS ORDERED: TYLENOL PO PRN (15:48)
[2019-07-01] MEDS: MORPHINE 2 MG/ML SYRINGE IVP PRN ×3 (16:19→22:37)
[2019-07-01] MEDS: NEXIUM IV IVP SCH (20:22)
[2019-07-02] MEDS: MORPHINE 2 MG/ML SYRINGE IVP PRN ×8 (01:51→21:54)
[2019-07-02] MEDS: SODIUM CHLORIDE 1,000 ML IV SCH (05:05)
[2019-07-02] MEDS: SYNTHROID PO SCH (05:44)
[2019-07-02] MEDS: XANAX PO PRN ×3 (09:00→22:55)
[2019-07-02] MEDS: MICRO-K CAP PO SCH (09:00)
[2019-07-02] MEDS: NEXIUM IV IVP SCH ×2 (09:00→20:23)
[2019-07-02] MEDS: COREG PO SCH (09:00)
--- NOTE | 2019-07-02 11:00 | HP ---
DATE OF SERVICE: 07/01/19 REASON FOR HOSPITALIZATION: GI bleed. HISTORY OF PRESENT ILLNESS: This 89 year old /WHITE F was hospitalized 07/01/19 with GI bleed. The patient with melenic stools, hemoglobin of 6.9. Also, had BUN of more than 100 with creatinine of 1.8. The patient was severely dehydrated and was somewhat confused. The patient's, Power of Booky for health (Ella) present in the room and was decided by her for the patient not to have blood transfusion or transfer the patient so the patient is hospitalized for comfort care here at [facility]. The patient is DNR. PAST MEDICAL HISTORY: CHF CAD Hypertension Hypothyroidism Depression/Anxiety Severe DJD spine Osteoporosis Atrial fibrillation Permanent pacemaker COPD Hiatal hernia Diabetes mellitus type 2 Dyslipidemia Recurrent UTIs History of chronic pain PAST SURGICAL HISTORY: Corneal transplant Right nephrectomy REVIEW OF SYSTEMS: CONSTITUTIONAL: No night sweats. No fatigue, malaise, lethargy. No fever or chills. HEENT: Eyes: No visual changes. No eye pain. No eye discharge. ENT: No runny nose. No epistaxis. No sinus pain. No sore throat. No odynophagia. No ear pain. No congestion. RESPIRATORY: No cough, no congestion. No hemoptysis. No shortness of breath. CARDIOVASCULAR: No angina symptoms. No CHF symptoms. No atypical chest pain for CAD. No palpitations. No PND. No orthopnea. GASTROINTESTINAL: No abdominal pain. No nausea or vomiting. No diarrhea or constipation. No hematemesis. No hematochezia. GENITOURINARY: [place] catheter present. No urgency. No frequency. No dysuria. No hematuria. No obstructive symptoms. No discharge. No pain. No significant abnormal bleeding. MUSCULOSKELETAL: Positive for back pain. . NEUROLOGICAL: No headache. No neck pain. No syncope. No seizures. No dizziness. PSYCHIATRIC: Restless. No depression. No suicidal thoughts. No homicidal thoughts. SKIN: No rash. No lesions. No wounds. ENDOCRINE: No unexplained weight loss. No weight gain. HEMATOLOGIC/LYMPHATIC: No anemia. No purpura. No petechiae. No prolonged or excessive bleeding. No palpable lymph nodes. PERSONAL/FAMILY/SOCIAL HISTORY: The patient is . She resides in the [facility]. Nonsmoker. No alcohol or illicit drug use. The patient requires help for all activities of daily living and is bedridden. The patient is DNR. MEDICATIONS: (HOME) Docusate Sodium 100 mg p.o. b.i.d. Gabapentin 100 mg p.o. b.i.d. Carvedilol 12.5 mg p.o. daily Digoxin 125 mcg p.o. daily Furosemide 40 mg p.o. daily Potassium Chloride 10 mEq p.o. daily Aspirin 81 mg p.o. daily with meal Hydrocodone-Acetaminophen 7.5-325 mg tablet one each p.o. t.i.d. Duloxetine 30 mg p.o. daily Pantoprazole 40 mg p.o. daily Ropinirole (Requip) 7.5 mg p.o. b.i.d. Losartan 50 mg p.o. daily Sennosides 8.6 mg p.o. daily Acetaminophen 650 mg p.o. q.4h p.r.n. Levothyroxine 150 mcg p.o. q.d a.c. Artificial Tears one drop both eyes b.i.d. Dicyclomine 20 mg p.o. t.i.d. Ondansetron 4 mg p.o. q.8h p.r.n. Nystatin one application topical q.8h p.r.n. Metformin 500 mg p.o. b.i.d. Spironolactone 40 mg p.o. daily Apixaban 2.5 mg p.o. daily Duloxetine 30 mg p.o. daily Apixaban 2.5 mg p.o. daily ALLERGIES: PENICILLINS PHYSICAL EXAMINATION: GENERAL: The patient is awake, alert and oriented to person and place, lying/sitting in bed in no distress. VITAL SIGNS: Temperature 97.3 F, Pulse 72, Respiratory Rate 16, BP 103/59, Pulse Ox 99% HEENT: Head normocephalic, atraumatic. Eyes: Extraocular muscles are intact. Pupils are equal, round and reactive to light and accommodation. Ears: No lesions. Nose appeared normal. Throat: No exudate or erythema. NECK: Supple. No JVD, no carotid bruit. No lymphadenopathy or thyromegaly. LUNGS: Decreased breath sounds. Clear to auscultation. Percussion note normal. Chest symmetrical. HEART: S1, S2, no S3. No murmur. No cyanosis or clubbing. No ascites. Pulses: Dorsalis pedis and posterior tibial pulses +1 to +2 bilaterally. ABDOMEN: Soft. Nontender. Bowel sounds active. No CVA tenderness. No mass felt. EXTREMITIES: No edema. Full range of motion of all extremities, equal. NEUROLOGIC: No focal deficit. Cranial nerves II through XII are grossly intact. No headache, no double vision or headache. SKIN: Dry. Turgor - better. The patient is pale. LYMPHATIC: No palpable lymph nodes/no lymphedema. MUSCULOSKELETAL: Normal joints with no swelling. Muscle tone is normal. LAB REVIEW: 07/01/19 12:30: Stl Occult Blood (IFOB) Positive, Stool Occult Blood #2 No specimen received, Stool Occult Blood #3 No specimen received 07/01/19 11:20: Urine Color Yellow, Urine Clarity Clear, Urine pH 5.5, Ur Specific [place] 1.010, Urine Protein Negative, Urine Glucose (UA) Negative, Urine Ketones Negative, Urine Blood Negative, Urine Nitrite Negative, Urine Bilirubin Negative, Urine Urobilinogen 0.2, Ur Leukocyte Esterase Trace H, Urine Microscopic WBC 2-5, Ur Squamous Epith Cells Not present, Urine Bacteria 1+ 07/01/19 11:20: Blood Type O NEGATIVE, Antibody Screen Negative, Crossmatch (AHG) See Detail 07/01/19 10:25: Digoxin 1.29 07/01/19 10:25: Blood Type O NEGATIVE 07/01/19 10:25: Lactic Acid 2.90 H 07/01/19 10:25: Sodium 138.8, Potassium 4.90, Chloride 106.6, Carbon Dioxide 20.8 L, Anion Gap 16.30, BUN 112.4 H*, Creatinine 1.59 H, Estimated GFR (MDRD) 31.00, BUN/Creatinine Ratio 70.69, Glucose 144.1 H, Calcium 8.95, Total Bilirubin 0.17 L, AST 19.9, ALT 13.2, Alkaline Phosphatase 52.4 L, Total Protein 6.20 L, Albumin 3.56, Globulin 2.64, Albumin/Globulin Ratio 1.34, Lipase 58.6 07/01/19 10:25: WBC 11.07 H, RBC 2.28 L, Hgb 6.7 L, Hct 20.9 L, MCV 91.7, MCH 29.4, MCHC 32.1, RDW Coeff of Elier 13.9, Plt Count 204, Immature Gran % (Auto) 0.8, Neut % (Auto) 74.5, Lymph % (Auto) 17.4, [place] % (Auto) 5.7, Eos % (Auto) 0.5, Baso % (Auto) 1.1, Immature Gran # (Auto) 0.1, Neut # (Auto) 8.2 H, Lymph # (Auto) 1.9, [place] # (Auto) 0.6, Eos # (Auto) 0.1, Baso # (Auto) 0.1 Of note: This morning labs 07/02/19 refused by family. IMAGING: Chest x-ray 07/01/19 Impression - Cardiomegaly, atherosclerosis and hiatal hernia. No acute cardiopulmonary process. CT abdomen and pelvis without contrast - Impression: No acute intra-abdominal or pelvic abnormality identified. Bowel gas pattern is within normal limits. There is diverticulosis of the colon without diverticulitis. No appendix was identified. No inflammatory process, ascites or free air. No right kidney identified. The left kidney and ureter appear normal. Moderate paraesophageal hernia,slightly enlarged since prior study. ASSESSMENT: 1. GI bleed. 2. Severe anemia. 3. Renal azotemia. 4. Dementia. 5. The patient is DNR. PLAN: 1. Xanax 0.25 mg p.o. q.i.d p.r.n. 2. Diet as tolerated, start with yogurt. 3. Continue Morphine 2 mg q.2hr. 4. Most of the medications have been discontinued which were antihypertensives. CONDITION: Stable; Prognosis: Poor. TIME SPENT: More than 70 minutes. SCRIBED BY: LISS ROMO Assistant Prosecuting Attorney scribed while in presence of service performed by Dr. JASMIN ONEAL on 07/02/19 ([id number]) RIT[place]A
--- NOTE | 2019-07-02 11:01 | PCM.PROG ---
Attending Provider: ATTENDING PROVIDER: Dr. JASMIN ONEAL DATE OF SERVICE: 07/02/19 SUBJECTIVE: This 89 year old /WHITE F was hospitalized 07/01/19 with GI bleed. The patient with melenic stools, hemoglobin of 6.9. Also, had BUN of more than 100 with creatinine of 1.8. The patient was severely dehyhdrated and was somewhat confused. The patient's, Power of Sandfill Operator Surface for health (Zetta) present in the room and was decided by her for the patient not to have blood transfusion or transfer the patient so the patient is hospitalized for comfort care here at [facility]. This morning labs were refused by the family. REVIEW OF SYSTEMS: CONSTITUTIONAL: No night sweats. No fatigue, malaise, lethargy. No fever or chills. HEENT: Eyes: No visual changes. No eye pain. No eye discharge. ENT: No runny nose. No epistaxis. No sinus pain. No odynophagia. No congestion. RESPIRATORY: No cough, no congestion. No hemoptysis. No shortness of breath. CARDIOVASCULAR: No angina symptoms. No CHF symptoms. No atypical chest pain for CAD. No palpitations. No orthopnea.. GASTROINTESTINAL: No abdominal pain. No nausea or vomiting. No diarrhea or constipation. No hematemesis. No hematochezia. GENITOURINARY: Quintanilla catheter present. No urgency. No frequency. No dysuria. No hematuria. No obstructive symptoms. No discharge. No pain. No significant abnormal bleeding. MUSCULOSKELETAL: Positive for back pain. NEUROLOGICAL: Awake, alert, oriented to time, place and person. No headache. No neck pain. No syncope. No seizures. No dizziness. PSYCHIATRIC: Not anxious. No depression. No suicidal thoughts. No homicidal thoughts. SKIN: No rash. No lesions. No wounds. ENDOCRINE: No unexplained weight loss. No weight gain. HEMATOLOGIC/LYMPHATIC: No anemia. No purpura. No petechiae. No prolonged or excessive bleeding. No palpable lymph nodes. PHYSICAL EXAMINATION: GENERAL: The patient is awake, alert and oriented, lying/sitting in bed in no distress. Pallor positive. VITAL SIGNS: Temperature 97.3 F, Pulse 72, Respiratory Rate 16, BP 103/59, P ulse Ox 99% HEENT: Head normocephalic, atraumatic. Eyes: Extraocular muscles are intact. Pupils are equal, round and reactive to light and accommodation. Ears: No lesions. Nose appeared normal. Throat: No exudate or erythema. NECK: Supple. No JVD, no carotid bruit. No lymphadenopathy or thyromegaly. LUNGS: Decreased breath sounds. Clear to auscultation. Percussion note normal. Chest symmetrical. HEART: S1, S2, no S3. No murmurs. No cyanosis or clubbing. No ascites. Pulses: Dorsalis pedis and posterior tibial pulses +1 to +2 both sides. ABDOMEN: Soft. Non-tender. Bowel sounds active. No CVA tenderness. No mass felt. EXTREMITIES: No edema. Full range of motion of all extremities, equal. NEUROLOGIC: No focal deficit. Cranial nerves II through XII are grossly intact. No headache, no double vision or headache. SKIN: Warm and dry. Intact. Turgor-better. LYMPHATIC: No palpable lymph nodes/no lymphedema. MUSCULOSKELETAL: Normal joints with no swelling. Muscle tone is normal. LAB REVIEW: 07/01/19 10:25 07/01/19 10:25 07/01/19 12:30: Stl Occult Blood (IFOB) Positive, Stool Occult Blood #2 No specimen received, Stool Occult Blood #3 No specimen received 07/01/19 11:20: Urine Color Yellow, Urine Clarity Clear, Urine pH 5.5, Ur S pecific [place] 1.010, Urine Protein Negative, Urine Glucose (UA) Negative, Urine Ketones Negative, Urine Blood Negative, Urine Nitrite Negative, Urine Bilirubin Negative, Urine Urobilinogen 0.2, Ur Leukocyte Esterase Trace H, Urine Microscopic WBC 2-5, Ur Squamous Epith Cells Not present, Urine Bacteria 1+ 07/01/19 11:20: Blood Type O NEGATIVE, Antibody Screen Negative, Crossmatch (AHG) See Detail 07/01/19 10:25: Digoxin 1.29 07/01/19 10:25: Blood Type O NEGATIVE 07/01/19 10:25: Lactic Acid 2.90 H 07/01/19 10:25: Sodium 138.8, Potassium 4.90, Chloride 106.6, Carbon Dioxide 20.8 L, Anion Gap 16.30, BUN 112.4 H*, Creatinine 1.59 H, Estimated GFR (MDRD) 31.00, BUN/Creatinine Ratio 70.69, Glucose 144.1 H, Calcium 8.95, Total Bilirubin 0.17 L, AST 19.9, ALT 13.2, Alkaline Phosphatase 52.4 L, Total Protein 6.20 L, Albumin 3.56, Globulin 2.64, Albumin/Globulin Ratio 1.34, Lipase 58.6 07/01/19 10:25: WBC 11.07 H, RBC 2.28 L, Hgb 6.7 L, Hct 20.9 L, MCV 91.7, MCH 29.4, MCHC 32.1, RDW Coeff of Elier 13.9, Plt Count 204, Immature Gran % (Auto) 0.8, Neut % (Auto) 74.5, Lymph % (Auto) 17.4, Vance % (Auto) 5.7, Eos % (Auto) 0.5, Baso % (Auto) 1.1, Immature Gran # (Auto) 0.1, Neut # (Auto) 8.2 H, Lymph # (Auto) 1.9, Vance # (Auto) 0.6, Eos # (Auto) 0.1, Baso # (Auto) 0.1 ASSESSMENT: Please see below. 1. GI bleed. 2. Severe anemia. 3. Renal azotemia. 4. Dementia. PLAN: 1. Continue IV fluids. 2. IV Morphine 2 mg q.2hr. 3. Diet as tolerated. 4. Most of the medications have been discontinued, which were antihypertensive. At the present time in no distress. Plan and coordination of the patient's care discussed in the presence of Wireworker and nurse. CONDITION: Stable; Prognosis is poor. SCRIBED BY: LISS ROMO Wall Covering Installer scribed while in presence of service performed by Dr. JASMIN ONEAL on 07/02/19 ([id number])
--- NOTE | 2019-07-02 11:10 | PN ---
DATE OF SERVICE: 07/01/2019 SUBJECTIVE: The patient was seen and examined in the emergency room. The patient is an 89 year old female hospitalized with urinary incontinence and mild to moderate lower abdominal pain. On further workup the patient's hgb was 6.9 and melanic stools and hypotension. The patient's BUN was 112 with creatinine of 1.59 and talked to the ER physician Dr. Benavidez and advised him to transfer the patient to [place] for GI bleed and renal failure with renal azotemia. He called me back and said that the Power of Drill Press Set Up Operator for health talked him and declined blood transfusion and wants comfort measures. At that point the patient was hospitalized to [facility]. REVIEW OF SYSTEMS: CONSTITUTIONAL: No night sweats. No fatigue, malaise, lethargy. No fever or chills. HEENT: Eyes: No visual changes. No eye pain. No eye discharge. ENT: No runny nose. No epistaxis. No sinus pain. No sore throat. No odynophagia. No congestion. RESPIRATORY: No cough, no congestion. No hemoptysis. No shortness of breath. CARDIOVASCULAR: No angina symptoms. No CHF symptoms. No atypical chest pain for CAD. No palpitations. No PND. No orthopnea. GASTROINTESTINAL: No abdominal pain. No nausea or vomiting. No diarrhea or constipation. No hematemesis. No hematochezia. GENITOURINARY: No urgency. No frequency. No dysuria. No hematuria. No obstructive symptoms. No discharge. No pain. No significant abnormal bleeding. MUSCULOSKELETAL: No musculoskeletal pain; no joint swelling. NEUROLOGICAL: No headache. No neck pain. No syncope. No seizures. No dizziness. PSYCHIATRIC: Not anxious. No depression. No suicidal thoughts. No homicidal thoughts. SKIN: No rash. No lesions. No wounds. ENDOCRINE: No unexplained weight loss. No weight gain. HEMATOLOGIC/LYMPHATIC: No anemia. No purpura. No petechiae. No prolonged or excessive bleeding. No palpable lymph nodes. PHYSICAL EXAMINATION: GENERAL: The patient is VITAL SIGNS: Temperature 98.7, pulse 87, respiratory rate 20, blood pressure 83/54, pulse ox 96% on room air. She looks pale. HEENT: Head normocephalic, atraumatic. Eyes: Extraocular muscles are intact. Pupils are equal, round and reactive to light and accommodation. Ears: No lesions. Nose appeared normal. Throat: No exudate or erythema. NECK: Supple. No JVD, no carotid bruit. No lymphadenopathy or thyromegaly. LUNGS: Decreased breath sounds. Clear to auscultation. Percussion note normal. Chest symmetrical. HEART: S1, S2, no S3. No murmurs. No cyanosis or clubbing. No ascites. Pulses: Dorsalis pedis and posterior tibial pulses +1 to +2 bilaterally. ABDOMEN: Questionable tenderness in the lower quadrants. Soft. Nontender. Bowel sounds active. No CVA tenderness. No mass felt. EXTREMITIES: 1+ pitting edema. Full range of motion of all extremities, equal. NEUROLOGIC: The patient is disoriented but alert. No focal deficit. Cranial nerves II through XII are grossly intact. No headache, no double vision or headache. SKIN: Dry. Intact. Turgor - normal. LYMPHATIC: No palpable lymph nodes/no lymphedema. MUSCULOSKELETAL: Normal joints with no swelling. Muscle tone is normal. ASSESSMENT: 1. GI Bleeding with melanic stool and hgb of 6.9 and hct of 20. 2. Renal azotemia 3. Dementia 4. CHF 5. Hypotension PLAN: 1. Give IV fluids and 2. IV Protonix 3. Carafate 4. Admission to [facility] with comfort measures with Morphine Sulfate 2mg IV Q 12 but the patient is complaining of lower abdominal pain and back pain. Personally talked to Ella Goodrich who is Power of Drill Press Set Up Operator for health. We called her and she said that she is on her way to see the patient and patient is not to be resuscitated with comfort measures only. Refused blood transfusions. CONDITION: Critical PROGNOSIS: Poor TIME SPENT: More than 30 minutes. Plan and coordination of the patient's care discussed in the presence of nurse. RITIKA
[2019-07-03] MEDS: MORPHINE 2 MG/ML SYRINGE IVP PRN ×2 (00:02→02:38)
[2019-07-03] MEDS: MORPHINE 4 MG/ML SYRINGE IVP PRN ×6 (04:39→20:42)
[2019-07-03] MEDS: SYNTHROID PO SCH (06:04)
[2019-07-03] MEDS: NEXIUM IV IVP SCH ×2 (08:44→21:01)
[2019-07-03] MEDS: COREG PO SCH (08:45)
[2019-07-03] MEDS: MICRO-K CAP PO SCH (08:45)
[2019-07-03] MEDS: SODIUM CHLORIDE 1,000 ML IV SCH ×2 (08:48→20:45)
[2019-07-03] MEDS: XANAX PO PRN (10:18)
[2019-07-03] MEDS ORDERED: HALDOL ONE (11:19)
[2019-07-03] MEDS: HALDOL IM PRN ×2 (11:23→22:28)
[2019-07-04] MEDS: MORPHINE 4 MG/ML SYRINGE IVP PRN ×5 (02:56→21:13)
[2019-07-04] MEDS: HALDOL IM PRN ×2 (07:32→17:16)
[2019-07-04] MEDS: SODIUM CHLORIDE 1,000 ML IV SCH ×3 (07:36→18:48)
[2019-07-04] MEDS: NEXIUM IV IVP SCH ×2 (08:51→21:13)
[2019-07-04] MEDS: MICRO-K CAP PO SCH (08:56)
[2019-07-04] MEDS: SYNTHROID PO SCH (08:57)
[2019-07-04] MEDS: COREG PO SCH (08:57)
[2019-07-04] MEDS ORDERED: ZOFRAN 4 MG/2 ML IVP PRN (17:21)
[2019-07-05] MEDS: SYNTHROID PO SCH (06:05)
[2019-07-05] MEDS: SODIUM CHLORIDE 1,000 ML IV SCH (08:26)
[2019-07-05] MEDS: COREG PO SCH (08:27)
[2019-07-05] MEDS: MICRO-K CAP PO SCH (08:27)
[2019-07-05] MEDS: NEXIUM IV IVP SCH (08:27)
[2019-07-05] MEDS: XANAX PO PRN ×3 (08:31→21:19)
--- NOTE | 2019-07-05 09:20 | PCM.PROG ---
Attending Provider: ATTENDING PROVIDER: Dr. JASMIN ONEAL DATE OF SERVICE: 07/05/19 SUBJECTIVE: This 89 year old /WHITE F was hospitalized 07/01/19 with renal azotemia and severe anemia with GI bleed. The patient's family has decided on comfort measures with no antibiotics, blood test or transfusions. The patient's comfort measures are 4mg IV Morphine ever 2 hours and Haldol 2mg every 8 hourly for restlessness. REVIEW OF SYSTEMS: CONSTITUTIONAL: No night sweats. No fatigue, malaise, lethargy. No fever or chills. HEENT: Eyes: No visual changes. No eye pain. No eye discharge. ENT: No runny nose. No epistaxis. No sinus pain. No odynophagia. No congestion. RESPIRATORY: No cough, no congestion. No hemoptysis. No shortness of breath. CARDIOVASCULAR: No angina symptoms. No CHF symptoms. No atypical chest pain for CAD. No palpitations. No orthopnea.. GASTROINTESTINAL: No abdominal pain. No nausea or vomiting. No diarrhea or constipation. No hematemesis. No hematochezia. GENITOURINARY: No urgency. No frequency. No dysuria. No hematuria. No obstructive symptoms. No discharge. No pain. No significant abnormal bleeding. MUSCULOSKELETAL: No musculoskeletal pain; no joint swelling. NEUROLOGICAL: Awake, alert, oriented to time, place and person. No headache. No neck pain. No syncope. No seizures. No dizziness. PSYCHIATRIC: Not anxious. No depression. No suicidal thoughts. No homicidal thoughts. SKIN: No rash. No lesions. No wounds. ENDOCRINE: No unexplained weight loss. No weight gain. HEMATOLOGIC/LYMPHATIC: No anemia. No purpura. No petechiae. No prolonged or excessive bleeding. No palpable lymph nodes. PHYSICAL EXAMINATION: GENERAL: The patient is awake, alert and oriented, lying in bed in no distress. VITAL SIGNS: Temperature 99.9 F, Pulse 68, Respiratory Rate 16, BP 118/55, Pulse Ox 98% HEENT: Head normocephalic, atraumatic. Eyes: Extraocular muscles are intact. Pupils are equal, round and reactive to light and accommodation. Ears: No lesions. Nose appeared normal. Throat: No exudate or erythema. NECK: Supple. No JVD, no carotid bruit. No lymphadenopathy or thyromegaly. LUNGS:Decreased breath sounds, breath sounds are shallow. Clear to auscultation. Percussion note normal. Chest symmetrical. HEART: S1, S2, no S3. No murmurs. No cyanosis or clubbing. No ascites. Pulses: Dorsalis pedis and posterior tibial pulses +1 to +2 both sides. ABDOMEN: Soft. Non-tender. Bowel sounds active. No CVA tenderness. No mass felt. EXTREMITIES: Generalized edema +1. Full range of motion of all extremities, equal. NEUROLOGIC: No focal deficit. Cranial nerves II through XII are grossly intact. No headache, no double vision or headache. SKIN: Warm and dry. Intact. Turgor-normal. LYMPHATIC: No palpable lymph nodes/no lymphedema. MUSCULOSKELETAL: Normal joints with no swelling. Muscle tone is normal. LAB REVIEW: 07/01/19 10:25 07/01/19 10:25 ASSESSMENT: Please see below. 1. Renal failure 2. Severe anemia 3. UTI 4. Dementia 5. History of CHF 6. Atrial fibrillation. PLAN: 1. Comfort measures with Morphine and Haldol or whatever is needed to be comfort able 2. The patient is DNR. Plan and coordination of the patient's care discussed in the presence of Copy Worker and nurse. SCRIBED BY: RANDOLPH SEXTON Cured Meats Supervisor scribed while in presence of service performed by Dr. JASMIN ONEAL on 07/05/19 ([id number])
[2019-07-05] MEDS: PROTONIX PO SCH (17:30)
[2019-07-05] MEDS: MORPHINE 4 MG/ML SYRINGE IM PRN ×3 (19:14→23:22)
[2019-07-05] MEDS: HALDOL IM PRN (23:17)
[2019-07-06] MEDS ORDERED: DULCOLAX RC PRN (00:55)
[2019-07-06] MEDS: MORPHINE 4 MG/ML SYRINGE IM PRN ×5 (01:34→12:30)
[2019-07-06] MEDS: XANAX PO PRN ×3 (02:23→12:21)
[2019-07-06 04:49] VITALS: BP 120/72; TEMP 98
[2019-07-06] MEDS: SYNTHROID PO SCH (06:45)
[2019-07-06] MEDS: PROTONIX PO SCH (06:46)
[2019-07-06] MEDS: HALDOL IM PRN (07:31)
--- NOTE | 2019-07-06 08:43 | PN ---
DATE OF SERVICE: 07/03/2019 SUBJECTIVE: 89 year old white female hospitalized with renal azotemia and severe anemia with GI bleed. The patient is a comfort measures only. She is a DNR. Power assistant prosecuting attorney for health had decided not to give any blood transfusion or any form of any treatment including antibiotics. The patient was moaning early this morning and the nursing staff called me. Morphine has been increased to 4mg ever 2 hourly. It seems to have helped. The patient is restless so I am going to add Haldol 2mg IM every 6 hourly. REVIEW OF SYSTEMS: CONSTITUTIONAL: No night sweats. No fatigue, malaise, lethargy. No fever or chills. HEENT: Eyes: No visual changes. No eye pain. No eye discharge. ENT: No runny nose. No epistaxis. No sinus pain. No sore throat. No odynophagia. No congestion. RESPIRATORY: No cough, no congestion. No hemoptysis. No shortness of breath. CARDIOVASCULAR: No angina symptoms. No CHF symptoms. No atypical chest pain for CAD. No palpitations. No PND. No orthopnea. GASTROINTESTINAL: No abdominal pain. No nausea or vomiting. No diarrhea or constipation. No hematemesis. No hematochezia. Appetite very poor. GENITOURINARY: No urgency. No frequency. No dysuria. No hematuria. No obstructive symptoms. No discharge. No pain. No significant abnormal bleeding. MUSCULOSKELETAL: No musculoskeletal pain; no joint swelling. The patient is restlessness. Moaning with possibility of back pain. NEUROLOGICAL: No headache. No neck pain. No syncope. No seizures. No dizziness. PSYCHIATRIC: Not anxious. No depression. No suicidal thoughts. No homicidal thoughts. SKIN: No rash. No lesions. No wounds. ENDOCRINE: No unexplained weight loss. No weight gain. HEMATOLOGIC/LYMPHATIC: No anemia. No purpura. No petechiae. No prolonged or excessive bleeding. No palpable lymph nodes. PHYSICAL EXAMINATION: VITAL SIGNS: Temperature 98.6, pulse 70, respiratory rate 16, blood pressure 110/60 and pulse ox 100% on room air. HEENT: Head normocephalic, atraumatic. Eyes: Extraocular muscles are intact. Pupils are equal, round and reactive to light and accommodation. Ears: No lesions. Nose appeared normal. Throat: No exudate or erythema. NECK: Supple. No JVD, no carotid bruit. No lymphadenopathy or thyromegaly. LUNGS:Decreased breath sounds. Clear to auscultation. Percussion note normal. Chest symmetrical. HEART: S1, S2, no S3. No murmurs. No cyanosis or clubbing. No ascites. Pulses: Dorsalis pedis and posterior tibial pulses +1 to +2 bilaterally. ABDOMEN: Soft. Nontender. Bowel sounds active. No CVA tenderness. No mass felt. EXTREMITIES: No edema. Full range of motion of all extremities, equal. NEUROLOGIC: No focal deficit. Cranial nerves II through XII are grossly intact. No headache, no double vision or headache. SKIN: Dry. Intact. Turgor - normal. Looks pale. LYMPHATIC: No palpable lymph nodes/no lymphedema. MUSCULOSKELETAL: Normal joints with no swelling. Muscle tone is normal. LABS: Hgb 6.7 with hct 20 on 07/01/19. PLAN: 1. Give Haldol 2mg IM 6 hourly for restlessness 2. Morphine sulfate 4mg ever 2 hourly for pain and moaning. The patient's condition seems to be stable but prognosis is poor. TIME SPENT: More than 30 minutes. Plan and coordination of the patient's care discussed in the presence of nurse. RITIKA
[2019-07-06] MEDS: MICRO-K CAP PO SCH (08:54)
[2019-07-06] MEDS: COREG PO SCH (08:55)
--- NOTE | 2019-07-06 11:21 | PN ---
DATE OF SERVICE: 07/04/2019 SUBJECTIVE: 89 year old white female hospitalized with renal azotemia and severe anemia with GI bleed. The patient is only comfort measures. She is DNR. No antibiotics to be given. The patient's Power of Fire Crew Worker for Health is in the room. She is happy with the way the patient is being treated. The patient is getting 4mg of Morphine every 2 hours and Haldol for restlessness 2mg every 6 hourly. REVIEW OF SYSTEMS: CONSTITUTIONAL: No night sweats. No fatigue, malaise, lethargy. No fever or chills. Sleepy. Drowsy. HEENT: Eyes: No visual changes. No eye pain. No eye discharge. ENT: No runny nose. No epistaxis. No sinus pain. No sore throat. No odynophagia. No congestion. RESPIRATORY: No cough, no congestion. No hemoptysis. No shortness of breath. CARDIOVASCULAR: No angina symptoms. No CHF symptoms. No atypical chest pain for CAD. No palpitations. No PND. No orthopnea. GASTROINTESTINAL: No abdominal pain. No nausea or vomiting. No diarrhea or constipation. No hematemesis. No hematochezia.Had some food to eat. GENITOURINARY: No urgency. No frequency. No dysuria. No hematuria. No obstructive symptoms. No discharge. No pain. No significant abnormal bleeding. MUSCULOSKELETAL: No musculoskeletal pain; no joint swelling. NEUROLOGICAL: No headache. No neck pain. No syncope. No seizures. No dizziness. PSYCHIATRIC: Not anxious. No depression. No suicidal thoughts. No homicidal thoughts. SKIN: No rash. No lesions. No wounds. ENDOCRINE: No unexplained weight loss. No weight gain. HEMATOLOGIC/LYMPHATIC: No anemia. No purpura. No petechiae. No prolonged or excessive bleeding. No palpable lymph nodes. PHYSICAL EXAMINATION: VITAL SIGNS: Temperature 98.2, pulse 80, respiratory rate 18, blood pressure 118/64 and pulse ox 96%. HEENT: Head normocephalic, atraumatic. Eyes: Extraocular muscles are intact. Pupils are equal, round and reactive to light and accommodation. Ears: No lesions. Nose appeared normal. Throat: No exudate or erythema. NECK: Supple. No JVD, no carotid bruit. No lymphadenopathy or thyromegaly. LUNGS:Decreased breath sounds, shallow breaths. Clear to auscultation. Percussion note normal. Chest symmetrical. HEART: S1, S2, no S3. Distant. No murmurs. No cyanosis or clubbing. No ascites. Pulses: Dorsalis pedis and posterior tibial pulses +1 to +2 bilaterally. ABDOMEN: Soft. Protuberant. Nontender. Bowel sounds active. No CVA tenderness. No mass felt. EXTREMITIES: +1 pitting edema. Full range of motion of all extremities, equal. NEUROLOGIC: No focal deficit. Cranial nerves II through XII are grossly intact. No headache, no double vision or headache. SKIN: Not dry. Intact. Turgor - normal. Looks pale. LYMPHATIC: No palpable lymph nodes/no lymphedema. MUSCULOSKELETAL: Normal joints with no swelling. Muscle tone is normal. ASSESSMENT: 1. Severe anemia 2. GI bleed 3. Renal azotemia 4. Dehydration PLAN: 1. Continue IV fluids, comfort measures, Morphine and Haldol. TIME SPENT: More than 30 minutes. Plan and coordination of the patient's care discussed in the presence of nurse. RITIKA
--- NOTE | 2019-07-06 11:38 | DS ---
DATE OF SERVICE: 07/06/2019 FINAL DIAGNOSIS: 1. Severe anemia likely GI bleed 2. Renal failure 3. Dementia 4. Atrial fibrillation 5. Dilated cardiomyopathy 6. History of hypertension 7. Pacemaker 8. Obstructive sleep apnea 9. Generalized severe osteoarthritis, bed ridden 10.Diabetes Mellitus 11.Dyslipidemia 12.Atrial fibrillation 13.Metabolic syndrome with obesity LAST VITALS Temp Pulse Resp BP Pulse Ox 98 F 68 14 120/72 96 07/06/19 04:48 07/06/19 04:48 07/06/19 04:48 07/06/19 04:48 07/06/19 04:48 DISCHARGE INSTRUCTIONS: DISCHARGE TO [place]. [facility]IDENTIAL HOSPICE HAS BEEN CONTACTED AT REQUEST OF THE FAMILY TO PROVIDE HOSPICE CARE AT [facility]. [facility]IDENT[facility] HOSP[facility] WILL PROVIDE FURTHER ORDERS FOR MEDICATIONS TO ALLEVIATE PAIN, ANXIETY AND RESTLESSNESS. VITAL SIGNS DAILY. INTAKE/OUTPUT. ARELLANO CATHETER PLACED AT REQUEST OF THE DAUGHTER TO AVOID SKIN BREAKDOWN AND ALLEVIATE PAIN FROM FREQUENT TURNING RELATED TO INCONTINENCE. CATHETER CARE DAILY AND PRN NO LABS. CODE STATUS: DO NOT RESUSCITATE. PATIENT TO BE SEEN ON [facility] IN ONE WEEK BY DR. ONEAL/PERFECTO ARAGON APRN. TAKE THESE MEDICATIONS AT HOME: Acetaminophen (Tylenol) 650 mg PO Q4H PRN PRN Reason: Pain Last Admin: 07/05/19 08:31 Dose: 650 mg Documented by: Alprazolam (Xanax) 0.25 mg PO QID PRN PRN Reason: Anxiety Last Admin: 07/06/19 07:31 Dose: 0.25 mg Documented by: Bisacodyl (Dulcolax) 10 mg RC DAILY PRN PRN Reason: constipation Carvedilol (Coreg) 12.5 mg PO DAILYWM [facility] Last Admin: 07/06/19 08:55 Dose: 12.5 mg Documented by: Levothyroxine Sodium (Synthroid) 150 mcg PO QDAC [facility] Last Admin: 07/06/19 06:45 Dose: 150 mcg Documented by: Losartan Potassium (Cozaar) 50 mg PO DAILY PRN PRN Reason: FOR SYSTOLIC GREATER THAN 160 Ondansetron HCl (Zofran 4 Mg/2 Ml) 4 mg IVP Q6H PRN PRN Reason: nausea/vomiting Last Admin: 07/04/19 17:24 Dose: 4 mg Documented by: Pantoprazole Sodium (Protonix) 40 mg PO BIDAC [facility] Last Admin: 07/06/19 06:46 Dose: 40 mg Documented by: Potassium Chloride (Micro-K Cap) 10 meq PO DAILYWM [facility] Last Admin: 07/06/19 08:54 Dose: 10 meq Documented by: ALLERGIES: Penicillins Adverse Reaction (Unknown, Verified 07/01/19 14:18) DISCONTINUED MEDICATIONS: ELIQUIS CYMBALTA SPIRONOLACTONE SENNA REQUIP METFORMIN LOSARTAN DAILY NORCO GABAPENTIN DIGOXIN DICYCLOMINE ASPIRIN NEW PRESCRIPTIONS: MEDICATIONS FOR COMFORT, ANXIETY TO BE ORDERED BY RESIDENTIAL HOSPICE SMOKING: NOT APPLICABLE DISEASE SPECIFIC EDUCATION: PATIENT WITH CONFUSION, NOT APPLICABLE LAB REVIEW: 07/01/19 10:25 07/01/19 10:25 DIET: TOLERATED ACTIVITY: TURN FREQUENTLY TOLERATED HOSPITAL COURSE: 89 year old white female was brought to the emergency room on 07/01/19 with severe anemia. The patient had melanotic stools. She definitely had GI bleed. She has been on blood thinners because of atrial fibrillations. She also has a pace maker. In any case in the emergency room the Power of Student Advisor for Health decided not to have blood transfusion or transfer to tertiary center. The patient's creatinine was 1.6 with BUN 112. The patient was put on IV fluids. The POA wanted comfort measures. The patient was hospitalized. No blood tests were drawn because POA declined to have any blood tests done. The patient's U/A was abnormal but e-coli but the POA didn't want any treatment. The patient had supportive measures. Eventually the POA has agreed to put the patient on Hospice. On the day of discharge the patient's temperature was 98, pulse 68, respiratory rate 14, blood pressure 120/72 and pulse ox 96% on 2 liters. The patient looked pale and on physical examination the patient's lungs has decreased breath sounds. Heart S1 and S2 they were muffled. The patient during the stay in the hospital was treated with IV and IM Morphine 4mg every 2 hourly for pack pains. The patient was restless throughout the stay during the later part where she was given Haldol 2mg every 4-6 hourly. The patient is going to be discharged. PROGNOSIS: Poor TIME SPENT: More than 60 minutes. MTDD
--- NOTE | 2019-07-06 11:38 | PN ---
07/01/2019: Level 5 07/02/2019: Intermediate 07/03/2019: Intermediate 07/04/2019: Intermediate 07/05/2019: Intermediate 07/06/2019: D as in discharge MTDD
--- NOTE | 2019-07-06 11:42 | PN ---
DATE OF SERVICE: 07/06/2019 DISCHARGE NOTE SUBJECTIVE: 89 year old white female was brought to the emergency room on 07/01/19 with severe anemia. The patient had melanotic stools. She definitely had GI bleed. She has been on blood thinners because of atrial fibrillations. She also has a pace maker. In any case in the emergency room the [facility] decided not to have blood transfusion or transfer to tertiary center. The patient's creatinine was 1.6 with BUN 112. The patient was put on IV fluids. The POA wanted comfort measures. The patient was hospitalized. No blood tests were drawn because POA declined to have any blood tests done. The patient's U/A was abnormal but e-coli but the POA didn't want any treatment. The patient had supportive measures. Eventually the POA has agreed to put the patient on Hospice. On the day of discharge the patient's temperature was 98, pulse 68, respiratory rate 14, blood pressure 120/72 and pulse ox 96% on 2 liters. The patient looked pale and on physical examination the patient's lungs has decreased breath sounds. Heart S1 and S2 they were muffled. The patient during the stay in the hospital was treated with IV and IM Morphine 4mg every 2 hourly for pack pains. The patient was restless throughout the stay during the later part where she was given Haldol 2mg every 4-6 hourly. The patient is going to be discharged. REVIEW OF SYSTEMS: CONSTITUTIONAL: No night sweats. No fatigue, malaise, lethargy. No fever or chills. HEENT: Eyes: No visual changes. No eye pain. No eye discharge. ENT: No runny nose. No epistaxis. No sinus pain. No sore throat. No odynophagia. No congestion. RESPIRATORY: No cough, no congestion. No hemoptysis. No shortness of breath. CARDIOVASCULAR: No angina symptoms. No CHF symptoms. No atypical chest pain for CAD. No palpitations. No PND. No orthopnea. GASTROINTESTINAL: No abdominal pain. No nausea or vomiting. No diarrhea or constipation. No hematemesis. No hematochezia. GENITOURINARY: No urgency. No frequency. No dysuria. No hematuria. No obstructive symptoms. No discharge. No pain. No significant abnormal bleeding. MUSCULOSKELETAL: No musculoskeletal pain; no joint swelling. NEUROLOGICAL: No headache. No neck pain. No syncope. No seizures. No dizziness. PSYCHIATRIC: Not anxious. No depression. No suicidal thoughts. No homicidal thoughts. SKIN: No rash. No lesions. No wounds. ENDOCRINE: No unexplained weight loss. No weight gain. HEMATOLOGIC/LYMPHATIC: No anemia. No purpura. No petechiae. No prolonged or excessive bleeding. No palpable lymph nodes. PHYSICAL EXAMINATION: VITAL SIGNS: Temperature was 98, pulse 68, respiratory rate 14, blood pressure 120/72 and pulse ox 96% on 2 liters HEENT: Head normocephalic, atraumatic. Eyes: Extraocular muscles are intact. Pupils are equal, round and reactive to light and accommodation. Ears: No lesions. Nose appeared normal. Throat: No exudate or erythema. NECK: Supple. No JVD, no carotid bruit. No lymphadenopathy or thyromegaly. LUNGS: Decreased breath sounds. Clear to auscultation. Percussion note normal. Chest symmetrical. HEART: S1, S2 muffled.No S3. No murmurs. No cyanosis or clubbing. No ascites. Pulses: Dorsalis pedis and posterior tibial pulses +1 to +2 bilaterally. ABDOMEN: Soft. Nontender. Bowel sounds active. No CVA tenderness. No mass felt. EXTREMITIES: No edema. Full range of motion of all extremities, equal. NEUROLOGIC: No focal deficit. Cranial nerves II through XII are grossly intact. No headache, no double vision or headache. SKIN: Not dry. Intact. Turgor - normal. LYMPHATIC: No palpable lymph nodes/no lymphedema. MUSCULOSKELETAL: Normal joints with no swelling. Muscle tone is normal. ASSESSMENT: 1. Severe anemia likely GI bleed 2. Renal failure 3. Dementia 4. Atrial fibrillation 5. Dilated cardiomyopathy 6. History of hypertension 7. Pacemaker 8. Obstructive sleep apnea 9. Generalized severe osteoarthritis, bed ridden 10.Diabetes Mellitus 11.Dyslipidemia 12.Atrial fibrillation 13.Metabolic syndrome with obesity PLAN: 1. Discharge to Hospice PROGNOSIS: POOR TIME SPENT: More than 30 minutes. Plan and coordination of the patient's care discussed in the presence of nurse. RITIKA
--- NOTE | 2019-07-06 12:32 | CM.DICTOOL ---
ADMISSION: 07/01/19 13:24 DISCHARGE: JULY 06, 2019 DATE OF SERVICE: 07/06/19 FINAL DIAGNOSIS SEVERE ANEMIA (FAMILY DECLINES TRANSFUSION) GI BLEED; LIKELY (POSITIVE OCCULT BLOOD) RENAL FAILURE DEMENTIA ABDOMINAL PAIN UTI, E-COLI ORGANISM COPD HYPERTENSION ATRIAL FIBRILLATION HYPERLIPIDEMIA CHF CAD DEPRESSION ANXIETY OSTEOARTHRITIS RESTLESS LEG SYNDROME DIABETES MELLITUS, TYPE 2 HIATAL HERNIA PACEMAKER RIGHT NEPHRECTOMY LAST VITALS Temp Pulse Resp BP Pulse Ox 98 F 68 14 120/72 96 07/06/19 04:48 07/06/19 04:48 07/06/19 04:48 07/06/19 04:48 07/06/19 04:48 TAKE THESE MEDICATIONS AT HOME Acetaminophen (Tylenol) 650 mg PO Q4H PRN PRN Reason: Pain Last Admin: 07/05/19 08:31 Dose: 650 mg Documented by: Alprazolam (Xanax) 0.25 mg PO QID PRN PRN Reason: Anxiety Last Admin: 07/06/19 07:31 Dose: 0.25 mg Documented by: Bisacodyl (Dulcolax) 10 mg RC DAILY PRN PRN Reason: constipation Carvedilol (Coreg) 12.5 mg PO DAILYWM [facility] Last Admin: 07/06/19 08:55 Dose: 12.5 mg Documented by: Levothyroxine Sodium (Synthroid) 150 mcg PO QDAC [facility] Last Admin: 07/06/19 06:45 Dose: 150 mcg Documented by: Losartan Potassium (Cozaar) 50 mg PO DAILY PRN PRN Reason: FOR SYSTOLIC GREATER THAN 160 Ondansetron HCl (Zofran 4 Mg/2 Ml) 4 mg IVP Q6H PRN PRN Reason: nausea/vomiting Last Admin: 07/04/19 17:24 Dose: 4 mg Documented by: Pantoprazole Sodium (Protonix) 40 mg PO BIDAC [facility] Last Admin: 07/06/19 06:46 Dose: 40 mg Documented by: Potassium Chloride (Micro-K Cap) 10 meq PO DAILYWM [facility] Last Admin: 07/06/19 08:54 Dose: 10 meq Documented by: ALLERGIES Penicillins Adverse Reaction (Unknown, Verified 07/01/19 14:18) DISCONTINUED MEDICATIONS ELIQUIS CYMBALTA SPIRONOLACTONE SENNA REQUIP METFORMIN LOSARTAN DAILY NORCO GABAPENTIN DIGOXIN DICYCLOMINE ASPIRIN NEW PRESCRIPTIONS: MEDICATIONS FOR COMFORT, ANXIETY TO BE ORDERED BY [facility] SMOKING: NOT APPLICABLE DISEASE SPECIFIC EDUCATION: PATIENT WITH CONFUSION, NOT APPLICABLE LAB REVIEW: 07/01/19 10:25 07/01/19 10:25 PLAN: DISCHARGE TO [place] DIET: TOLERATED ACTIVITY: TURN FREQUENTLY TOLERATED [facility] HAS BEEN CONTACTED AT REQUEST OF THE FAMILY TO PROVIDE HOSPICE CARE AT [facility] WILL PROVIDE FURTHER ORDERS FOR MEDICATIONS TO ALLEVIATE HEAVEN N, ANXIETY AND RESTLESSNESS VITAL SIGNS DAILY INTAKE/OUTPUT ARELLANO CATHETER PLACED AT REQUEST OF THE DAUGHTER TO AVOID SKIN BREAKDOWN AND ALLEVIATE PAIN FROM FREQUENT TURNING RELATED TO INCONTINENCE CATHETER CARE DAILY AND PRN NO LABS CODE STATUS: DO NOT RESUSCITATE PATIENT TO BE SEEN ON CARE HOME ROUNDS IN ONE WEEK BY DR. ONEAL/PERFECTO ARAGON APRN MS. NIXON IS ALERT TO PERSON. SHE IS CONFUSED AND FORGETFUL. SHE IS COOPERATIVE, BUT RESTLESS WITH NUMEROUS ATTEMPTS TO EXIT THE BED. SHE IS D EPENDENT FOR ACTIVITIES OF DAILY LIVING. SHE REQUIRES TOTAL CARE FOR BATHING, DRESSING. SHE IS ABLE TO FEED HERSELF AT TIMES, BUT ALSO HAS REQUIRED FEEDING BY THE NURSING STAFF. MEAL INTAKES HAVE VARIED FROM 10-100%. SHE IS INCONTINENT OF BOWEL AND URINE. A ARELLANO CATHETER WAS PLACED SHORTLY AFTER HER ADMISSION DUE TO URINARY INCONTINENCE AT THE REQUEST OF THE DAUGHTER. MS. NIXON REQUIRES A SSISTANCE OF 3 STAFF MEMBERS FOR TRANSFERS FROM THE BED TO THE CHAIR DUE TO WEAKNESS OF THE LOWER EXTREMITIES. MS. NIXON COMPLAINS OF PAIN FREQUENTLY TO THE BACK, LEGS AND AT TIMES ABDOMEN. SHE HAS REQUIRED MORPHINE SULFATE IV OR IM FREQUENTLY DUE TO HER COMPLAINTS OF PAIN. THE FAMILY HAS EXPRESSED A DESIRE THAT SHE BE MADE COMFORTABLE AND HAVE REFUSED LABS OR OTHER TESTING. SKIN IS INTACT. AREAS OF ECCHYMOSIS NOTED TO THE UPPER EXTREMITIES. MD ROC ESQUEDA APRN
== END 2019-07-06 13:50 | DRG 392 ==
LOC: ED 09:50 → SCU 13:24
PROVIDERS: ADMIT Internal Medicine; ATTEND Internal Medicine
DX: R32 Unspecified urinary incontinence; G47.33 Obstructive sleep apnea (adult) (pediatric); E11.9 Type 2 diabetes mellitus without complications; R53.83 Other fatigue; F03.90 Unspecified dementia, unspecified severity, without behavioral disturbance, psychotic disturbance, mood disturbance, and anxiety; D64.9 Anemia, unspecified; J44.9 Chronic obstructive pulmonary disease, unspecified; E86.0 Dehydration; Z96.0 Presence of urogenital implants; R10.30 Lower abdominal pain, unspecified; E66.9 Obesity, unspecified; R53.1 Weakness; R52 Pain, unspecified; B96.20 Unspecified Escherichia coli [E. coli] as the cause of diseases classified elsewhere; E88.81 Metabolic syndrome and other insulin resistance; I48.91 Unspecified atrial fibrillation; M15.0 Primary generalized (osteo)arthritis; E78.5 Hyperlipidemia, unspecified; I50.9 Heart failure, unspecified; Z79.899 Other long term (current) drug therapy; Z74.01 Bed confinement status; R30.9 Painful micturition, unspecified; I42.0 Dilated cardiomyopathy; Z87.440 Personal history of urinary (tract) infections; Z95.0 Presence of cardiac pacemaker; I95.9 Hypotension, unspecified; N39.0 Urinary tract infection, site not specified; K92.1 Melena; N19 Unspecified kidney failure; Z79.01 Long term (current) use of anticoagulants; R35.0 Frequency of micturition; G89.29 Other chronic pain; I25.10 Atherosclerotic heart disease of native coronary artery without angina pectoris